=== PATIENT | female | born 1985 | race Caucasian/White ===

== ENCOUNTER → 2019-01-04 08:46 | Outpatient (CLI) | payer BC, MEDICAID, SELFPAY ==
[2018-12-29 14:33] VITALS: BMI 45.7
[2019-01-04 09:50] LABS: AST(SGOT) 35 U/L (15-37); Alanine Aminotransfer ALT/SGPT 48 U/L (13-56); Albumin, Serum 3.5 g/dL (3.2-5.0); Alkaline Phosphatase 74 U/L (45-117); Bilirubin, Direct 0.14 mg/dL (0.00-0.30); Cholesterol 148 mg/dL (200); Globulin 4.6 g/dL (2.2-4.2); High Density Lipoprotein 39 mg/dL; Protein, Total 8.1 g/dL (6.4-8.2); Triglycerides 107 mg/dL; Very Low Density Lipoprotein 21 mg/dL (5-40)
== END ==
PROVIDERS: Family Provider Internal Medicine; PCP Internal Medicine; Referring Provider Internal Medicine Cardiovascular Disease; Visit Provider Internal Medicine Cardiovascular Disease
DX: Z13.220 Encounter for screening for lipoid disorders (principal)
CPT/HCPCS: 36415; 80061; 80076

== ENCOUNTER → 2019-01-17 14:50 | Outpatient (CLI) | payer BC, MEDICAID, SELFPAY ==
[2018-12-29 14:33] VITALS: BMI 45.7
--- NOTE | 2019-01-17 14:53 | ECHOCS_ITS ---
Reason For Study: PHTN Procedure This was a 2D Doppler, Color Flow transthoracic echocardiogram. Contrast injection was performed. Exam performed in department. Left Ventricle Normal size and thickness. The estimated ejection fraction is 65 %. Normal diastology for age. No regional wall motion abnormalities noted. Right Ventricle Normal size and thickness. Normal systolic function. Atria Normal left atrium. Normal right atrium. Normal atrial septum. Bubble contrast study negative for right to left interatrial shunt. Mitral Valve The mitral valve is structurally normal. No prolapse or stenosis seen. Trivial mitral valve insufficiency. Tricuspid Valve Normal tricuspid valve. Trivial tricuspid valve insufficiency. Right ventricular systolic pressure estimated to be 26 mmHg. Aortic Valve Normal aortic valve. Trisinus/trileaflet aortic valve. Pulmonic Valve Normal pulmonic valve. Great Vessels Normal aortic root. Normal arch. Normal inferior vena cava. Inferior vena cava collapse with sniff. Pericardium/Pleural No pericardial effusion. Medication Diluted definity 4ml given slow IV push to enhance endocardial definition. Performed a rapid injection of agitated mix of 9 cc saline and 1cc air to assess for atrial septal defect. MMode/2D Measurements & Calculations LVIDd: 4.4 cm IVSd: 1.1 cm Ao root diam: 2.8 cm LVIDs: 3.1 cm LVPWd: 1.0 cm RVDd: 3.3 cm FS: 29.6 % LAV(MOD-bp): 39.3 ml LVAd ap4: 30.2 cm2 SV(MOD-sp4): 62.3 ml LAV(MOD-bp) Indexed: 18.7 ml/m2 EDV(MOD-sp4): 94.6 ml LAV(MOD-sp2): 43.8 ml EDV(sp4-el): 100.9 ml LAV(MOD-sp4): 34.8 ml LVAs ap4: 16.1 cm2 ESV(MOD-sp4): 32.3 ml ESV(sp4-el): 33.2 ml EF(MOD-sp4): 65.9 % EF(sp4-el): 67.1 % SV(sp4-el): 67.7 ml LA A4 area: 15.2 cm2 LA dimension(2D): 3.9 cm RA A4 area: 11.3 cm2 Doppler Measurements & Calculations MV E max enrike: 71.7 cm/sec Lat Peak E' Enrike: 15.9 cm/sec Med Peak E' Enrike: 9.9 cm/sec MV A max enrike: 52.8 cm/sec E/E' lat: 4.5 E/E' med: 7.2 MV E/A: 1.4 Ao V2 max: 145.6 cm/sec LV V1 max: 95.5 cm/sec PA V2 max: 73.3 cm/sec Ao max P.5 mmHg LV V1 max P.6 mmHg Ao V2 mean: 99.2 cm/sec Ao mean P.3 mmHg Ao V2 VTI: 28.2 cm TR max enrike: 229.4 cm/sec TR max P.0 mmHg Interpretation Summary The estimated ejection fraction is 65 %. Normal diastology for age. Bubble contrast study negative for right to left interatrial shunt. Trivial mitral valve insufficiency. Trivial tricuspid valve insufficiency. Right ventricular systolic pressure estimated to be 26 mmHg. Compared to echo report dated 04/22/2017, no appreciable changes noted. The study was technically difficult. Contrast injection was performed. Ordering Physician: Linus Stark Referring Physician: Maribel Kwan Performed By: Prudence Gee, FIDEL, RVT
== END ==
PROVIDERS: Family Provider Internal Medicine; PCP Internal Medicine; Referring Provider Internal Medicine Cardiovascular Disease; Visit Provider Internal Medicine Cardiovascular Disease
DX: R00.2 Palpitations (principal); I47.1 Supraventricular tachycardia; E66.9 Obesity, unspecified
CPT/HCPCS: 93306; Q9957; A4216; C8929

== ENCOUNTER → 2019-01-29 10:30 | Outpatient (CLI) | payer BC, MEDICAID, SELFPAY ==
[2018-12-29 14:33] VITALS: BMI 45.7
--- NOTE | 2019-01-29 10:31 | STEWCON_ITS ---
Reason For Study: Chest Pain Stress Results Protocol: Melvin Protocol Maximum Predicted HR: 189 bpm Target HR: 161 bpm % Maximum Predicted HR: 97 % DurationHeart Rate Stage (mm:ss) (bpm) BP Comment Baseline 100 134/70No Chest Pain; 4 ML Diluted Definity Given Melvin Protocol Stage I 3:00 123 142/72No Chest Pain Melvin Protocol Stage II 3:00 142 156/76No Chest Pain Melvin Protocol Stage III 3:00 184 164/66No Chest Pain; Mild Dyspnea Recovery 101 130/72No Chest Pain Stress Duration: 9:00 mm:ss Maximum Stress HR: 184 bpm METS: 10 Baseline Echocardiogram Findings The estimated ejection fraction is 65 %. Stress Echo Wall motion Data Resting WM Intermediate WM Stress WM Resting Wall Motion Wall Motion Stress No regional wall motion No regional wall motion abnormalities noted. abnormalities noted. EKG Data The baseline ECG displays normal sinus rhythm. The patient exercised according to the regular Melvin protocol for a total duration of 9:00. The maximum heart rate attained was 187 beats per minute. This was 98% of maximum predicted heart rate. The patient exercised into stage 4 of the Melvin protocol. During stress, there were no ST or T wave changes noted to suggest ischemia. No clinical angina was noted. No arrhythmias noted. Interpretation Summary The estimated ejection fraction is 65 %. Normal, adequate, treadmill echocardiogram. Negative for ischemia by EKG and echocardiographic criteria. No anginal symptoms noted. No arrhythmias noted. Appropriate blood pressure response to exercise. Below average exercise capacity for age. Final LVEF is 75%. Test terminated due to the attainment of target heart rate and mild dyspnea. Decreased sensitivity due to poor echo windows requiring Definity agent. No complications. The study was technically difficult. Contrast injection was performed. Ordering Physician: Linus Stark Referring Physician: Maribel Kwan Performed By: Elton Irene RCS
== END ==
PROVIDERS: Family Provider Internal Medicine; PCP Internal Medicine; Referring Provider Internal Medicine Cardiovascular Disease; Visit Provider Internal Medicine Cardiovascular Disease
DX: I47.1 Supraventricular tachycardia (principal); E66.9 Obesity, unspecified; R07.89 Other chest pain
CPT/HCPCS: 93017; 93350; Q9957; A4216; C8928

== ENCOUNTER 2019-02-01 18:07 | Emergency (ER) | payer BC, MEDICAID, SELFPAY ==
[2018-12-29 14:33] VITALS: BMI 45.7
[2019-02-01 18:08] VITALS: BP 167/101; PULSE 84; RESP 22; TEMP 36.7; O2SAT 98; BMI 45.7
--- NOTE | 2019-02-01 18:22 | EKG12_ITS ---
Test Reason : CP Blood Pressure : / mmHG Vent. Rate : 085 BPM Atrial Rate : 085 BPM P-R Int : 152 ms QRS Dur : 090 ms QT Int : 376 ms P-R-T Axes : 055 055 035 degrees QTc Int : 447 ms Normal sinus rhythm Normal ECG Confirmed by BELÉN STARK ([id number]), editor map FRANCES ROGERS ([id number]) on 02/05/2019 12:23:49 PM Referred By: Belén Stark Confirmed By:BELÉN STARK
[2019-02-01 18:38] VITALS: O2SAT 98
[2019-02-01 18:48] LABS: Absolute Lymphocyte Count 2.38 X10^3/uL (0.83-4.51); Absolute Neutrophil Count 4.3 X10^3/uL (2.0-7.7); Basophil# 0.02 X10^3/uL; Basophil% 0.3 % (0-1); Eosinophil# 0.08 X10^3/uL; Eosinophils% 1.1 % (0-5); Hematocrit 44.7 % (37-47); Hemoglobin 14.1 g/dL (12.0-15.0); Lymphocyte # 2.38 X10^3/ul (4.0); Lymphocyte % 32.2 % (19-41); Mean Corp Hgb Conc 31.5 g/dL (32-36); Mean Corpuscular Hgb 29.2 pg (27.0-32.0); Mean Corpuscular Volume 92.5 fL (81-99); Monocyte# 0.63 X10^3/uL; Monocyte% 8.5 % (0-10); NRBC Flagged by Analyzer 0 % (0-5); Neutrophil # 4.27 X10^3/uL (2.7-7.7); Neutrophil % 57.6 % (47-70); Platelet Count 239 K/mm3 (150-450); RBC Distribution Width CV 12.6 % (11.6-14.6); RBC Distribution Width SD 43.4 fl (35.1-43.9); Red Blood Count 4.83 M/mm3 (4.2-5.4); White Blood Count 7.4 K/mm3 (4.4-11.0)
--- NOTE | 2019-02-01 19:00 | RAD_ITS ---
STUDY: X-RAY CHEST REASON FOR EXAM: Female, 33 years old. Chest pain. TECHNIQUE: PA and lateral views of the chest. COMPARISON: None. FINDINGS: The lungs are clear and expanded. There is no demonstrated pleural abnormality. Normal size heart. Normal mediastinum and fern. Normal visualized pulmonary arteries. Normal visualized aortic arch and descending thoracic aorta. There is scoliosis of the thoracic spine with mild degenerative change. Normal visualized ribs, clavicles, and shoulders. There is no demonstrated abnormality of the visualized soft tissue structures of the upper abdomen. RAD/Chest PA and Lateral IMPRESSION: No acute cardiopulmonary disease. Electronically Signed: Nishant Justice DO at 19:18 EDT Tel [phone], Service support ,
[2019-02-01] MEDS: Aspirin 81 MG TAB.CHEW 324 MG PO (19:10)
[2019-02-01 19:11] LABS: Anion Gap 4 (5-15); BUN 12 mg/dL (7-18); BUN/Creat Ratio 16.2 RATIO (10-20); Calcium,Total 8.5 mg/dL (8.5-10.1); Chloride 106 mmol/L (98-107); Creatinine, Serum 0.74 mg/dL (0.55-1.02); EST Glomerular Filtration Rate 97 mL/min (>60); Est Glom Filt Rate - Afr Amer 117 mL/min (>60); Estimated Creatinine Clearance 87.12 ml/min; Glucose 103 mg/dL (74-106); Potassium 3.6 mmol/L (3.5-5.1); Sodium Level 139 mmol/L (136-145)
--- NOTE | 2019-02-01 19:41 | ED.VIS.GEN ---
History of Present Illness Chief Complaint: Chest Pain Narrative: Patient presenting for evaluation secondary to chest pain. Patient reports that she at about 1230 started having bouts of chest pain. She states that it is a sharp type pain located in her left chest that will come and go and last about 5 minutes of time. No real exacerbating or relieving factors with this. It does make her feel somewhat short of breath when it comes on. She is never really had any prior similar episodes in the past. Patient has a history of having paroxysmal SVT, and recently had a negative stress echo. She denies any history of diabetes hypertension hyperlipidemia smoking or premature family history of heart disease. She denies any DVT or PE risk factors. Review of systems otherwise negative. Past Medical History - Allergies and Home Meds Allergies/Adverse Reactions: Allergies No Known Allergies Allergy (Verified 12/29/18 14:42) Primary Care Physician: Maribel Kwan [Primary Care Provider] - Past Medical History: - - SVT Smoking Status: Never smoker Review of Systems All systems negative except as indicated Cardiovascular: Reports: Chest pain Physical Exam Vital Signs/Narrative: Vital Signs Temp Pulse Resp BP Pulse Ox 02/01/19 18:38 98 02/01/19 18:08 98.1 F 84 22 H 167/101 H 98 Inital Vital Signs reviewed: Yes General: Well nourished, Well developed, No Acute Distress Head: Normocephalic, Atraumatic Eyes: Perrl, EOMI ENT: Moist mucous membranes, No rhinorrhea Neck: Supple, Nontender Cardiovascular: Regular rate, Regular rhythm, No murmurs Respiratory: No distress, CTA bilaterally, Chest nontender Abdomen: Soft, Nondistended, Normal bowel sounds, Tender - Minimal epigastric which the patient attributes to her recent stress echo Back: Nontender, Normal Inspection Extremities: Nontender, No edema Skin: Normal color, No rash Neurological: Alert, Oriented x3, Cranial nerves II-XII grossly intact, Normal Strength, Normal Sensation Psychological: Normal affect, Normal Mood Diagnostic/Tx/Re-eval Chest X-Ray - ED: 2 View, Read by ED Physician, Read by Radiologist, Normal - EKG Follow-up EKG Interpretation: - - Normal sinus rhythm with a rate of [address] segments normal T waves normal IL and QTc intervals no evidence of WPW or Brugada morphology. - Medical Decision Making Patient presented secondary to chest pain. Work-up including CBC chemistry troponin chest x-ray and EKG was found to be unremarkable. Patient's heart score is 1. She is PERC negative, I do not believe that there is any indication for work-up of PE. Patient's pain is sharp and very atypical, and potentially is associated with referred to GI type pain. She was given reassurance, and was discharged in stable condition. ED Disposition - Plan for ED Patient: Disposition: Home or Assisted Living Diagnosis: Chest pain Instructions: CHEST PAIN, Uncertain Cause Referrals: Maribel Kwan [Primary Care Provider] - 1 Week
[2019-02-01 20:01] VITALS: BP 109/57; PULSE 78; RESP 14; O2SAT 98
== END 2019-02-01 20:03 | disposition home or self-care (01) ==
PROVIDERS: Emergency Provider Emergency Medicine; Family Provider Internal Medicine; PCP Internal Medicine
DX: R07.89 Other chest pain (principal); R06.00 Dyspnea, unspecified; I47.1 Supraventricular tachycardia; Z79.899 Other long term (current) drug therapy
CPT/HCPCS: 71046; 80048; 84484; 85025; 93005; 99284; A4216

== ENCOUNTER → 2019-02-08 20:00 | Outpatient (CLI) | payer BC, MEDICAID, SELFPAY ==
[2018-12-29 14:33] VITALS: BMI 45.7
== END ==
PROVIDERS: Family Provider Internal Medicine; PCP Internal Medicine; Referring Provider Internal Medicine Cardiovascular Disease; Visit Provider Internal Medicine Cardiovascular Disease
DX: G47.10 Hypersomnia, unspecified (principal)
CPT/HCPCS: 95810

== ENCOUNTER → 2019-03-19 13:44 | Outpatient (CLI) | payer BC, MEDICAID, SELFPAY ==
[2019-02-26 08:34] VITALS: BMI 44.8
== END ==
PROVIDERS: Family Provider Internal Medicine; PCP Internal Medicine; Visit Provider Nurse Practitioner Acute Care
DX: G47.33 Obstructive sleep apnea (adult) (pediatric) (principal)

== ENCOUNTER → 2020-01-15 14:00 | Outpatient (CLI) | payer BC, MEDICAID, SELFPAY ==
[2020-01-15 13:27] VITALS: BMI 52.4
[2020-01-15 14:52] LABS: Thyroid Stim Hormone (TSH) 1.43 uIU/mL (0.358-3.74)
== END ==
PROVIDERS: PCP Internal Medicine; Referring Provider Specialist; Visit Provider Specialist
DX: G47.33 Obstructive sleep apnea (adult) (pediatric) (principal); R00.2 Palpitations
CPT/HCPCS: 36415; 84443

== ENCOUNTER → 2020-01-16 08:34 | Outpatient (CLI) | payer BC, MEDICAID, SELFPAY ==
[2020-01-15 13:27] VITALS: BMI 52.4
[2020-01-16 10:07] LABS: AST(SGOT) 24 U/L (15-37); Alanine Aminotransfer ALT/SGPT 42 U/L (13-56); Albumin, Serum 3.2 g/dL (3.2-5.0); Alkaline Phosphatase 59 U/L (45-117); Cholesterol 155 mg/dL (200); Globulin 4.4 g/dL (2.2-4.2); High Density Lipoprotein 37 mg/dL; Protein, Total 7.6 g/dL (6.4-8.2); Triglycerides 158 mg/dL; Very Low Density Lipoprotein 32 mg/dL (5-40)
== END ==
PROVIDERS: Internal Medicine Cardiovascular Disease; PCP Internal Medicine; Referring Provider Specialist; Visit Provider Specialist
DX: O16.3 Unspecified maternal hypertension, third trimester (principal); O99.283 Endocrine, nutritional and metabolic diseases complicating pregnancy, third trimester; E78.00 Pure hypercholesterolemia, unspecified; O99.89 Other specified diseases and conditions complicating pregnancy, childbirth and the puerperium; R00.2 Palpitations; Z3A.00 Weeks of gestation of pregnancy not specified
CPT/HCPCS: 36415; 80061; 80076

== ENCOUNTER 2024-02-03 09:23 | Day surgery (SDC) | payer OTHER, MEDICAID, SELFPAY ==
[2024-01-25 16:48] LABS: Hematocrit 37.1 % (37-47); Hemoglobin 11.2 g/dL (12.0-15.0); Mean Corp Hgb Conc 30.2 g/dL (32-36); Mean Corpuscular Hgb 25.3 pg (27.0-32.0); Mean Corpuscular Volume 83.7 fL (81-99); Platelet Count 276 K/mm3 (150-450); RBC Distribution Width SD 42.8 fl (35.1-43.9); Red Blood Count 4.43 M/mm3 (4.2-5.4); White Blood Count 6.3 K/mm3 (4.4-11.0)
[2024-01-25 17:23] LABS: Anion Gap 3 (5-15); BUN 12 mg/dL (7-18); BUN/Creat Ratio 17.8 RATIO (10-20); Calcium,Total 8.9 mg/dL (8.5-10.1); Chloride 107 mmol/L (98-107); Creatinine, Serum 0.67 mg/dL (0.55-1.02); EST Glomerular Filtration Rate 105 mL/min (>60); Est Glom Filt Rate - Afr Amer 127 mL/min (>60); Glucose 89 mg/dL (74-106); Potassium 3.9 mmol/L (3.5-5.1); Sodium Level 138 mmol/L (136-145)
--- NOTE | 2024-01-31 07:13 | EKG12_ITS ---
Test Reason : PREOP Blood Pressure : / mmHG Vent. Rate : 080 BPM Atrial Rate : 080 BPM P-R Int : 168 ms QRS Dur : 080 ms QT Int : 392 ms P-R-T Axes : 055 040 023 degrees QTc Int : 452 ms Normal sinus rhythm with sinus arrhythmia Normal ECG Confirmed by MAXWELL FRANCO, HUE ([id number]), editor managing newspaper TRICIA TRAN ([id number]) on 02/01/2024 10:59:30 AM Referred By: Meri Liz Confirmed By:HUE ARREOLA MD
--- NOTE | 2024-02-02 13:09 | PCM.HP.BLA ---
History and Physical Date of Admission: 02/03/24 Pre-Op History and Physical HPI: The patient is a 38 year old female presenting for discussion regarding AUB and endometrial polylp. She is scheduled for Hysteroscopy D&C , polypectomy and insertion of Liletta IUD, for AUB, endometrial polyp on 02/03/24. Procedure discussed along with risks, benefits and complications. Other alternatives discussed for management. Consent form signed? Yes. PAST MEDICAL HISTORY PAST MEDICAL HISTORY Diagnosis Date ? anxiety ? Ectopic 2014 ? Sleep apnea ? SVT (supraventricular tachycardia) (HCC) PAST SURGICAL HISTORY PAST SURGICAL HISTORY Procedure Laterality Date ? TONSILLECTOMY HX 1993 CURRENT MEDICATIONS Current Outpatient Medications Medication Sig Dispense Refill ? buPROPion XL (WELLBUTRIN XL) 150 mg 24 hr tablet Take 1 tablet (150 mg) by mouth once daily in the morning. Do not crush, chew, or split. ? drospirenone, contraceptive, (SLYND) 4 mg (28) tabet Take 1 tablet by mouth once daily. 84 tablet 4 ? VENTOLIN HFA 90 mcg/actuation inhaler ? atenolol (TENORMIN) 25 mg tablet ? escitalopram oxalate (LEXAPRO) 10 mg tablet 20 mg. ? omeprazole (PRILOSEC) 40 mg capsule ? busPIRone (BUSPAR) 5 mg tablet Take 7.5 mg by mouth three times a day. (Patient not taking: Reported on 12/26/2023) ? fluticasone (FLONASE) 50 mcg/actuation nasal spray Use in the nose q 24 HR. No current facility-administered medications for this visit. ALLERGIES: Patient has no known allergies. PERSONAL HISTORY: SOCIAL HISTORY Social History Tobacco Use ? Smoking status: Never ? Smokeless tobacco: Never Vaping Use ? Vaping status: Never Used Substance Use Topics ? Alcohol use: Yes Comment: socially, but not while ? Drug use: No FAMILY HISTORY: FAMILY HISTORY FAMILY HISTORY Problem Relation Age of Onset ? Diabetes Mother ? Hypertension Mother ? Diabetes Maternal Grandmother ? Heart Maternal Grandfather ? Stroke Maternal Grandfather ? No Ocular Disease Other REVIEW OF SYMPTOMS: negative except as noted above PHYSICAL EXAMINATION: VITALS: Blood pressure 128/84, pulse 92, height 160 cm (5' 3), weight 133.8 kg (295 lb), last menstrual period 12/05/2023, SpO2 97%. GENERAL: The patient is well nourished, well hydrated in no acute distress. , The patient is oriented to time, place, and person. NECK: full range of motion LUNGS: Clear to auscultation bilaterally. no wheezes, rhonchi or rales HEART: Regular rate and rhythm, Normal heart sounds IMPRESSION: 38yo with AUB, endometrial polyp PLAN: hysteroscopy, D&C, polypectomy with symphion, and insertion of liletta iud Pt has been counseled on risks/benefits and alternatives of surgery including but not limited to anesthesia, bleeding, infection, uterine perforation with subsequent injury to pelvic structures including bowel, bladder, ureters and vessels. Pt wishes to proceed with surgery at this time. Pre and post op instructions reviewed I have reviewed and updated past medical and surgical history, medications and allergies Meri Mcguire MD
[2024-02-03] VITALS (12 sets, daily range): BP systolic 85–142; BP diastolic 43–89; PULSE 81–104; RESP 16–18; TEMP 36.4–36.8; O2SAT 92–100; BMI 53.2
[2024-02-03 09:50] LABS: Pregnancy, Urine Negative Negative
--- NOTE | 2024-02-03 10:23 | PCM.PRE.AN2 ---
ASA Classification* ASA Classification ASA Classification: 3 Assessment & Plan Anesthesia* Anesthesia Assessment Anesthesia Assessment: Discussed sedation and/or anesthesia options, risks, benefits, and alternatives with patient/parents/legal guardian/POA. Questions invited. The patient/parents/legal guardian/POA seems to understand and agrees to proceed with anesthesia plan. Reviewed the physical assessment, medical history, allergy history and patient home medications list prior to surgery/procedure/anesthetic and documented any changes. Performed airway and anesthesia risk assessments. Anesthesia Type Anesthesia Type: MAC History Source History Obtained from:: Patient and Chart Anesthesia Focused Assessment* Temperature: 98.1 F Pulse Rate: 85 Blood Pressure: 142/89 Respiratory Rate: 18 Pulse Ox: 98 Oxygen Delivery Method: Room Air Airway Assessment Mouth opens: >3 cm Mallampati Score: I Teeth Condition: Intact Neck Range of motion (ROM): Limited ROM (Slight decrease in extension) Focused Labs Anesthesia Preop lab: CBC WBC 6.3 K/mm3 (4.4-11.0) 01/25/24 16:33 RBC 4.43 M/mm3 (4.2-5.4) 01/25/24 16:33 Hgb 11.2 g/dL (12.0-15.0) L 01/25/24 16:33 Hct 37.1 % (37-47) 01/25/24 16:33 Plt Count 276 K/mm3 (150-450) 01/25/24 16:33 CHEMISTRY Potassium 3.9 mmol/L (3.5-5.1) 01/25/24 16:33 Sodium 138 mmol/L (136-145) 01/25/24 16:33 BUN 12 mg/dL (7-18) 01/25/24 16:33 Creatinine 0.67 mg/dL (0.55-1.02) 01/25/24 16:33 Glucose 89 mg/dL (74-106) 01/25/24 16:33 TSH 1.43 uIU/mL (0.358-3.74) 01/15/20 14:08 COAG PT 13.4 SECONDS (11.7-14.9) 03/25/17 19:30 Urine Test Negative Negative 02/03/24 09:40 Pre-Assessment Diagnosis/Proposed Procedure Planned Operative Procedure(s): Hysteroscopy,D&C, polypectomy, Symphion, iud insertion Anesthesia History Anesthesia History - advertising sales consultant: Anesthesia History - advertising sales consultant Hx Hospitalization No 01/25/24 15:24 Any Problems With Anesthesia No 01/25/24 15:24 Cholinesterase deficiency No 01/25/24 15:24 You/Your Family Experience No 01/25/24 15:24 fever (hyperthermia) with Relationship Recent Exposure to Contagious No 02/03/24 10:03 Disease Does patient have nerve No 01/25/24 15:24 stimulator Patient instructed to have device shut off --Does patient have Pacemaker No 02/03/24 10:03 or ICD? When Was Last Pacemaker Check QUESTION #4 FULL TEXT: You/Your Family Experience fever (hyperthermia) with Anesthesia Last Oral Intake Last Oral intake: Last Oral Intake NPO since 00:00 02/03/24 10:03 Meds taken in AM with sips of Yes 02/03/24 10:03 water? Meds patient instructed to omeprazole, wellbutrin, 02/03/24 10:03 take am of surgery lexapro PONV PONV - advertising sales consultant: PONV - advertising sales consultant Female Yes 01/25/24 15:24 HX of Motion Sickness Yes 01/25/24 15:24 HX of N/V After Surgery No 01/25/24 15:24 Non-Smoker Yes 01/25/24 15:24 Duration of Surgery greater No 01/25/24 15:24 than 60 minutes Number of Risk Factors 3 01/25/24 15:24 PONV Score Moderate Risk 01/25/24 15:24 Height & Weight Height & Weight: Anesthesia: Height & Weight Height 5 ft 2 in 02/03/24 10:03 Weight: 132 kg 02/03/24 10:03 Body Mass Index (BMI) 53.2 02/03/24 10:03 Respiratory Assessment Respiratory Assessment - advertising sales consultant: Respiratory Tract Infection Hx - advertising sales consultant Hx Respiratory Tract Infection No 01/25/24 15:24 STOP Sleep Apnea STOP Sleep Apnea - advertising sales consultant: STOP Sleep Apnea - advertising sales consultant Hx Hypertension Yes: occ high svt medication 01/25/24 15:24 (atenolol) takes care of it Hx Sleep Apnea Yes 01/25/24 15:24 CPAP Yes 01/25/24 15:24 BIPAP No 01/25/24 15:24 Do you snore loudly (louder than talking or can be heard Do you often feel tired/ fatigued/ sleepy during daytime? Has anyone observed you stop breathing during sleep? STOP Results Positive 01/25/24 15:24 QUESTION #5 FULL TEXT : Do you snore loudly (louder than talking or can be heard through closed doors)? Tobacco Use History Tobacco Use History - advertising sales consultant: Tobacco Use History - advertising sales consultant Tobacco Use Smoking Status Never smoker 01/25/24 15:24 Hx Tobacco Use No 01/25/24 15:24 Years Smoking Packs Smoked per Day Smoking Cessation Date was within the last 15 years Hx Smoking Cessation Date Hx Smoking Cessation Counseling Hematologic Medial History Hematologic Hx - advertising sales consultant: Hematologic Medical Hx - certified medical technician Hx of Blood Transfusion No 01/25/24 15:24 Hx of Transfusion in last 3 No 01/25/24 15:24 Months Date of Last Transfusion (if within last 3 months) Ever experience any problems No 01/25/24 15:24 with transfusion(s)? Specify any problems Hx of Preganancy in last 3 N/A 01/25/24 15:24 Months Nurse Filling Out Transfusion NBUCHER 01/25/24 15:24 & Questions: Date: 01/25/24 01/25/24 15:24 Time: 15:27 01/25/24 15:24 Patient unable to answer at this time (ie. confused, unrespo /Reproduction History /Reproductive History - advertising sales consultant: /Reproductive Hx- advertising sales consultant Hx Now No 01/25/24 15:24 Gestational Age (in weeks): EDC: Hx Hx Para Hx Section SAB No 01/25/24 15:24 PFSH Medical History Wears glasses Wears contact lenses Depression Anxiety Alcohol use Restless legs Heartburn History of edema CPAP (continuous positive airway pressure) dependence Sleep apnea Non-smoker Cardiology follow-up encounter History of stress test History of echocardiogram Hypertension affecting in third trimester Palpitations state, incidental Supraventricular tachycardia History of anxiety H/O supraventricular tachycardia Obesity (BMI 30-39.9) Mild pre-eclampsia Home Medications ?Medication ?Instructions ?Recorded ?Last Taken ?Type fluticasone propionate 50 2 spray intranasal DAILY 01/15/20 02/02/24 History mcg/actuation nasal spray,suspension atenolol 25 mg tablet 25 mg PO QDAY #30 tabs 01/30/21 02/02/24 Rx BP monitor #1 ea 10/27/21 Unknown Rx bupropion HCl 150 mg 24 hr tablet, 150 mg PO DAILY 01/25/24 02/03/24 History extended release escitalopram oxalate 20 mg tablet 20 mg PO DAILY 01/25/24 02/03/24 History omeprazole 40 mg capsule,delayed 40 mg PO DAILY 01/25/24 02/03/24 History release Allergy/AdvReac Type Severity Reaction Status Date / Time No Known Allergies Allergy Verified 02/03/24 10:02 Family History Mother Hypertension Diabetes Aunt Breast cancer Surgical History Hx of tonsillectomy Social History Smoking Status: Never smoker alcohol intake: never substance use type: does not use Review of Systems (Anesthesia) ROS Narrative System reviewed and no additional complaints, except as documented.
--- NOTE | 2024-02-03 10:52 | DCINST_ITS ---
Discharge Instructions Diet Discharge Diet: No restrictions Activity May resume sexual activity in: 1 week Dressing / Incision Call your doctor if you observe: Fever of 101 or Higher, Inability to urinate, Using more than 1 pad per hour and Uncontrolled pain Follow Up Care Please Follow Up With: Meri Liz MD When: 4-6 weeks IUD check Test Results: Test results from this visit will be discussed in further detail at your follow- up appointment, if applicable. Discharge Plan Admission Attending Provider: Meir Liz Primary Care Provider: Maribel Kwan Instructions Print Language: [place] Discharge Orders/Prescriptions Prescriptions: No Action fluticasone propionate 50 mcg/actuation spray,suspension 2 spray INTRANASAL DAILY Patient Comments: USE 2 SPRAY(S) IN EACH NOSTRIL ONCE DAILY bupropion HCl 150 mg tablet extended release 24 hr 150 mg PO DAILY escitalopram oxalate 20 mg tablet 20 mg PO DAILY omeprazole 40 mg capsule,delayed release(DR/EC) 40 mg PO DAILY atenolol 25 mg tablet 25 mg PO QDAY Qty: 30 11RF (DME) BP monitor See Rx Instructions .ROUTE .MEDSUPPLY Qty: 1 0RF Rx Instructions: As directed Referrals / Follow Up: Maribel Kwan MD [Primary Care Provider] - Disposition Disposition (needs filled in before D/C Order can be placed): Home, Self Care
--- NOTE | 2024-02-03 11:00 | EMB_PTH ---
PATIENT: GOVIND HASKINS [place]: [facility] [place] U#:[id number] AGE/SX: 38/F ROOM: RE02/03/[address]: Dr. Meri Liz, MDDOB: 1985 BED: DIS: 02/03/2024 SPEC #: [id number] RECD: 02/03/24 16:48 STATUS: JESSICA CURRY #: [id number] JAYLON: 02/03/24 11:[address]: Meri Liz DEPT: SURGICAL PATHOLOGY RECD BY: Morena Gutierrez ENTERED: 02/06/24 07:47 SP TYPE: ENDOM BX/C MARY DR: Dr. Maribel Kwan MD Tissues: Endometrium, NOS Procedures: Surgery Specimen Level IV HEADER OPERATION: Hysteroscopy, D&C PRE-OP DIAGNOSIS: Endometrial polyp TISSUE SUBMITTED: Endometrial polyp, endometrial curettings MICROSCOPIC DIAGNOSIS Endometrial polyps and endometrial curettings: Weakly proliferative endometrium. Fragments of myometrium with focal changes suggestive of superficial adenomyosis. Fragments of benign endocervical mucosa with acute and chronic inflammation, blood and mucous. See comment. 02/07/2024 COMMENT Clinical correlation and appropriate follow up are necessary. MICROSCOPIC DESCRIPTION Slides are reviewed. GROSS DESCRIPTION Received in fixative is one container labeled with the patient's name and designated Endometrial polyp, endometrial curettings. The specimen consists of multiple irregular fragments of light delgado soft tissue that in aggregate measure 5.0 x 3.0 x 0.2 cm. The specimen is totally submitted in two cassettes. 02/06/2024 TC:5 CPT:61535
[2024-02-03 11:44] LABS: Internal QC Validated? YES +Cl - CLEAR BKGD
[2024-02-03] MEDS: Levonorgestrel IUD (Liletta) 1 EACH INTRA-UTER (13:20)
--- NOTE | 2024-02-03 13:23 | PCM.POST.ANE ---
Anesthesia: Postop Eval I Current Vital Signs Temperature: 97.6 F Pulse Rate: 104 Blood Pressure: 133/83 Respiratory Rate: 18 Pulse Ox: 100 Oxygen Delivery Method: Room Air Assessment Airway patent: Yes Spontaneous unlabored respirations: Yes Mental status: Awake and Calm nausea: No Vomiting: No Anesthesia Complication: No Fluid Hydration Crystalloid volume administer (ml): 5 Total IV fluid infused: 5 Progress Note Anesthesia document: Postop Eval 1 completed: Yes
--- NOTE | 2024-02-03 13:25 | OP.PCM_ITS ---
Report of Operation Date of Procedure: 02/03/24 Pre-Operative Diagnosis: AUB, Endometrial polyp Post-Operative Diagnosis: same Surgery/Procedure Performed:: Hysteroscopy, D&C, polypectomy with symphion, Insertion of Liletta IUD Description of Surgical Findings:: endometrial polyp on anterior aspect of uterus. Both tubal ostia viusalized. Surgeon: Meri Liz newspaper stuffer: None Type of Anesthesia: MAC Special Medications: none Specimen's removed: endometrial curettings, endometrial polyp Estimated Blood Loss (mL): <5cc Fluids Replaced: none- fluid restriction due to national shortage Description of Procedure: Informed consent was obtained the patient was taken the operating room she was placed in supine position. She was given anesthesia. She was then placed in the [facility] where she was prepped and draped in the normal sterile fashion. At this time the weighted speculum was placed in the posterior fornix of vagina. Single-tooth tenaculum was used to gently grasp the anterior lip the cervix. At this time the uterine cavity was sounded to approximately 8 cm. Gentle dilatation was performed once adequate dilatation of the cervix was achieved the hysteroscope using normal saline as a distention medium was placed. Tubal ostia visualized. small polyp noted on anterior aspect of uterus. Symphion resting device used to obtain endometrial curettings and to perform polypectomy. Tissue will be sent to pathology for evaluation. Liletta IUD placed at uterine fundus without difficulty and strings cut at 2.5 from cervix. Tenaculum removed. Good hemostasis. Instrument, lap count correct x 2. Vaginal Sweep was negative. fluid deficit 350cc Grafts/Implants Used: Liletta IUD Procedure Start Time: 13:16 Procedure Stop Time: 13:24 Complications none Admit VTE Documentation VTE Present on Admission: Yes VTE Mechan Device Prophylaxis: SCD's VTE Pharm Prophylaxis ordered?: No Reason prophylaxis not ordered:: Procedure Not Indicated
--- NOTE | 2024-02-03 14:13 | POSTOPAN2_ITS ---
Anesthesia Postop Eval I Sum Postop Eval Completion status Anesthesia document: Postop Eval 1 completed: Yes Anesthesia Postop Eval I Summary Anesthesia Postop Eval I Summary: Anesthesia Postop Eval I: Assessment Summary Airway patent Yes 02/03/24 13:36 [email or web address] Spontaneous unlabored Yes 02/03/24 13:36 ENGINEERING [email or web address] respirations Mental status Awake,Calm 02/03/24 13:36 [email or web address] nausea No 02/03/24 13:36 ENGINEERING INTERN.[email or web address] Vomiting No 02/03/24 13:36 [email or web address] [email or web address] Anesthesia Postop Eval I: Fluid Summary Crystalloid volume administer 5 02/03/24 13:36 [email or web address] (ml) Colloids volume administered ( ml) Blood Product volume administered (ml) Total IV fluid infused 5 02/03/24 13:36 [email or web address] [email or web address] Anesthesia Postop Eval I: Summary Notes Anesthesia Complication No 02/03/24 13:36 [email or web address] [email or web address] Anesthesia Complication Comment: Post-operative progress note Anesthesia: Postop Eval II Evaluation Mental status: Awake Pain Level: 0 nausea: No Vomiting: No
--- NOTE | 2024-02-03 14:13 | PCM.POSTANE2 ---
Anesthesia Postop Eval I Sum Postop Eval Completion status Anesthesia document: Postop Eval 1 completed: Yes Anesthesia Postop Eval I Summary Anesthesia Postop Eval I Summary: Anesthesia Postop Eval I: Assessment Summary Airway patent Yes 02/03/24 13:36 [email or web address] Spontaneous unlabored Yes 02/03/24 13:36 CHEMICAL [email or web address] respirations Mental status Awake,Calm 02/03/24 13:36 [email or web address] nausea No 02/03/24 13:36 CHEMICAL [email or web address].[email or web address] Vomiting No 02/03/24 13:36 CHEMICAL [email or web address] Anesthesia Postop Eval I: Fluid Summary Crystalloid volume administer 5 02/03/24 13:36 [email or web address] (ml) Colloids volume administered ( ml) Blood Product volume administered (ml) Total IV fluid infused 5 02/03/24 13:36 CHEMICAL [email or web address] Anesthesia Postop Eval I: Summary Notes Anesthesia Complication No 02/03/24 13:36 [email or web address] Anesthesia Complication Comment: Post-operative progress note Anesthesia: Postop Eval II Evaluation Mental status: Awake Pain Level: 0 nausea: No Vomiting: No
== END 2024-02-03 15:24 | disposition home or self-care (01) ==
LOC: SDC 09:31 → AC 09:32
PROVIDERS: PCP Internal Medicine; Referring Provider Obstetrics & Gynecology; Visit Provider Obstetrics & Gynecology
PROC: 0UB98ZZ Excision of Uterus, Via Natural or Artificial Opening Endoscopic (ICD-10-PCS; CPT 58558; principal; 2024-02-03 10:45)
DX: N93.9 Abnormal uterine and vaginal bleeding, unspecified (principal); N84.0 Polyp of corpus uteri; F41.9 Anxiety disorder, unspecified; F32.A Depression, unspecified; G47.33 Obstructive sleep apnea (adult) (pediatric); Z99.89 Dependence on other enabling machines and devices; I47.10 Supraventricular tachycardia, unspecified
CPT/HCPCS: 58558; 58300; 36415; 80048; 81025; 85027; 88305; 93005; A4216; J2405

== ENCOUNTER 2024-11-20 12:04 | Emergency (ER) | payer OTHER, MEDICAID, SELFPAY ==
[2024-11-20 12:05] VITALS: BP 171/92; PULSE 81; RESP 18; TEMP 35.8; O2SAT 100; BMI 52.7
--- NOTE | 2024-11-20 12:45 | RAD_ITS ---
PROCEDURE: FOREARM 2 VIEWS 11/20/2024 REASON FOR EXAM: INJURY TECHNIQUE: FOREARM 2 VIEWS COMPARISON: None FINDINGS: The scapholunate articulation is widened to 0.43 cm. There is a minimally displaced fracture of the radial head which extends the articular surface. There is a visible joint effusion at the elbow. The ulna appears intact. The visualized portion of the distal humerus appears intact. There is no focal soft tissue swelling or radiopaque foreign body. RAD/Forearm 2 Views IMPRESSION: The scapholunate articulation is widened to 0.43 cm. There is a minimally displaced fracture of the radial head which extends the ar ticular surface. There is a visible joint effusion at the elbow. Critical results were discussed with Dr. López by Dr. Aburto at the time of di ctation. Reading Location: [facility]
--- NOTE | 2024-11-20 12:46 | EX.ED.UPPERE ---
HPI History of Present Illness Chief Complaint: Upper Extremity Injury Informant: patient Narrative Narrative: [id number] female presents mechanical fall right forearm injury yesterday. Slipped in the garage right onto the garage floor. No head injuries. No other injuries. Denies hip pain. Took ibuprofen yesterday. No history of fractures. Prior similar symptoms: No PFSH PFSH Medical History Wears glasses Wears contact lenses Depression Anxiety Alcohol use Restless legs Heartburn History of edema CPAP (continuous positive airway pressure) dependence Sleep apnea Non-smoker Cardiology follow-up encounter History of stress test History of echocardiogram Hypertension affecting in third trimester Palpitations state, incidental Supraventricular tachycardia History of anxiety H/O supraventricular tachycardia Obesity (BMI 30-39.9) Mild pre-eclampsia Home Medications ?Medication ?Instructions ?Recorded ?Last Taken ?Type fluticasone propionate 50 2 spray intranasal DAILY 01/15/20 02/02/24 History mcg/actuation nasal spray,suspension atenolol 25 mg tablet 25 mg PO QDAY #30 tabs 01/30/21 02/02/24 Rx BP monitor #1 ea 10/27/21 Unknown Rx bupropion HCl 150 mg 24 hr tablet, 150 mg PO DAILY 01/25/24 02/03/24 History extended release escitalopram oxalate 20 mg tablet 20 mg PO DAILY 01/25/24 02/03/24 History omeprazole 40 mg capsule,delayed 40 mg PO DAILY 01/25/24 02/03/24 History release Allergy/AdvReac Type Severity Reaction Status Date / Time No Known Allergies Allergy Verified 11/20/24 12:06 Family History Mother Hypertension Diabetes Aunt Breast cancer Surgical History Hx of tonsillectomy Social History Smoking Status: Never smoker alcohol intake: never substance use type: does not use ROS ROS ED Constitutional Constitutional ED: Denies fever(s) Cardiovascular Cardiovascular: Denies chest pain Respiratory/Chest Respiratory/Chest: Denies cough Gastrointestinal Gastrointestinal: Denies diarrhea or vomiting Musculoskeletal Musculoskeletal: Reports other Details: Right forearm pain. Integumentary Denies rash or wounds Neurologic Neurologic: Denies weakness EXAM Physical Exam Const Vital Signs: 11/20/24 12:05 Temperature 96.5 F L Temperature Source Oral Pulse Rate 81 Respiratory Rate 18 Blood Pressure 171/92 H Blood Pressure Mean 118 Pulse Ox 100 Oxygen Delivery Method Room Air Positive well nourished and well developed Constitutional Narrative: GCS 15. General Appearance ED: well developed HEENT normocephalic and atraumatic Eyes General Eye ED: Yes normal appearance of both eyes Neck full ROM Resp normal respiratory effort and normal air movement Cardio regular rate and regular rhythm GI soft to palpation Extremity Extremity Narrative: Right upper extremity: No shoulder or elbow tenderness. Mild tenderness mid forearm ulnar aspect no deformities. No snuffbox tenderness. No hand tenderness. Negative axial load to the wrists. Neuro oriented x3 Skin no rashes or lesions noted and no wounds MDM MDM MDM Narrative Medical decision making narrative: Interventions / MDM: Differential diagnosis: Elbow fracture Diagnosis considered but do not suspect: No clinical wrist pain for concerns for scapholunate separation. My EKG interpretation: N/A Imaging independently reviewed and interpreted by myself: 2 views right forearm: Minimal displaced radial head fracture. Widening of the scapholunate per radiologist. External documents reviewed: N/A Test considered but not ordered:N/A ED course: Patient declined any medications. No other injuries. 2 view forearm ordered for further evaluation. X-ray right hand fracture no ulnar fracture widening of the scapholunate however clinically no pain in this area. Discussed with patient significant pain keep immobilized with posterior splint she is right-hand dominant. She elects to stay with a sling at this time. She is given follow-up orthopedics. Should continue Motrin at home. Work note provided. All questions were answered. Re-evaluation: stable Disposition discussed with patient/family/significant other: Patient Case discussed with consulting clinician: N/A This note was generated with [employer] dictation software. It may contain incorrect words, spelling, and punctuation that were not noted in checking the note before signing. Discharge Plan Triage Chief Complaint: Upper Extremity Injury ED Provider: Edmar López Dx/Rx/DC Orders Clinical Impression: Closed fracture of head of right radius, Fall Instructions: ED Radial Head Fracture Prescriptions: No Action fluticasone propionate 50 mcg/actuation spray,suspension 2 spray INTRANASAL DAILY Patient Comments: USE 2 SPRAY(S) IN EACH NOSTRIL ONCE DAILY bupropion HCl 150 mg tablet extended release 24 hr 150 mg PO DAILY escitalopram oxalate 20 mg tablet 20 mg PO DAILY omeprazole 40 mg capsule,delayed release(DR/EC) 40 mg PO DAILY atenolol 25 mg tablet 25 mg PO QDAY Qty: 30 11RF (DME) BP monitor See Rx Instructions .ROUTE .MEDSUPPLY Qty: 1 0RF Rx Instructions: As directed Stand Alone Forms: ED Work / School Excuse Primary Care Provider: Maribel Kwan Referrals: Maribel Kwan MD [Primary Care Provider] - Shahab Rocha MD [Med Staff - Active Staff] - 1-2 Weeks Activity Restrictions/Additional Instructions: Closed fracture of the radial head your right elbow. Maintain your sling. Reported patient by radiology the scapholunate widening however you are nontender in this area. Continue ibuprofen 600 mg every 6 hours as needed for pain. Follow-up with orthopedics. Print Language: Citizen Of [place] Disposition Disposition: Home, Self Care Discharge Date/Time: 11/20/24 14:17
[2024-11-20 14:10] VITALS: BP 128/76; PULSE 78; RESP 14; TEMP 37.1; O2SAT 99
== END 2024-11-20 14:17 | disposition home or self-care (01) ==
PROVIDERS: Emergency Provider Emergency Medicine; PCP Internal Medicine; Visit Provider Emergency Medicine
DX: S52.123A Displaced fracture of head of unspecified radius, initial encounter for closed fracture (principal); W01.198A Fall on same level from slipping, tripping and stumbling with subsequent striking against other object, initial encounter; Y92.59 Other trade areas as the place of occurrence of the external cause; G47.30 Sleep apnea, unspecified; Z99.89 Dependence on other enabling machines and devices; F41.9 Anxiety disorder, unspecified; F32.A Depression, unspecified; Z79.899 Other long term (current) drug therapy
CPT/HCPCS: 73090; 99282

== ENCOUNTER → 2024-12-10 | Outpatient (CLI) | payer OTHER, MEDICAID, SELFPAY ==
--- NOTE | 2024-12-10 16:15 | RAD_ITS ---
PROCEDURE: ELBOW MIN 3 VIEWS 12/10/2024 REASON FOR EXAM: FU TECHNIQUE: ELBOW MIN 3 VIEWS COMPARISON: 11/23/2024. FINDINGS: Stable appearance of a radial head nondisplaced fracture with a similar associated elbow joint effusion. RAD/Elbow min 3 Views IMPRESSION: Unchanged fracture. Reading Location: [id number]
--- NOTE | 2024-12-10 16:15 | RAD_ITS ---
PROCEDURE: ELBOW MIN 3 VIEWS 12/10/2024 REASON FOR EXAM: FU TECHNIQUE: ELBOW MIN 3 VIEWS COMPARISON: 11/23/2024. FINDINGS: Stable appearance of a radial head nondisplaced fracture with a similar associated elbow joint effusion. RAD/Elbow min 3 Views IMPRESSION: Unchanged fracture. Reading Location: [id number]
--- OUTSIDE RECORDS SUMMARY | 2024-12-10 21:27 | XMS RPT_ITS | CCD ---
Author Organization [facility] Providers Care Bottom Turning Lathe Turner Name Role Phone Madhav Cesar Unavailable Unavailable [place], Maribel S Unavailable Unavailable [place], Maribel Unavailable Unavailable [place], Maribel S Unavailable Unavailable [place], Maribel S Unavailable Unavailable Unavailable [place], Maribel Unavailable Eliza Arevalo Unavailable Unavailable ROYAL, DO MARIBEL S Referring Unavailable ROYAL, DO MARIBEL S Primary Care Unavailable ROYAL, DO MARIBEL S Attending Unavailable ROYAL, DO MARIBEL S Primary Care Unavailable ROYAL, DO MARIBEL S Attending Unavailable ROYAL, DO MARIBEL S Attending Unavailable ROYAL, DO MARIBEL S Referring Unavailable ROYAL, DO MARIBEL S Primary Care Unavailable ROYAL, DO MARIBEL S Referring Unavailable ROYAL, DO MARIBEL S Primary Care Unavailable ROYAL, DO MARIBEL S Attending Unavailable [place] DO, Maribel S Primary Care Provider [place] DO, Maribel S Unavailable [phone] [place] DO, Maribel S Primary Care Provider [phone] ROYAL, MARIBEL S Referring Unavailable ROYAL, MARIBEL S Primary Care Unavailable ROYAL, MARIBEL S Primary Care Unavailable [place] DO, Maribel S Primary Care Provider [phone] [place] DO, Maribel S Primary Care Provider MERI ENGLAND Attending Unavail able ROYAL, MARIBEL S Primary Care Unavailable PLOTTS, VENUS Referring Unavailable ROYAL, MARIBEL S Primary Care Unavailable PLOTTS, VENUS Attending Unavailable ROYAL, MARIBEL S Primary Care Unavailable PLOTTS, VENUS Referring Unavailable ROYAL, MARIBEL S Primary Care Unavailable PLOTTS, VENUS Attending Unavailable ROYAL, MARIBEL S Primary Care Unavailable ROYAL, MARIBEL S Primary Care Unavailable PLOTTS, VENUS Attending Unavailable СЕРГЕЙ DE LEON Attending Unavailable ROYAL, MARIBEL S Primary Care Unavailable [place] DO, Maribel S Primary Care Provider ROYAL, MARIBEL S Attending Unavailable ROYAL, MARIBEL S Primary Care Unavailable ROYAL, MARIBEL S Attending Unavailable ROYAL, MARIBEL S Primary Care Unavailable ROYAL, MARIBEL S Referring Unavailable ROYAL, MARIBEL S Attending Unavailable ROYAL, MARIBEL S Referring Unavailable ROYAL, MARIBEL S Primary Care Unavailable ROYAL, MARIBEL S Attending Unavailable ROYAL, MARIBEL S Primary Care Unavailable Royal FRANCO, Dr. López Primary Care Provider Dr. Edmar López DO Emergency Provider [phone] Maribel Kwan MD Referring Provider Helio Charles MD Attending Provider Dr. Ronak Paz MD Attending Provider Ronak Paz Attending Unavailable Neyhart-Renner, Meri Referring Unavail able [place], Maribel Primary Care Unavailable [place], Maribel Primary Care Unavailable Neyhart-Renner, Meri Attending Unavail able Neyhart-Renner, Meri Referring Unavail able Edmar López Attending Unavailable [place], Maribel Primary Care Unavailable Ronak Paz Attending Unavailable [place], Maribel Primary Care Unavailable [place], Maribel Referring Unavailable Helio Charles Attending Unavailable [place], Maribel Primary Care Unavailable Dr. Edmar López DO Attending Provider Helio Charles MD Referring Provider [phone] Medications Current Medications Medication Drug Class(es) Dates Sig (Normalized) Sig (Original) [id number] 200 actuat albuterol 0.09 mg/actuat metered dose inhaler (20 sources) beta2-Adrenergic Agonist Start: 08-09-2022 End: 09-08-2022 take 2 puff(s) by inhalation every four hours for wheezing albuterol (Ventolin HFA) 90 mcg/actuation inhaler Indications: Bronchitis Inhale 2 puffs every 4 hours if needed for wheezing or shortness of breath. 8 g 1 08/09/2022 Active Start: 08-09-2022 VENTOLIN HFA 9 0 mcg/actuation inhaler 08/09/2022 Active amoxicillin 875 mg oral tablet (1 source) Penicillin-class Antibacterial Start: 07-15-2021 End: 07-24-2021 take 1 tablet by mouth twice daily amoxicillin 875 mg oral tablet ; 1 tab(s) orally 2 times a day x 10 days Quantity: 20 Refills: 0 Ordered: 15-Jul-2021 Eliza Arevalo Start: 15-Jul-2021 End: 24-Jul-2021 Generic Substitution Allowed Comments: Finish all this medication unless otherwise directed by prescriber. Comment on above: Finish all this medi cation unless otherwise directed by prescriber. atenolol 25 mg oral tablet (20 sources) beta-Adrenergic Cristina Start: 03-06-2024 End: 09-04-2024 take 1 tablet by mouth once daily atenolol (Tenormin) 25 mg tablet Indications: Paroxysmal SVT (supraventricular tachycardia) (CMS-HCC) Take 1 tablet (25 mg) by mouth once daily. 30 tablet 5 09/04/2024 Active Start: 11-02-2023 take 1 tablet by bravo th once daily atenolol (Tenormin) 25 mg tablet Indications: Paroxysmal SVT (supraventricular tachycardia) (CMS-HCC) Take 1 tablet (25 mg) by mouth once daily. 30 tablet 5 11/02/2023 Active Start: 10-27-2017 End: 03-06-2024 take 1 tablet by mouth once daily Atenolol 25 mg tablet Discontinued 25 mg PO daily 30 January 15, 2020 2:04pm January 30, 2021 3:56pm atenolol Quantit y: 0 Refills: 0 Ordered: 15-Jul-2021 Lance Phelan Generic Substitution Allowed benzonatate 200 mg oral capsule (4 sources) Non-narcotic Antitussive Start: 04-19-2023 End: 05-19-2023 take 1 capsule by mouth three times daily as needed for cough benzonatate (Tessalon) 200 mg capsule Indications: Upper respiratory tract infection, unspecified type Take 1 capsule (200 mg) by mouth 3 times a day as needed for cough. Do not crush or chew. 42 capsule 0 04/19/2023 05/19/2023 Active Start: 08-09-2022 End: 09-08-2022 take 1 capsule by mouth three times daily as needed for cough benzonatate (Tessalon) 100 mg capsule Indications: Bronchitis Take 1 capsule (100 mg) by mouth 3 times a day as needed for cough. Do not crush or chew. 42 capsule 1 08/09/2022 09/08/2022 Active Start: 07-15-2021 End: 07-24-2021 take 2 capsules by mouth every eight hours as needed benzonatate 100 mg oral capsule ; 1-2 cap(s) orally every 8 hours, As Needed for cough Quantity: 60 Refills: 0 Ordered: 15-Jul-2021 Eliza Arevalo Start: 15-Jul-2021 End: 24-Jul-2021 Generic Substitution Allowed Comments: May cause drowsiness. Alcohol may intensify this effect. Use care when operating dangerous machinery.Swallow whole. Do not crush. Comment on above: May cause drowsiness . Alcohol may intensify this effect. Use care when operating dangerous machinery.Swallow whole. Do not crush. BP monitor (4 sources) Start: 10-27-2021 BP monitor Active 0 .Route .MEDSUPPLY 1 0 October 27, 2021 12:00am Hypertension affecting in third trimester Unspecified maternal hypertension, third trimester Pt qualifies: RX called to [facility] As directed Start: 10-27-2021 BP monitor Act dotty 0 .ROUTE .MEDSUPPLY 1 0 October 27, 2021 12:00am Hypertension affecting in third trimester Unspecified maternal hypertension, third trimester Pt qualifies: RX called to [facility] As directed 24 hr buPROPion hydrochloride 150 mg extended release oral tablet (19 sources) Aminoketone Start: 11-02-2023 End: 11-03-2024 take 1 tablet by mouth once daily Bupropion Hcl 150 mg tablet extended release 24 hr Active 150 mg PO DAILY January 25, 2024 12:00am busPIRone hydrochloride 7.5 mg oral tablet (17 sources) Start: 11-08-2022 End: 11-08-2023 take 1 tablet by mouth three times daily busPIRone (Buspar) 7.5 mg tablet Indications: Anxiety Take 1 tablet (7.5 mg) by mouth 3 times a day. 90 tablet 5 11/08/2022 11/02/2023 Discontinued (Med List Cleanup) Start: 10-21-2022 End: 10-21-2023 take 1 tablet by mouth three times daily busPIRone (Buspar) 5 mg tablet Indications: Anxiety Take 1 tablet (5 mg) by mouth 3 times a day. 90 tablet 5 10/21/2022 10/21/2023 Active End: 03-15-2024 take 7.5 mg by mouth three times daily busPIRone (BUSPAR) 5 mg tablet Take 7.5 mg by mouth three times a day. 03/15/2024 Discontinued doxycycline hyclate 100 mg oral tablet (3 sources) Tetracycline-class Drug Start: 04-15-2023 End: 11-02-2023 take 1 tablet by mouth twice daily doxycycline (Vibra-Tabs) 100 mg tablet Take 1 tablet (100 mg) by mouth 2 times a day. 04/15/2023 11/02/2023 Discontinued (Med List Cleanup) drospirenone, contraceptive, (SLYND) 4 mg (28) tabet (13 sources) Start: 06-01-2023 take 1 tablet by mouth once daily drospirenone, contraceptive, (SLYND) 4 mg (28) tabet Take 1 tablet by mouth once daily. 84 tablet 4 06/01/2023 Active Start: 09-01-2022 End: 11-12-2022 take 1 tablet by mouth once daily drospirenone, contraceptive, (SLYND) 4 mg (28) tabet Take 1 tablet by mouth once daily. 28 tablet 3 09/01/2022 11/12/2022 Discontinued Start: 09-01-2022 take 1 tablet by bravo th once daily drospirenone, contraceptive, (SLYND) 4 mg (28) tabet Take 1 tablet by mouth once daily. 28 tablet 3 09/01/2022 Active Comment on above: Take 1 tablet by bravo th once daily. escitalopram 20 mg oral tablet (20 sources) Serotonin Reuptake Inhibitor Start: End: take 1 tablet by mouth once daily Escitalopram Oxalate 20 mg tablet Active 20 mg PO DAILY January 25, 2024 12:00am Start: 11-02-2023 take 1 tablet by bravo th once daily escitalopram (Lexapro) 20 mg tablet Indications: Anxiety Take 1 tablet (20 mg) by mouth once daily. 30 tablet 5 11/02/2023 Active Start: 07-04-2023 End: 11-02-2023 take 1 tablet by mouth once daily escitalopram (Lexapro) 20 mg tablet Indications: Anxiety TAKE 1 TABLET (20 MG) BY MOUTH ONCE DAILY. 30 tablet 5 07/04/2023 11/02/2023 Discontinued (Reorder) Start: 01-04-2023 take 1 tablet by bravo th once daily escitalopram (Lexapro) 20 mg tablet Indications: Anxiety Take 1 tablet (20 mg) by mouth once daily. 30 tablet 5 01/04/2023 Active Start: 07-08-2020 End: 07-29-2022 take 1 tablet by mouth once daily escitalopram (Lexapro) 20 mg tablet Indications: Anxiety Take 1 tablet (20 mg) by mouth once daily. 30 tablet 5 07/29/2022 Active Start: 05-26-2020 escitalopram o xalate (LEXAPRO) 10 mg tablet 20 mg. 05/26/2020 Active Start: 02-13-2019 End: 01-25-2024 take 1 tablet by mouth once daily Escitalopram Oxalate (Lexapro) 10 mg tablet Discontinued 10 mg PO DAILY February 26, 2019 12:00am January 25, 2024 3:24pm Lexapro Quantity : 0 Refills: 0 Ordered: 15-Jul-2021 Lance Phelan Status: Other Generic Substitution Allowed loratadine 10 mg oral tablet (1 source) Start: 10-12-2023 take 1 tablet by mouth once daily loratadine (Claritin) 10 mg tablet Take 1 tablet (10 mg) by mouth once daily. 10/12/2023 Active LORazepam (1 source) Benzodiazepine Lorazepam Intens ol Quantity: 0 Refills: 0 Ordered: 15-Jul-2021 Lance Phelan Generic Substitution Allowed methylPREDNISolone (1 source) Corticosteroid Start: 04-19-2023 End: 04-26-2023 methylPREDNISolone (Medrol Dospak) 4 mg tablets Indications: Upper respiratory tract infection, unspecified type Take as directed on package. 21 tablet 0 04/19/2023 04/26/2023 Active omeprazole 40 mg delayed release oral capsule (20 sources) Proton Pump Inhibitor Start: 03-03-2020 End: 09-04-2024 take 1 capsule by mouth once daily Omeprazole 40 mg capsule,delayed release(DR/EC) Active 40 mg PO DAILY January 25, 2024 12:00am predniSONE 10 mg oral tablet (2 sources) Start: 08-09-2022 End: 08-14-2022 predniSONE (Deltasone) 10 mg tablet Indications: Bronchitis Take 1 tablet (10 mg) by mouth in the morning and 1 tablet (10 mg) at noon and 1 tablet (10 mg) in the evening and 1 tablet (10 mg) before bedtime. Do all this for 5 days. 20 tablet 0 08/09/2022 08/14/2022 Active Start: 03-16-2022 predniSONE 10 MG Oral Tablet TAKE 4 TABLETS DAILY FOR 3 DAYS,3 TABLETS DAILY FOR 3 DAYS, 2 TABLETS DAILY FOR 3 DAYS AND 1 TABLET DAILY FOR 3 DAYS, THEN STOP. Quantity: 30 Refills: 0 Ordered: 16-Mar-2022 Maribel Kwan DO Start : 16-Mar-2022 Active SLYND 4 mg (28) tabet (1 source) Start: 11-12-2022 take 1 tablet by mouth once daily SLYND 4 mg (28) tabet TAKE 1 TABLET BY MOUTH ONCE DAILY. 28 tablet 3 11/12/2022 Active Comment on above: TAKE 1 TABLET BY BRAVO ONCE DAILY. topiramate 25 mg oral tablet (9 sources) Start: 12-28-2021 End: 10-21-2022 take 1 tablet by mouth in the morning, then take 1 tablet by mouth twice daily at bedtime topiramate (Topamax) 25 mg tablet Indications: Chronic primary headache Take 1 tablet (25 mg) by mouth in the morning and 1 tablet (25 mg) before bedtime. 2 times daily. 60 tablet 5 07/29/2022 Active Comment on above: Take 25 mg by mouth. Completed/Discontinued Medications Medication Drug Class(es) Dates Sig (Normalized) Sig (Original) aspirin 81 mg delayed release oral tablet (4 sources) Platelet Aggregation Inhibitor, Nonsteroidal Anti-inflammatory Drug Start: 03-11-2017 End: 10-27-2017 take 1 tablet by mouth once daily Aspirin 81 MG tablet Discontinued 81 mg PO DAILY@0800 March 11, 2017 1:00am October 27, 2017 2:38pm Calcium Carbonate (2 sources) CALCIUM CARBONAT E (TUMS ORAL) Take by mouth as needed. 0 Active Comment on above: Take by mouth as nee ded. erythromycin 0.005 mg/mg ophthalmic ointment (2 sources) Macrolide, Macrolide Antimicrobial Start: 05-22-2021 erythromycin (ROMYCIN) 5 mg/gram (0.5 %) ophthalmic ointment Use 1 application in the right eye daily at bedtime. Rub onto eyelids / eyelashes 3.5 g 0 05/22/2021 Active Comment on above: Use 1 application in the right eye daily at bedtime. Rub onto eyelids / eyelashes etonogestrel 68 mg drug implant (1 source) Progestin Start: 05-25-2017 End: 09-01-2022 etonogestrel (NEXPLANON) subdermal implant 68 mg Indications: Nexplanon insertion 1 Each by SUBDERMAL route one time only for 1 dose. 1 Each 0 05/25/2017 09/01/2022 Discontinued (Course of therapy completed) Comment on above: 1 Each by SUBDERMAL route one time only for 1 dose. fluticasone furoate 0.0275 mg/actuat metered dose nasal spray (20 sources) Corticosteroid Start: 05-04-2023 End: 09-04-2025 take 2 spray(s) nasal route once daily fluticasone (Flonase Sensimist) 27.5 mcg/actuation nasal spray Indications: PND (post-nasal drip) Administer 2 sprays into each nostril once daily. 10 g 5 03/06/2024 09/04/2024 Discontinued (Reorder) Start: 12-17-2019 Fluticasone Pr opionate 50 mcg/actuation spray,suspension Active 2 NMA INTRANASAL DAILY January 15, 2020 12:00am Start: 12-17-2019 fluticasone (F LONASE) 50 mcg/actuation nasal spray Use in the nose q 24 HR. 12/17/2019 Active Start: 12-17-2019 End: 11-02-2023 take 2 spray(s) nasal route once daily fluticasone (Flonase) 50 mcg/actuation nasal spray Administer 2 sprays into each nostril once daily. 12/17/2019 11/02/2023 Discontinued (Med List Cleanup) Comment on above: Use in the nose q 24 HR. labetalol hydrochloride 100 mg oral tablet (14 sources) beta-Adrenergic Cristina Start: 03-11-20 End: 10-28-19 take 1 tablet by mouth twice daily Labetalol 100 MG tablet Discontinued 100 mg PO TWICE A DAY 180 3 April 11, 2017 5:23pm October 27, 2017 2:52pm htn Comment on above: Take 100 mg by mouth twice daily. levonorgestrel 0.268766 mg/hr intrauterine system (11 sources) Progestin, Progestin-containing Intrauterine Device Start: 07-09-19 End: 10-22-19 levonorgestrel (Mirena) 20 mcg/24 hours (8 yrs) 52 mg IUD Mirena (52 MG) 20 MCG/24HR IUD Refills: 0 Maribel Kwan DO Start : 08-Jul-2020 Active 0 07/08/2020 10/21/2022 Discontinued (Therapy completed) Start: 07-08-2020 Mirena (52 MG) 20 MCG/24HR IUD Quantity: 0 Refills: 0 Ordered: 08-Jul-2020 Maribel Kwan DO Start : 08-Jul-2020 Active Start: 06-23-2020 End: 09-01-2022 levonorgestrel (MIRENA) 20 m cg/24 hours (6 yrs) 52 mg IUD 1 Each by INTRAUTERINE route as directed. 1 Each 0 06/23/2020 09/01/2022 Discontinued (Course of therapy completed) Comment on above: 1 Each by INTRAUTERI NE route as directed. norethindrone acetate 5 mg oral tablet (9 sources) Start: 12-26-19 End: 01-25-20 norethindrone (AYGESTIN) 5 mg tablet 1 tab 3x/day until bleeding stops. 1 tab 2x/day x 2 days. 1 tab daily x 2 days 35 tablet 01/05/2024 01/25/2024 Discontinued Lgiffwqb-Df-Xym-Fe-FA ( VITAMIN) tab (2 sources) take 20-30 tablets by mouth once Janyrrhd-Ak-Zfz-Fe-FA ( VITAMIN) tab Take 1 tablet by mouth. 20-30 fast track 0 Active Comment on above: Take 1 tablet by bravo th. - fast track Vit No.[id number] 1 EACH tablet (4 sources) Start: 03-11-20 17 End: 10-28-19 18 take 1 tablet by mouth once daily Vit No.[id number] 1 EACH tablet Discontinued 1 NMA PO DAILY March 11, 2017 1:00am October 27, 2017 2:38pm raNITIdine 75 mg oral tablet (2 sources) Histamine-2 Receptor Antagonist take 1 tablet by mouth twice daily as needed raNITIdine (ZANTAC) 75 mg tablet Take 75 mg by mouth twice daily. As needed 0 Active Comment on above: Take 75 mg by mouth twice daily. As needed Slynd 4 mg (28) tablet (7 sources) Start: 09-02-19 End: 03-06-20 24 take 1 tablet by mouth once daily Slynd 4 mg (28) tablet Take 1 tablet by mouth once daily. 09/01/2022 03/06/2024 Discontinued (Med List Cleanup) Start: 09-01-2022 take 1 tablet by bravo th once daily Slynd 4 mg (28) tablet Take 1 tablet by mouth once daily. 09/01/2022 Active Start: 09-01-2022 take 1 tablet by bravo th once daily Slynd 4 mg (28) tablet Take 1 tablet by mouth once daily. 0 09/01/2022 Active Start: 09-01-2022 take 1 tablet by bravo th once daily Slynd 4 mg (28) tablet Take 4 mg by mouth once daily. 0 09/01/2022 Active Problems Active Problems Problem Classification Problem Date Documented Date Episodic/Chronic Allergic reactions (1 source) Allergic contact dermatitis; Translations: [Contact dermatitis and other eczema, unspecified cause] Episodic Anxiety disorders (20 sources) Anxiety; Translations: [Anxiety state, unspecified] Onset: 06-05-2022 06-05-2022 Chronic Cardiac dysrhythmias (20 sources) Paroxysmal supraventricular tachycardia; Translations: [Paroxysmal supraventricular tachycardia] Onset: 03-22-2017 06-05-2022 Chronic Cardiac dysrhythmias (4 sources) Palpitations; Translations: [Palpitations] 12-27-2018 Episodic Contraceptive and procreative management (1 source) Intrauterine contraceptive device in situ; Translations: [Encounter for routine checking of intrauterine contraceptive device] 03-15-2024 Episodic E Codes: Fall (8 sources) Fall; Translations: [Unspecified fall, initial encounter] Onset: 11-23-2024 11-20-2024 Episodic Esophageal disorders (20 sources) Gastroesophageal reflux disease; Translations: [Esophageal reflux] Onset: 06-05-2022 06-05-2022 Chronic Essential hypertension (1 source) Hypertensive disorder; Translations: [Essential (primary) hypertension] Chronic Fracture of upper limb (10 sources) Closed fracture of head of radius; Translations: [Displaced fracture of head of right radius, initial encounter for closed fracture] Onset: 11-23-2024 11-20-2024 Episodic Hypertension complicating ; childbirth and the puerperium (11 sources) Hypertension complicating ; Translations: [Unspecified hypertension complicating , childbirth, or the puerperium, unspecified as to episode of care or not applicable] 12-27-2018 Chronic Hypertension complicating ; childbirth and the puerperium (8 sources) Mild pre-eclampsia; Translations: [Mild to moderate pre-eclampsia, unspecified trimester] Onset: 05-04-2023 Resolved: 05-04-2023 05-04-2023 Episodic Immunizations and screening for infectious disease (20 sources) Patient encounter status; Translations: [Other specified vaccination] Episodic Menstrual disorders (8 sources) Menometrorrhagia; Translations: [Excessive and frequent menstruation with irregular cycle] Onset: 01-03-2024 12-26-2023 Chronic Nonspecific chest pain (4 sources) Chest pain; Translations: [Chest pain, unspecified] 02-02-2019 Episodic Other acquired deformities (18 sources) Scoliosis deformity of spine; Translations: [Scoliosis [and kyphoscoliosis], idiopathic] Onset: 06-05-2022 06-05-2022 Chronic Other ear and sense organ disorders (1 source) Otalgia; Translations: [Right ear pain] Episodic Other female genital disorders (9 sources) Abnormal uterine bleeding due to endometrial polyp; Translations: [Abnormal uterine and vaginal bleeding, unspecified] Onset: 01-05-2024 01-05-2024 Chronic Other female genital disorders (1 source) Abnormal uterine bleeding; Translations: [Abnormal uterine and vaginal bleeding, unspecified] 01-25-2024 Chronic Other female genital disorders (1 source) Abnormal uterine and vaginal bleeding, unspecified; Translations: [Abnormal uterine and vaginal bleeding, unspecified] Onset: 03-22-2024 Chronic Other female genital disorders (1 source) Polyp of corpus uteri; Translations: [Polyp of corpus uteri] 01-25-2024 Episodic Other lower respiratory disease (1 source) Persistent cough; Translations: [Cough, persistent] Episodic Other nutritional; endocrine; and metabolic disorders (1 source) Obesity; Translations: [Obesity] Chronic Other nutritional; endocrine; and metabolic disorders (20 sources) Body mass index 40+ - severely obese; Translations: [Body Mass Index 50.0-59.9, adult] Onset: 06-05-2022 06-05-2022 Chronic Other nutritional; endocrine; and metabolic disorders (6 sources) Morbid obesity; Translations: [Morbid (severe) obesity due to excess calories] Onset: 06-05-2022 06-05-2022 Chronic Other nutritional; endocrine; and metabolic disorders (4 sources) Body mass index 30+ - obesity; Translations: [Obesity, unspecified] 02-26-2019 Chronic Other upper respiratory disease (2 sources) Nasal congestion; Translations: [Other disease of nasal cavity and sinuses] 07-15-2021 Episodic Ovarian cyst (9 sources) Cyst of bilateral ovaries; Translations: [Unspecified ovarian cyst, right side] Onset: 01-05-2024 01-05-2024 Episodic Residual codes; unclassified (20 sources) Obstructive sleep apnea syndrome; Translations: [Obstructive sleep apnea (adult)(pediatric)] Onset: 06-05-2022 06-05-2022 Chronic Residual codes; unclassified (2 sources) Obstructive sleep apnea (adult) (pediatric); Translations: [Obstructive sleep apnea (adult) (pediatric)] Onset: 06-05-2022 Chronic Residual codes; unclassified (7 sources) Medication regimen behavior finding; Translations: [Other unknown and unspecified cause of morbidity and mortality] Episodic Residual codes; unclassified (12 sources) Taking medication for chronic disease; Translations: [Illness, unspecified] Onset: 06-05-2022 06-05-2022 Episodic Residual codes; unclassified (2 sources) Illness, unspecified; Translations: [Illness, unspecified] Onset: 06-05-2022 Episodic Screening and history of mental health and substance abuse codes (17 sources) H/O: anxiety state; Translations: [Personal history of other mental and behavioral disorders] Onset: 08-26-2016 08-26-2016 Episodic Unclassified (2 sources) COUGH SORE THROAT SINUS FATIGUE 07-15-2021 Comment on above: COUGH SORE THROAT SI NUS FATIGUE Unclassified (1 source) Subacute cough; Translations: [Subacute cough] Onset: 05-04-2023 Unclassified (1 source) Supraventricular tachycardia, unspecified; Translations: [Supraventricular tachycardia, unspecified] Onset: 06-05-2022 Unclassified (1 source) Supraventricular tachycardia, unspecified (CMS-HCC); Translations: [Supraventricular tachycardia, unspecified (CMS-HCC)] Onset: 06-05-2022 Unclassified (1 source) Closed fracture of head of right radius Unclassified (1 source) S52.121A - Displaced fracture of head of right radius, initial encounter for closed fracture Past or Other Problems Problem Classification Problem Date Documented Date Episodic/Chronic Chronic obstructive pulmonary disease and bronchiectasis (10 sources) Bronchitis; Translations: [Bronchitis, not specified as acute or chronic] Onset: 08-09-2022 Resolved: 11-08-2022 08-09-2022 Episodic Diabetes or abnormal glucose tolerance complicating ; childbirth; or the puerperium (11 sources) Abnormal glucose level; Translations: [Abnormal glucose complicating ] Onset: 01-25-2017 Resolved: 05-11-2017 05-11-2017 Episodic Headache; including migraine (1 source) Chronic primary headache; Translations: [Chronic primary headache] 07-29-2022 Episodic Hypertension complicating ; childbirth and the puerperium (1 source) Hypertension complicating ; Translations: [History of Hypertension complicating ] Malaise and fatigue (17 sources) Fatigue; Translations: [Other malaise and fatigue] Onset: 10-21-2022 Resolved: 03-06-2024 07-15-2021 Episodic Other and unspecified benign neoplasm (13 sources) Nevus of choroid of right eye; 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] Onset: 12-31-2020 12-31-2020 Episodic Other circulatory disease (13 sources) H/O: hypertension; Translations: [Personal history of other diseases of the circulatory system] Onset: 09-01-2016 05-11-2017 Episodic Other complications of (11 sources) H/O: ectopic ; Translations: [Supervision of with history of ectopic , unspecified trimester] Onset: 08-26-2016 Resolved: 10-29-2016 10-29-2016 Episodic Other complications of (11 sources) Urinary tract infection in ; Translations: [Unspecified infection of urinary tract in , first trimester] Onset: 09-17-2016 Resolved: 05-11-2017 05-11-2017 Episodic Other connective tissue disease (5 sources) Plantar fasciitis; Translations: [Plantar fascial fibromatosis] Onset: 05-04-2023 Resolved: 05-04-2023 05-04-2023 Episodic Other eye disorders (13 sources) Meibomian gland dysfunction of bilateral eyes; Translations: [Meibomian gland dysfunction of right eye, unspecified eyelid] Onset: 12-31-2020 12-31-2020 Episodic Other eye disorders (13 sources) Chalazion of right upper eyelid; Translations: [Chalazion right upper eyelid] Onset: 12-31-2020 04-03-2021 Episodic Other eye disorders (13 sources) Chalazion of lower eyelid of right eye; Translations: [Chalazion right lower eyelid] Onset: 04-03-2021 04-03-2021 Episodic Other lower respiratory disease (7 sources) History of clinical finding in subject; Translations: [Personal history of other diseases of respiratory system] Resolved: 03-17-2020 Episodic Other lower respiratory disease (4 sources) Cough; Translations: [Subacute cough] Onset: 05-04-2023 Resolved: 11-02-2023 05-04-2023 Episodic Other lower respiratory disease (1 source) Cough; Translations: [Subacute cough] Onset: 05-04-2023 Resolved: 11-02-2023 11-02-2023 Episodic Other and delivery including normal (11 sources) Unplanned ; Translations: [Encounter for supervision of normal , unspecified, unspecified trimester] Onset: 08-26-2016 Resolved: 05-11-2017 05-11-2017 Episodic Other upper respiratory infections (20 sources) Posterior rhinorrhea; Translations: [Postnasal drip] Onset: 06-05-2022 Resolved: 05-04-2023 07-15-2021 Episodic Otitis media and related conditions (6 sources) Dysfunction of right eustachian tube; Translations: [Unspecified Eustachian tube disorder, right ear] Onset: 11-02-2023 Resolved: 09-04-2024 11-02-2023 Episodic Unclassified (1 source) Patient encounter status; Translations: [Screening for heart disease] Unclassified (1 source) Subacute cough; Translations: [Subacute cough] Onset: 05-04-2023 Unclassified (3 sources) Onset: 03-06-2024 Resolved: 09-04-2024 03-06-2024 Unclassified (1 source) Supraventricular tachycardia, unspecified; Translations: [Supraventricular tachycardia, unspecified] Onset: 09-04-2024 Unclassified (1 source) Supraventricular tachycardia, unspecified (CMS-HCC); Translations: [Supraventricular tachycardia, unspecified (CMS-HCC)] Onset: 11-02-2023 NEGATED: Highlighted row has not occurred!Residual codes; unclassified (6 sources) Disease Episodic Results Test Name Value Interpretation Reference Range Facility Elbow min 3 Viewson 11-24-19 Elbow min 3 Views [facility] Imaging Services [address] [place] [address] Elbow min 3 Views MR#: [id number] Acct: [id number] Name: GOVIND HASKINS Rep #: [id number] : 1985 F 39 From: Naldo Owen MD PCP: Dr. Maribel Kwan MD Status: DEP AMB Study: Elbow min 3 Views Date of Exam: 11/23/24 Exam# [id number] Ordering Dr: Helio Charles MD PROCEDURE: ELBOW MIN 3 VIEWS 11/23/2024 REASON FOR EXAM: EVAL RADIAL HEAD FRACTURE TECHNIQUE: ELBOW MIN 3 VIEWS COMPARISON: 11/20/2024 FINDINGS: Elbow joint effusion. Nondisplaced intra-articular radial head fracture no additional fracture or dislocation. RAD/Elbow min 3 Views IMPRESSION: Stable appearance to a radial head fracture. Reading Location: [place] [address] CC: Dr. Maribel Kwan MD; Dr. Helio Charles MD Credit And Collections Analyst: Signed Normal [facility] Orthopedic Visit Reporton Orthopedic Visit Report [facility] [address] [place] [address] OFFICE VISIT Date of Service: 11/23/24 MR#: [id number] Acct: [id number] Name: GOVIND HASKINS Rep #: [id number] : 1985 Provider: Dr. Helio tong MD Age/Sex: 39/F Location: [facility] Status: Signed Intake Vital Signs 11/20/24 12:05 11/23/24 13:36 Height 5 ft 2 in 5 ft 2 in Weight: 287 lb BMI 52.4 Intake Visit Reasons: RIGHT ELBOW Chief Complaint: right elbow Accompanied by: Self Is patient in pain?: Yes (right elbow) Pain scale (1-10): 3 Allergies No Known Allergies Allergy (Verified 11/23/24 13:37) Medications ???Medication ???Instructions ???Recorded ???Confirmed ???Type fluticasone propionate 50 2 spray intranasal DAILY 01/15/20 11/23/24 History mcg/actuation nasal spray,suspension atenolol 25 mg tablet 25 mg PO QDAY #30 tabs 01/30/21 Rx BP monitor #1 ea 10/27/21 Rx bupropion HCl 150 mg 24 hr tablet, 150 mg PO DAILY 01/25/24 5 History extended release escitalopram oxalate 20 mg tablet 20 mg PO DAILY 01/25/24 11/23/24 History omeprazole 40 mg capsule,delayed 40 mg PO DAILY 01/25/24 11/23/24 H istory release PFSH Medical History Wears glasses Wears contact lenses Depression Anxiety Alcohol use Restless legs Heartburn History of edema CPAP (continuous positive airway pressure) dependence Sleep apnea Non-smoker Cardiology follow-up encounter History of stress test History of echocardiogram Hypertension affecting in third trimester Palpitations state, incidental Supraventricular tachycardia History of anxiety H/O supraventricular tachycardia Obesity (BMI 30-39.9) Mild pre-eclampsia Surgical History Hx of tonsillectomy Family History Mother Hypertension Diabetes Aunt Breast cancer Social History Smoking Status: Never smoker alcohol intake: never substance use type: does not use HPI RIGHT ELBOW Details: This documentation accurately reflects the service provided and the decisions made by me, Dr. Helio Charles MD 11/23/24 [id number]. Part of today???s visit was documented by [ ], acting as scribe. GOVIND HASKINS is a 39 year old F here today for R radial head fracture. 4 days ago. patient nontender at SL interval despite the xray report stating widened interval. SEND FOR XR patient had a fall that 4 days ago directly onto the right upper extremity including the elbow and wrist. Tlqlp-iqmr-sudfhult. 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 refer notes Hxdxy-jpbo-zdxxkqyo female presents mechanical fall right forearm injury yesterday. Slipped in the garage right onto the garage floor. No head injuries. No other injuries. Denies hip pain. Took ibuprofen yesterday. No history of fractures. Prior similar symptoms: No Supplemental Info [facility] Imaging Services [address] [place] [address] Forearm 2 Views MR#: [id number] Acct: [id number] Name: GOVIND HASKINS Rep #: [id number] : 1985 F 39 From: Ivan Aburto MD PCP: Dr. Maribel Kwan MD Status: REG ER Study: Forearm 2 Views Date of Exam: 11/20/24 Exam# [id number] Ordering Dr: Edmar López DO PROCEDURE: FOREARM 2 VIEWS 11/20/2024 REASON FOR EXAM: INJURY TECHNIQUE: FOREARM 2 VIEWS COMPARISON: None FINDINGS: The scapholunate articulation is widened to 0.43 cm. There is a minimally displaced fracture of the radial head which extends the articular surface. There is a visible joint effusion at the elbow. The ulna appears intact. The visualized portion of the distal humerus appears intact. There is no focal soft tissue swelling or radiopaque foreign body. RAD/Forearm 2 Views IMPRESSION: The scapholunate articulation is widened to 0.43 cm. There is a minimally displaced fracture of the radial head which extends the articular surface. There is a visible joint effusion at the elbow. Critical results were discussed with Dr. López by Dr. Aburto at the time of dictation. Reading [facility] I did review radiographs 3 views of both wrists. This confirms a widened scapholunate interval on both sides that is symmetric. I took repeat radiographs of the elbow on the right side there is a nondisplaced intra-articular fracture of the radial he (more content not included)... Normal [facility] Wrist min 3 Viewson 11-24-19 Wrist min 3 Views [facility] Imaging Services [address] [place], [place] [id number] Wrist min 3 Views MR#: [id number] Acct: [id number] Name: GOVIND HASKINS Rep #: [id number] : 1985 F 39 From: Naldo Owen MD PCP: Dr. Maribel Kwan MD Status: DEP AMB Study: Wrist min 3 Views Date of Exam: 11/23/24 Exam# [id number] Ordering Dr: Helio Charles MD PROCEDURE: WRIST MIN 3 VIEWS 11/23/2024 REASON FOR EXAM: EVAL SL INTERVAL, COMPARISON VIEWS BOTH SIDES TECHNIQUE: WRIST MIN 3 VIEWS COMPARISON: Left forearm series 11/23/2024 FINDINGS: The right scapholunate interval is 3.2 mm, and was 2.5 mm on the left. Although mildly prominent, this is probably a normal variant. There is no history of right wrist injury. No acute bone or soft tissue pathology. RAD/Wrist min 3 Views IMPRESSION: No acute right wrist findings. Reading Location: [place] [address] CC: Dr. Maribel Kwan MD; Dr. Helio Charles MD Credit And Collections Analyst: Signed Normal [facility] Wrist min 3 Views [facility] Imaging Services [address] [place], [place] [id number] Wrist min 3 Views MR#: [id number] Acct: [id number] Name: GOVIND HASKINS Rep #: [id number] : 1985 F 39 From: Naldo Owen MD PCP: Dr. Maribel Kwan MD Status: DEP AMB Study: Wrist min 3 Views Date of Exam: 11/23/24 Exam# [id number] Ordering Dr: Helio Charles MD PROCEDURE: WRIST MIN 3 VIEWS 11/23/2024 REASON FOR EXAM: EVAL SL INTERVAL, COMPARISON VIEWS BOTH SIDES TECHNIQUE: WRIST MIN 3 VIEWS COMPARISON: Forearm radiograph 11/20/2024, right wrist exam 11/23/2024 FINDINGS: Scapholunate interval of 2.1 mm, within normal limits. No acute bone or soft tissue pathology. RAD/Wrist min 3 Views IMPRESSION: No acute findings Reading Location: [place] [address] CC: Dr. Maribel Kwan MD; Dr. Helio Charles MD Credit And Collections Analyst: Signed Normal [facility] Emergency Department Summary on 11-20-2024 Emergency Department Summary [facility] Medical Records Department [address] [place] [address] Emergency Department Summary 11/20/24 MR#: [id number] Acct: [id number] Name: GOVIND HASKINS Rep #: [id number] : 1985 39 From: Edmar Cantu PCP: Dr. Maribel Kwan MD Status:DEP ER Location: ED HPI History of Present Illness Chief Complaint: Upper Extremity Injury Informant: patient Narrative Narrative: Xrgsk-fyta-dephljye female presents mechanical fall right forearm injury yesterday. Slipped in the garage right onto the garage floor. No head injuries. No other injuries. Denies hip pain. Took ibuprofen yesterday. No history of fractures. Prior similar symptoms: No PFSH PFSH Medical History Wears glasses Wears contact lenses Depression Anxiety Alcohol use Restless legs Heartburn History of edema CPAP (continuous positive airway pressure) dependence Sleep apnea Non-smoker Cardiology follow-up encounter History of stress test History of echocardiogram Hypertension affecting in third trimester Palpitations state, incidental Supraventricular tachycardia History of anxiety H/O supraventricular tachycardia Obesity (BMI 30-39.9) Mild pre-eclampsia Home Medications ???Medication ???Instructions ???Recorded ???Last Taken ???Type fluticasone propionate 50 2 spray intranasal DAILY 01/15/20 02/02/24 History mcg/actuation nasal spray,suspension atenolol 25 mg tablet 25 mg PO QDAY #30 tabs 01/30/21 Rx BP monitor #1 ea 10/27/21 Unknown Rx bupropion HCl 150 mg 24 hr tablet, 150 mg PO DAILY 01/25/24 4 History extended release escitalopram oxalate 20 mg tablet 20 mg PO DAILY 01/25/24 02/03/24 History omeprazole 40 mg capsule,delayed 40 mg PO DAILY 01/25/24 02/03/24 H istory release Allergy/AdvReac Type Severity Reaction Status Date / Time No Known Allergies Allergy Verified 11/20/24 12:06 Family History Mother Hypertension Diabetes Aunt Breast cancer Surgical History Hx of tonsillectomy Social History Smoking Status: Never smoker alcohol intake: never substance use type: does not use ROS ROS ED Constitutional Constitutional ED: Denies fever(s) Cardiovascular Cardiovascular: Denies chest pain Respiratory/Chest Respiratory/Chest: Denies cough Gastrointestinal Gastrointestinal: Denies diarrhea or vomiting Musculoskeletal Musculoskeletal: Reports other Details: Right forearm pain. Integumentary Denies rash or wounds Neurologic Neurologic: Denies weakness EXAM Physical Exam Const Vital Signs: 11/20/24 12:05 Temperature 96.5 F L Temperature Source Oral Pulse Rate 81 Respiratory Rate 18 Blood Pressure 171/92 H Blood Pressure Mean 118 Pulse Ox 100 Oxygen Delivery Method Room Air Positive well nourished and well developed Constitutional Narrative: GCS 15. General Appearance ED: well developed HEENT normocephalic and atraumatic Eyes General Eye ED: Yes normal appearance of both eyes Neck full ROM Resp normal respiratory effort and normal air movement Cardio regular rate and regular rhythm GI soft to palpation Extremity Extremity Narrative: Right upper extremity: No shoulder or elbow tenderness. Mild tenderness mid forearm ulnar aspect no deformities. No snuffbox tenderness. No hand tenderness. Negative axial load to the wrists. Neuro oriented x3 Skin no rashes or lesions noted and no wounds MDM MDM MDM Narrative Medical decision making narrative: Interventions / MDM: Differential diagnosis: Elbow fracture Diagnosis considered but do not suspect: No clinical wrist pain for concerns for scapholunate separation. My EKG interpretation: N/A Imaging independently reviewed and interpreted by myself: 2 views right forearm: Minimal displaced radial head fracture. Widening of the scapholunate per radiologist. External documents reviewed: N/A Test considered but not ordered:N/A ED course: Patient declined any medications. No other injuries. 2 view forearm ordered for further evaluation. X-ray right hand fracture no ulnar fracture widening of the scapholunate however clinically no pain in this area. Discussed with patient significant pain keep immobilized with posterior splint she is right-hand dominant. She elects to stay with a sling at this time. She is given follow-up orthopedics. Should continue Motrin at home. Work note provided. All questions were answered. Re-evaluation: stable Disposition discussed with patient/family/significant other: Patient Case discussed with consulting c (more content not included)... Normal [facility] Forearm 2 Viewson 11-20-2024 Forearm 2 Views [facility] Imaging Services [address] [place], [place] [address] Forearm 2 Views MR#: [id number] Acct: [id number] Name: GOVIND HASKINS Rep #: [id number] : 1985 F 39 From: Ivan Aburto MD PCP: Dr. Maribel Kwan MD Status: REG ER Study: Forearm 2 Views Date of Exam: 11/20/24 Exam# [id number] Ordering Dr: Edmar López DO PROCEDURE: FOREARM 2 VIEWS 11/20/2024 REASON FOR EXAM: INJURY TECHNIQUE: FOREARM 2 VIEWS COMPARISON: None FINDINGS: The scapholunate articulation is widened to 0.43 cm. There is a minimally displaced fracture of the radial head which extends the articular surface. There is a visible joint effusion at the elbow. The ulna appears intact. The visualized portion of the distal humerus appears intact. There is no focal soft tissue swelling or radiopaque foreign body. RAD/Forearm 2 Views IMPRESSION: The scapholunate articulation is widened to 0.43 cm. There is a minimally displaced fracture of the radial head which extends the articular surface. There is a visible joint effusion at the elbow. Critical results were discussed with Dr. López by Dr. Aburto at the time of dictation. Reading Location: [place] CC: Dr. Maribel Kwan MD; Dr. 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 Govind Haskins presents today for IUD check. She had a Liletta placed on 02/03/2024 with hysteroscopy D+C, polypectomy. She has had some spotting since placement. Pathology benign per Dr. Renner 02/15/24. REVIEW OF SYSTEMS: OUTSOLE BEVELER: Negative for abnormal vaginal bleeding, abnormal vaginal discharge + spotting SENSITIVE EXAM: The sensitive examination was discussed with the Patient or Patient's Authorized [place] Lab Technician. As applicable, any other physician, advance practice provider, medical student, or other health professional student that will be observing or involved in the sensitive examination for educational or training purposes was discussed with the Patient or Authorized Nitriles Lab Technician. The Patient or Authorized Nitriles Lab Technician has agreed to proceed with the sensitive examination. (Sensitive examination includes inspection and/or palpation of the breasts, pelvis, prostate and anorectal regions). PHYSICAL EXAMINATION: BP 122/80 Wt 293 lb 6.4 oz (133.1kg) ABDOMEN:soft, non-tender, no masses, no hepatosplenomegaly, and no lymphadenopathy EXTERNAL GENITALIA: Normal genitalia and Bartholins, Urethra, Sken'e normal CERVIX: smooth, no lesions and IUD strings visualized. IUD strings visible. UTERUS: normal size, regular, and non-tender ADNEXA: negative for tenderness or masses IMPRESSION/PLAN: IUD correctly positioned. Follow up for annual exam or sooner if needed. Сергей De Leon APRN.CNP Medical Decision Making: Problems: Minimal: Self-limited or minor problem Data: Unique test result(s) reviewed: 1 Risk: Moderate: Drug management Medical Decision Making Level: 2 - Straightforward Allergies As of Date: 03/15/2024 (No Known Allergies) Date Reviewed: 03/15/2024 Reviewed by: Сергей De Leon APRN.CNP - Fully Assessed Reason for Visit: IUD Follow UP [Other] Primary Visit Diagnosis:Surveillance of previously prescribed intrauterine contraceptive device [Z30.431] Prescriptions as of 03/15/2024 - buPROPion XL (WELLBUTRIN XL) 150 mg 24 hr tablet Take 1 tablet (150 mg) by mouth once daily in the morning. Do not crush, chew, or split. - drospirenone, contraceptive, (SLYND) 4 mg (28) tabet Take 1 tablet by mouth once daily. - VENTOLIN HFA 90 mcg/actuation inhaler - fluticasone (FLONASE) 50 mcg/actuation nasal spray Use in the nose q 24 HR. - atenolol (TENORMIN) 25 mg tablet - escitalopram oxalate (LEXAPRO) 10 mg tablet 20 mg. 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 Follow-up and Disposition History for Encounter Date Provider Department Center 03/15/2024 [id number] DE LEON Encounter Status:Closed by СЕРГЕЙ DE LEON on 03/15/24 [facility] Discharge Instructionon Discharge Instruction [facility] Medical Records Department [address] [place] [address] Instructions for Home/Discharge Instructions 02/03/24 1052 MR#: [id number] Acct: [id number] Name: GOVIND HASKINS Rep #: [id number] : 1985 38 From: Meri Liz MD PCP: Dr. Maribel Kwan MD Status:REG [facility] Discharge Instructions Diet Discharge Diet: No restrictions Activity May resume sexual activity in: 1 week Dressing / Incision Call your doctor if you observe: Fever of 101 or Higher, Inability to urinate, Using more than 1 pad per hour and Uncontrolled pain Follow Up Care Please Follow Up With: Meri Liz MD When: 4-6 weeks IUD check Test Results: Test results from this visit will be discussed in further detail at your follow-up appointment, if applicable. Discharge Plan Admission Attending Provider: Meri Liz Primary Care Provider: Maribel Kwan Instructions Print Language: Armenian Discharge Orders/Prescriptions Prescriptions: No Action fluticasone propionate 50 mcg/actuation spray,suspension 2 spray INTRANASAL DAILY Patient Comments: USE 2 SPRAY(S) IN EACH NOSTRIL ONCE DAILY bupropion HCl 150 mg tablet extended release 24 hr 150 mg PO DAILY escitalopram oxalate 20 mg tablet 20 mg PO DAILY omeprazole 40 mg capsule,delayed release(DR/EC) 40 mg PO DAILY atenolol 25 mg tablet 25 mg PO QDAY Qty: 30 11RF (DME) BP monitor See Rx Instructions .ROUTE .MEDSUPPLY Qty: 1 0RF Rx Instructions: As directed Referrals / Follow Up: Maribel Kwan MD [Primary Care Provider] - Disposition Disposition (needs filled in before D/C Order can be placed): Home, Self Care 02/03/24 1052 Meri Liz MD CC: Dr. Maribel Kwan MD Signed [facility] MR/POSTOP.[facility] 02-03-2024 MR/POSTOP.[facility] Medical Records Department [address] [place] [address] Anesthesia Postop Eval I 02/03/24 1323 MR#: [id number] Acct: [id number] Name: GOVIND HASKINS Rep #: [id number] : 1985 38 From: Lana Sargent CRNA PCP: Dr. Maribel Kwan MD Status:REG SD Y Race: C Location: [place] [address] Anesthesia: Postop Eval I Current Vital Signs Temperature: 97.6 F Pulse Rate: 104 Blood Pressure: 133/83 Respiratory Rate: 18 Pulse Ox: 100 Oxygen Delivery Method: Room Air Assessment Airway patent: Yes Spontaneous unlabored respirations: Yes Mental status: Awake and Calm nausea: No Vomiting: No Anesthesia Complication: No Fluid Hydration Crystalloid volume administer (ml): 5 Total IV fluid infused: 5 Progress Note Anesthesia document: Postop Eval 1 completed: Yes 02/03/24 1336 Date Lana Sargent CRNA Cosigner Signature: Date CC: Signed Normal [facility] [id number] 02-03-2024 MR/POSTOPAN2 [facility] Medical Records Department [address] [place] [address] Anesthesia Postop Eval II 02/03/24 1413 MR#: [id number] Acct: [id number] Name: GOVIND HASKINS Rep #: [id number] : 1985 38 From: Dillon Moran MD PCP: Dr. Maribel Kwan MD Status:REG SDC Y Race: C Location: [place] [address] Anesthesia Postop Eval I Sum Postop Eval Completion status Anesthesia document: Postop Eval 1 completed: Yes Anesthesia Postop Eval I Summary Anesthesia Postop Eval I Summary: Anesthesia Postop Eval I: Assessment Summary Airway patent Yes 02/03/24 13:36 [employer].SCHR Spontaneous unlabored Yes 02/03/24 13:36 [employer] SERVICES MA[employer]GER.SCHR respirations Mental status Awake,Calm 02/03/24 13:36 EN[employer] SERVICES MANAGER.SCHR nausea No 02/03/24 13:36 EN[employer] SERVICES MANAGER.SCHR Vomiting No 02/03/24 13:36 [employer] SERVICES MANAGER.SCHR Anesthesia Postop Eval I: Fluid Summary Crystalloid volume administer 5 02/03/24 13:36 ENTERPRISE SERVICES MANAGER.SCHR (ml) Colloids volume administered ( ml) Blood Product volume administered (ml) Total IV fluid infused 5 02/03/24 13:36 EN[employer]PRISE SERVICES MANAGER.SCHR Anesthesia Postop Eval I: Summary Notes Anesthesia Complication No 02/03/24 13:36 EN[employer]ISE SERVICES MANAGER.SCHR Anesthesia Complication Comment: Post-operative progress note Anesthesia: Postop Eval II Evaluation Mental status: Awake Pain Level: 0 nausea: No Vomiting: No 02/03/24 141 Date Dillon Moran MD Cosigner Signature: Date CC: Signed Normal [facility] Operative Reporton 4 Operative Report [facility] Medical Records Department [address] [place] [address] Operative Report 02/03/24 1325 MR#: [id number] Acct: [id number] Name: GOVIND HASKINS Rep #: [id number] : 1985 38 From: Meri Liz MD PCP: Dr. Maribel Kwan MD Status:[facility] Location: [place] [address] Report of Operation Date of Procedure: 02/03/24 Pre-Operative Diagnosis: AUB, Endometrial polyp Post-Operative Diagnosis: same Surgery/Procedure Performed:: Hysteroscopy, D C, polypectomy with symphion, Insertion of Liletta IUD Description of Surgical Findings:: endometrial polyp on anterior aspect of uterus. Both tubal ostia viusalized. Surgeon: Meri Liz travel agency manager: None Type of Anesthesia: MAC Special Medications: none Specimen's removed: endometrial curettings, endometrial polyp Estimated Blood Loss (mL): <5cc Fluids Replaced: none- fluid restriction due to national shortage Description of Procedure: Informed consent was obtained the patient was taken the operating room she was placed in supine position. She was given anesthesia. She was then placed in the [facility] where she was pr epped and draped in the normal sterile fashion. At this time the weighted speculum was placed in the posterior fornix of vagina. Single-tooth tenaculum was used to gently grasp the anterior lip the cervix. At this time the uterine cavity was sounded to approximately 8 cm. Gentle dilatation was performed once adequate dilatation of the cervix was achieved the hysteroscope using normal saline as a distention medium was placed. Tubal ostia visualized. small polyp noted on anterior aspect of uterus. Symphion resting device used to obtain endometrial curettings and to perform polypectomy. Tissue will be sent to pathology for evaluation. Liletta IUD placed at uterine fundus without difficulty and strings cut at 2.5 from cervix. Tenaculum removed. Good hemostasis. Instrument, lap count correct x 2. Vaginal Sweep was negative. fluid deficit 350cc Grafts/Implants Used: Liletta IUD Procedure Start Time: 13:16 Procedure Stop Time: 13:24 Complications none Admit VTE Documentation VTE Present on Admission: Yes VTE Mechan Device Prophylaxis: SCD's VTE Pharm Prophylaxis ordered?: No Reason prophylaxis not ordered:: Procedure Not Indicated 02/03/24 1328 Cosigner Signature (if applicable): CC: Dr Meri Liz MD; Dr. Maribel Kwan MD Signed Normal [facility] ,Urineon 02-03-2024 Beta HCG ( test) Ql (U) Negative Normal [facility] Comment on above: Result Comment: Very dilute urine specimens, as indicated by a low specific gravity, may not contain outbound sales representative levels of hCG. If is still suspected, a first morning urine specimen should be collected 48 hours later and tested. Performed By: #### L 400.7600 #### [facility] [address] [place], [address] Surgery Specimen Level Damian 02-03-2024 Surgery Specimen Level IV Patient Age/Sex Location Account Attending Physician GOVIND HASKINS 38/F [facility] [id number] Dr Meri Liz, Specimen: [id number] Received: 02/03/24 Status: JESSICA Vick Num: [id number] Spec Type: ENDOM BX/C Subm Dr: Dr Meri Joshi-MD Shayla HEADER OPERATION: Hysteroscopy, D C PRE-OP DIAGNOSIS: Endometrial polyp TISSUE SUBMITTED: Endometrial polyp, endometrial curettings MICROSCOPIC DIAGNOSIS Endometrial polyps and endometrial curettings: Weakly proliferative endometrium. Fragments of myometrium with focal changes suggestive of superficial adenomyosis. Fragments of benign endocervical mucosa with acute and chronic inflammation, blood and mucous. See comment. 02/07/2024 COMMENT Clinical correlation and appropriate follow up are necessary. MICROSCOPIC DESCRIPTION Slides are reviewed. GROSS DESCRIPTION Received in fixative is one container labeled with the patient's name and designated Endometrial polyp, endometrial curettings. The specimen consists of multiple irregular fragments of light delgado soft tissue that in aggregate measure 5.0 x 3.0 x 0.2 cm. The specimen is totally submitted in two cassettes. 02/06/2024 TC:5 CPT:35205 Patient Age/Sex Location Account Attending Physician GOVIND HASKINS 38/F [facility] [id number] Dr Meri Liz, Signed (signature on file) Dr. Len Castellanos MD 02/07/24 1148 [facility] Comment on above: Performed By: #### P SUIV #### [facility] [address] [place], [address] H AND P Exam - OB/GYNon 10-0 H&P Exam - RANGELAND MANAGEMENT SPECIALIST [facility] Records Department [address] [place] [address] H P Exam - RANGELAND MANAGEMENT SPECIALIST 02/02/24 1309 MR#: [id number] Acct: [id number] Name: GOVIND HASKINS Rep #: [id number] : 1985 38 From: Meri Liz MD PCP: Dr. Maribel Kwan MD Status:REG [facility] Location: [address] History and Physical Date of Admission: 02/03/24 Pre-Op History and Physical HPI: The patient is a 38 year old female presenting for discussion regarding AUB and endometrial polylp. She is scheduled for Hysteroscopy D C , polypectomy and insertion of Liletta IUD, for AUB, endometrial polyp on 02/03/24. Procedure discussed along with risks, benefits and complications. Other alternatives discussed for management. Consent form signed? Yes. PAST MEDICAL HISTORY PAST MEDICAL HISTORY Diagnosis Date ??? anxiety ??? Ectopic 2014 ??? Sleep apnea ??? SVT (supraventricular tachycardia) (HCC) PAST SURGICAL HISTORY PAST SURGICAL HISTORY Procedure Laterality Date ??? TONSILLECTOMY HX 1993 CURRENT MEDICATIONS Current Outpatient Medications Medication Sig Dispense Refill ??? buPROPion XL (WELLBUTRIN XL) 150 mg 24 hr tablet Take 1 tablet (150 mg) by mouth once daily in the morning. Do not crush, chew, or split. ??? drospirenone, contraceptive, (SLYND) 4 mg (28) tabet Take 1 tablet by mouth once daily. 84 tablet 4 ??? VENTOLIN HFA 90 mcg/actuation inhaler ??? atenolol (TENORMIN) 25 mg tablet ??? escitalopram oxalate (LEXAPRO) 10 mg tablet 20 mg. ??? omeprazole (PRILOSEC) 40 mg capsule ??? busPIRone (BUSPAR) 5 mg tablet Take 7.5 mg by mouth three times a day. (Patient not taking: Reported on 12/26/2023) ??? fluticasone (FLONASE) 50 mcg/actuation nasal spray Use in the nose q 24 HR. No current facility-administered medications for this visit. ALLERGIES: Patient has no known allergies. PERSONAL HISTORY: SOCIAL HISTORY Social History Tobacco Use ??? Smoking status: Never ??? Smokeless tobacco: Never Vaping Use ??? Vaping status: Never Used Substance Use Topics ??? Alcohol use: Yes Comment: socially, but not while ??? Drug use: No FAMILY HISTORY: FAMILY HISTORY FAMILY HISTORY Problem Relation Age of Onset ??? Diabetes Mother ??? Hypertension Mother ??? Diabetes Maternal Grandmother ??? Heart Maternal Grandfather ??? Stroke Maternal Grandfather ??? No Ocular Disease Other REVIEW OF SYMPTOMS: negative except as noted above PHYSICAL EXAMINATION: VITALS: Blood pressure 128/84, pulse 92, height 160 cm (5' 3), weight 133.8 kg (295 lb), last menstrual period 12/05/2023, SpO2 97%. GENERAL: The patient is well nourished, well hydrated in no acute distress. , The patient is oriented to time, place, and person. NECK: full range of motion LUNGS: Clear to auscultation bilaterally. no wheezes, rhonchi or rales HEART: Regular rate and rhythm, Normal heart sounds IMPRESSION: 38yo with AUB, endometrial polyp PLAN: hysteroscopy, D C, polypectomy with symphion, and insertion of liletta iud Pt has been counseled on risks/benefits and alternatives of surgery including but not limited to anesthesia, bleeding, infection, uterine perforation with subsequent injury to pelvic structures including bowel, bladder, ureters and vessels. Pt wishes to proceed with surgery at this time. Pre and post op instructions reviewed I have reviewed and updated past medical and surgical history, medications and allergies Meri Renner MD 02/02/24 1309 Cosigner Signature (if applicable): CC: Dr Meri Liz MD; Dr. Maribel Kwan MD Signed ADDENDUM by Dr Meri Liz MD on 02/03/24 at 1052 Addendum I have examined the patient and the H P has been reviewed. There are no clinical changes since date of exam. 02/03/24 1052 Cosigner Signature (if applicable): cc: Dr Meri Liz MD; Dr. Maribel Kwan MD * Signed Normal [facility] 12 Lead EKGon 01-31-2024 12 Lead EKG [facility] Cardiovascular Services [address] [place] [address] 12 Lead EKG 01/31/24 0716 MR#: [id number] Acct: [id number] Name: GOVIND HASKINS Rep #: [id number] : 1985 38 From: Ronak Paz MD Attending Dr: Dr Meri Liz MD Sta tus: PRE [facility] Ordering Dr: Meri Liz MD Date: 05/25 Location: [facility] Sex: F C Admitted: Test Reason : PREOP Blood Pressure : / mmHG Vent. Rate : 080 BPM Atrial Rate : 080 BPM P-R Int : 168 ms QRS Dur : 080 ms QT Int : 392 ms P-R-T Axes : 055 040 023 degrees QTc Int : 452 ms Normal sinus rhythm with sinus arrhythmia Normal ECG Confirmed by MAXWELL FRANCO, RONAK ([id number]), assignment editor TRICIA TRAN ([id number]) on 02/01/2024 10:59:30 AM Referred By: Meri Liz Confirmed By:RONAK PAZ MD 02/01/24 1059 Date Ronak Paz MD CC: Dr Meri Liz MD; Dr. Maribel Kwan MD Signed Normal [facility] Basic Metabolic Profile (BMP )on 01-25-2024 BUN/CRE 17.8 RATIO Normal 10-20 [facility] Comment on above: Performed By: #### L 100.0500, L500.2500 #### [facility] [address] [place], [place], [id number] CA,Total 8.9 mg/dL Normal 8.5-10.1 [facility] Comment on above: Performed By: #### L 100.0500, L500.2500 #### [facility] [address] [place], [address] Chloride [Moles/Vol] 107 mmol/L Normal 98-107 [facility] Comment on above: Performed By: #### L 100.0500, L500.2500 #### [facility] [address] [place], [address] CO2 [Moles/Vol] 28.0 mmol/L Normal 21.0-32.0 [facility] Comment on above: Performed By: #### L 100.0500, L500.2500 #### [facility] [address] [place], [address] Creatinine [Mass/Vol] 0.67 mg/dL Normal 0.55-1.02 [facility] Comment on above: Result Comment: The validity of the calculated GFR GFRAA in patients over 70 years has not been determined. Clinical correlation is essential. Performed By: #### L 100.0500, L500.2500 #### [facility] [address] [place], [address] EST GFR - AA 127 mL/min Normal >60 [facility] Comment on above: Result Comment: Afri can [place] GFR Calc Performed By: #### L 100.0500, L500.2500 #### [facility] [address] [place], [address] GAP 3 Low 5-15 [facility] Comment on above: Performed By: #### L 100.0500, L500.2500 #### [facility] [address] [place], [address] GFR/1.73 sq M.predicted among non-blacks MDRD (S/P/Bld) [Vol rate/Area] 105 mL/min/{1.73_m2} Normal >60 [facility] Comment on above: Result Comment: Non- GFR Calc Performed By: #### L 100.0500, L500.2500 #### [facility] [address] [place], [address] Glucose [Mass/Vol] 89 mg/dL Normal 74-106 [facility] Comment on above: Performed By: #### L 100.0500, L500.2500 #### [facility] [address] [place], [address] Potassium [Moles/Vol] 3.9 mmol/L Normal 3.5-5.1 [facility] Comment on above: Performed By: #### L 100.0500, L500.2500 #### [facility] [address] [place], [address] Sodium [Moles/Vol] 138 mmol/L Normal 136-145 [facility] Comment on above: Performed By: #### L 100.0500, L500.2500 #### [facility] [address] [place], [address] Urea nitrogen [Mass/Vol] 12 mg/dL Normal 7-18 [facility] Comment on above: Performed By: #### L 100.0500, L500.2500 #### [facility] [address] [place], [address] CBC[facility] Erythrocyte distribution width (RBC) [Ratio] 14.0 % Normal 11.6-14.6 [facility] Comment on above: Performed By: #### L 100.0500, L500.2500 #### [facility] [address] [place], [address] Hematocrit (Bld) [Volume fraction] 37.1 % Normal 37-47 [facility] Comment on above: Performed By: #### L 100.0500, L500.2500 #### [facility] [address] [place], [address] Hemoglobin (Bld) [Mass/Vol] 11.2 g/dL Low 12.0-15.0 [facility] Comment on above: Performed By: #### L 100.0500, L500.2500 #### [facility] [address] [place], [address] MCH (RBC) [Entitic mass] 25.3 pg Low 27.0-32.0 [facility] Comment on above: Performed By: #### L 100.0500, L500.2500 #### [facility] [address] [place], [address] MCHC (RBC) [Mass/Vol] 30.2 g/dL Low 32-36 [facility] Comment on above: Performed By: #### L 100.0500, L500.2500 #### [facility] [address] [place], [address] MCV (RBC) [Entitic vol] 83.7 fL Normal 81-99 [facility] Comment on above: Performed By: #### L 100.0500, L500.2500 #### [facility] [address] [place], [address] Platelet mean volume (Bld) [Entitic vol] 10.0 fL Normal 6.2-12.0 [facility] Comment on above: Performed By: #### L 100.0500, L500.2500 #### [facility] [address] [place], [address] Platelets (Bld) [#/Vol] 276 10*3/uL Normal 150-450 [facility] Comment on above: Performed By: #### L 100.0500, L500.2500 #### [facility] [address] [place], [address] RBC (Bld) [#/Vol] 4.43 10*6/uL Normal 4.2-5.4 [facility] Comment on above: Performed By: #### L 100.0500, L500.2500 #### [facility] [address] [place], [address] RDW SD 42.8 fl Normal 35.1-43.9 [facility] Comment on above: Performed By: #### L 100.0500, L500.2500 #### [facility] [address] [place], [place], [address] WBC (Bld) [#/Vol] 6.3 10*3/uL Normal 4.4-11.0 [facility] Comment on above: Performed By: #### L 100.0500, L500.2500 #### [facility] [address] [place], [address] CNOVon 01-25-2024 CNOV Office Visit (OBGYWM ) -- GOVIND HASKINS ([id number]) 1985 F Date Time Provider Department 01/25/24 2:30 PM MERI ENGLAND OBGYWM During your visit today, we recorded the following information about you: Pulse Blood pressure Weight Height 92/minute 128/84 133.8 kg 1.6 m Meri England MD 01/25/2024 3:49 PM Signed Pre-Op History and Physical HPI: The patient is a 38 year old female presenting for discussion regarding AUB and endometrial polylp. She is scheduled for Hysteroscopy DANDC , polypectomy and insertion of Liletta IUD, for AUB, endometrial polyp on 02/03/24. Procedure discussed along with risks, benefits and complications. Other alternatives discussed for management. Consent form signed? Yes. PAST MEDICAL HISTORY Diagnosis Date anxiety Ectopic 2014 Sleep apnea SVT (supraventricular tachycardia) (HCC) PAST SURGICAL HISTORY Procedure Laterality Date TONSILLECTOMY HX 1993 Current Outpatient Medications Medication Sig Dispense Refill buPROPion XL (WELLBUTRIN XL) 150 mg 24 hr tablet Take 1 tablet (150 mg) by mouth once daily in the morning. Do not crush, chew, or split. drospirenone, contraceptive, (SLYND) 4 mg (28) tabet Take 1 tablet by mouth once daily. 84 tablet 4 VENTOLIN HFA 90 mcg/actuation inhaler atenolol (TENORMIN) 25 mg tablet escitalopram oxalate (LEXAPRO) 10 mg tablet 20 mg. omeprazole (PRILOSEC) 40 mg capsule busPIRone (BUSPAR) 5 mg tablet Take 7.5 mg by mouth three times a day. (Patient not taking: Reported on 12/26/2023) fluticasone (FLONASE) 50 mcg/actuation nasal spray Use in the nose q 24 HR. No current facility-administered medications for this visit. ALLERGIES: Patient has no known allergies. PERSONAL HISTORY: Social History Tobacco Use Smoking status: Never Smokeless tobacco: Never Vaping Use Vaping status: Never Used Substance Use Topics Alcohol use: Yes Comment: socially, but not while Drug use: No FAMILY HISTORY: FAMILY HISTORY Problem Relation Age of Onset Diabetes Mother Hypertension Mother Diabetes Maternal Grandmother Heart Maternal Grandfather Stroke Maternal Grandfather No Ocular Disease Other REVIEW OF SYMPTOMS: negative except as noted above PHYSICAL EXAMINATION: VITALS: Blood pressure 128/84, pulse 92, height 160 cm (5' 3), weight 133.8 kg (295 lb), last menstrual period 12/05/2023, SpO2 97%. GENERAL: The patient is well nourished, well hydrated in no acute distress. , The patient is oriented to time, place, and person. NECK: full range of motion LUNGS: Clear to auscultation bilaterally. no wheezes, rhonchi or rales HEART: Regular rate and rhythm, Normal heart sounds IMPRESSION: 38yo with AUB, endometrial polyp PLAN: hysteroscopy, DANDC, polypectomy with symphion, and insertion of liletta iud Pt has been counseled on risks/benefits and alternatives of surgery including but not limited to anesthesia, bleeding, infection, uterine perforation with subsequent injury to pelvic structures including bowel, bladder, ureters and vessels. Pt wishes to proceed with surgery at this time. Pre and post op instructions reviewed I have reviewed and updated past medical and surgical history, medications and allergies Meri Renner MD Allergies As of Date: 01/25/2024 (No Known Allergies) Date Reviewed: 01/25/2024 Reviewed by: Evie Diallo MA - Fully Assessed Reason for Visit: Pre-Op Visit [1235] Primary Visit Diagnosis:Abnormal uterine bleeding (AUB) [N93.9] Other Visit Diagnoses:Endometrial polyp [N84.0] Pre-op exam [Z01.818] Prescriptions as of 01/25/2024 - buPROPion XL (WELLBUTRIN XL) 150 mg 24 hr tablet Take 1 tablet (150 mg) by mouth once daily in the morning. Do not crush, chew, or split. - busPIRone (BUSPAR) 5 mg tablet Take 7.5 mg by mouth three times a day. - drospirenone, contraceptive, (SLYND) 4 mg (28) tabet Take 1 tablet by mouth once daily. - VENTOLIN HFA 90 mcg/actuation inhaler - fluticasone (FLONASE) 50 mcg/actuation nasal spray Use in the nose q 24 HR. - atenolol (TENORMIN) 25 mg tablet - escitalopram oxalate (LEXAPRO) 10 mg tablet 20 mg. 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 Normal [facility] HISTORY PHYSICALon HISTORY PHYSICAL HNO ID: [id number] Author: MERI ENGLAND MD Service: ? Author Type: Physician Type: H&P Filed: 01/25/2024 15:49 Note Text: Pre-Op History and Physical HPI: The patient is a 38 year old female presenting for discussion regarding AUB and endometrial polylp. She is scheduled for Hysteroscopy DANDC , polypectomy and insertion of Liletta IUD, for AUB, endometrial polyp on 02/03/24. Procedure discussed along with risks, benefits and complications. Other alternatives discussed for management. Consent form signed? Yes. PAST MEDICAL HISTORY Diagnosis Date anxiety Ectopic 2014 Sleep apnea SVT (supraventricular tachycardia) (HCC) PAST SURGICAL HISTORY Procedure Laterality Date TONSILLECTOMY HX 1993 Current Outpatient Medications Medication Sig Dispense Refill buPROPion XL (WELLBUTRIN XL) 150 mg 24 hr tablet Take 1 tablet (150 mg) by mouth once daily in the morning. Do not crush, chew, or split. drospirenone, contraceptive, (SLYND) 4 mg (28) tabet Take 1 tablet by mouth once daily. 84 tablet 4 VENTOLIN HFA 90 mcg/actuation inhaler atenolol (TENORMIN) 25 mg tablet escitalopram oxalate (LEXAPRO) 10 mg tablet 20 mg. omeprazole (PRILOSEC) 40 mg capsule busPIRone (BUSPAR) 5 mg tablet Take 7.5 mg by mouth three times a day. (Patient not taking: Reported on 12/26/2023) fluticasone (FLONASE) 50 mcg/actuation nasal spray Use in the nose q 24 HR. No current facility-administered medications for this visit. ALLERGIES: Patient has no known allergies. PERSONAL HISTORY: Social History Tobacco Use Smoking status: Never Smokeless tobacco: Never Vaping Use Vaping status: Never Used Substance Use Topics Alcohol use: Yes Comment: socially, but not while Drug use: No FAMILY HISTORY: FAMILY HISTORY Problem Relation Age of Onset Diabetes Mother Hypertension Mother Diabetes Maternal Grandmother Heart Maternal Grandfather Stroke Maternal Grandfather No Ocular Disease Other REVIEW OF SYMPTOMS: negative except as noted above PHYSICAL EXAMINATION: VITALS: Blood pressure 128/84, pulse 92, height 160 cm (5' 3), weight 133.8 kg (295 lb), last menstrual period 12/05/2023, SpO2 97%. GENERAL: The patient is well nourished, well hydrated in no acute distress. , The patient is oriented to time, place, and person. NECK: full range of motion LUNGS: Clear to auscultation bilaterally. no wheezes, rhonchi or rales HEART: Regular rate and rhythm, Normal heart sounds IMPRESSION: 38yo with AUB, endometrial polyp PLAN: hysteroscopy, DANDC, polypectomy with symphion, and insertion of liletta iud Pt has been counseled on risks/benefits and alternatives of surgery including but not limited to anesthesia, bleeding, infection, uterine perforation with subsequent injury to pelvic structures including bowel, bladder, ureters and vessels. Pt wishes to proceed with surgery at this time. Pre and post op instructions reviewed I have reviewed and updated past medical and surgical history, medications and allergies Meri Renner MD [facility] 01-09-2024 CNPN Telephone (OBGYWM) -- GOVIND HASKINS ([id number]) 1985 F Date Time Provider Department 01/09/24 VENUS VYAS OBROXANNEWM During your visit today, we recorded the following information about you: Venus Vyas APRN.CNM 01/09/2024 4:05 PM Addendum Just verifying that patient is being scheduled for hysteroscopy polypectomy AND DANDC. Thank you. KHLOE Ash Courtney, APRN.CNM 01/12/2024 12:37 PM Signed Has this been completed? KHLOE Ash Trisha, RN 01/12/2024 12:50 PM Signed Per Candie surgery scheduled 02/02. Pre op is on 01/24 with DM. Heather Marti RN Allergies As of Date: 01/09/2024 (No Known Allergies) Date Reviewed: 01/05/2024 Reviewed by: Venus Vyas APRN.CNM - Fully Assessed Reason for Visit: Appointment [186] Prescriptions as of 01/12/2024 - norethindrone (AYGESTIN) 5 mg tablet 1 tab 3x/day until bleeding stops. 1 tab 2x/day x 2 days. 1 tab daily x 2 days - buPROPion XL (WELLBUTRIN XL) 150 mg 24 hr tablet Take 1 tablet (150 mg) by mouth once daily in the morning. Do not crush, chew, or split. - busPIRone (BUSPAR) 5 mg tablet Take 7.5 mg by mouth three times a day. - drospirenone, contraceptive, (SLYND) 4 mg (28) tabet Take 1 tablet by mouth once daily. - VENTOLIN HFA 90 mcg/actuation inhaler - fluticasone (FLONASE) 50 mcg/actuation nasal spray Use in the nose q 24 HR. - atenolol (TENORMIN) 25 mg tablet - escitalopram oxalate (LEXAPRO) 10 mg tablet 20 mg. 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 CBC panel Auto (Bld)on 01-04 Erythrocyte distribution width (RBC) [Ratio] 14.6 % 11.5 - 15.0 % [facility] Hematocrit (Bld) [Volume fraction] 37.7 % 36.0 - 46.0 % [facility] Hemoglobin (Bld) [Mass/Vol] 11.5 g/dL 11.5 - 15.5 g/dL [facility] Interpretation and review of laboratory results Abnormal [facility] MCH (RBC) [Entitic mass] 25.6 pg Low 26.0 - 34.0 pg [facility] MCHC (RBC) [Mass/Vol] 30.5 g/dL 30.5 - 36.0 g/dL [facility] MCV (RBC) [Entitic vol] 84.0 fL 80.0 - 100.0 fL [facility] Nucleated RBC (Bld) [#/Vol] NINF [facility] Platelet mean volume (Bld) [Entitic vol] 9.9 fL 9.0 - 12.7 fL [facility] Platelets (Bld) [#/Vol] 324 10*3/uL [facility] RBC (Bld) [#/Vol] 4.49 10*6/uL 3.90 - 5.2 0 m/uL [facility] WBC (Bld) [#/Vol] 6.33 10*3/uL [facility] Erythrocyte distribution width (RBC) [Ratio] 14.6 % Normal 11.5-15.[address] [facility] Comment on above: Order Comment: Speci men Type: BLOOD SPECIMENOrdering Facility: [facility] Address: [address] [place] [address] Performed By: #### 5 8410-2 ####[facility] [id number] [address] STATES OF [facility] Hematocrit (Bld) [Volume fraction] 37.7 % Normal 36.0-46.[address] [facility] Comment on above: Order Comment: Speci men Type: BLOOD SPECIMENOrdering Facility: [facility] Address: [address] [place] [address] Performed By: #### 5 8410-2 ####[facility] [id number] [place] [address] [place] Hemoglobin (Bld) [Mass/Vol] 11.5 g/dL Normal 11.5-15.[address] [facility] Comment on above: Order Comment: Speci men Type: BLOOD SPECIMENOrdering Facility: [facility] Address: [address] [place] [address] Performed By: #### 5 8410-2 ####[facility] [id number] [place] [address] [place] MCH (RBC) [Entitic mass] 25.6 pg Low 26.0-34.[address] [facility] Comment on above: Order Comment: Speci men Type: BLOOD SPECIMENOrdering Facility: [facility] Address: [address] [place] [address] Performed By: #### 5 8410-2 ####[facility] [id number] [place] [address] [place] MCHC (RBC) [Mass/Vol] 30.5 g/dL Normal 30.5-36.[address] [facility] Comment on above: Order Comment: Speci men Type: BLOOD SPECIMENOrdering Facility: [facility] Address: [address] [place] [address] Performed By: #### 5 8410-2 ####[facility] [id number] [place] [address] [place] MCV (RBC) [Entitic vol] 84.0 fL Normal 80.0-100.[address] [facility] Comment on above: Order Comment: Speci men Type: BLOOD SPECIMENOrdering Facility: [facility] Address: [address] [place] [address] Performed By: #### 5 8410-2 ####[facility] [id number] [place] [address] [place] Nucleated RBC (Bld) [#/Vol] 10*3/uL Normal <0.[address] [facility] Comment on above: Order Comment: Speci men Type: BLOOD SPECIMENOrdering Facility: [facility] Address: [address] [place] [address] Performed By: #### 5 8410-2 ####[facility] IVETTE [id number] [place] [address] [place] Platelet mean volume (Bld) [Entitic vol] 9.9 fL Normal 9.0-12.[address] [facility] Comment on above: Order Comment: Speci men Type: BLOOD SPECIMENOrdering Facility: [facility] Address: [address] [place] [address] Performed By: #### 5 8410-2 ####[facility] ANAHIBRILLIONESTER [id number] [place] [address] [place] Platelets (Bld) [#/Vol] 324 10*3/uL Normal 150-[address] [facility] Comment on above: Order Comment: Speci men Type: BLOOD SPECIMENOrdering Facility: [facility] Address: [address] [place] [address] Performed By: #### 5 8410-2 ####[facility] ANAHIBRILLIONNCWANDERA [id number] [place] [address] [place] RBC (Bld) [#/Vol] 4.49 10*6/uL Normal 3.90-5.20 [facility] Comment on above: Order Comment: Speci men Type: BLOOD SPECIMENOrdering Facility: [facility] Address: [address] [place] [address] Performed By: #### 5 8410-2 ####[facility] [id number] [place] [address] [place] WBC (Bld) [#/Vol] 6.33 10*3/uL Normal 3.70-11.00 [facility] Comment on above: Order Comment: Speci men Type: BLOOD SPECIMENOrdering Facility: [facility] Address: [address] [place], [place] [address], [place] [address] Performed By: #### 5 8410-2 ####[facility] GIA CHRISTIANBRILLIONESTER [id number] [place] [address] [place] OF [facility] CNOVon 01-05-2024 CNOV Office Visit (OBGYWM ) -- GOVIND HASKINS ([id number]) 1985 F Date Time Provider Department 01/05/24 8:15 AM VENUS VYAS OBGYWM During your visit today, we recorded the following information about you: Blood pressure Weight 127/77 133.6 kg Venus Vyas APRN.CNM 01/05/2024 12:19 PM Signed Govind Haskins is a 38 year old female who presents for follow up visit after pelvic ultrasound. Patient seen in office on 12/26/23 for prolonged and heavy bleeding with period. She had bleeding for 3-4 weeks. Started on Aygestin taper and pelvic ultrasound ordered. Pelvic US results report endometrial polyp in the lower endometrial cavity. There is a focal 12 x8 x 4 mm hyperechoic with shadowing. Bilateral ovarian dermoid cysts seen as well. Recommendation for hysteroscopic evaluation. Patient presents to day with continued bleeding despite taking oral Aygestin. She reports that bleeding has definitely decreased and is no longer heavy. Reports feeling bloated, gassy, and tired. REVIEW OF SYSTEMS Abdomen: No abdominal pain, nausea, vomiting, diarrhea, or constipation. POSITIVE FOR BLOATING Bladder: No dysuria, gross hematuria, urinary frequency, urinary urgency, or incontinence. Breast: No breast lumps, nipple d/c, overlying skin changes, redness or skin retraction. Expanded ROS: N/A Allergies and current medication updated:Yes EXAM: BP 127/77 Wt 294 lb 9.6 oz (133.6kg) LMP 12/05/2023 GENERAL: pleasant, female in no apparent distress HEENT: Normocephalic and atraumatic NECK: Supple and full range of motion DERMATOLOGY: Normal BREAST: deferred CHEST: Normal inspiratory effort ABDOMEN: Deferred PELVIC: deferred BIMANUAL: deferred NEURO: alert and oriented x3,exam grossly non-focal EXTREMITIES: normal ASSESSMENT/PLAN: 1. Irregular bleeding - ICD9: 626.4, ICD10: N92.6 (primary diagnosis) 2. Menorrhagia with irregular cycle - ICD9: 626.2, ICD10: N92.1 3. Abnormal uterine bleeding due to endometrial polyp - ICD9: 626.6, 621.0, ICD10: N93.9, N84.0 4. Cysts of both ovaries - ICD9: 620.2, ICD10: N83.201, N83.202 - Reviewed pelvic US report with patient and questions answered - Patient desires to move forward with hysteroscopy / polypectomy / DANDC - CBC -today - Continue Aygestin taper - Reviewed bleeding precautions - Recommendation of follow up pelvic US in 12 months- order placed - Will follow up with patient after results returned Venus Vyas APRN.CNM Allergies As of Date: 01/05/2024 (No Known Allergies) Date Reviewed: 01/05/2024 Reviewed by: Venus Vyas APRN.CNM - Fully Assessed Primary Visit Diagnosis:Irregular bleeding [N92.6] Other Visit Diagnoses:Menorrhagia with irregular cycle [N92.1] Abnormal uterine bleeding due to endometrial polyp [N93.9, N84.0] Cysts of both ovaries [N83.201, N83.202] Order(s):COMPLETE BLOOD COUNT [SQCBC] Order #: [id number] FUTURE norethindrone (AYGESTIN) 5 mg tablet1 tab 3x/day until bleeding stops. 1 tab 2x/day x 2 days. 1 tab daily x 2 daysDisp: 35 tabletRfl: 0 Prescriptions as of 01/05/2024 - norethindrone (AYGESTIN) 5 mg tablet 1 tab 3x/day until bleeding stops. 1 tab 2x/day x 2 days. 1 tab daily x 2 days - buPROPion XL (WELLBUTRIN XL) 150 mg 24 hr tablet Take 1 tablet (150 mg) by mouth once daily in the morning. Do not crush, chew, or split. - busPIRone (BUSPAR) 5 mg tablet Take 7.5 mg by mouth three times a day. - drospirenone, contraceptive, (SLYND) 4 mg (28) tabet Take 1 tablet by mouth once daily. - VENTOLIN HFA 90 mcg/actuation inhaler - fluticasone (FLONASE) 50 mcg/actuation nasal spray Use in the nose q 24 HR. - atenolol (TENORMIN) 25 mg tablet - escitalopram oxalate (LEXAPRO) 10 mg tablet 20 mg. 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 1 tab 2x/day x 2 days. 1 tab daily x 2 days Medications Discontin (more content not included)... Normal [facility] Jesús 01-03-2024 SOHAMN Telephone (OBGYWM) -- JOZEFGOVIND ([id number]) 1985 F Date Time Provider Department 01/03/24 CANDE BOWERS During your visit today, we recorded the following information about you: Dary Zuñiga MA 01/03/2024 8:49 AM Signed Order pended for ultrasound appointment for today. Please review and sign. Dary Zuñiga MA Allergies As of Date: 01/03/2024 (No Known Allergies) Date Reviewed: 12/26/2023 Reviewed by: June Yang LPN - Fully Assessed Reason for Visit: Orders [681] Primary Visit Diagnosis:Menorrhagia with irregular cycle [N92.1] Order(s):PELVIC US [facility] [[id number]] Order #: [id number]: 1 FUTURE Prescriptions as of 01/04/2024 - buPROPion XL (WELLBUTRIN XL) 150 mg 24 hr tablet Take 1 tablet (150 mg) by mouth once daily in the morning. Do not crush, chew, or split. - norethindrone (AYGESTIN) 5 mg tablet 1 tab 3x/day until bleeding stops. 1 tab 2x/day x 2 days. 1 tab daily x 2 days - busPIRone (BUSPAR) 5 mg tablet Take 7.5 mg by mouth three times a day. - drospirenone, contraceptive, (SLYND) 4 mg (28) tabet Take 1 tablet by mouth once daily. - VENTOLIN HFA 90 mcg/actuation inhaler - fluticasone (FLONASE) 50 mcg/actuation nasal spray Use in the nose q 24 HR. - atenolol (TENORMIN) 25 mg tablet - escitalopram oxalate (LEXAPRO) 10 mg tablet 20 mg. 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 US Pelvison 01-03-2024 [facility] Radiology Study observation (narrative) [facility] CNOVon 12-26-2023 CNOV Office Visit (OBGYWM ) -- GOVIND AHSKINS ([id number]) 1985 F Date Time Provider Department 12/26/23 1:45 PM VENUS VYAS OBGYWM During your visit today, we recorded the following information about you: Blood pressure Weight Last Period 128/64 135.4 kg 12/05/23 Venus Vyas APRN.CNM 12/26/2023 2:17 PM Signed Machine Stuffer offered: Patient declines. Govind Haskins is a 38 year old female who presents for problem visit of a period that has lasted almost a month. LMP started on 12/08/23 and was just spotting. She stopped taking SLYND to allow herself to have a period and has continued to have heavy bleeding with clots for the past 3 weeks. She restarted SLYND over a week ago. Reports bleeding as heavy and is bleeding through tampons, pads and clothes sometimes. Denies any pain at this time but stated noticed a lot of right sided lower pelvic pain when cycle started. OB History T2 L2 SAB0 IAB0 Ectopic0 Multiple0 Live Births2 Corn Shucker History LMP: 12/05/2023, Drug Induced Amenorrhea Age at Menarche: Age at First : Age at Menopause: Corn Shucker History Comments: Sexual Activity: Yes; Male Contraception: I.U.D. PAST MEDICAL HISTORY No date: anxiety 2015: Ectopic No date: Sleep apnea No date: SVT (supraventricular tachycardia) ([facility]) PAST SURGICAL HISTORY 1993: TONSILLECTOMY HX FAMILY HISTORY Problem Relation Age of Onset Diabetes Mother Hypertension Mother Diabetes Maternal Grandmother Heart Maternal Grandfather Stroke Maternal Grandfather No Ocular Disease Other Social History Tobacco Use Smoking status: Never Smokeless tobacco: Never Vaping Use Vaping status: Never Used Substance Use Topics Alcohol use: Yes Comment: socially, but not while Drug use: No Current Outpatient Medications Medication Sig buPROPion XL (WELLBUTRIN XL) 150 mg 24 hr tablet Take 1 tablet (150 mg) by mouth once daily in the morning. Do not crush, chew, or split. drospirenone, contraceptive, (SLYND) 4 mg (28) tabet Take 1 tablet by mouth once daily. VENTOLIN HFA 90 mcg/actuation inhaler fluticasone (FLONASE) 50 mcg/actuation nasal spray Use in the nose q 24 HR. atenolol (TENORMIN) 25 mg tablet escitalopram oxalate (LEXAPRO) 10 mg tablet 20 mg. omeprazole (PRILOSEC) 40 mg capsule busPIRone (BUSPAR) 5 mg tablet Take 7.5 mg by mouth three times a day. (Patient not taking: Reported on 12/26/2023) No current facility-administered medications for this visit. Allergies As of Date: 12/26/2023 (No Known Allergies) Fully Assessed 12/26/2023 REVIEW OF SYSTEMS Abdomen: No bloating, early satiety, indigestion, or increased flatulence. No abdominal pain, nausea, vomiting, diarrhea, or constipation. Bladder: No dysuria, gross hematuria, urinary frequency, urinary urgency, or incontinence. Breast: No breast lumps, nipple d/c, overlying skin changes, redness or skin retraction. Expanded ROS: N/A Allergies and current medication updated:Yes EXAM: BP 128/64 Wt 298 lb 6.4 oz (135.4kg) LMP 12/05/2023 GENERAL: pleasant, female in no apparent distress HEENT: Normocephalic and atraumatic NECK: Supple and full range of motion DERMATOLOGY: Normal and without lesions BREAST: deferred CHEST: Normal inspiratory effort ABDOMEN: Deferred PELVIC: external genitalia normal, normal Bartholin's glands, urethra, Oxford's glands, no vulvar lesions, no cervical lesions, physiologic discharge present, moderate amount of bleeding BIMANUAL: uterus normal size, shape and consistency, no adnexal masses, non-tender, and no cervical motion tenderness NEURO: alert and oriented x3,exam grossly non-focal EXTREMITIES: normal ASSESSMENT/PLAN: 1. Menorrhagia with irregular cycle - ICD9: 626.2, ICD10: N92.1 (primary diagnosis) 2. Irregular intermenstrual bleeding - ICD9: 626.6, ICD10: N92.1 3. Morbid obesity (HCC) - ICD9: 278.01, ICD10: E66.01 - US FEMALE PELVIS TRANSVAG - Aygestin 5 mg PO daily - taper until bleeding stops - Offered to try NuvaRing continuously but patient declines- wants to stay on pills to help regulate cycles - Hx of taking Topamax for weight loss but no longer taking - BP controlled at 128/64 - May need to switch to OCP - Will follow up after pelvic US results return Venus Vyas APRN.CNM Allergies As of Date: 12/26/2023 (No Known Allergies) Date Reviewed: 12/26/2023 Reviewed by: June Yang LPN - Fully Assessed Reason for Visit: Contraception [26] Cmt: Spotting with current b/c. Primary Visit Diagnosis:Menorrhagia with irregular cycle [N92.1] Other Visit Diagnoses:Irregular intermenstrual bleeding [N92.1] Morbid obesity (HCC) [E66.01] Order(s):US FEMALE PELVIS TRANSVAG [[id number]] Order #: [id number] FUTURE norethindrone (AYGESTIN) 5 mg tablet1 tab 3x/day until bleeding stops. 1 tab 2x/day x 2 days. 1 tab daily x 2 daysD (more content not included)... [facility] (OBGYWM) -- JOZEFGOVIND ([id number]) 1985 F Date Time Provider Department 12/22/23 VENUS VYAS OBNEEL During your visit today, we recorded the following information about you: Heather Marti RN 12/22/2023 12:15 PM Signed Patient calling c/o heavy bleeding. Takes Slynd continuously and typically stops to have menses around every 3 months. She started spotting around 12/07/23. She stopped Slynd then around 12/09 to have a menses since spotting continued then restarted it on 12/16. After stopping Slynd bleeding was heavier initially, then it slowed to a medical detailist flow the last couple days until today. Today it is even heavier then it was before. Changing pad about every 2 hours right now. Denies chest pain, shortness of breath or dizziness. Does feel more weak/tired today though. No cramping, just overall feels bloated and uncomfortable. Please advise. SAM Mcclure Courtney, APRN.CNM 12/22/2023 1:00 PM Signed I would recommend that patient NOT stop taking the progesterone only pills even when starting a period. Please give bleeding precautions and have patient start taking Ibuprofen 800 mg PO as needed for pain. KHLOE Ash Jennifer, RN 12/22/2023 1:05 PM Signed Patient notified. Reviewed bleeding precautions. Voiced understanding of instructions. Millie Ashby RN Allergies As of Date: 12/22/2023 (No Known Allergies) Date Reviewed: 06/01/2023 Reviewed by: Dary Zuñiga MA - Fully Assessed Reason for Visit: Heavy Bleeding [Other] Prescriptions as of 12/22/2023 - busPIRone (BUSPAR) 5 mg tablet Take 7.5 mg by mouth three times a day. - drospirenone, contraceptive, (SLYND) 4 mg (28) tabet Take 1 tablet by mouth once daily. - VENTOLIN HFA 90 mcg/actuation inhaler - fluticasone (FLONASE) 50 mcg/actuation nasal spray Use in the nose q 24 HR. - atenolol (TENORMIN) 25 mg tablet - escitalopram oxalate (LEXAPRO) 10 mg tablet - omeprazole (PRILOSEC) 40 mg capsule Problem List As Of Date 12/22/2023 Noted Resolved Unplanned [Z34.90] 08/26/2016 05/11/2017 with history of ectopic [O0*08/26/2016 10/29/2016 History of anxiety [Z86.59] 08/26/2016 Patient requested diagnostic testing [Z01.89] 08/26/2016 10/29/2016 History of chronic hypertension [Z86.79] 09/01/2016 Group B Streptococcus urinary tract infection a*09/17/2016 05/11/2017 Abnormal glucose complicating [O99.81*01/25/2017 05/11/2017 SVT (supraventricular tachycardia) (HCC) [I47.1*03/22/2017 Meibomian gland dysfunction (MGD) of both eyes *12/31/2020 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 CBC W Auto Differential pane l (Bld)on 11-26-2023 Basophils (Bld) [#/Vol] 0.03 x10*3/uL Normal 0.00-0.10 [facility] Comment on above: Performed By: #### 5 7021-8 #### DUENAS LESVIA ([id number]) [facility] ([facility]) [address] [place] [address] 50850 Basophils/100 WBC (Bld) 0.5 % Normal 0.0-2.0 [facility] Comment on above: Performed By: #### 5 7021-8 #### YULISSA LAKHANI ([id number]) [facility] ([facility]) [address] [place] [address] 75240 Eosinophils (Bld) [#/Vol] 0.13 x10*3/uL Normal 0.00-0.70 [facility] Comment on above: Performed By: #### 5 7021-8 #### YULISSA LAKHANI ([id number]) [facility] ([facility]) [address] [place] [address] 83979 Eosinophils/100 WBC (Bld) 2.1 % Normal 0.0-6.0 [facility] Comment on above: Performed By: #### 5 7021-8 #### YULISSA LAKHANI ([id number]) [facility] ([facility]) [address] [place] [address] 89329 Erythrocyte distribution width (RBC) [Ratio] 14.3 % Normal 11.5-14.5 [facility] Comment on above: Performed By: #### 5 7021-8 #### YULISSA LAKHANI ([id number]) [facility] ([facility]) [address] [place] [address] 68822 Hematocrit (Bld) [Volume fraction] 41.9 % Normal 36.0-46.0 [facility] Comment on above: Performed By: #### 5 7021-8 #### YULISSA LAKHANI ([id number]) [facility] ([facility]) [address] [place] [address] 43186 Hemoglobin (Bld) [Mass/Vol] 12.8 g/dL Normal 12.0-16.0 [facility] Comment on above: Performed By: #### 5 7021-8 #### YULISSA LAKHANI ([id number]) [facility] ([facility]) [address] [place] [address] 09682 Immature granulocytes (Bld) [#/Vol] 0.02 x10*3/uL Normal 0.00-0.70 [facility] Comment on above: Performed By: #### 5 7021-8 #### YULISSA LAKHANI ([id number]) [facility] ([facility]) [address] [place] [address] 02118 Immature granulocytes/100 WBC (Bld) 0.3 % Normal 0.0-0.9 [facility] Comment on above: Result Comment: Zelda ture Granulocyte Count (IG) includes promyelocytes, myelocytes and metamyelocytes but does not include bands. Percent differential counts (%) should be interpreted in the context of the absolute cell counts (cells/UL). Performed By: #### 5 7021-8 #### YULISSA LAKHANI ([id number]) [facility] ([facility]) [address] [place] [address] Lymphocytes (Bld) [#/Vol] 2.45 x10*3/uL Normal 1.20-4.80 [facility] Comment on above: Performed By: #### 5 7021-8 #### YULISSA LAKHANI ([id number]) [facility] ([facility]) [address] [place] [address] 05154 Lymphocytes/100 WBC (Bld) 39.9 % Normal 13.0-44.0 [facility] Comment on above: Performed By: #### 5 7021-8 #### YULISSA LAKHANI ([id number]) [facility] ([facility]) [address] [place] [address] 54067 MCH (RBC) [Entitic mass] 26.7 pg Normal 26.0-34.0 [facility] Comment on above: Performed By: #### 5 7021-8 #### YULISSA LAKHANI ([id number]) [facility] ([facility]) [address] [place] [address] 13308 MCHC (RBC) [Mass/Vol] 30.5 g/dL Low 32.0-36.0 [facility] Comment on above: Performed By: #### 5 7021-8 #### YULISSA LAKHANI ([id number]) [facility] ([facility]) [address] [place] [address] 30900 MCV (RBC) [Entitic vol] 88 fL Normal 80-100 [facility] Comment on above: Performed By: #### 5 7021-8 #### YULISSA LAKHANI ([id number]) [facility] ([facility]) [address] [place] [address] 56995 Monocytes (Bld) [#/Vol] 0.34 x10*3/uL Normal 0.10-1.00 [facility] Comment on above: Performed By: #### 5 7021-8 #### YULISSA LAKHANI ([id number]) [facility] ([facility]) [address] [place] [address] 54070 Monocytes/100 WBC (Bld) 5.5 % Normal 2.0-10.0 [facility] Comment on above: Performed By: #### 5 7021-8 #### YULISSA LAKHANI ([id number]) [facility] ([facility]) [address] [place] [address] 87769 Neutrophils (Bld) [#/Vol] 3.17 x10*3/uL Normal 1.20-7.70 [facility] Comment on above: Result Comment: Perc ent differential counts (%) should be interpreted in the context of the absolute cell counts (cells/uL). Performed By: #### 5 7021-8 #### YULISSA LAKHANI ([id number]) [facility] ([facility]) [address] [place] [address] 50486 Neutrophils/100 WBC (Bld) 51.7 % Normal 40.0-80.0 [facility] Comment on above: Performed By: #### 5 7021-8 #### YULISSA LAKHANI ([id number]) [facility] ([facility]) [address] [place] [address] 35482 Nucleated RBC/100 WBC (Bld) [Ratio] 0.0 /100 WBCs Normal 0.0-0.0 [facility] Comment on above: Performed By: #### 5 7021-8 #### YULISSA LAKHANI ([id number]) [facility] ([facility]) [address] [place] [address] 31806 Platelets (Bld) [#/Vol] 286 x10*3/uL Normal 150-450 [facility] Comment on above: Performed By: #### 5 7021-8 #### YULISSA LAKHANI ([id number]) [facility] ([facility]) [address] [place] [address] RBC (Bld) [#/Vol] 4.79 x10*6/uL Normal 4.00-5.20 [facility] Comment on above: Performed By: #### 5 7021-8 #### YULISSA LAKHANI ([id number]) [facility] ([facility]) [address] [place] [address] 11952 WBC (Bld) [#/Vol] 6.1 x10*3/uL Normal 4.4-11.3 [facility] Comment on above: Performed By: #### 5 7021-8 #### YULISSA LAKHANI ([id number]) [facility] ([facility]) [address] [place] [address] Comprehensive metabolic 2000 panelon 11-26-2023 Albumin BCP dye [Mass/Vol] 3.7 g/dL Normal 3.4-5.0 [facility] Comment on above: Performed By: #### 2 4323-8 #### YULISSA LAKHANI ([id number]) [facility] ([facility]) [address] [place] [address] ALP [Catalytic activity/Vol] 62 U/L Normal 33-110 [facility] Comment on above: Performed By: #### 2 4323-8 #### YULISSA LAKHANI ([id number]) [facility] ([facility]) [address] [place] [address] 75113 ALT With P-5'-P [Catalytic activity/Vol] 37 U/L Normal 7-45 [facility] Comment on above: Result Comment: Brittney ents treated with Sulfasalazine may generate falsely decreased results for ALT. Performed By: #### 2 4323-8 #### YULISSA LAKHANI ([id number]) [facility] ([facility]) [address] [place] [address] 17076 Anion gap [Moles/Vol] 10 mmol/L Normal 10-20 [facility] Comment on above: Performed By: #### 2 4322-8 #### YULISSA LAKHANI ([id number]) [facility] ([facility]) [address] [place] [address] AST With P-5'-P [Catalytic activity/Vol] 38 U/L Normal 9-39 [facility] Comment on above: Performed By: #### 2 4322-8 #### YULISSA LAKHANI ([id number]) [facility] ([facility]) [address] [place] [address] 02888 Bilirubin [Mass/Vol] 0.4 mg/dL Normal 0.0-1.2 [facility] Comment on above: Performed By: #### 2 4322-8 #### YULISSA LAKHANI ([id number]) [facility] ([facility]) [address] [place] [address] 85785 Calcium [Mass/Vol] 8.4 mg/dL Low 8.6-10.3 [facility] Comment on above: Performed By: #### 2 4322-8 #### YULISSA LAKHANI ([id number]) [facility] ([facility]) [address] [place] [address] 65068 Chloride [Moles/Vol] 105 mmol/L Normal 98-107 [facility] Comment on above: Performed By: #### 2 4322-8 #### YULISSA LAKHANI ([id number]) [facility] ([facility]) [facility] [place] [address] CO2 [Moles/Vol] 29 mmol/L Normal 21-32 [facility] Comment on above: Performed By: #### 2 4322-8 #### YULISSA LAKHANI ([id number]) [facility] ([facility]) [address] [place] [address] 13991 Creatinine [Mass/Vol] 0.60 mg/dL Normal 0.50-1.05 [facility] Comment on above: Performed By: #### 2 432-8 #### YULISSA LAKHANI ([id number]) [facility] ([facility]) [address] [place] [address] 86547 GFR/1.73 sq M.predicted MDRD (S/P/Bld) [Vol rate/Area] mL/min/{1.73_m2} Normal >60 [facility] Comment on above: Result Comment: Calc ulations of estimated GFR are performed using the 2020 CKD-EPI Study Refit equation without the race variable for the IDMS-Traceable creatinine methods. https://jasn.asnjournals.org/content//ASN.2700579186 Performed By: #### 2 4323-8 #### YULISSA LAKHANI ([id number]) [facility] ([facility]) [address] [place] [address] 14317 Glucose [Mass/Vol] 87 mg/dL Normal 74-99 [facility] Comment on above: Performed By: #### 2 4323-8 #### YULISSA LAKHANI ([id number]) [facility] ([facility]) [address] [place] [address] 56277 Potassium [Moles/Vol] 4.2 mmol/L Normal 3.5-5.3 [facility] Comment on above: Performed By: #### 2 4323-8 #### YULISSA LAKHANI ([id number]) [facility]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 No illicit drug use Occasional alcohol use Allergies No Known Drug Allergies Recorded By: Luzma Kelly; 02/09/2019 12:02:40 PM Current Meds Medication NameInstruction Atenolol 25 MG Oral TabletTake 1 tablet daily Escitalopram Oxalate 20 MG Oral TabletTake 1 tablet daily Fluticasone Propionate 50 MCG/ACT Nasal SuspensionUSE 2 SPRAYS IN EACH NOSTRIL ONCE DAILY Mirena (52 MG) 20 MCG/24HR IUD Omeprazole 40 MG Oral Capsule Delayed ReleaseTAKE 1 CAPSULE Daily Vitals Vital Signs Recorded: 28Dec2021 04:05PM Heart Rate82 Umqokejc977 Fjgzunfqd75 Height5 ft 2 in Diyigs057 lb BMI Gpqdgdoduj54.03 kg/m2 BSA Calculated2.2 Tobacco Useb) No O2 Stkakmkcak67 Physical Exam Patient is alert and oriented 4. In no acute distress Respirations are easy and regular. CTA Heart tones are regular rate and rhythm. Abdomen is soft Extremities reveal no edema Neurologically grossly intact Results/Data Basic Metabolic [id number] 07:30AMMaribel Kwan Test NameResultFlagReference Glucose, Serum85 mg/dL74 - 99 Sodium, Seozi309 mmol/L136 - 145 POTASSIUM4.1 mmol/L3.5 - 5.3 Chloride, Rwxhq535 mmol/L98 - 107 Bicarbonate, Serum28 mmol/L21 - 32 Anion Gap, Serum10 mmol/L10 - 20 Blood Urea Nitrogen, Serum9 mg/dL6 - 23 CREATININE0.59 mg/dLSee Below (more content not included)... Normal Toxic Attire Tobacco Screening.on 022 Tobacco use status CPHS b) No -[facility] and Work Phone: BASIC METABOLIC PANELon 11-30 Anion gap [Moles/Vol] 10 mmol/L Normal 10 - 20 [facility] Comment on above: Performed By: #### B MP #### [address] [address] Calcium [Mass/Vol] 8.6 mg/dL Normal 8.6 - 10.3 [facility] Comment on above: Performed By: #### B MP #### [address] [address] Chloride [Moles/Vol] 103 mmol/L Normal 98 - 107 [facility] Comment on above: Performed By: #### B MP #### [address] [address] Creatinine [Mass/Vol] 0.59 mg/dL Normal 0.50 - 1.05 [facility] Comment on above: Performed By: #### B MP #### [address] [address] eGFR FEMALE >90 Normal >90 [facility] Comment on above: Result Comment: CALC ULATIONS OF ESTIMATED GFR ARE PERFORMED USING THE 2020 CKD-EPI STUDY REFIT EQUATION WITHOUT THE RACE VARIABLE FOR THE IDMS-TRACEABLE CREATININE METHODS. https://jasn.asnjournals.org/content//ASN.9983763388 Performed By: #### B MP #### [address] [address] Glucose [Mass/Vol] 85 mg/dL Normal 74 - 99 [facility] Comment on above: Performed By: #### B MP #### [address] [address] HCO3 (Bld) [Moles/Vol] 28 mmol/L Normal 21 - 32 [facility] Comment on above: Performed By: #### B MP #### [address] [address] Potassium [Moles/Vol] 4.1 mmol/L Normal 3.5 - 5.3 [facility] Comment on above: Performed By: #### B MP #### [address] [address] Sodium [Moles/Vol] 137 mmol/L Normal 136 - 145 [facility] Comment on above: Performed By: #### B MP #### [address] [address] Urea nitrogen [Mass/Vol] 9 mg/dL Normal 6 - 23 [facility] Comment on above: Performed By: #### B MP #### [address] [address] Laboratory - Chemistry and C hemistry - challengeon 12-15-2021 Anion gap [Moles/Vol] 10 mmol/L 10 - 20 [facility] and Work Phone: Calcium [Mass/Vol] 8.6 mg/dL 8.6 - 10.3 [facility] and Work Phone: Chloride [Moles/Vol] 103 mmol/L 98 - 107 [facility] Work Phone: CO2 [Moles/Vol] 28 mmol/L 21 - 32 [facility] and Work Phone: Creatinine [Mass/Vol] 0.59 mg/dL See Below [facility] Work Phone: Comment on above: Reference Range: 0.5 0 - 1.05 Glucose [Mass/Vol] 85 mg/dL 74 - 99 [facility] and Work Phone: Potassium [Moles/Vol] 4.1 mmol/L 3.5 - 5.3 [facility] and Work Phone: Sodium [Moles/Vol] 137 mmol/L 136 - 145 [facility] Work Phone: Urea nitrogen [Mass/Vol] 9 mg/dL 6 - 23 [facility] and Work Phone: No Panel Informationon 12-15 >90 >90 [facility] [employer] [facility] and Work Phone: Comment on above: CALCULATIONS OF RUBEN MATED GFR ARE PERFORMED USING THE 2020 CKD-EPI STUDY REFIT EQUATION WITHOUT THE RACE VARIABLE FOR THE IDMS-TRACEABLE CREATININE METHODS.https://jasn.asnjournals.org/content//ASN.20 41007353 Glucose, Serumon 01-19-2021 Glucose [Mass/Vol] 93 mg/dL 74 - 99 [facility] and Work Phone: Hemoglobin A1Con 01-19-2021 Glucose [Mass/Vol] 111 mg/dL [facility] and Work Phone: HbA1c (Bld) [Mass fraction] 5.5 % [facility] and Work Phone: Comment on above: Diagnosis of Diabete s-Adults Non-Diabetic: < or = 5.6% Increased risk for developing diabetes: 5.7-6.4% Diagnostic of diabetes: > or = 6.5%. Monitoring of Diabetes Age (y) Therapeutic Goal (%) Adults: >18 <7.0 Pediatrics: 13-18 <7.5 7-12 <8.0 0- 6 7.5-8.5 [place] [employer]. Diabetes Care 33(S1), May 2009. Hemoglobin A1Con 12-24-2019 HbA1c (Bld) [Mass fraction] 108 {MG/DL} [facility] Work Phone: HbA1c (Bld) [Mass fraction] 5.4 % [facility] Work Phone: Comment on above: Diagnosis of Diabete s-Adults Non-Diabetic: < or = 5.6% Increased risk for developing diabetes: 5.7-6.4% Diagnostic of diabetes: > or = 6.5%. Monitoring of Diabetes Age (y) Therapeutic Goal (%) Adults: >18 <7.0 Pediatrics: 13-18 <7.5 7-12 <8.0 0- 6 7.5-8.5 [place] [employer]. Diabetes Care 33(S1), May 2009. Metabolic Panelon 12-24-2019 Anion gap [Moles/Vol] 10 mmol/L 10 - 20 [facility] Work Phone: Calcium [Mass/Vol] 8.4 mg/dL below low threshold 8.6 - 10.3 [facility] Work Phone: Chloride [Moles/Vol] 106 mmol/L 98 - 107 [facility] Work Phone: CO2 [Moles/Vol] 28 mmol/L 21 - 32 [facility] Work Phone: Creatinine [Mass/Vol] 0.66 mg/dL See Below [facility] Work Phone: Comment on above: Reference Range: 0.5 0 - 1.05 Glucose [Mass/Vol] 81 mg/dL 74 - 99 [facility] Work Phone: Potassium [Moles/Vol] 3.9 mmol/L 3.5 - 5.3 [facility] Work Phone: Sodium [Moles/Vol] 140 mmol/L 136 - 145 [facility] Work Phone: Urea nitrogen [Mass/Vol] 10 mg/dL 6 - 23 [facility] Work Phone: Otheron 12-24-2019 >60 >60 [facility] Work Phone: Comment on above: CALCULATIONS OF RUBEN MATED GFR ARE PERFORMED USING THE MDRD STUDY EQUATION FOR THE IDMS-TRACEABLE CREATININE METHODS. CLIN CHEM 2007;53:766-72 Vital Signs Date Time Vital Sign Value Performing Clinician Facility 11-23-2024 13:36-0400 Body height 157.[address] Maribel Kwan MD Work Phone: [facility] 11-23-2024 13:36-0400 Body mass index (BMI) [Ratio] 52.4 kg/m2 Dr. Maribel Kwan MD Work Phone: 2(474)[phone] [place] [address] 11-23-2024 13:36-0400 Body weight 130.[address] Maribel Kwan MD Work Phone: 6(502)893-988900 [place] [address] 11-20-2024 14:10-0400 Body temperature 98.7 [degF] Dr. Maribel Kwan MD Work Phone: 3(782)384-401200 [place] [address] 11-20-2024 14:10-0400 Diastolic blood pressure 76 mm[Hg] Dr. Maribel Kwan MD Work Phone: 9(267)707-649716 [place] [address] 11-20-2024 14:10-0400 Heart rate 78 /min Dr. Maribel Kwan MD Work Phone: 0(655)735-854700 [place] [address] 11-20-2024 14:10-0400 Respiratory rate 14 /min Dr. Maribel Kwan MD Work Phone: 2([phone])834-827300 [place] [address] 11-20-2024 14:10-0400 SaO2% (BldA) [Mass fraction] 99 % Dr. Maribel Kwan MD Work Phone: 7(522)972-846816 [place] [address] 11-20-2024 14:10-0400 Systolic blood pressure 128 mm[Hg] Dr. Maribel Kwan MD Work Phone: 0(237)[phone] [place] [address] 11-20-2024 12:05-0400 Body height 157.[address] Maribel Kwan MD Work Phone: 9(229)081-595916 [place] [address] 11-20-2024 12:05-0400 Body mass index (BMI) [Ratio] 52.7 kg/m2 Dr. Maribel Kwan MD Work Phone: 0(580)291-508916 [place] [address] 11-20-2024 12:05-0400 Body weight 130.[address] Marible Kwan MD Work Phone: 5(801)227-419416 [place] [address] 09-04-2024 16:04-0400 Body height 157.5 cm Maribel Kwan DO Work Phone: [facility] 09-04-2024 16:04-0400 Body mass index (BMI) [Ratio] 53.45 kg/m2 Maribel [place] DO Work Phone: [facility] 09-04-2024 16:04-0400 Body weight 132.59 kg Maribel [place] DO Work Phone: [facility] 09-04-2024 16:04-0400 Diastolic blood pressure 78 mm[Hg] Maribel [place] DO Work Phone: [facility] 09-04-2024 16:04-0400 Heart rate 68 /min Maribel [place] DO Work Phone: [facility] 09-04-2024 16:04-0400 SaO2% (BldA) [Mass fraction] 96 % Maribel [place] DO Work Phone: [facility] 09-04-2024 16:04-0400 Systolic blood pressure 128 mm[Hg] Maribel [place] DO Work Phone: [facility] 03-15-2024 07:16-0500 Body mass index (BMI) [Ratio] 51.97 kg/m2 [facility] REPRESENTATIVE.GRADUATE ASSISTANT Work Phone: [facility] 03-15-2024 07:16-0500 Body weight 133.09 kg С[facility]ей [facility] REPRESENTATIVE.GRADUATE ASSISTANT Work Phone: [facility] 03-15-2024 07:16-0500 Diastolic blood pressure 80 mm[Hg] Сергей [facility] REPRESENTATIVE.GRADUATE ASSISTANT Work Phone: [facility] 03-15-2024 07:16-0500 Systolic blood pressure 122 mm[Hg] Сергей [facility] REPRESENTATIVE.GRADUATE ASSISTANT Work Phone: [facility] 03-06-2024 15:50-0500 Body height 157.5 cm Maribel [place] DO Work Phone: [facility] 03-06-2024 15:50-0500 Body mass index (BMI) [Ratio] 54.5 kg/m2 Maribel [place] DO Work Phone: [facility] 03-06-2024 15:50-0500 Body weight 135.17 kg Maribel [place] DO Work Phone: [facility] 03-06-2024 15:50-0500 Diastolic blood pressure 88 mm[Hg] Maribel [place] DO Work Phone: [facility] 03-06-2024 15:50-0500 Heart rate 77 /min Maribel [place] DO Work Phone: [facility] 03-06-2024 15:50-0500 SaO2% (BldA) [Mass fraction] 98 % Maribel [place] DO Work Phone: [facility] 03-06-2024 15:50-0500 Systolic blood pressure 126 mm[Hg] Maribel [place] DO Work Phone: [facility] 01-25-2024 14:44-0400 Body height 160 cm Meri Renner MD Work Phone: [facility] 01-25-2024 14:44-0400 Body mass index (BMI) [Ratio] 52.26 kg/m2 Meri Renner MD Work Phone: [facility] 01-25-2024 14:44-0400 Body weight 133.81 kg Meri Renner MD Work Phone: [facility] 01-25-2024 14:44-0400 Diastolic blood pressure 84 mm[Hg] Meri Renner MD Work Phone: [facility] 01-25-2024 14:44-0400 Heart rate 92 /min Meri Renner MD Work Phone: [facility] 01-25-2024 14:44-0400 SaO2% (BldA) [Mass fraction] 97 % Meri Renner MD Work Phone: [facility] 01-25-2024 14:44-0400 Systolic blood pressure 128 mm[Hg] Meri Renner MD Work Phone: [facility] 01-05-2024 08:15-0400 Body mass index (BMI) [Ratio] 53.02 kg/m2 [facility] REPRESENTATIVE.CNM Work Phone: [facility] 01-05-2024 08:15-0400 Body weight 133.63 kg Venus [facility] REPRESENTATIVE.CNM Work Phone: [facility] 01-05-2024 08:15-0400 Diastolic blood pressure 77 mm[Hg] Venus [facility] REPRESENTATIVE.CNM Work Phone: [facility] 01-05-2024 08:15-0400 Systolic blood pressure 127 mm[Hg] Venus [facility] REPRESENTATIVE.CNM Work Phone: [facility] 12-26-2023 13:47-0400 Body mass index (BMI) [Ratio] 53.71 kg/m2 Venus [facility] REPRESENTATIVE.CNM Work Phone: [facility] 12-26-2023 13:47-0400 Body weight 135.35 kg Venus [facility] REPRESENTATIVE.CNM Work Phone: [facility] 12-26-2023 13:47-0400 Diastolic blood pressure 64 mm[Hg] Venus [facility] REPRESENTATIVE.CNM Work Phone: [facility] 12-26-2023 13:47-0400 Systolic blood pressure 128 mm[Hg] Venus [facility] REPRESENTATIVE.CNM Work Phone: [facility] 11-02-2023 10:44-0400 Body height 157.5 cm Maribel [place] DO Work Phone: [facility] 11-02-2023 10:44-0400 Body mass index (BMI) [Ratio] 53.41 kg/m2 Maribel [place] DO Work Phone: [facility] 11-02-2023 10:44-0400 Body weight 132.45 kg Maribel [place] DO Work Phone: [facility] 11-02-2023 10:44-0400 Diastolic blood pressure 86 mm[Hg] Maribel [place] DO Work Phone: [facility] 11-02-2023 10:44-0400 Heart rate 95 /min Maribel [place] DO Work Phone: [facility] 11-02-2023 10:44-0400 SaO2% (BldA) [Mass fraction] 98 % Maribel [place] DO Work Phone: [facility] 11-02-2023 10:44-0400 Systolic blood pressure 136 mm[Hg] Maribel [place] DO Work Phone: [facility] 05-04-2023 07:38-0500 Diastolic blood pressure 78 mm[Hg] Maribel [place] DO Work Phone: [facility] 05-04-2023 07:38-0500 Heart rate 84 /min Maribel [place] DO Work Phone: [facility] 05-04-2023 07:38-0500 SaO2% (BldA) [Mass fraction] 96 % Maribel [place] DO Work Phone: [facility] 05-04-2023 07:38-0500 Systolic blood pressure 120 mm[Hg] Maribel [place] DO Work Phone: [facility] 04-19-2023 15:29-0500 Body mass index (BMI) [Ratio] 52.86 kg/m2 Maribel [place] DO Work Phone: [facility] 04-19-2023 15:29-0500 Body weight 131.09 kg Maribel [place] DO Work Phone: [facility] 04-19-2023 15:29-0500 Diastolic blood pressure 82 mm[Hg] Maribel [place] DO Work Phone: [facility] 04-19-2023 15:29-0500 Heart rate 86 /min Maribel [place] DO Work Phone: [facility] 04-19-2023 15:29-0500 SaO2% (BldA) [Mass fraction] 98 % Maribel [place] DO Work Phone: [facility] 04-19-2023 15:29-0500 Systolic blood pressure 130 mm[Hg] Maribel [place] DO Work Phone: [facility] 02-01-2023 09:05-0400 Body height 157.5 cm Maribel [place] DO Work Phone: [facility] 02-01-2023 09:05-0400 Body mass index (BMI) [Ratio] 53.04 kg/m2 Maribel [place] DO Work Phone: [facility] 02-01-2023 09:05-0400 Body weight 131.54 kg Maribel [place] DO Work Phone: [facility] 02-01-2023 09:05-0400 Diastolic blood pressure 82 mm[Hg] Maribel [place] DO Work Phone: [facility] 02-01-2023 09:05-0400 Heart rate 63 /min Maribel [place] DO Work Phone: [facility] 02-01-2023 09:05-0400 SaO2% (BldA) [Mass fraction] 95 % Maribel [place] DO Work Phone: [facility] 02-01-2023 09:05-0400 Systolic blood pressure 134 mm[Hg] Maribel [place] DO Work Phone: [facility] 10-21-2022 16:05-0400 Body height 157.5 cm Maribel [place] DO Work Phone: [facility] 10-21-2022 16:05-0400 Body mass index (BMI) [Ratio] 51.94 kg/m2 Maribel [place] DO Work Phone: [facility] 10-21-2022 16:05-0400 Body weight 128.82 kg Maribel [place] DO Work Phone: [facility] 10-21-2022 16:05-0400 Diastolic blood pressure 74 mm[Hg] Maribel [place] DO Work Phone: [facility] 10-21-2022 16:05-0400 Heart rate 71 /min Maribel [place] DO Work Phone: [facility] 10-21-2022 16:05-0400 SaO2% (BldA) [Mass fraction] 98 % Maribel [place] DO Work Phone: [facility] 10-21-2022 16:05-0400 Systolic blood pressure 124 mm[Hg] Maribel [place] DO Work Phone: [facility] 09-01-2022 16:12-0400 Body weight 131.54 kg [facility].CNM Work Phone: [facility] 09-01-2022 16:12-0400 Diastolic blood pressure 94 mm[Hg] [facility] REPRESENTATIVE.CNM Work Phone: [facility] 09-01-2022 16:12-0400 Systolic blood pressure 142 mm[Hg] [facility] REPRESENTATIVE.CNM Work Phone: [facility] 08-09-2022 14:07-0400 Body height 157.5 cm Maribel [place] DO Work Phone: [facility] 08-09-2022 14:07-0400 Body mass index (BMI) [Ratio] 52.29 kg/m2 Maribel [place] DO Work Phone: [facility] 08-09-2022 14:07-0400 Body weight 129.68 kg Maribel [place] DO Work Phone: [facility] 08-09-2022 14:07-0400 Diastolic blood pressure 78 mm[Hg] Maribel [place] DO Work Phone: [facility] 08-09-2022 14:07-0400 Heart rate 72 /min Maribel [place] DO Work Phone: [facility] 08-09-2022 14:07-0400 Systolic blood pressure 134 mm[Hg] Maribel [place] DO Work Phone: [facility] 07-29-2022 16:07-0400 Body height 157.5 cm Amribel [place] DO Work Phone: [facility] 07-29-2022 16:07-0400 Body mass index (BMI) [Ratio] 52.68 kg/m2 Maribel [place] DO Work Phone: [facility] 07-29-2022 16:07-0400 Body weight 130.64 kg Maribel [place] DO Work Phone: [facility] 07-29-2022 16:07-0400 Diastolic blood pressure 76 mm[Hg] Maribel [place] DO Work Phone: [facility] 07-29-2022 16:07-0400 Heart rate 61 /min Maribel [place] DO Work Phone: [facility] 07-29-2022 16:07-0400 SaO2% (BldA) [Mass fraction] 98 % Maribel [place] DO Work Phone: [facility] 07-29-2022 16:07-0400 Systolic blood pressure 132 mm[Hg] Maribel [place] DO Work Phone: [facility] 04-13-2022 16:05-0500 Body height 157.48 cm Maribel S [place] Work Phone: [facility] [employer] [facility] Work Phone: 04-13-2022 16:05-0500 Body mass index (BMI) [Ratio] 52.69 kg/m2 Maribel S [place] Work Phone: [facility] [employer] Work Phone: 04-13-2022 16:05-0500 Body surface area Derived from formula 2.23 m2 Maribel S [place] Work Phone: [facility] [employer] [facility] Work Phone: 04-13-2022 16:05-0500 Body weight 130.66 kg Maribel Kwan Work Phone: [facility] Work Phone: 04-13-2022 16:05-0500 Diastolic blood pressure 66 mm[Hg] Maribel Kwan Work Phone: [facility] Work Phone: 04-13-2022 16:05-0500 Heart rate 81 /min Maribel Kwan [employer] Phone: [facility] Work Phone: 04-13-2022 16:05-0500 SaO2% (BldA) [Mass fraction] 97 % Maribel Kwan Work Phone: [facility] Work Phone: 04-13-2022 16:05-0500 Systolic blood pressure 130 mm[Hg] Maribel Kwan [employer] Phone: [facility] Work Phone: 03-16-2022 13:06-0500 Body height 157.48 cm Maribel Kwan [employer] Phone: [facility] Work Phone: 03-16-2022 13:06-0500 Body mass index (BMI) [Ratio] 51.21 kg/m2 Maribel Kwan [employer] Phone: [facility] Work Phone: 03-16-2022 13:06-0500 Body surface area Derived from formula 2.21 m2 Maribel Kwan [employer] Phone: [facility] [employer] [facility] Work Phone: 03-16-2022 13:06-0500 Body weight 127.01 kg Maribel Kwan Work Phone: [facility] [employer] [facility] Work Phone: 03-16-2022 13:06-0500 Diastolic blood pressure 78 mm[Hg] Maribel Kwan Work Phone: [facility] Work Phone: 03-16-2022 13:06-0500 Heart rate 80 /min Maribel Ding [place] Work Phone: [facility] Work Phone: 03-16-2022 13:06-0500 SaO2% (BldA) [Mass fraction] 98 % Maribel Kwan Work Phone: [facility] Work Phone: 03-16-2022 13:06-0500 Systolic blood pressure 124 mm[Hg] Maribel Ding [place] Work Phone: [facility] [employer] [facility] Work Phone: 12-28-2021 16:05-0400 Body height 157.48 cm Maribel Kwan Work Phone: [facility] [employer] [facility] Work Phone: 12-28-2021 16:05-0400 Body mass index (BMI) [Ratio] 51.03 kg/m2 Maribel Kwan Work Phone: [facility] Work Phone: 12-28-2021 16:05-0400 Body surface area Derived from formula 2.2 m2 Maribel Ding [place] Work Phone: [facility] [employer] [facility] Work Phone: 12-28-2021 16:05-0400 Body weight 126.55 kg Maribel Ding [place] Work Phone: [facility] Work Phone: 12-28-2021 16:05-0400 Diastolic blood pressure 82 mm[Hg] Maribel Kwan Work Phone: [facility] [employer] [facility] Work Phone: 12-28-2021 16:05-0400 Heart rate 82 /min Maribel Kwan Work Phone: [facility] [employer] [facility] Work Phone: 12-28-2021 16:05-0400 SaO2% (BldA) [Mass fraction] 97 % Maribel Kwan Work Phone: [facility] [employer] [facility] Work Phone: 12-28-2021 16:05-0400 Systolic blood pressure 128 mm[Hg] Maribel Kwan Work Phone: [facility] [employer] [facility] Work Phone: 07-15-2021 18:05-0400 Body height 157.4 cm Maribel [place] Other Phone: [facility] 07-15-2021 18:05-0400 Body temperature 97.7 [degF] Maribel [place] Other Phone: [facility] 07-15-2021 18:05-0400 Diastolic blood pressure 103 mm[Hg] Maribel [place] Other Phone: [facility] 07-15-2021 18:05-0400 Heart rate 90 /min Maribel [place] Other Phone: [facility] 07-15-2021 18:05-0400 Respiratory rate 16 /min Maribel [place] Other Phone: [facility] 07-15-2021 18:05-0400 SaO2% (BldA) [Mass fraction] 100 % Maribel [place] Other Phone: [facility] 07-15-2021 18:05-0400 Systolic blood pressure 143 mm[Hg] Maribel [place] Other Phone: [facility] 01-19-2021 16:13-0400 Body height 157.48 cm Maribel Kwan Work Phone: [employer] Work Phone: 01-19-2021 16:13-0400 Body mass index (BMI) [Ratio] 50.49 kg/m2 Maribel Ding [place] Work Phone: [facility] Work Phone: 01-19-2021 16:13-0400 Body surface area Derived from formula 2.19 m2 Maribel Ding [place] Work Phone: [facility] Work Phone: 01-19-2021 16:13-0400 Body temperature 207.14 [degF] Maribel Kwan Work Phone: [facility] Work Phone: 01-19-2021 16:13-0400 Body weight 125.22 kg Maribel Kwan [employer] Phone: [facility] Work Phone: 01-19-2021 16:13-0400 Diastolic blood pressure 88 mm[Hg] Maribel Kwan [employer] Phone: [facility] Work Phone: 01-19-2021 16:13-0400 Heart rate 83 /min Maribel Kwan [employer] Phone: [employer] [facility] Work Phone: 01-19-2021 16:13-0400 SaO2% (BldA) [Mass fraction] 99 % Maribel Kwan Work Phone: [facility] Work Phone: 01-19-2021 16:13-0400 Systolic blood pressure 130 mm[Hg] Maribel Kwan Work Phone: [facility] Work Phone: 01-03-2020 16:37-0400 BMI (Body Mass Index) 49.76 kg/m2 Maribel [facility] Work Phone: 01-03-2020 16:37-0400 Body Temperature 206.24 [degF] Maribel [facility] Work Phone: Comment on above: Method: Temporal 01-03-2020 16:37-0400 Body weight 123.41 kg Maribel Kwan [facility] Work Phone: 01-03-2020 16:37-0400 BP Diastolic 80 mm[Hg] Maribel [facility] Work Phone: 01-03-2020 16:37-0400 BP Systolic 124 mm[Hg] Maribel [facility] Work Phone: 01-03-2020 16:37-0400 BSA (Body Surface Area) 2.18 m2 Maribel Kwan [facility] Work Phone: 01-03-2020 16:37-0400 Height 157.48 cm Maribel [facility] Work Phone: 01-03-2020 16:37-0400 Pulse (Heart Rate) 97 /min Maribel [facility] Work Phone: 01-03-2020 16:37-0400 Pulse Oximetry 97 % [facility] Work Phone: Comment on above: Source: 12-17-2019 16:00-0400 BMI (Body Mass Index) 49.28 kg/m2 Maribel [facility] Work Phone: 12-17-2019 16:00-0400 Body Temperature 206.24 [degF] Maribel [facility] Work Phone: Comment on above: Method: Temporal 12-17-2019 16:00-0400 Body weight 122.22 kg Maribel Kwan [facility] Work Phone: 12-17-2019 16:00-0400 BP Di[facility] 80 mm[facility]Hg[facility] 12-17-2019 16:00-0400 BP Systolic 126 mm[Hg] Maribel Kwan [facility] Work Phone: 12-17-2019 16:00-0400 BSA (Body Surface Area) 2.17 m2 Maribel [facility] Work Phone: 12-17-2019 16:00-0400 Height 157.48 cm Maribel [facility] Work Phone: 12-17-2019 16:00-0400 Pulse (Heart Rate) 97 /min Maribel [facility] Work Phone: 12-17-2019 16:00-0400 Pulse Oximetry 98 % [facility] Work Phone: Comment on above: Source: RA Encounters Encounter Date Encounter Type Care Provider Facility Start: 12-10-2024 End: 12-10-[address] Maribel Kwan MD Work Phone: -[facility] Start: 12-10-2024 End: 12-10-[address] Helio Charles MD -[facility] Work Phone: Start: 11-23-2024 End: 11-23-[address] Ronak Paz MD -[facility] Start: 11-23-2024 End: 11-23-[address] Maribel Kwan MD Work Phone: -[facility] Start: 11-20-2024 End: 11-20-2024 Emergency department patient visit Dr. Maribel Kwan MD Work Phone: -Emergency Department Work Phone: Start: 09-04-2024 End: 09-04-2024 Office outpatient visit 25 minutes [facility] [employer] Work Phone: [facility] Comment on above: Taking medication fo r chronic disease (Primary Dx); Paroxysmal SVT (supraventricular tachycardia) (CMS-HCC); Anxiety; Gastroesophageal reflux disease without esophagitis; PND (post-nasal drip); Obstructive sleep apnea on CPAP Start: 09-04-2024 End: 09-04-[address] [facility] Start: 03-15-2024 End: 03-15-2024 ambulatory СЕРГЕЙ DE LEON Facility:[facility] Start: 03-15-2024 End: 03-15-2024 Patient encounter procedure Сергей De Leon APRN.GRADUATE ASSISTANT Work Phone: OB/Gynecology Comment on above: Surveillance of prev iously prescribed intrauterine contraceptive device (Primary Dx) Start: 03-06-2024 End: 03-06-2024 Office outpatient visit 15 minutes [facility] Work Phone: [facility] Comment on above: Paroxysmal SVT (supr aventricular tachycardia) ([facility]-HCC); Anxiety; Gastroesophageal reflux disease without esophagitis; PND (post-nasal drip) Start: 03-06-2024 End: 03-06-[address] [facility] Start: 02-14-2024 End: 02-15-2024 ambulatory Meri Renner MD Work Phone: OB/Gynecology Comment on above: Pathology Start: 02-03-2024 End: 02-03-2024 ambulatory [facility] Facility:[facility] Start: 01-31-2024 End: 01-31-2024 ambulatory Ronak Paz Facility:[facility] Start: 01-25-2024 End: 01-25-2024 ambulatory MERI RENNER Facility:[facility] Start: 01-25-2024 End: 01-25-2024 Patient encounter procedure Meri Renner MD Work Phone: OB/Gynecology Comment on above: Abnormal uterine ble eding (AUB) (Primary Dx); Endometrial polyp; Pre-op exam Start: 01-25-2024 End: 01-25-2024 Preprocedural examination done Meri Renner MD Work Phone: [facility] Start: 01-09-2024 End: 01-12-2024 Telephone encounter Venus Vyas APRN.CNM Work Phone: OB/Gynecology Comment on above: Appointment Start: 01-06-2024 End: 01-10-2024 Refill Venus Vyas APRN.CNM Work Phone: OB/Gynecology Comment on above: Refill Request Norethindrone Start: 01-05-2024 End: 01-05-2024 ambulatory VENUSVIANCA VYAS Facility:[facility] Start: 01-05-2024 End: 01-05-2024 Patient encounter procedure Venus Vyas APRN.CNM Work Phone: OB/Gynecology Comment on above: Irregular bleeding ( Primary Dx); Menorrhagia with irregular cycle; Abnormal uterine bleeding due to endometrial polyp; Cysts of both ovaries Start: 01-03-2024 End: 01-04-2024 Telephone encounter Cande Bowers APRN.CNP Work Phone: OB/Gynecology Comment on above: Orders Start: 01-03-2024 End: 01-03-2024 ambulatory VENUS VYAS Facility:[facility] Start: 01-03-2024 End: 01-03-2024 Patient encounter procedure [employer] OB/Gynecology Comment on above: Menorrhagia with irr egular cycle (Primary Dx) Start: 12-26-2023 End: 12-26-2023 ambulatory VENUS VYAS Facility:[facility] Start: 12-26-2023 End: 12-26-2023 Patient encounter procedure Venus Vyas APRN.CNM Work Phone: OB/Gynecology Comment on above: Menorrhagia with irr egular cycle (Primary Dx); Irregular intermenstrual bleeding; Morbid obesity (HCC) Start: 12-22-2023 End: 12-22-2023 Telephone encounter Venus Plotts [facility] C[facility] REPRESENTATIVE.CNM Work Phone: OB/Gynecology Comment on above: Heavy Bleeding Start: 11-28-2023 End: 11-28-[address] [facility] Start: 11-26-2023 End: 11-26-2023 ambulatory [facility] Start: 11-02-2023 End: 11-02-2023 Office outpatient visit 25 minutes Maribel S [place] DO Work Phone: [facility] Comment on above: Dysfunction of right eustachian tube (Primary Dx); PND (post-nasal drip); Anxiety; Paroxysmal SVT (supraventricular tachycardia) ([facility]-H[facility]); Fatigue, unspecified type Start: 11-02-2023 End: 11-02-2023 [facility] Ambulatory Start: 06-01-2023 End: 06-01-2023 [facility] Start: 05-04-2023 End: 05-05-2023 ambulatory [facility] Start: 05-04-2023 End: 05-04-2023 Office outpatient visit 15 minutes Maribel S [place] DO Work Phone: [facility] Comment on above: Subacute cough (Prim pamella Dx); PND (post-nasal drip) Start: 04-19-2023 End: 04-19-2023 Office outpatient visit 15 minutes Maribel S [place] DO Work Phone: [facility] Comment on above: Upper respiratory tr act infection, unspecified type (Primary Dx); Gastroesophageal reflux disease without esophagitis Start: 02-01-2023 End: 02-01-2023 Office outpatient visit 15 minutes Maribel S [place] DO Work Phone: [facility] Comment on above: Obstructive sleep ap calos on CPAP; Paroxysmal SVT (supraventricular tachycardia); Gastroesophageal reflux disease without esophagitis; Anxiety; Paroxysmal SVT (supraventricular tachycardia); Supraventricular tachycardia, paroxysmal; Immunization due Start: 11-11-2022 Refill Venus Reggie s MEDICAL CENTER REPRESENTATIVE.CNM Work Phone: OB/Gynecology Comment on above: Refill Request Start: 10-21-2022 End: 10-21-2022 Office outpatient visit 25 minutes [employer] Work Phone: [facility] [employer] [facility] Comment on above: Anxiety (Primary Dx) ; Fatigue, unspecified type; Obstructive sleep apnea on CPAP Start: 09-01-2022 End: 09-01-2022 Patient encounter procedure Venus Vyas MEDICAL CENTER REPRESENTATIVE.CNM Work Phone: OB/Gynecology Comment on above: Encounter for initia l prescription of contraceptive pills (Primary Dx); Morbid obesity (HCC); Hypertension, unspecified type Start: 08-09-2022 End: 08-09-2022 Office outpatient visit 15 minutes [employer] Work Phone: [facility] [employer] [facility] Comment on above: Bronchitis (Primary Dx) Start: 07-29-2022 End: 07-29-2022 Office outpatient visit 25 minutes [employer] Work Phone: [facility] Comment on above: Obstructive sleep ap calos on CPAP (Primary Dx); Paroxysmal SVT (supraventricular tachycardia) ([facility]); Gastroesophageal reflux disease without esophagitis; Anxiety; Morbid obesity with body mass index (BMI) of 40.0 or higher ([facility]); Taking medication for chronic disease; Chronic primary headache Start: 04-13-2022 Office outpatient vi sit 15 minutes Maribel S [employer] Work Phone: [facility] Work Phone: Start: 04-13-2022 ambulatory DO MARIBEL S ROYAL Fac ility:[id number] Start: 03-16-2022 ambulatory DO MARIBEL S ROYAL Fac ility:[id number] Start: 03-16-2022 Office outpatient vi sit 15 minutes Maribel S [place] Work Phone: [facility] [employer] [facility] [employer] Phone: Start: 01-25-2022 ambulatory DO MARIBEL S ROYAL Fac ility:[id number] Start: 12-28-2021 ambulatory DO MARIBEL S ROYAL Fac ility:[id number] Start: 12-28-2021 Office outpatient vi sit 25 minutes Maribel S [place] Work Phone: -[facility] Work Phone: Start: 12-22-2021 AUDIT Maribel Maza al Work Phone: -[facility] Work Phone: Start: 07-15-2021 End: 07-15-2021 Emergency department patient visit Eliza Arevalo [facility] Start: 06-08-2021 Rx Renewal Maribel Ding [employer] Work Phone: -[facility] Work Phone: Start: 03-11-2021 AUDIT Maribel Maza al Work Phone: -[facility] Work Phone: Start: 01-19-2021 Office outpatient vi sit 25 minutes Maribel Toña [place] Work Phone: -[facility] Work Phone: Start: 01-03-2020 Patient encounter procedure Maribel [place] -[facility] Work Phone: Start: 12-17-2019 Patient encounter procedure Maribel [place] -[facility] Work Phone: Start: 06-11-2019 Patient encounter procedure Maribel [place] -[facility] Work Phone: Start: 04-10-2019 Patient encounter procedure Maribel [place] -[facility] Work Phone: Start: 03-12-2019 Patient encounter procedure Maribel [place] -[facility] Work Phone: Start: 02-13-2019 Patient encounter procedure Maribel [place] -[facility] Work Phone: Start: 03-01-2017 End: 03-01-2017 Ambulatory Madhav Cesar Facility:[facility] Start: 08-26-2016 End: 10-29-2016 Patient requested procedure Venus Vyas CNM Work Phone: [facility] Procedures Date Procedure Procedure Detail Performing Clinician Start: 11-23-2024 Plain x-ray of elbow Dr Jaymie Kwan MD Work Phone: Start: 11-23-2024 Plain x-ray of wrist Dr Jaymie Kwan MD Work Phone: Start: 11-20-2024 XR forearm, [address] Maribel Kwan MD Work Phone: Start: 01-03-2024 Us pelvic nonobstetr ic real-time image complete Cande Bowers APRN.GRADUATE ASSISTANT Work Phone: Start: 05-04-2023 XR CHEST 2 VIEWS SWATI KWAN Colonoscopy Maribel Kwan Tonsillectomy Maribel Kwan Plan of Treatment Date Care Activity Detail Author Start: 2037 Zoster Vaccines (1 of 2) Zoste r Vaccines (1 of 2) [facility] Start: 01-24-2027 DTaP/Tdap/Td Vaccine s (8 - Td or Tdap) DTaP/Tdap/Td Vaccines (8 - Td or Tdap) [facility] Start: 01-24-2027 Urine microalbumin profile [facility] Start: 06-02-2025 HPV TESTING HPV TESTING [facility] Start: 06-02-2025 PAP TESTING PAP TESTING [facility] Start: 06-02-2025 Screening for malign ant neoplasm of cervix Cervical Cancer Screening [facility] Start: 01-04-2025 BP Controlled (<130/80) BP Controlle d (<130/80) [facility] Start: 12-25-2024 BP Controlled (<130/80) BP Controlle d (<130/80) [facility] Start: 12-10-2024 Plain x-ray of elbow Elbow min 3 Vie [facility] Start: 12-10-2024 XR Elbow GE 3 Views [facility] Start: 11-23-2024 Plain x-ray of elbow Elbow min 3 Vie [facility] Start: 11-23-2024 Plain x-ray of wrist Wrist min 3 Vie ws [facility] Start: 11-23-2024 XR Elbow GE 3 Views [facility] Start: 11-23-2024 XR Wrist GE 3 Views [facility] Start: 11-20-2024 [facility] Start: 09-04-2024 End: 09-04-2024 Patient encounter procedure 09/04/2024 4:00 PM EDT Office Visit [place] [address] [phone] Maribel Kwan S, [address] [address] [facility] Start: 09-04-2024 End: 09-04-2025 Comprehensive metabolic 2000 panel - Serum or Plasma Comprehensive Metabolic Panel Lab Routine Taking medication for chronic disease Expected: 09/04/2024 (Approximate), Expires: 09/04/2025 [facility] Service Area Work Phone: Comment on above: Expected: 09/04/2024 (Approximate), Expires: 09/04/2025 Start: 03-15-2024 End: 03-15-2024 Patient encounter procedure 03/15/2024 7:15 AM EST Office Visit OB/Gynecology [address] [place] [address] Сергей De Leon APRN.GRADUATE ASSISTANT [address] [place] [address] IUD check OB/Gynecology Comment on above: IUD check Start: 01-25-2024 End: 01-25-2024 Patient encounter procedure 01/25/2024 2:30 PM EDT Office Visit OB/Gynecology [address] [place] [address] Meri England MD [address] [place] [address] surgery 02/02 OB/Gynecology Comment on above: surgery 02/02 Start: 01-05-2024 End: 01-05-2024 Patient encounter procedure 01/05/2024 8:15 AM EDT Office Visit OB/Gynecology [address] [place] [address] Venus Vyas APRN.CNM [address] [place] [address] US f/up OB/Gynecology Comment on above: US f/up Start: 01-03-2024 End: 01-03-2024 Patient encounter procedure 01/03/2024 9:30 AM EDT Routine Office Visit OB/Gynecology [address] [place] [address] Plevic OB/Gynecology Comment on above: [facility] Start: 01-01-2024 Covid-19 Vaccine ( season) Covid-19 Vaccine ( season) [facility] Start: 01-01-2024 Covid-19 Vaccine ( season) Covid-19 Vaccine ( season) [facility] Start: 01-01-2024 Influenza vaccination Influenza Vacc ine (#1) [facility] Start: 12-26-2023 End: 12-26-2023 Patient encounter procedure 12/26/2023 1:45 PM EDT Office Visit OB/Gynecology [address] [place] [address] Venus Vyas APRN.CN [address] [place] [address] spotting while on control OB/Gynecology Comment on above: spotting while on bi rth control Start: 11-02-2023 End: 11-01-2024 CBC W Auto Differential panel - Blood CBC and Auto Differential Lab Routine Fatigue, unspecified type Expected: 11/02/2023 (Approximate), Expires: 11/01/2024 [facility] Work Phone: Comment on above: Expected: 11/02/2023 (Approximate), Expires: 11/01/2024 Start: 11-02-2023 End: 11-01-2024 Comprehensive metabolic 2000 panel - Serum or Plasma Comprehensive Metabolic Panel Lab Routine Fatigue, unspecified type Expected: 11/02/2023 (Approximate), Expires: 11/01/2024 [facility] Work Phone: Comment on above: Expected: 11/02/2023 (Approximate), Expires: 11/01/2024 Start: 05-04-2023 End: 05-04-2024 XR Chest 2 Views XR chest 2 views Imaging Routine Subacute cough Expected: 05/04/2023 (Approximate), Expires: 05/04/2024 [facility] Work Phone: Comment on above: Expected: 05/04/2023 (Approximate), Expires: 05/04/2024 Start: 05-03-2023 End: 05-03-2023 Patient encounter procedure 05/03/2023 2:40 PM EST Office Visit [place] [id number] Maribel Kwan, DO [address] [place] [id number] [facility] Start: 01-29-2023 End: 07-30-2023 Basic metabolic 2000 panel - Serum or Plasma Basic Metabolic Panel Lab Routine Taking medication for chronic disease Expected: 01/29/2023 (Approximate), Expires: 07/30/2023 [facility] Work Phone: Comment on above: Expected: 01/29/2023 (Approximate), Expires: 07/30/2023 Start: 01-27-2023 End: 01-27-2023 Patient encounter procedure 01/27/2023 4:00 PM EDT Office Visit [address] [id number] Maribel Kwan, DO [address] [place], [place] [id number] [facility] Start: 12-31-2022 Covid-19 Vaccine ( season) Covid-19 Vaccine () [facility] Start: 12-31-2022 Influenza vaccination INFLUENZA (#1) [facility] Start: 10-21-2022 End: 10-22-2023 CBC W Auto Differential panel - Blood CBC and Auto Differential Lab Routine Fatigue, unspecified type Expected: 10/21/2022 (Approximate), Expires: 10/22/2023 [facility] Work Phone: Comment on above: Expected: 10/21/2022 (Approximate), Expires: 10/22/2023 Start: 10-21-2022 End: 10-22-2023 Comprehensive metabolic 2000 panel - Serum or Plasma Comprehensive Metabolic Panel Lab Routine Fatigue, unspecified type Expected: 10/21/2022 (Approximate), Expires: 10/22/2023 [facility] Service Area Work Phone: Comment on above: Expected: 10/21/2022 (Approximate), Expires: 10/22/2023 Start: 10-21-2022 End: 10-22-2023 Thyrotropin [Units/volume] in Serum or Plasma TSH Lab Routine Fatigue, unspecified type Expected: 10/21/2022 (Approximate), Expires: 10/22/2023 [facility] Work Phone: Comment on above: Expected: 10/21/2022 (Approximate), Expires: 10/22/2023 Start: 07-29-2022 EPV, Provider: Maribel Kwan, Status: Pen, Time: 4:00 PM EPV, Provider: Maribel Kwan, Status: Pen, Time: 4:00 PM [facility] Work Phone: Start: 05-02-2022 DEPRESSION ASSESSMENT DEPRESSION ASS ESSMENT [facility] Start: 04-13-2022 EPV, Provider: Maribel Kwan, Status: Pen, Time: 4:00 PM EPV, Provider: Maribel Kwan, Status: Pen, Time: 4:00 PM [facility] Work Phone: Start: 01-25-2022 EPV, Provider: Maribel Kwan, Status: Pen, Time: 4:00 PM EPV, Provider: Maribel Kwan, Status: Pen, Time: 4:00 PM [facility] Work Phone: Start: 01-19-2022 Diabetes mellitus screening Diabetes Screening [facility] Start: 12-28-2021 EPV, Provider: Maribel Kwan, Status: Pen, Time: 4:00 PM EPV, Provider: Maribel Kwan, Status: Pen, Time: 4:00 PM [facility] Work Phone: Start: 08-12-2021 COVID-19 Vaccine (4 - Booster for Moderna series) COVID-19 Vaccine (4 - Booster for Moderna series) [facility] Start: 08-12-2021 COVID-19 VACCINE (4 - Moderna series) COVID-19 VACCINE (4 - Moderna series) [facility] Start: 07-20-2021 EPV, Provider: Maribel Kwan, Status: Pen, Time: 4:00 PM EPV, Provider: Maribel Kwan, Status: Pen, Time: 4:00 PM [facility] Work Phone: Start: 03-23-2018 Varicella vaccination Varicell a Vaccines (2 of 2 - 13+ 2-dose series) [facility] Start: 2008 Screening for malign ant neoplasm of cervix [facility] Start: 2006 Hepatitis B Vaccine (1 of 3 - 19+ 3-dose series) Hepatitis B Vaccine (1 of 3 - 19+ 3-dose series) [facility] Start: 2006 Hepatitis B Vaccines (1 of 3 - 19+ 3-dose series) Hepatitis B Vaccines (1 of 3 - 19+ 3-dose series) [facility] Start: 2005 Annual PCP Team Manager Fitness rosa Disease Visit Annual PCP Team Chronic Disease Visit [facility] Start: 2005 Anxiety Screening Anxiety Screening [facility] Start: 2005 BP Controlled (<130/80) BP Controlle d (<130/80) [facility] Start: 2005 Depression Screening Depression Scre ening [facility] Start: 2005 Hepatitis C screening Hepatitis C [facility] Start: 2005 HEPATITIS C SCREENING HEPATITIS C [facility] Start: 1987 HEPATITIS B (1 of 3 - 3-dose series) HEPATITIS B (1 of 3 - 3-dose series) [facility] Start: 1987 Hepatitis B Vaccines (1 of 3 - 3-dose series) Hepatitis B Vaccines (1 of 3 - 3-dose series) [facility] Start: 1987 HIV screening HIV Screening [facility] Start: 1987 Lipid panel Lipid Panel [facility] Start: 1987 Yearly Adult Physical Yearly Adult P [facility] Patient Education ED Radial Head Fracture [facility] Work Phone: End: 01-25-2025 US Pelvis transvaginal US FEMALE PELVIS TRANSVAG Radiology Routine Menorrhagia with irregular cycle 1 Occurrences starting 12/26/2023 until 01/25/2025 [facility] Work Phone: Comment on above: 1 Occurrences starti ng 12/26/2023 until 01/25/2025 End: 01-29-2025 US Pelvis transvaginal US FEMALE PELVIS TRANSVAG Radiology Routine Menorrhagia with irregular cycle 1 Occurrences starting 12/30/2023 until 01/29/2025 [facility] Work Phone: Comment on above: 1 Occurrences starti ng 12/30/2023 until 01/29/2025 Immunizations Immunization Date Immunization Notes Care Provider Pancho elias 03-06-2024 Seasonal, trivalent, recombinant, injectable influenza vaccine, preservative free Maribel [place] DO Work Phone: [facility] 02-01-2023 influenza, injectabl e, quadrivalent, preservative free Maribel [place] DO Work Phone: [facility] Work Phone: 10-03-2023 influenza virus vaccine, unspecified formulation Maribel [place] DO Work Phone: [facility] Work Phone: 04-13-2022 influenza, injectabl e, quadrivalent, preservative free; Translations: [Flulaval Quadrivalent 0.5 ML Intramuscular Suspension Prefilled Syringe] Maribel S [place] Work Phone: [facility] Work Phone: Comment on above: Series: 06-17-2021 Moderna COVID-19 Vaccine 100 MCG/0.5ML Intramuscular Suspension Maribel S [place] Work Phone: [facility] Work Phone: 02-06-2021 influenza, injectabl e, quadrivalent, preservative free Maribel S [place] Work Phone: [facility] Work Phone: 09-19-2020 Moderna COVID-19 Vaccine 100 MCG/0.5ML Intramuscular Suspension Maribel S [employer] Work Phone: [facility] 08-20-2020 Moderna COVID-19 Vaccine 100 MCG/0.5ML Intramuscular Suspension Maribel S [employer] Work Phone: [facility] Work Phone: 05-22-2020 influenza, seasonal, injectable Maribel S [place] Work Phone: [facility] Work Phone: Comment on above: Series: 02-23-2018 zoster vaccine, live Maribel [place] [facility] Work Phone: Comment on above: Series: 02-22-2018 influenza virus vaccine, unspecified formulation Maribel S [place] Work Phone: [facility] Comment on above: Series: 02-22-2018 influenza, seasonal, injectable Maribel [place] [facility] Work Phone: 07-25-2017 zoster vaccine, live Maribel [place] [facility] Work Phone: Comment on above: Series: 01-24-2017 influenza, injectabl e, quadrivalent, contains preservative Maribel S [place] Work Phone: [facility] Work Phone: 01-24-2017 tetanus toxoid, redu rosa diphtheria toxoid, and acellular pertussis vaccine, adsorbed Maribel S [place] Work Phone: [facility] 10-05-2011 hepatitis B vaccine, pediatric or pediatric/adolescent dosage Maribel S [place] Work Phone: [facility] 10-05-2011 tetanus toxoid, redu rosa diphtheria toxoid, and acellular pertussis vaccine, adsorbed Maribel S [place] Work Phone: [facility] 10-05-2011 varicella virus vaccine Kimb erly S [place] Work Phone: [facility] 01-13-2000 measles, mumps and rubella virus vaccine Maribel [place] DO Work Phone: [facility] Work Phone: 12-13-1999 measles, mumps and rubella virus vaccine Maribel S [place] Work Phone: [facility] Work Phone: 08-16-1992 diphtheria, tetanus toxoids and acellular pertussis vaccine Maribel [place] DO Work Phone: [facility] Work Phone: 08-16-1992 diphtheria, tetanus toxoids and acellular pertussis vaccine, unspecified formulation Maribel [place] Work Phone: [facility] Work Phone: 08-16-1992 trivalent poliovirus vaccine, live, oral Maribel [place] Work Phone: [facility] Work Phone: 01-22-1989 diphtheria, tetanus toxoids and acellular pertussis vaccine, unspecified formulation Maribel S [place] Work Phone: [facility] 11-20-1988 haemophilus influenz ae type b vaccine, conjugate unspecified formulation Maribel S [place] Work Phone: [facility] 11-20-1988 trivalent poliovirus vaccine, live, oral Maribel S [place] Work Phone: [facility] Work Phone: 08-14-1988 measles, mumps and rubella virus vaccine Maribel S [place] Work Phone: [facility] 1987 diphtheria, tetanus toxoids and pertussis vaccine Mraibel S [place] Work Phone: [facility] Work Phone: 1987 diphtheria, tetanus toxoids and acellular pertussis vaccine Maribel [place] DO Work Phone: [facility] Work Phone: 1987 diphtheria, tetanus toxoids and pertussis vaccine Maribel [place] Work Phone: [facility] Work Phone: 1987 trivalent poliovirus vaccine, live, oral Maribel S [place] Work Phone: [facility] Work Phone: 1987 diphtheria, tetanus toxoids and pertussis vaccine Maribel [place] DO Work Phone: [facility] Work Phone: 1987 diphtheria, tetanus toxoids and pertussis vaccine Maribel S [place] Work Phone: [facility] Work Phone: 1987 trivalent poliovirus vaccine, live, oral Maribel S [place] Work Phone: [facility] Work Phone: Payers Date Payer Category Payer Self-pay 2023 Private Health Insurance ALEJANDRA OWEN POS [id number] 2023-Present [phone] [address] [place] [address] POS [id number] 2023 Private Health Insurance [id number] 2023 Unknown [id number] 2022 Medicaid [employer] [place] [id number] 2022-Present [phone] [address] [address] [place] [address] Medicaid [id number] 2021 Medicaid (Managed Care) 1.2. [id number] 2021 Unknown [id number] 2016 Unknown [id number] 2016 Unknown 1987 Unknown [id number] [id number]. 356 1987 Unknown [id number] [id number]. 356 1987 Unknown [id number] 2.16.840.1.491017.3.579.2. 356 1987 Unknown [id number] [id number]. 356 1987 Unknown [id number] [id number]. 1243 1987 Unknown [id number] [id number]. 1245 1987 Unknown [id number] [id number]. 1244 1987 Unknown [id number] 2.16.840.1.514586.3.579.2. 1244 1987 Unknown [id number] 2.16.840.1.228735.3.579.2. 1244 1987 Unknown [id number] 2.16.840.1.020346.3.579.2. 1244 Unknown [id number] Unknown [id number] 2.16.840.1.074942.3.579.2. 462 Unknown [id number] 2.16.840.1.052381.3.579.2. 462 Unknown [id number] 2.16.840.1.850477.3.579.2. 462 Unknown [id number] 2.16.840.1.674776.3.579.2. 462 Unknown [id number] [id number]. 462 Social History Date Type Detail Facility Start: 07-29-2022 End: 11-28-2023 Occasional alcohol use Occasional alcohol use [facility] Work Phone: Tobacco smoking consumption unknown [facility] Start: 07-29-2022 End: 11-20-2024 Tobacco smoking status NHIS Never smoked tobacco [facility] Work Phone: Start: 07-29-2022 End: 08-19-2022 Tobacco use and exposure Smokeless tobacco non-user [facility] Work Phone: Start: 07-29-2022 End: 09-04-2024 Alcohol intake Current drinker of alcohol (finding) [facility] Work Phone: Start: 07-29-2022 End: 11-28-2023 Tobacco use panel [facility] Work Phone: Start: 07-29-2022 Alcohol Comment socially [facility] Work Phone: Start: 1985 Sex Assigned At Not on file [facility] Work Phone: Start: 07-19-2022 End: 09-04-2024 Exposure to SARS-CoV-2 (event) Not sure [facility] Work Phone: Start: 08-26-2016 Alcohol Comment socially, but not while [facility] National Score (1-100), lower number is lower risk 89 [facility] Start: 03-25-2017 Alcohol Alcohol [facility] Start: 1985 Sex Assigned At Female W [facility] NEGATED: Highlighted row - - [facility] Work Phone: Functional Status Date Assessment Result Facility 09-04-2024 Patient Health Questionnaire 2 item (PHQ-2) [Reported] [facility] Work Phone: NEGATED: Highlighted row Functional performance Functional status health issues are not documented Disease [facility] Work Phone: Mental Status Date Assessment Result Facility NEGATED: Highlighted row Cognitive function [Interpretation] Cognitive status health issues are not documented Disease [facility] Work Phone: Clinical Notes 01-25-2017 to 11-23-2024 Note Date & Type Note Facility 11-23-2024 Evaluation note Diagnosis Onset Date Resolution Closed fracture of head of right radius inactive November 23, 2024 1:30pm Fall inactive November 23 1:30pm Closed fracture of head of right radius inactive November 4:03pm [facility] Work Phone: 1(890) 562-991007-22-2025 Radiology Diagnostic study note [facility] Imaging Services [address] [place], [place] [address] Forearm 2 Views MR#: [id number] Acct: [id number] Name: GOVIND HASKINS Rep #: [id number] : 1985 F 39 From: Cecilia Aburto MD PCP: Dr. Maribel Kwan MD Status: REG ER Study:Forearm 2 Views Date of Exam: 10/31 06/26 Exam# [id number] Ordering Dr: Edmar López DO PROCEDURE: FOREARM 2 VIEWS 11/20/2024 REASON FOR EXAM: INJURY TECHNIQUE: FOREARM 2 VIEWS COMPARISON: None FINDINGS: The scapholunate articulation is widened to 0.43 cm. There is a minimally displaced fracture of theradial head which extends the articular surface. There is a visible joint effusion at the elbow. The ulna appears intact. Thevisualized portion of the distal humerus appears intact. There is no focal soft tissue swelling or radiopaque foreign body. RAD/Forearm 2 Views IMPRESSION: The scapholunate articulation is widened to 0.43 cm. There is a minimally displaced fracture of the radial head which extends the articular surface. There is a visible joint effusion at the elbow. Critical results were discussed with Dr. López by Dr. Aburto at the time of dictation. Reading Location: [facility] CC: Dr. Maribel Kwan MD; Dr. Edmar López DO ~ Credit And Collections Analyst: Signed [facility]05-06-2025 Evaluation + Plan note* Assessment & Plan Note - Maribel Kwan DO - 09/04/2024 4:22 PM EDTAssociated Problem(s): Obstructive sleep apnea on CPAP - We discussed the importance of using her CPAP device regularly to help improve her overall healthand energy levels [facility] Work Phone: 1(767) 943-858205-06-2025 Evaluation + Plan note* Assessment & Plan Note - Maribel Kwan DO - 09/04/2024 4:22 PM EDTAssociated Problem(s): Anxiety - Getting along with her current medical regimen that we are providing a refill today. Will see otto in 6 months for reevaluation [facility] Work Phone: 1(263) 832-248605-06-2025 Evaluation + Plan note* Assessment & Plan Note - Maribel Kwan DO - 09/04/2024 4:22 PM EDTAssociated Problem(s): GERD (gastroesophageal reflux disease) - Is well-controlled on her acid reducing regimen and we will provide a refill today [facility] Work Phone: 1([phone]) 859-733405-06-2025 Evaluation + Plan note* Assessment & Plan Note - Maribel Kwan DO - 09/04/2024 4:22 PM EDTAssociated Problem(s): PND (post-nasal drip) - Doing well on the Flonase nasal spray and we are providing a refill today [facility] Work Phone: [phone]) 910-723305-06-2025 Miscellaneous Notes* Assessment & Plan Note - Maribel Kwan DO - 09/04/2024 4:22 PM EDTAssociated Problem(s): Obstructive sleep apnea on CPAP - We discussed the importance of using her CPAP device regularly to help improve her overall healthand energy levels * Assessment & Plan Note - Maribel Kwan DO - 09/04/2024 4:22 PM EDT Associated Problem(s): Anxiety - Getting along with her current medical regimen that we are providing a refill today. Will see otto in 6 months for reevaluation * Assessment & Plan Note - Maribel Kwan DO - 09/04/2024 4:22 PM EDT Associated Problem(s): GERD (gastroesophageal reflux disease) - Is well-controlled on her acid reducing regimen and we will provide a refill today * Assessment & Plan Note - Maribel Kwan DO - 09/04/2024 4:22 PM EDT Associated Problem(s): PND (post-nasal drip) - Doing well on the Flonase nasal spray and we are providing a refill today * Assessment & Plan Note - Maribel Kwan DO - 09/04/2024 4:21 PM EDT Associated Problem(s): Paroxysmal SVT (supraventricular tachycardia) ([facility]) - Well-controlled at this time and she will continue with her current medical regimen. We will continue to monitor [facility] [place] Work Phone: [phone]) 685-734605-06-2025 Evaluation + Plan note* Assessment & Plan Note - Maribel Kwan DO - 09/04/2024 4:21 PM EDTAssociated Problem(s): Paroxysmal SVT (supraventricular tachycardia) ([facility]) - Well-controlled at this time and she will continue with her current medical regimen. We will continue to monitor [facility] Work Phone: [phone]) 910-619405-06-2025 History of Present illness Narrative* Maribel Kwan DO - 09/04/2024 4:00 PM EDT Subjective Patient ID: Govind Haskins is a 39 y.o. female who presents for Follow-up (6 MO CK). HPI She is here today for her routine 6-month checkup. Her blood pressure is excellent today. We also conducted a review of systems. She does complain of an occasional cough but really had no other specific concerns today. We discussed sleep apnea and I did remind her to try to wear her CPAP device every night. She states she is doing well in the way of her anxiety and denies any symptoms of depression at this time. She is preparing to go on a cruise in the fall with her son and she is concerned about the possibility of motion sickness. We briefly discussed the scopolamine patch and I told her she could call to get a prescription before her trip. She suffers from paroxysmal SVT but seems to be c ontrolled at this time with her medication. We are providing refills on all medicines today and we will see her back in 6 months. We discussed getting lab work just prior to that visit Review of Systems Constitutional: Negative for fatigue. Respiratory: Negative for shortness of breath and wheezing. Occ cough Cardiovascular: Negative for chest pain, palpitations and leg swelling. Gastrointestinal: Negative for abdominal pain, blood in stool, diarrhea, nausea and vomiting. Musculoskeletal: Negative for arthralgias and back pain. Objective Physical Exam Vitals and nursing note reviewed. Constitutional: General: She is not in acute distress. Appearance: Normal appearance. HENT: Head: Normocephalic and atraumatic. Eyes: Conjunctiva/sclera: Conjunctivae normal. Cardiovascular: Rate and Rhythm: Normal rate and regular rhythm. Heart sounds: Normal heart sounds. Pulmonary: Effort: No respiratory distress. Breath sounds: No wheezing. Abdominal: Palpations: Abdomen is soft. Tenderness: There is no abdominal tenderness. There is no guarding. Musculoskeletal: General: No swelling. Normal range of motion. Skin: General: Skin is warm and dry. Neurological: General: No focal deficit present. Mental Status: She is alert and oriented to person, place, and time. Psychiatric: Behavior: Behavior normal. Assessment/Plan Problem List Items Addressed This Visit ICD-10-CM Anxiety F41.9 - Getting along with her current medical regimen that we are providing a refill today. Will see otto in 6 months for reevaluation Relevant Medications buPROPion XL (Wellbutrin XL) 150 mg 24 hr tablet escitalopram (Lexapro) 20 mg tablet GERD (gastroesophageal reflux disease) K21.9 - Is well-controlled on her acid reducing regimen and we will provide a refill today Relevant Medications omeprazole (PriLOSEC) [address] capsule Obstructive sleep apnea on CPAP G47.33 - We discussed the importance of using her CPAP device regularly to help improve her overall healthand energy levels Paroxysmal SVT (supraventricular tachycardia) ([facility]) I47.10 - Well-controlled at this time and she will continue with her current medical regimen. We will continue to monitor Relevant Medications atenolol (Tenormin) 25 mg tablet PND (post-nasal drip) R09.82 - Doing well on the Flonase nasal spray and we are providing a refill today Relevant Medications fluticasone (Flonase Sensimist) 27.5 mcg/actuation nasal spray Taking medication for chronic disease - Primary R69 Relevant Orders Comprehensive Metabolic Panel Patient instructions As we discussed I have sent refills for your medications and please let us know if there are any issues at the pharmacy Please also know that you would be welcome to call back here in the fall to get a prescription for the scopolamine patch for your cruise Please remember to use your CPAP device every night while you sleep as this will help improve your energy levels and also improve your overall health We invite you to return in 6 months and please remember to go for fasting lab work just prior to your follow-up visit with me Maribel Kwan DO [facility] [place] Work Phone: [phone] 141-151705-06-2025 Instructions* Patient Instructions* Maribel Kwan DO - 09/04/2024 4:00 PM EDT Patient instructions As we discussed I have sent refills for your medications and please let us know if there are any issues at the pharmacy Please also know that you would be welcome to call back here in the fall to get a prescription for the scopolamine patch for your cruise Please remember to use your CPAP device every night while you sleep as this will help improve your energy levels and also improve your overall health We invite you to return in 6 months and please remember to go for fasting lab work just prior to your follow-up visit with me documented [facility] [place] Work Phone: [phone]) 321-211211-14-2024 NoteHNO ID: [id number] Author: СЕРГЕЙ DE LEON APRN.SOHAM Service: ? Author Type: Nurse Practitioner Type: Progress Notes Filed: 03/15/2024 07:36 Note Text: Patient declined coremaker helper. Govind Haskins presents today for IUD check. She had a Liletta placed on 02/03/2024 with hysteroscopy D+C, polypectomy. She has had some spotting since placement. Pathology benign per Dr. Renner 02/15/24. REVIEW OF SYSTEMS: OUTSOLE BEVELER: Negative for abnormal vaginal bleeding, abnormal vaginal discharge + spotting SENSITIVE EXAM: The sensitive examination was discussed with the Patient or Patient's Authorized [employer] Lab Technician. As applicable, any other physician, advance practice provider, medical student, or other health professional student that will be observing or involved in the sensitive examination for educational or training purposes was discussed with the Patient or Authorized [employer] Lab Technician. The Patient or Authorized [employer] Lab Technician has agreed to proceed with the sensitive examination. (Sensitive examination includes inspection and/or palpation of the breasts, pelvis, prostate and anorectal regions). PHYSICAL EXAMINATION: BP 122/80 Wt 293 lb 6.4 oz (133.1kg) ABDOMEN:soft, non-tender, no masses, no hepatosplenomegaly, and no lymphadenopathy EXTERNAL GENITALIA: Normal genitalia and Bartholins, Urethra, Sken'e normal CERVIX: smooth, no lesions and IUD strings visualized. IUD strings visible. UTERUS: normal size, regular, and non-tender ADNEXA: negative for tenderness or masses IMPRESSION/PLAN: IUD correctly positioned. Follow up for annual exam or sooner if needed. Сергей De Leon APRN.CNP Medical Decision Making: Problems: Minimal: Self-limited or minor problem Data: Unique test result(s) reviewed: 1 Risk: Moderate: Drug management Medical Decision Making Level: 2 - [facility] History of Present illness Narrative* Сергей De Leon APRN.SOHAM - 03/15/2024 7:12 AM EST Patient declined coremaker helper. Govind Haskins presents today for IUD check. She had a Liletta placed on 02/03/2024 with hysteroscopy D+C, polypectomy. She has had some spotting since placement. Pathology benign per Dr. Renner 02/15/24. REVIEW OF SYSTEMS: OUTSOLE BEVELER: Negative for abnormal vaginal bleeding, abnormal vaginal discharge + spotting SENSITIVE EXAM: The sensitive examination was discussed with the Patient or Patient's Authorized [employer] Lab Technician. As applicable, any other physician, advance practice provider, medical student, or other health professional student that will be observing or involved in the sensitive examination for educational or training purposes was discussed with the Patient or Authorized [employer] Lab Technician. The Patient or Authorized [employer] Lab Technician has agreed to proceed with the sensitive examination. (Sensitive examination includes inspection and/or palpation of the breasts, pelvis, prostate and anorectal regions). PHYSICAL EXAMINATION: BP 122/80 Wt 293 lb 6.4 oz (133.1kg) ABDOMEN:soft, non-tender, no masses, no hepatosplenomegaly, and no lymphadenopathy EXTERNAL GENITALIA: Normal genitalia and Bartholins, Urethra, Sken'e normal CERVIX: smooth, no lesions and IUD strings visualized. IUD strings visible. UTERUS: normal size, regular, and non-tender ADNEXA: negative for tenderness or masses IMPRESSION/PLAN: IUD correctly positioned. Follow up for annual exam or sooner if needed. Сергей De Leon APRN.CNP Medical Decision Making: Problems: Minimal: Self-limited or minor problem Data: Unique test result(s) reviewed: 1 Risk: Moderate: Drug management Medical Decision Making Level: 2 - Straightforward [facility] Evaluation + Plan note* Assessment & Plan Note - Maribel Kwan DO - 03/06/2024 4:10 PM EST Associated Problem(s): Anxiety -Doing well on her current medical regimen so we are providing refills today we will talked about weaning when she comes back in the spring [facility] Work Phone: [phone] 567-557711-05-2024 Evaluation + Plan note* Assessment & Plan Note - Maribel Kwan DO - 03/06/2024 4:10 PM ESTAssociated Problem(s): GERD (gastroesophageal reflux disease) -Her acid reflux appears to be under adequate control with omeprazole and we are providing a refilltoday [facility] Work Phone: [phone]) 688-300911-05-2024 Evaluation + Plan note* Assessment & Plan Note - Maribel Kwan DO - 03/06/2024 4:10 PM ESTAssociated Problem(s): Paroxysmal SVT (supraventricular tachycardia) ([facility]) -Her condition appears to be relatively well-controlled well on Tenormin and we are providing a refill today -We will continue to monitor [facility] Work Phone: [phone]) 108-544411-05-2024 Miscellaneous Notes* Assessment & Plan Note - Maribel Kwan DO - 03/06/2024 4:10 PM ESTAssociated Problem(s): Anxiety -Doing well on her current medical regimen so we are providing refills today we will talked about weaning when she comes back in the spring * Assessment & Plan Note - Maribel Kwan DO - 03/06/2024 4:10 PM EST Associated Problem(s): GERD (gastroesophageal reflux disease) -Her acid reflux appears to be under adequate control with omeprazole and we are providing a refilltoday * Assessment & Plan Note - Maribel Kwan DO - 03/06/2024 4:10 PM EST Associated Problem(s): Paroxysmal SVT (supraventricular tachycardia) ([facility]) -Her condition appears to be relatively well-controlled well on Tenormin and we are providing a refill today -We will continue to monitor documented in this [facility] Work Phone: [phone]) 851-457611-05-2024 History of Present illness Narrative* Maribel Kwan, DO - 03/06/2024 3:40 PM EST Subjective Patient ID: Govind Haskins is a 38 y.o. female who presents for Follow-up. HPI She is here today for a 3-month follow-up visit. She states that in early January she had to have surgery because of a uterine polyp and abnormal bleeding. She had an IUD placed and was taken off of her Slynd. She states that after stopping the Slynd her sense of wellbeing improved dramatically andshe quickly realized that she was having a side effect of depression from this medicine. She is still taking the Lexapro and Wellbutrin and reports now that she is feeling well. We discussed continuing her current medical regimen through the winter months and when she comes back in the spring we can talk about possibly weaning some of the medicine. She states she does have a tendency to develop seasonal depression with the winter months so I think it is a good plan. She also continues to take her omeprazole and reports that her stomach acid condition is under good control. We are giving her arefill on her Tenormin because of her SVT and overall it appears to be well-controlled. We decided that we can safely see her back in 6 months for another checkup and sooner if any problems. Review of Systems Constitutional: Negative for fatigue. Respiratory: Negative for shortness of breath and wheezing. Occ coughing Cardiovascular: Negative for chest pain, palpitations and leg swelling. Gastrointestinal: Negative for abdominal pain, blood in stool, diarrhea, nausea and vomiting. Musculoskeletal: Negative for arthralgias and back pain. Objective Physical Exam Vitals and nursing note reviewed. Constitutional: General: She is not in acute distress. Appearance: Normal appearance. HENT: Head: Normocephalic and atraumatic. Eyes: Conjunctiva/sclera: Conjunctivae normal. Cardiovascular: Rate and Rhythm: Normal rate and regular rhythm. Heart sounds: Normal heart sounds. Pulmonary: Effort: No respiratory distress. Breath sounds: No wheezing. Abdominal: Palpations: Abdomen is soft. Tenderness: There is no abdominal tenderness. There is no guarding. Musculoskeletal: General: No swelling. Normal range of motion. Skin: General: Skin is warm and dry. Neurological: General: No focal deficit present. Mental Status: She is alert and oriented to person, place, and time. Psychiatric: Behavior: Behavior normal. Assessment/Plan Problem List Items Addressed This Visit ICD-10-CM Anxiety F41.9 -Doing well on her current medical regimen so we are providing refills today we will talked about weaning when she comes back in the spring Relevant Medications buPROPion XL (Wellbutrin XL) 150 mg 24 hr tablet escitalopram (Lexapro) 20 mg tablet GERD (gastroesophageal reflux disease) K21.9 -Her acid reflux appears to be under adequate control with omeprazole and we are providing a refilltoday Relevant Medications omeprazole (PriLOSEC) [address] capsule Paroxysmal SVT (supraventricular tachycardia) ([facility]) I47.10 -Her condition appears to be relatively well-controlled well on Tenormin and we are providing a refill today -We will continue to monitor Relevant Medications atenolol (Tenormin) 25 mg tablet PND (post-nasal drip) R09.82 Relevant Medications fluticasone (Flonase Sensimist) 27.5 mcg/actuation nasal spray Patient instructions As we discussed I am pleased with your checkup today and I sent refills on several of your medications. Please let us know if there are any issues with the pharmacy and please also let us know if youare having any problems before your next follow up visit in 6 months. Maribel Kwan DO documented [facility] this [facility] [place] [facility]: [phone] Instructions* Patient Instructions* Maribel Kwan DO - 03/06/2024 3:40 PM EST As we discussed I am pleased with your checkup today and I sent refills on several of your medications. Please let us know if there are any issues with the pharmacy and please also let us know if youare having any problems before your next follow up visit in 6 months. documented [facility] this [facility] [place] [facility]: [phone] 350-327210-16-2024 Telephone encounter Note* Telephone Encounter - Millie Ashby RN - 02/15/2024 3:40 PM EDT Patient notified. IUD check scheduled with . Patient needed before 8 AM or 4 PM or later. Millie Ashby RN [facility] Miscellaneous Notes* Telephone Encounter - Millie Ashby RN - 02/15/2024 3:40 PM EDT Patient notified. IUD check scheduled with . Patient needed before 8 AM or 4 PM or later. Millie Ashby RN * Telephone Encounter - Neisha Fischer RN - 02/15/2024 2:35 PM EDT Left message for patient to return phone call regarding results and appointment * Telephone Encounter - Meri England MD - 02/15/2024 9:41 AM EDT I just printed it today- Please notify patient that pathology is benign - does show possible superficial adenomyosis which can be source of AUB. Liletta IUD should help with this. Please see that sheis scheduled with for IUD check up. * Telephone Encounter - Ann Banda RN - 02/14/2024 3:35 PM EDT Patient had surgery on 02/02. Do you have the pathology report? Ann Banda RN documented in [facility]The [facility]10-[facility] Telephone encounter Note * Telephone Encounter - Neisha Fischer RN - 02/15/2024 2:35 PM EDT Left message for patient to return phone call regarding results and appointment [facility] Telephone encounter Note* Telephone Encounter - Meri England MD - 02/15/2024 9:41 AM EDT I just printed it today- Please notify patient that pathology is benign - does show possible superficial adenomyosis which can be source of AUB. Liletta IUD should help with this. Please see that sheis scheduled with CP for IUD check up. [facility] Work Phone: [phone] Telephone encounter Note* Telephone Encounter - Ann Banda RN - 02/14/2024 3:35 PM EDT Patient had surgery on 02/02. Do you have the pathology report? Ann Banda RN [facility]09-25-2024 History and physical note* Meri England MD - 01/25/2024 3:42 PM EDT Pre-Op History and Physical HPI: The patient is a 38 year old female presenting for discussion regarding AUB and endometrial polylp. She is scheduled for Hysteroscopy D&C , polypectomy and insertion of Liletta IUD, for AUB, endometrial polyp on 02/03/24. Procedure discussed along with risks, benefits and complications. Other alternatives discussed for management. Consent form signed? Yes. PAST MEDICAL HISTORY Diagnosis Date anxiety Ectopic 2014 Sleep apnea SVT (supraventricular tachycardia) (HCC) PAST SURGICAL HISTORY Procedure Laterality Date TONSILLECTOMY HX 1993 Current Outpatient Medications Medication Sig Dispense Refill buPROPion XL (WELLBUTRIN XL) 150 mg 24 hr tablet Take 1 tablet (150 mg) by mouth once daily in the morning. Do not crush, chew, or split. drospirenone, contraceptive, (SLYND) 4 mg (28) tabet Take 1 tablet by mouth once daily. 84 tablet 4 VENTOLIN HFA 90 mcg/actuation inhaler atenolol (TENORMIN) 25 mg tablet escitalopram oxalate (LEXAPRO) 10 mg tablet 20 mg. omeprazole (PRILOSEC) 40 mg capsule busPIRone (BUSPAR) 5 mg tablet Take 7.5 mg by mouth three times a day. (Patient not taking: Reported on 12/26/2023) fluticasone (FLONASE) 50 mcg/actuation nasal spray Use in the nose q 24 HR. No current facility-administered medications for this visit. ALLERGIES: Patient has no known allergies. PERSONAL HISTORY: Social History Tobacco Use Smoking status: Never Smokeless tobacco: Never Vaping Use Vaping status: Never Used Substance Use Topics Alcohol use: Yes Comment: socially, but not while Drug use: No FAMILY HISTORY: FAMILY HISTORY Problem Relation Age of Onset Diabetes Mother Hypertension Mother Diabetes Maternal Grandmother Heart Maternal Grandfather Stroke Maternal Grandfather No Ocular Disease Other REVIEW OF SYMPTOMS: negative except as noted above PHYSICAL EXAMINATION: VITALS: Blood pressure 128/84, pulse 92, height 160 cm (5' 3), weight 133.8 kg (295 lb), last menstrual period 12/05/2023, SpO2 97%. GENERAL: The patient is well nourished, well hydrated in no acute distress. , The patient is oriented to time, place, and person. NECK: full range of motion LUNGS: Clear to auscultation bilaterally. no wheezes, rhonchi or rales HEART: Regular rate and rhythm, Normal heart sounds IMPRESSION: 38yo with AUB, endometrial polyp PLAN: hysteroscopy, D&C, polypectomy with symphion, and insertion of liletta iud Pt has been counseled on risks/benefits and alternatives of surgery including but not limited to anesthesia, bleeding, infection, uterine perforation with subsequent injury to pelvic structures including bowel, bladder, ureters and vessels. Pt wishes to proceed with surgery at this time. Pre and post op instructions reviewed I have reviewed and updated past medical and surgical history, medications and allergies Meri Renner MD [facility]09-25-[facility] History and physical note* Meri England MD - 01/25/2024 3:42 PM EDT Pre-Op History and Physical HPI: The patient is a 38 year old female presenting for discussion regarding AUB and endometrial polylp. She is scheduled for Hysteroscopy D&C , polypectomy and insertion of Liletta IUD, for AUB, endometrial polyp on 02/03/24. Procedure discussed along with risks, benefits and complications. Other alternatives discussed for management. Consent form signed? Yes. PAST MEDICAL HISTORY Diagnosis Date anxiety Ectopic 2014 Sleep apnea SVT (supraventricular tachycardia) (HCC) PAST SURGICAL HISTORY Procedure Laterality Date TONSILLECTOMY HX 1993 Current Outpatient Medications Medication Sig Dispense Refill buPROPion XL (WELLBUTRIN XL) 150 mg 24 hr tablet Take 1 tablet (150 mg) by mouth once daily in the morning. Do not crush, chew, or split. drospirenone, contraceptive, (SLYND) 4 mg (28) tabet Take 1 tablet by mouth once daily. 84 tablet 4 VENTOLIN HFA 90 mcg/actuation inhaler atenolol (TENORMIN) 25 mg tablet escitalopram oxalate (LEXAPRO) 10 mg tablet 20 mg. omeprazole (PRILOSEC) 40 mg capsule busPIRone (BUSPAR) 5 mg tablet Take 7.5 mg by mouth three times a day. (Patient not taking: Reported on 12/26/2023) fluticasone (FLONASE) 50 mcg/actuation nasal spray Use in the nose q 24 HR. No current facility-administered medications for this visit. ALLERGIES: Patient has no known allergies. PERSONAL HISTORY: Social History Tobacco Use Smoking status: Never Smokeless tobacco: Never Vaping Use Vaping status: Never Used Substance Use Topics Alcohol use: Yes Comment: socially, but not while Drug use: No FAMILY HISTORY: FAMILY HISTORY Problem Relation Age of Onset Diabetes Mother Hypertension Mother Diabetes Maternal Grandmother Heart Maternal Grandfather Stroke Maternal Grandfather No Ocular Disease Other REVIEW OF SYMPTOMS: negative except as noted above PHYSICAL EXAMINATION: VITALS: Blood pressure 128/84, pulse 92, height 160 cm (5' 3), weight 133.8 kg (295 lb), last menstrual period 12/05/2023, SpO2 97%. GENERAL: The patient is well nourished, well hydrated in no acute distress. , The patient is oriented to time, place, and person. NECK: full range of motion LUNGS: Clear to auscultation bilaterally. no wheezes, rhonchi or rales HEART: Regular rate and rhythm, Normal heart sounds IMPRESSION: 38yo with AUB, endometrial polyp PLAN: hysteroscopy, D&C, polypectomy with symphion, and insertion of liletta iud Pt has been counseled on risks/benefits and alternatives of surgery including but not limited to anesthesia, bleeding, infection, uterine perforation with subsequent injury to pelvic structures including bowel, bladder, ureters and vessels. Pt wishes to proceed with surgery at this time. Pre and post op instructions reviewed I have reviewed and updated past medical and surgical history, medications and allergies Meri Renner MD [facility] Telephone encounter Note * Telephone Encounter - Heather Marti RN - 01/12/2024 12:50 PM EDT Per Candie surgery scheduled 02/02. Pre op is on 01/24 with DM. Heather Marti RN [facility]09-12-2024 Miscellaneous Notes* Telephone Encounter - Heather Marti RN - 01/12/2024 12:50 PM EDT Per Candie surgery scheduled 02/02. Pre op is on 01/24 with MALENA. Heather Marti RN * Telephone Encounter - Venus Vyas APRN.CNM - 01/12/2024 12:36 PM EDT Has this been completed? Venus Vyas APRN.CNM * Telephone Encounter - Venus Vyas APRN.CNM - 01/09/2024 4:04 PM EDT Just verifying that patient is being scheduled for hysteroscopy polypectomy & D&C. Thank you. Venus Vyas APRN.CNM documented in [facility] encounterThe [facility]09-[facility] Telephone encounter Note * Telephone Encounter - Venus Vyas APRN.CNM - 01/12/2024 12:36 PM EDT Has this been completed? Venus Vyas APRN.CNM [facility]-10-[facility] Telephone encounter Note* Telephone Encounter - Melany Saldana LPN - 01/10/2024 4:07 PM EDT Surgery scheduled on 02/03/2024 [facility] Miscellaneous Notes* Telephone Encounter - Melany Saldana LPN - 01/10/2024 4:07 PM EDT Surgery scheduled on 02/03/2024 * Telephone Encounter - Venus Vyas APRN.CNM - 01/06/2024 11:39 AM EDT I sent the Aygestin yesterday to pharmacy! I think Marcia is working on getting patient scheduled for polypectomy. Venus Vyas APRN.CNM documented in [facility]The [facility] Telephone encounter Note * Telephone Encounter - Venus Vyas APRN.CNM - 01/09/2024 4:04 PM EDT Just verifying that patient is being scheduled for hysteroscopy polypectomy & D&C. Thank you. Venus Vyas APRN.CNM [facility]-06-20[facility] Telephone encounter Note* Telephone Encounter - Venus Vyas APRN.CNM - 01/06/2024 11:39 AM EDT I sent the Aygestin yesterday to pharmacy! I think Marcia is working on getting patient scheduled for polypectomy. Venus Vyas APRN.CNM [facility] Telephone encounter Note* Telephone Encounter - Heather Marti RN - 01/06/2024 10:52 AM EDT Saw CP [facility]-06-20[facility] Miscellaneous Notes* Telephone Encounter - Heather Marti RN - 01/06/2024 10:52 AM EDT Saw CP documented in this encounterThe [facility]09-[facility]-2024 History of Present illness Narrative* Venus Vyas APRN.CNM - 01/05/2024 8:13 AM EDT Govind Haskins is a 38 year old female who presents for follow up visit after pelvic ultrasound. Patient seen in office on 12/26/23 for prolonged and heavy bleeding with period. She had bleeding for 3-4 weeks. Started on Aygestin taper and pelvic ultrasound ordered. Pelvic US results report endometrial polyp in the lower endometrial cavity. There is a focal 12 x8 x 4 mm hyperechoic with shadowing. Bilateral ovarian dermoid cysts seen as well. Recommendation for hysteroscopic evaluation. Patient presents to day with continued bleeding despite taking oral Aygestin. She reports that bleeding has definitely decreased and is no longer heavy. Reports feeling bloated, gassy, and tired. REVIEW OF SYSTEMS Abdomen: No abdominal pain, nausea, vomiting, diarrhea, or constipation. POSITIVE FOR BLOATING Bladder: No dysuria, gross hematuria, urinary frequency, urinary urgency, or incontinence. Breast: No breast lumps, nipple d/c, overlying skin changes, redness or skin retraction. Expanded ROS: N/A Allergies and current medication updated:Yes EXAM: BP 127/77 Wt 294 lb 9.6 oz (133.6kg) LMP 12/05/2023 GENERAL: pleasant, female in no apparent distress HEENT: Normocephalic and atraumatic NECK: Supple and full range of motion DERMATOLOGY: Normal BREAST: deferred CHEST: Normal inspiratory effort ABDOMEN: Deferred PELVIC: deferred BIMANUAL: deferred NEURO: alert and oriented x3,exam grossly non-focal EXTREMITIES: normal ASSESSMENT/PLAN: 1. Irregular bleeding - ICD9: 626.4, ICD10: N92.6 (primary diagnosis) 2. Menorrhagia with irregular cycle - ICD9: 626.2, ICD10: N92.1 3. Abnormal uterine bleeding due to endometrial polyp - ICD9: 626.6, 621.0, ICD10: N93.9, N84.0 4. Cysts of both ovaries - ICD9: 620.2, ICD10: N83.201, N83.202 - Reviewed pelvic US report with patient and questions answered - Patient desires to move forward with hysteroscopy / polypectomy / D&C - CBC -today - Continue Aygestin taper - Reviewed bleeding precautions - Recommendation of follow up pelvic US in 12 months- order placed - Will follow up with patient after results returned Venus Vyas APRN.CNM documented in this encounterThe [facility]09-[facility]-2024 NoteHNO ID: [id number] Author: VENUS VYAS APRN.CNM Service: ? Author Type: Inside Wirer Type: Progress Notes Filed: 01/05/2024 12:19 Note Text: Govind Haskins is a 38 year old female who presents for follow up visit after pelvic ultrasound. Patient seen in office on 12/26/23 for prolonged and heavy bleeding with period. She had bleeding for 3-4 weeks. Started on Aygestin taper and pelvic ultrasound ordered. Pelvic US results report endometrial polyp in the lower endometrial cavity. There is a focal 12 x8 x 4 mm hyperechoic with shadowing. Bilateral ovarian dermoid cysts seen as well. Recommendation for hysteroscopic evaluation. Patient presents to day with continued bleeding despite taking oral Aygestin. She reports that bleeding has definitely decreased and is no longer heavy. Reports feeling bloated, gassy, and tired. REVIEW OF SYSTEMS Abdomen: No abdominal pain, nausea, vomiting, diarrhea, or constipation. POSITIVE FOR BLOATING Bladder: No dysuria, gross hematuria, urinary frequency, urinary urgency, or incontinence. Breast: No breast lumps, nipple d/c, overlying skin changes, redness or skin retraction. Expanded ROS: N/A Allergies and current medication updated:Yes EXAM: BP 127/77 Wt 294 lb 9.6 oz (133.6kg) LMP 12/05/2023 GENERAL: pleasant, female in no apparent distress HEENT: Normocephalic and atraumatic NECK: Supple and full range of motion DERMATOLOGY: Normal BREAST: deferred CHEST: Normal inspiratory effort ABDOMEN: Deferred PELVIC: deferred BIMANUAL: deferred NEURO: alert and oriented x3,exam grossly non-focal EXTREMITIES: normal ASSESSMENT/PLAN: 1. Irregular bleeding - ICD9: 626.4, ICD10: N92.6 (primary diagnosis) 2. Menorrhagia with irregular cycle - ICD9: 626.2, ICD10: N92.1 3. Abnormal uterine bleeding due to endometrial polyp - ICD9: 626.6, 621.0, ICD10: N93.9, N84.0 4. Cysts of both ovaries - ICD9: 620.2, ICD10: N83.201, N83.202 - Reviewed pelvic US report with patient and questions answered - Patient desires to move forward with hysteroscopy / polypectomy / DANDC - CBC -today - Continue Aygestin taper - Reviewed bleeding precautions - Recommendation of follow up pelvic US in 12 months- order placed - Will follow up with patient after results returned Venus LATA Vyas.[facility]09-03-2024 Note Indication Evaluation of abnormal uterine bleeding: menorrhagia Impression Normal appearing anteverted uterus that measures 92 mm x 47 mm x 47 mm. Endometrium contains a small fluid collection and measures 4.8 mm. in the lower endometrial cavity, there is a focal 12 x 8 x 4 mm hyperechoic area which is suggestive of an endometrial polyp. Right ovary contains a 15 x 12 x 15 mm dermoid cyst with hyperechoic component with shadowing/lines and dots. Left ovary contains a 6 x 5 x 3 mm hyperechoic area which is suggestive of calcification or dermoid cyst. No adnexal masses were observed. There is no free fluid visualized in the peritoneal cavity. Comparison to ultrasound on 08/23/2022: Right ovary: Not visualized. Left ovary contained a 25 x 22 x 27 mm thick walled cyst with peripheral flow. Recommendations Consider hysteroscopic evaluation as clinically indicated. Ovarian dermoid cyst, follow up ultrasound is recommended in 12 months. History Previous Outcomes Children born living ?37w 1 Ectopic 1 Other: Intrauterine deaths < 14W: 1. Mode of last delivery: Vaginal Delivery Menstrual History LMP on 12/05/2023. Cycle: irregular cycle. Contraception: progesterone only pill Method Transabdominal, transvaginal, 3D ultrasound examination, Color Doppler examination. View: Adequate visualization Uterus Uterus: Visualized Uterus position: anteverted Description of uterine malformations: none Myometrium: heterogeneous Endometrium: intracavitary fluid: 'mixed' echogenicity, possible polyp noted Cervix details: normal Uterus length 92 mm Uterus width 47 mm Uterus height 47 mm Uterus Vol 107.9 cm Endometrial thickness single layer 1.9 mm Endom. th. single layer 2.9 mm Side: anterior Side: posterior Endometrial thickness, total 4.8 mm Fibroids: No fibroids identified Polyps: Polyps identified Uterine polyp D1 12 mm Uterine polyp D2 8 mm Uterine polyp D3 4 mm Uterine polyp mean 8.0 mm Uterine polyp findings: Right lateral posterior wall Right Ovary Rt ovary: Visualized Rt ovary D1 28 mm Rt ovary D2 21 mm Rt ovary D3 20 mm Rt ovary Vol 6.0 cm Rt ovarian cyst D1 15 mm Rt ovarian cyst D2 12 mm Rt ovarian cyst D3 15 mm Rt ovarian cyst mean 14.0 mm Rt ovarian cyst vol 1.414 cm Rt ovarian cyst findings: Dermoid cyst with hyperechoic component with shadowing/lines and dots Left Ovary Lt ovary: Visualized Lt ovary D1 32 mm Lt ovary D2 23 mm Lt ovary D3 19 mm Lt ovary Vol 7.1 cm Lt ovarian cyst D1 6 mm Lt ovarian cyst D2 5 mm Lt ovarian cyst D3 3 mm Lt ovarian cyst mean 4.7 mm Lt ovarian cyst vol 0.047 cm Lt ovarian cyst findings: Dermoid cyst with hyperechoic component with shadowing/ lines and dots vs small calcification Cul de Sac Visualized. no free fluid visualized Performed By: Veronika Sloan RDMS Read By: Lorena Junior M.D.[id number] NoteHNO ID: [id number] Author: LORENA JUNIOR MD Service: ? Author Type: Physician Type: Progress Notes Filed: 01/05/2024 07:51 Note Text: Govind Haskins is a 38 year old female who presented for sap portal developer ultrasound today. Encounter Diagnosis ICD-10-CM 1. Menorrhagia with irregular cycle N92.1 US FEMALE PELVIS TRANSVAG Please see report under imaging tab. Lorena Junior MD January 03, 2024 9:40 [facility] History of Present illness Narrative * Lorena Junior MD - 01/03/2024 9:40 PM EDT Govind Haskins is a 38 year old female who presented for sap portal developer ultrasound today. Encounter Diagnosis ICD-10-CM 1. Menorrhagia with irregular cycle N92.1 US FEMALE PELVIS TRANSVAG Please see report under imaging tab. Lorena Junior MD January 03, 2024 9:40 PM [facility] Telephone encounter Note * Telephone Encounter - Dary Zuñiga MA - 01/03/2024 8:47 AM EDT Order pended for ultrasound appointment for today. Please review and sign. Dary Zuñiga MA [facility]-03-[facility]24 Miscellaneous Notes* Telephone Encounter - Dary Zuñiga MA - 01/03/2024 8:47 AM EDT Order pended for ultrasound appointment for today. Please review and sign. Dary Zuñiga MA documented in this encounterThe [facility]08-26-2024 NoteHNO ID: [id number] Author: VENUS VYAS APRN.CNM Service: ? Author Type: Inside Wirer Type: Progress Notes Filed: 12/26/2023 14:17 Note Text: Machine Stuffer offered: Patient declines. Govind Haskins is a 38 year old female who presents for problem visit of a period that has lasted almost a month. LMP started on 12/08/23 and was just spotting. She stopped taking SLYND to allow herself to have a period and has continued to have heavy bleeding with clots for the past 3 weeks. She restarted SLYND over a week ago. Reports bleeding as heavy and is bleeding through tampons, pads and clothes sometimes. Denies any pain at this time but stated noticed a lot of right sided lower pelvic pain when cycle started. OB History T2 L2 SAB0 IAB0 Ectopic0 Multiple0 Live Births2 Corn Shucker History LMP: 12/05/2023, Drug Induced Amenorrhea Age at Menarche: Age at First : Age at Menopause: Corn Shucker History Comments: Sexual Activity: Yes; Male Contraception: I.U.D. PAST MEDICAL HISTORY No date: anxiety 2015: Ectopic No date: Sleep apnea No date: SVT (supraventricular tachycardia) (HCC) PAST SURGICAL HISTORY 1993: TONSILLECTOMY HX FAMILY HISTORY Problem Relation Age of Onset Diabetes Mother Hypertension Mother Diabetes Maternal Grandmother Heart Maternal Grandfather Stroke Maternal Grandfather No Ocular Disease Other Social History Tobacco Use Smoking status: Never Smokeless tobacco: Never Vaping Use Vaping status: Never Used Substance Use Topics Alcohol use: Yes Comment: socially, but not while Drug use: No Current Outpatient Medications Medication Sig buPROPion XL (WELLBUTRIN XL) 150 mg 24 hr tablet Take 1 tablet (150 mg) by mouth once daily in the morning. Do not crush, chew, or split. drospirenone, contraceptive, (SLYND) 4 mg (28) tabet Take 1 tablet by mouth once daily. VENTOLIN HFA 90 mcg/actuation inhaler fluticasone (FLONASE) 50 mcg/actuation nasal spray Use in the nose q 24 HR. atenolol (TENORMIN) 25 mg tablet escitalopram oxalate (LEXAPRO) 10 mg tablet 20 mg. omeprazole (PRILOSEC) 40 mg capsule busPIRone (BUSPAR) 5 mg tablet Take 7.5 mg by mouth three times a day. (Patient not taking: Reported on 12/26/2023) No current facility-administered medications for this visit. Allergies As of Date: 12/26/2023 (No Known Allergies) Fully Assessed 12/26/2023 REVIEW OF SYSTEMS Abdomen: No bloating, early satiety, indigestion, or increased flatulence. No abdominal pain, nausea, vomiting, diarrhea, or constipation. Bladder: No dysuria, gross hematuria, urinary frequency, urinary urgency, or incontinence. Breast: No breast lumps, nipple d/c, overlying skin changes, redness or skin retraction. Expanded ROS: N/A Allergies and current medication updated:Yes EXAM: BP 128/64 Wt 298 lb 6.4 oz (135.4kg) LMP 12/05/2023 GENERAL: pleasant, female in no apparent distress HEENT: Normocephalic and atraumatic NECK: Supple and full range of motion DERMATOLOGY: Normal and without lesions BREAST: deferred CHEST: Normal inspiratory effort ABDOMEN: Deferred PELVIC: external genitalia normal, normal Bartholin's glands, urethra, Oxford's glands, no vulvar lesions, no cervical lesions, physiologic discharge present, moderate amount of bleeding BIMANUAL: uterus normal size, shape and consistency, no adnexal masses, non-tender, and no cervical motion tenderness NEURO: alert and oriented x3,exam grossly non-focal EXTREMITIES: normal ASSESSMENT/PLAN: 1. Menorrhagia with irregular cycle - ICD9: 626.2, ICD10: N92.1 (primary diagnosis) 2. Irregular intermenstrual bleeding - ICD9: 626.6, ICD10: N92.1 3. Morbid obesity (HCC) - ICD9: 278.01, ICD10: E66.01 - US FEMALE PELVIS TRANSVAG - Aygestin 5 mg PO daily - taper until bleeding stops - Offered to try NuvaRing continuously but patient declines- wants to stay on pills to help regulate cycles - Hx of taking Topamax for weight loss but no longer taking - BP controlled at 128/64 - May need to switch to OCP - Will follow up after pelvic US results return Venus Vyas APRN.[facility]08-26-2024 History of Present illness Narrative* Venus Vyas APRN.[facility] - 12/26/2023 1:40 PM EDT Machine Stuffer offered: Patient declines. Govind Haskins is a 38 year old female who presents for problem visit of a period that has lasted almost a month. LMP started on 12/08/23 and was just spotting. She stopped taking SLYND to allow herself to have a period and has continued to have heavy bleeding with clots for the past 3 weeks. She restarted SLYND over a week ago. Reports bleeding as heavy and is bleeding through tampons, pads and clothes sometimes. Denies any pain at this time but stated noticed a lot of right sided lower pelvic painwhen cycle started. OB History T2 L2 SAB0 IAB0 Ectopic0 Multiple0 Live Births2 Corn Shucker History LMP: 12/05/2023, Drug Induced Amenorrhea Age at Menarche: Age at First : Age at Menopause: Corn Shucker History Comments: Sexual Activity: Yes; Male Contraception: I.U.D. PAST MEDICAL HISTORY No date: anxiety 2015: Ectopic No date: Sleep apnea No date: SVT (supraventricular tachycardia) ([facility]) PAST SURGICAL HISTORY 1993: TONSILLECTOMY HX FAMILY HISTORY Problem Relation Age of Onset Diabetes Mother Hypertension Mother Diabetes Maternal Grandmother Heart Maternal Grandfather Stroke Maternal Grandfather No Ocular Disease Other Social History Tobacco Use Smoking status: Never Smokeless tobacco: Never Vaping Use Vaping status: Never Used Substance Use Topics Alcohol use: Yes Comment: socially, but not while Drug use: No Current Outpatient Medications Medication Sig buPROPion XL (WELLBUTRIN XL) 150 mg 24 hr tablet Take 1 tablet (150 mg) by mouth once daily in the morning. Do not crush, chew, or split. drospirenone, contraceptive, (SLYND) 4 mg (28) tabet Take 1 tablet by mouth once daily. VENTOLIN HFA 90 mcg/actuation inhaler fluticasone (FLONASE) 50 mcg/actuation nasal spray Use in the nose q 24 HR. atenolol (TENORMIN) 25 mg tablet escitalopram oxalate (LEXAPRO) 10 mg tablet 20 mg. omeprazole (PRILOSEC) 40 mg capsule busPIRone (BUSPAR) 5 mg tablet Take 7.5 mg by mouth three times a day. (Patient not taking: Reported on 12/26/2023) No current facility-administered medications for this visit. Allergies As of Date: 12/26/2023 (No Known Allergies) Fully Assessed 12/26/2023 REVIEW OF SYSTEMS Abdomen: No bloating, early satiety, indigestion, or increased flatulence. No abdominal pain, nausea, vomiting, diarrhea, or constipation. Bladder: No dysuria, gross hematuria, urinary frequency, urinary urgency, or incontinence. Breast: No breast lumps, nipple d/c, overlying skin changes, redness or skin retraction. Expanded ROS: N/A Allergies and current medication updated:Yes EXAM: BP 128/64 Wt 298 lb 6.4 oz (135.4kg) LMP 12/05/2023 GENERAL: pleasant, female in no apparent distress HEENT: Normocephalic and atraumatic NECK: Supple and full range of motion DERMATOLOGY: Normal and without lesions BREAST: deferred CHEST: Normal inspiratory effort ABDOMEN: Deferred PELVIC: external genitalia normal, normal Bartholin's glands, urethra, Oxford's glands, no vulvar lesions, no cervical lesions, physiologic discharge present, moderate amount of bleeding BIMANUAL: uterus normal size, shape and consistency, no adnexal masses, non- tender, and no cervicalmotion tenderness NEURO: alert and oriented x3,exam grossly non-focal EXTREMITIES: normal ASSESSMENT/PLAN: 1. Menorrhagia with irregular cycle - ICD9: 626.2, ICD10: N92.1 (primary diagnosis) 2. Irregular intermenstrual bleeding - ICD9: 626.6, ICD10: N92.1 3. Morbid obesity (HCC) - ICD9: 278.01, ICD10: E66.01 - US FEMALE PELVIS TRANSVAG - Aygestin 5 mg PO daily - taper until bleeding stops - Offered to try NuvaRing continuously but patient declines- wants to stay on pills to help regulate cycles - Hx of taking Topamax for weight loss but no longer taking - BP controlled at 128/64 - May need to switch to OCP - Will follow up after pelvic US results return Venus Vyas APRN.CNM [facility] Telephone encounter Note * Telephone Encounter - Millie Ashby RN - 12/22/2023 1:05 PM EDT Patient notified. Reviewed bleeding precautions. Voiced understanding of instructions. Millie Ashby RN [facility]08-22-2024 Miscellaneous Notes* Telephone Encounter - Millie Ashby RN - 12/22/2023 1:05 PM EDT Patient notified. Reviewed bleeding precautions. Voiced understanding of instructions. Millie Ashby RN * Telephone Encounter - Venus Vyas APRN.CNM - 12/22/2023 12:57 PM EDT I would recommend that patient NOT stop taking the progesterone only pills even when starting a period. Please give bleeding precautions and have patient start taking Ibuprofen 800 mg PO as needed for pain. Venus Vyas APRN.CNM * Telephone Encounter - Heather Marti RN - 12/22/2023 12:10 PM EDT Patient calling c/o heavy bleeding. Takes Slynd continuously and typically stops to have menses around every 3 months. She started spotting around 12/07/23. She stopped Slynd then around 12/09 to have amenses since spotting continued then restarted it on 12/16. After stopping Slynd bleeding was heavier initially, then it slowed to a medical detailist flow the last couple days until today. Today it is even heavier then it was before. Changing pad about every 2 hours right now. Denies chest pain, shortness ofbreath or dizziness. Does feel more weak/tired today though. No cramping, just overall feels bloated and uncomfortable. Please advise. Heather Marti RN documented in this encounterThe [facility]08-[facility]-2024 Telephone encounter Note * Telephone Encounter - Venus Vyas APRN.CNM - 12/22/2023 12:57 PM EDT I would recommend that patient NOT stop taking the progesterone only pills even when starting a period. Please give bleeding precautions and have patient start taking Ibuprofen 800 mg PO as needed for pain. Venus Vyas APRN.CNM [facility]08-22-2024 Telephone encounter Note* Telephone Encounter - Heather Marti RN - 12/22/2023 12:10 PM EDT Patient calling c/o heavy bleeding. Takes Slynd continuously and typically stops to have menses around every 3 months. She started spotting around 12/07/23. She stopped Slynd then around 12/09 to have amenses since spotting continued then restarted it on 12/16. After stopping Slynd bleeding was heavier initially, then it slowed to a medical detailist flow the last couple days until today. Today it is even heavier then it was before. Changing pad about every 2 hours right now. Denies chest pain, shortness ofbreath or dizziness. Does feel more weak/tired today though. No cramping, just overall feels bloated and uncomfortable. Please advise. Heather Marti RN [facility]07-03-2024 Evaluation + Plan note* Assessment & Plan Note - Maribel Kwan DO - 11/02/2023 11:04 AM EDTAssociated Problem(s): Anxiety -She will continue with Lexapro -She stopped the buspirone a month ago -We are adding Wellbutrin 150 mg and I will see her back in 3 weeks to see how she is doing with the combination medicine [facility] Work Phone: [phone]) 165-353907-03-2024 Evaluation + Plan note* Assessment & Plan Note - Maribel Kwan DO - 11/02/2023 11:04 AM EDTAssociated Problem(s): Dysfunction of right eustachian tube -She was treated approximately 1 month ago for eustachian tube dysfunction and despite treatment she still has issues with her right ear so I am referring her to ENT for further evaluation and treatment-she will continue using the Flonase nasal spray [facility] Work Phone: [phone]) 161-177507-03-2024 Miscellaneous Notes* Assessment & Plan Note - Maribel Kwan DO - 11/02/2023 11:04 AM EDTAssociated Problem(s): Anxiety -She will continue with Lexapro -She stopped the buspirone a month ago -We are adding Wellbutrin 150 mg and I will see her back in 3 weeks to see how she is doing with the combination medicine * Assessment & Plan Note - Maribel Kwan DO - 11/02/2023 11:04 AM EDT Associated Problem(s): Dysfunction of right eustachian tube -She was treated approximately 1 month ago for eustachian tube dysfunction and despite treatment she still has issues with her right ear so I am referring her to ENT for further evaluation and treatment-she will continue using the Flonase nasal spray * Assessment & Plan Note - Maribel Kwan DO - 11/02/2023 11:03 AM EDT Associated Problem(s): Paroxysmal SVT (supraventricular tachycardia) ([facility]) -Stable at this time and she will continue taking atenolol documented [facility] [place] [facility]: 1(361) 784-569307-03-2024 Evaluation + Plan note* Assessment & Plan Note - Maribel Kwan DO - 11/02/2023 11:03 AM EDTAssociated Problem(s): Paroxysmal SVT (supraventricular tachycardia) ([facility]) -Stable at this time and she will continue taking atenolol [facility] Work Phone: [phone] 109-512907-03-2024 History of Present illness Narrative* Maribel Kwan DO - 11/02/2023 10:40 AM EDT Subjective Patient ID: Govind Haskins is a 38 y.o. female who presents for Ear Fullness. She is here today for evaluation of some fullness involving her right ear. She explains that she went to urgent care approximately 1 month ago and they recommended Claritin along with ibuprofen. She states she does not have significant pain or hearing loss but she describes as feeling underwater . She states she has been using her Flonase pretty consistently. When I look in her ear I see a normal cone of light reflex. Because of her symptoms I decided to have her see ENT just to make sure were not missing anything. She will continue with the Flonase and I am giving her a refill today. She also is in need of refills of all of her medications and we did review her problems today. She statesshe has not been taking the buspirone for about a month because she did not feel it was effective. She wants to try Wellbutrin combined with Lexapro and I told her we could give it a try. I would then see her back in approximately 3 weeks. Also because of her fatigue we agreed that it would be reasonable to check some lab work again since it has been an entire year. Review of Systems Constitutional: Positive for fatigue. HENT: Negative for hearing loss. Respiratory: Negative for cough, shortness of breath and wheezing. Cardiovascular: Negative for chest pain, palpitations and leg swelling. Gastrointestinal: Negative for abdominal pain, blood in stool, diarrhea, nausea and vomiting. Objective Physical Exam Vitals and nursing note reviewed. Constitutional: General: She is not in acute distress. Appearance: Normal appearance. HENT: Head: Normocephalic and atraumatic. Eyes: Conjunctiva/sclera: Conjunctivae normal. Cardiovascular: Rate and Rhythm: Normal rate and regular rhythm. Heart sounds: Normal heart sounds. Pulmonary: Effort: No respiratory distress. Breath sounds: No wheezing. Abdominal: Palpations: Abdomen is soft. Tenderness: There is no abdominal tenderness. There is no guarding. Musculoskeletal: General: No swelling. Normal range of motion. Skin: General: Skin is warm and dry. Neurological: General: No focal deficit present. Mental Status: She is alert and oriented to person, place, and time. Psychiatric: Behavior: Behavior normal. Assessment/Plan Problem List Items Addressed This Visit ICD-10-CM Anxiety F41.9 -She will continue with Lexapro -She stopped the buspirone a month ago -We are adding Wellbutrin 150 mg and I will see her back in 3 weeks to see how she is doing with the combination medicine Relevant Medications buPROPion XL (Wellbutrin XL) 150 mg 24 hr tablet escitalopram (Lexapro) 20 mg tablet Paroxysmal SVT (supraventricular tachycardia) (CMS-HCC) I47.10 -Stable at this time and she will continue taking atenolol Relevant Medications atenolol (Tenormin) 25 mg tablet PND (post-nasal drip) R09.82 Relevant Medications fluticasone (Flonase Sensimist) 27.5 mcg/actuation nasal spray Fatigue R53.83 Relevant Orders Comprehensive Metabolic Panel CBC and Auto Differential Dysfunction of right eustachian tube - Primary H69.91 -She was treated approximately 1 month ago for eustachian tube dysfunction and despite treatment she still has issues with her right ear so I am referring her to ENT for further evaluation and treatment-she will continue using the Flonase nasal spray Relevant Orders Referral to ENT Maribel Kwan DO documented [facility] [place] Work [facility]: [phone]) 532-908607-03-2024 Instructions* Patient Instructions* Maribel Kwan DO - 11/02/2023 10:40 AM EDT As we discussed I am putting a referral into ENT to evaluate your ear I also sent a prescription to your pharmacy for Wellbutrin 150 mg to be taken once daily in combination with your Lexapro. I would like to see you back in 3 weeks for checkup and sooner if you are not doing well Please also remember that I would like for you to get fasting lab work done prior to your follow-upvisit We sent refills for all of your other medications documented in [facility] [place] Work Phone: [phone]) 289-942201-31-2024 NoteHNO ID: [id number] Author: VENUS VYAS APRN.SAVANNAH Service: ? Author Type: Inside Wirer Type: Progress Notes Filed: 06/01/2023 11:54 Note Text: Govind Haskins is a 38 year old female who presents for follow up visit problem visit of occasional break through bleeding. Taking Slynd continuously for amenorrhea. Stopping every couple of months in order to have a period but stated usually doesn't have on. Reports occasionally forgetting to take pill and then has a period. Originally started on progesterone only pill due to taking Topamax, high blood pressures and SVT's. Stopped taking Topamax. Would like to remain on current pill. No other concerns at this time. Corn Shucker History LMP: 08/28/2022, Drug Induced Amenorrhea Age at Menarche: Age at First : Age at Menopause: Corn Shucker History Comments: Sexual Activity: Yes; Male Contraception: I.U.D. REVIEW OF SYSTEMS Abdomen: No bloating, early satiety, indigestion, or increased flatulence. No abdominal pain, nausea, vomiting, diarrhea, or constipation. Bladder: No dysuria, gross hematuria, urinary frequency, urinary urgency, or incontinence. Breast: No breast lumps, nipple d/c, overlying skin changes, redness or skin retraction. Expanded ROS: N/A Allergies and current medication updated:Yes EXAM: BP 128/82 Wt 289 lb 6.4 oz (131.3kg) LMP 08/28/2022 GENERAL: pleasant, female in no apparent distress HEENT: Normocephalic NECK: Supple and full range of motion DERMATOLOGY: Normal BREAST: deferred CHEST: Normal inspiratory effort ABDOMEN: Deferred PELVIC: deferred BIMANUAL: deferred NEURO: alert and oriented x3,exam grossly non-focal EXTREMITIES: normal ASSESSMENT/PLAN: 1. Irregular intermenstrual bleeding - ICD9: 626.6, ICD10: N92.1 (primary diagnosis) 2. Morbid obesity (HCC) - ICD9: 278.01, ICD10: E66.01 3. Hypertension, unspecified type - ICD9: 401.9, ICD10: I10 - Reviewed contraception medications and how to take. - Desires continuous to skip periods - R/B/A to control pills discussed - patient taking progesterone only pills - RX SLYND sent to pharmacy - RTO as needed or for yearly exam Venus Vyas APRN.[facility]01-03-2024 Evaluation + Plan note* Assessment & Plan Note - Maribel Kwan DO - 05/04/2023 7:41 AM EST Associated Problem(s): Subacute cough -I am sending her for chest x-ray due to persistent cough and have agreed to contact her with results -We will continue to work aggressively on treating her current symptom complex -She will start using Flonase nasal spray for postnasal drip -She will continue using the omeprazole for her acid reflux symptoms and she understands that it can take several weeks for the cough to resolve from acid reflux -She can use her cough and cold medicines for symptoms -We will stay in touch [facility] Work Phone: [phone]) [phone] Miscellaneous Notes* Assessment & Plan Note - Maribel Kwan DO - 05/04/2023 7:41 AM ESTAssociated Problem(s): Subacute cough -I am sending her for chest x-ray due to persistent cough and have agreed to contact her with results -We will continue to work aggressively on treating her current symptom complex -She will start using Flonase nasal spray for postnasal drip -She will continue using the omeprazole for her acid reflux symptoms and she understands that it can take several weeks for the cough to resolve from acid reflux -She can use her cough and cold medicines for symptoms -We will stay in touch [facility] [place] Work Phone: [phone] 338-535801-03-2024 History of Present illness Narrative* Maribel Kwan DO - 05/04/2023 7:20 AM EST Subjective Patient ID: Govind Haskins is a 38 y.o. female who presents for No chief complaint on file.. HPI She is here today for a 2-week follow-up visit. We are reminded that she developed a respiratory infection at the beginning of April doxycycline along with prednisone tapering regimen. We last sawher symptoms were not significantly improved and we targeted acid reflux as well. She states she is still coughing although she does feel slightly improved. She also has features of postnasal drip wedecided to get her back on the Flonase nasal spray. We decided to also do a chest x-ray since her symptoms have persisted for about a month. Be calling her with results. We discussed giving it more time with the therapy at hand. We did conduct a review of systems. She had developed a vaginal yeast infection which she states has ultimately cleared the Diflucan and cfla-[id number]-rhuodcp medication. Review of Systems Constitutional: Negative for fever. Respiratory: Positive for cough and wheezing. Negative for shortness of breath. Cardiovascular: Negative for chest pain, palpitations and leg swelling. Gastrointestinal: Negative for diarrhea, nausea and vomiting. Objective Physical Exam Vitals and nursing note reviewed. Constitutional: General: She is not in acute distress. Appearance: Normal appearance. HENT: Head: Normocephalic and atraumatic. Eyes: Conjunctiva/sclera: Conjunctivae normal. Cardiovascular: Rate and Rhythm: Normal rate and regular rhythm. Heart sounds: Normal heart sounds. Pulmonary: Effort: No respiratory distress. Breath sounds: No wheezing. Abdominal: Palpations: Abdomen is soft. Tenderness: There is no abdominal tenderness. There is no guarding. Musculoskeletal: General: No swelling. Normal range of motion. Skin: General: Skin is warm and dry. Neurological: General: No focal deficit present. Mental Status: She is alert and oriented to person, place, and time. Psychiatric: Behavior: Behavior normal. Assessment/Plan Problem List Items Addressed This Visit ICD-10-CM PND (post-nasal drip) R09.82 Relevant Medications fluticasone (Flonase Sensimist) 27.5 mcg/actuation nasal spray Subacute cough - Primary R05.2 -I am sending her for chest x-ray due to persistent cough and have agreed to contact her with results -We will continue to work aggressively on treating her current symptom complex -She will start using Flonase nasal spray for postnasal drip -She will continue using the omeprazole for her acid reflux symptoms and she understands that it can take several weeks for the cough to resolve from acid reflux -She can use her cough and cold medicines for symptoms -We will stay in touch Relevant Orders XR chest 2 views Maribel Kwan DO documented in this [facility] Work Phone: [phone]) [phone] Instructions* Patient Instructions* Maribel Kwan DO - 05/04/2023 7:20 AM EST As we discussed I have ordered a chest x-ray to evaluate your cough and please go at your earliest convenience to radiology to get your chest x-ray. Once the results are known I will contact you We also sent in a prescription for your Flonase nasal spray and start using that regularly along with your antireflux measures. Please let me know how you are doing in the next couple of weeks documented in this [facility] [place] Work Phone: [phone]) 181-439112-19-2023 Evaluation + Plan note* Assessment & Plan Note - Maribel Kwan DO - 04/19/2023 3:49 PM ESTAssociated Problem(s): Upper respiratory tract infection -Symptoms began 2 weeks ago -She indicates she did test for COVID which came back negative -She went to urgent care on the and was prescribed doxycycline. She is also been using an albuterol inhaler that had previously prescribed -I am giving her a Medrol Dosepak today and also Tessalon for cough and she will let us know how she is doing in the next week or so [facility] [place] Work Phone: [phone] 166-227812-19-2023 Miscellaneous Notes* Assessment & Plan Note - Maribel Kwan DO - 04/19/2023 3:49 PM ESTAssociated Problem(s): Upper respiratory tract infection -Symptoms began 2 weeks ago -She indicates she did test for COVID which came back negative -She went to urgent care on the and was prescribed doxycycline. She is also been using an albuterol inhaler that had previously prescribed -I am giving her a Medrol Dosepak today and also Tessalon for cough and she will let us know how she is doing in the next week or so documented in this [facility] [place] Work Phone: [phone] History of Present illness Narrative* Maribel Kwan DO - 04/19/2023 3:40 PM EST Subjective Patient ID: Govind Haskins is a 37 y.o. female who presents for Cough (X 2 weeks. Non productive. Heaviness in her chest, wheezing. ). She is here today with a 2-week history of upper respiratory symptoms. She states that early on shedid do a COVID test which came back negative. She states she also has been to urgent care on the of this month and was given a prescription for doxycycline as well as an inhaler. She indicated that she is used to the antibiotic working quicker and her symptoms seem to linger. She then went on to comment that she thought that perhaps her infection was viral anyway. Talked a little about the difference between viral and bacterial infections but I did tell her to finish the doxycycline since she has already started taking it. We talked about other medications to help with symptoms and will be giving her a Medrol Dosepak and also Tessalon for cough. We asked that she give us a call if her condition is not continuing to improve and I told her that I am seeing a lot of respiratory infections that seem to linger for a little while. She had stopped taking her omeprazole and I have recommended she get back on that medication because of the possibility of acid reflux driving her current symptom complex. Cough Associated symptoms include postnasal drip, a sore throat and wheezing. Pertinent negatives includeno fever, rhinorrhea or shortness of breath. Review of Systems Constitutional: Positive for fatigue. Negative for fever. HENT: Positive for congestion, postnasal drip, sinus pressure and sore throat. Negative for rhinorrhea. Respiratory: Positive for cough, chest tightness and wheezing. Negative for shortness of breath. Cardiovascular: Negative for palpitations and leg swelling. Gastrointestinal: Negative for diarrhea, nausea and vomiting. Complains of abdominal pain from all the coughing Musculoskeletal: Negative for back pain. Objective Physical Exam Vitals and nursing note reviewed. Constitutional: General: She is not in acute distress. Appearance: Normal appearance. HENT: Head: Normocephalic and atraumatic. Eyes: Conjunctiva/sclera: Conjunctivae normal. Cardiovascular: Rate and Rhythm: Normal rate and regular rhythm. Heart sounds: Normal heart sounds. Pulmonary: Effort: No respiratory distress. Breath sounds: No wheezing. Abdominal: Palpations: Abdomen is soft. Tenderness: There is no abdominal tenderness. There is no guarding. Musculoskeletal: General: No swelling. Normal range of motion. Skin: General: Skin is warm and dry. Neurological: General: No focal deficit present. Mental Status: She is alert and oriented to person, place, and time. Psychiatric: Behavior: Behavior normal. Assessment/Plan Problem List Items Addressed This Visit ICD-10-CM Upper respiratory tract infection - Primary J06.9 -Symptoms began 2 weeks ago -She indicates she did test for COVID which came back negative -She went to urgent care on the and was prescribed doxycycline. She is also been using an albuterol inhaler that had previously prescribed -I am giving her a Medrol Dosepak today and also Tessalon for cough and she will let us know how she is doing in the next week or so Relevant Medications methylPREDNISolone (Medrol Dospak) 4 mg tablets benzonatate (Tessalon) 200 mg capsule Maribel Kwan DO documented in this [facility] [place] Work Phone: [phone] Instructions* Patient Instructions* Maribel Kwan DO - 04/19/2023 3:40 PM EST As we discussed I sent 2 prescriptions to your pharmacy to help address your symptoms today. 1 is the Medrol Dosepak which is a steroid tapering medication. Please be sure to take this with food. Theother is Tessalon for cough. I noticed also that you stop taking your acid control medicine and please keep in mind that acid reflux can perpetuate cough and inflammation in the lung so if you are not getting better soon and will want to get back on the acid it systems engineer documented in this encounterSelect [facility] [place] Work Phone: [phone] Evaluation + Plan note* Assessment & Plan Note - Maribel Kwan DO - 02/01/2023 9:19 AM EDTAssociated Problem(s): Anxiety -She reports feeling improvement after starting the buspirone 7.5 mg 3 times a day [facility] [place] Work Phone: [phone] Miscellaneous Notes* Assessment & Plan Note - Maribel Kwan DO - 02/01/2023 9:19 AM EDTAssociated Problem(s): Anxiety -She reports feeling improvement after starting the buspirone 7.5 mg 3 times a day * Assessment & Plan Note - Maribel Kwan DO - 02/01/2023 9:18 AM EDT Associated Problem(s): Paroxysmal SVT (supraventricular tachycardia) -She still gets some occasional proximal systems of tachycardia -She continues to take Tenormin 25 mg daily -I have recommended she get into see her s3b multi sensor operator for checkup and she states she will call to make the appointment. She states has been a while since she was seen and I told her if necessary we could issue a referral. * Assessment & Plan Note - Maribel Kwan DO - 02/01/2023 9:18 AM EDT Associated Problem(s): Obstructive sleep apnea on CPAP -She has had her CPAP device for approximately 2 to 3 weeks and has been using it consistently. Sheis trying to get usage throughout the entire night but averages anywhere from 4 hours on up to 8 hours per night. -She states she has definitely derived benefit from its use * Addendum Note - Daniella Monson MA - 02/01/2023 9:00 AM EDTAddended by: DANIELLA MONSON on: 02/01/2023 09:29 AM Modules accepted: Orders documented in this [facility] Work Phone: [phone] 750-566110-03-2023 Evaluation + Plan note* Assessment & Plan Note - Maribel Kwna DO - 02/01/2023 9:18 AM EDTAssociated Problem(s): Paroxysmal SVT (supraventricular tachycardia) -She still gets some occasional proximal systems of tachycardia -She continues to take Tenormin 25 mg daily -I have recommended she get into see her s3b multi sensor operator for checkup and she states she will call to make the appointment. She states has been a while since she was seen and I told her if necessary we could issue a referral. [facility] [place] Work Phone: [phone] Evaluation + Plan note* Assessment & Plan Note - Maribel Kwan DO - 02/01/2023 9:18 AM EDTAssociated Problem(s): Obstructive sleep apnea on CPAP -She has had her CPAP device for approximately 2 to 3 weeks and has been using it consistently. Sheis trying to get usage throughout the entire night but averages anywhere from 4 hours on up to 8 hours per night. -She states she has definitely derived benefit from its use [facility] [place] Work Phone: [phone] History of Present illness Narrative* Howard Love MA - 02/01/2023 9:00 AM EDT Pt is here today for a 6 month check up, follow up on CPAP * Maribel Kwan DO - 02/01/2023 9:00 AM EDT Subjective Patient ID: Govind Haskins is a 37 y.o. female who presents for No chief complaint on file.. HPI She is here today for follow-up. We saw her a couple of months ago and had prescribed buspirone foranxiety. She states that has been working well. She also was able to get on her CPAP device a few weeks ago and she has been wearing it every night. She states she has been averaging anywhere from 4 hours on up to 8 hours and she agrees that she has derived benefit from its use. She states she still trying to get used to it. We briefly discussed her history of paroxysmal SVT and she does occasionally have episodes of racing heart. She states she will call her s3b multi sensor operator to get in for checkup and if everything goes according to plan we will see her back in a few months for reevaluation of her sleep apnea Review of Systems Constitutional: Positive for fatigue. Respiratory: Negative for cough, chest tightness, shortness of breath and wheezing. Cardiovascular: Positive for palpitations. Negative for chest pain and leg swelling. Gastrointestinal: Negative for abdominal pain, blood in stool, diarrhea, nausea and vomiting. Occ heartburn Objective Physical Exam Vitals and nursing note reviewed. Constitutional: General: She is not in acute distress. Appearance: Normal appearance. HENT: Head: Normocephalic and atraumatic. Eyes: Conjunctiva/sclera: Conjunctivae normal. Cardiovascular: Rate and Rhythm: Normal rate and regular rhythm. Heart sounds: Normal heart sounds. Pulmonary: Effort: No respiratory distress. Breath sounds: No wheezing. Abdominal: Palpations: Abdomen is soft. Tenderness: There is no abdominal tenderness. There is no guarding. Musculoskeletal: General: No swelling. Normal range of motion. Skin: General: Skin is warm and dry. Neurological: General: No focal deficit present. Mental Status: She is alert and oriented to person, place, and time. Psychiatric: Behavior: Behavior normal. Assessment/Plan Problem List Items Addressed This Visit ICD-10-CM Anxiety F41.9 -She reports feeling improvement after starting the buspirone 7.5 mg 3 times a day GERD (gastroesophageal reflux disease) K21.9 Obstructive sleep apnea on CPAP G47.33 -She has had her CPAP device for approximately 2 to 3 weeks and has been using it consistently. Sheis trying to get usage throughout the entire night but averages anywhere from 4 hours on up to 8 hours per night. -She states she has definitely derived benefit from its use Paroxysmal SVT (supraventricular tachycardia) I47.10 -She still gets some occasional proximal systems of tachycardia -She continues to take Tenormin 25 mg daily -I have recommended she get into see her s3b multi sensor operator for checkup and she states she will call to make the appointment. She states has been a while since she was seen and I told her if necessary we could issue a referral. Other Visit Diagnoses Codes Supraventricular tachycardia, paroxysmal I47.10 Maribel Kwan DO documented in this [facility]Un[facility] Work Phone: [phone] Instructions* Patient Instructions* Maribel Kwan DO - 02/01/2023 9:00 AM EDT As we discussed I am very pleased that you are wearing your CPAP therapy now and if you have any problems with the equipment please contact your supplier as they are well versed on troubleshooting. I am glad that you are doing well on the buspirone and please call if that changes Please contact your s3b multi sensor operator because I think we need to check up for your SVT We are giving you the season's flu vaccine today and if everything goes according to plan I would like to see you back in approximately 3 months for follow-up on your CPAP therapy documented in this encounterUnOhio[facility] Work Phone: [phone] Note* Addendum Note - Daniella Monson MA - 02/01/2023 9:00 AM EDTAddended by: DANIELLA MONSON on: 02/01/2023 09:29 AM Modules accepted: Orders [facility] Work Phone: [phone] Note* Addendum Note - Daniella Monson MA - 02/01/2023 9:00 AM EDTAddended by: DANIELLA MONSON on: 02/01/2023 09:29 AM Modules accepted: Orders [facility] Work Phone: [phone]) 913-438907-13-2023 Miscellaneous Notes* Telephone Encounter - Maribel Mora LPN - 11/11/2022 4:58 PM EDT See pharmacy generated refill request and advise. Maribel Mora LPN' [facility] Evaluation + Plan note* Assessment & Plan Note - Maribel Kwan DO - 10/21/2022 4:23 PM EDT Associated Problem(s): Fatigue -We will be sending her for fasting lab work to check sugar, kidney, liver, blood count, and thyroid. -She will get back on her CPAP [facility] [place] Work Phone: [phone] 568-979906-22-2023 Miscellaneous Notes* Assessment & Plan Note - Maribel Kwan DO - 10/21/2022 4:23 PM EDTAssociated Problem(s): Fatigue -We will be sending her for fasting lab work to check sugar, kidney, liver, blood count, and thyroid. -She will get back on her CPAP * Assessment & Plan Note - Maribel Kwan DO - 10/21/2022 4:22 PM EDT Associated Problem(s): Obstructive sleep apnea on CPAP -She is strongly encouraged to get back on CPAP therapy and she understands that by not treating sleep apnea her symptoms of fatigue, brain fog, and even depression can be caused by untreated sleep apnea. * Assessment & Plan Note - Maribel Kwan DO - 10/21/2022 4:22 PM EDT Associated Problem(s): Anxiety -She will continue with Lexapro 20 mg daily -I am adding BuSpar 5 mg 3 times a day -She will continue with counseling -We will see her back in approximately 3 weeks for follow-up documented in this [facility] [place] Work Phone: [phone]) 750-114406-22-2023 Evaluation + Plan note* Assessment & Plan Note - Maribel Kwan DO - 10/21/2022 4:22 PM EDTAssociated Problem(s): Obstructive sleep apnea on CPAP -She is strongly encouraged to get back on CPAP therapy and she understands that by not treating sleep apnea her symptoms of fatigue, brain fog, and even depression can be caused by untreated sleep apnea. [facility] [place] Work Phone: [phone] Evaluation + Plan note* Assessment & Plan Note - Maribel Kwan DO - 10/21/2022 4:22 PM EDTAssociated Problem(s): Anxiety -She will continue with Lexapro 20 mg daily -I am adding BuSpar 5 mg 3 times a day -She will continue with counseling -We will see her back in approximately 3 weeks for follow-up [facility] Work Phone: [phone] 446-913706-22-2023 History of Present illness Narrative* Howard Love MA - 10/21/2022 4:00 PM EDT Pt is here today for discuss her anxiety and depression medications. * Maribel Kwan DO - 10/21/2022 4:00 PM EDT Subjective Patient ID: Govind Haskins is a 37 y.o. female who presents for No chief complaint on file.. HPI She is here today for evaluation and explains that over the past month or so she has been experiencing high levels of stress and she is feeling more anxious or even possibly depressed. She states shehas been very tired and she feels like she is shutting down. She has been following with her counselor and she was strongly encouraged to come in for checkup. She still takes her escitalopram which she has been on for a long time. We discussed anxiety and depression and we discussed adding medication. I told her was very glad that she was going to counseling and I think she should continue. We discovered that she has not been wearing her CPAP device and we discussed how this could make her feelvery bad with fatigue and even adding to depression. She states she will try to get back on her device and use it more regularly. We also discussed doing some laboratory testing. We also discussed selection of medication and I have decided to add BuSpar at this time. I will give her specific instructions on how to use it and we will see her back in just a few weeks. Review of Systems Constitutional: Positive for fatigue. Respiratory: Negative for cough, chest tightness, shortness of breath and wheezing. Cardiovascular: Negative for chest pain, palpitations and leg swelling. Gastrointestinal: Negative for abdominal pain, blood in stool, diarrhea, nausea and vomiting. Objective Physical Exam Vitals and nursing note reviewed. Constitutional: General: She is not in acute distress. Appearance: Normal appearance. HENT: Head: Normocephalic and atraumatic. Eyes: Conjunctiva/sclera: Conjunctivae normal. Cardiovascular: Rate and Rhythm: Normal rate and regular rhythm. Heart sounds: Normal heart sounds. Pulmonary: Effort: No respiratory distress. Breath sounds: No wheezing. Abdominal: Palpations: Abdomen is soft. Tenderness: There is no abdominal tenderness. There is no guarding. Musculoskeletal: General: No swelling. Normal range of motion. Skin: General: Skin is warm and dry. Neurological: General: No focal deficit present. Mental Status: She is alert and oriented to person, place, and time. Psychiatric: Behavior: Behavior normal. Assessment/Plan Problem List Items Addressed This Visit Anxiety - Primary -She will continue with Lexapro 20 mg daily -I am adding BuSpar 5 mg 3 times a day -She will continue with counseling -We will see her back in approximately 3 weeks for follow-up Relevant Medications busPIRone (Buspar) 5 mg tablet Obstructive sleep apnea on CPAP -She is strongly encouraged to get back on CPAP therapy and she understands that by not treating sleep apnea her symptoms of fatigue, brain fog, and even depression can be caused by untreated sleep apnea. Fatigue -We will be sending her for fasting lab work to check sugar, kidney, liver, blood count, and thyroid. -She will get back on her CPAP Relevant Orders Comprehensive Metabolic Panel CBC and Auto Differential TSH Maribel Kwan DO documented in this [facility] [place] Work Phone: [phone]) 667-319806-22-2023 Instructions* Patient Instructions* Maribel Kwan DO - 10/21/2022 4:00 PM EDT As we discussed I have sent a prescription to your pharmacy for a medication called BuSpar or buspirone. This medication is very effective in treating anxiety and can be taken in addition to your Lexapro. I would start up by taking this medication twice a day or every 12 hours and if necessary you could take it 3 times a day. We also gave you the lowest dose and if its not fully effective we could increase the dose of this medication. Please call if you feel like your condition is worsening as opposed to getting better and I will see you back in 3 weeks for follow-up Please remember that it is imperative to get back on your CPAP and if you need something from me toget that accomplished please let us know. I would contact [employer] right away Please remember to get fasting lab work at your earliest convenience and when you come back we willgo over the results documented in this encounterSelect [facility] [place] Work Phone: [phone] History of Present illness Narrative* Venus Vyas APRN.SAVANNAH - 09/01/2022 4:09 PM EDT Machine Stuffer offered: Patient declines. CONTRACEPTION Govind Haskins is a 37 year old who presents today for contraception. Mirena IUD placed on 06/23/20. Strings not visualized on 08/19/22 during exam and US ordered. No IUD visualized via ultrasoundon 08/23/22. She stated has no idea when it came out. IUD did not change, regulate or decrease amount of bleeding. Patient's last menstrual period was 07/27/2022.. HPI: Dysmenorrhea Yes Heavy menses Yes Irregular menses Yes SUBJECTIVE Sexually active: Yes Smoking No Last PAP 06/11/2020 Method of control: none Methods tried previously: IUD unsatisfactory and Nexplanon Patient currently interested in: oral contraceptives Interested in in the next 3 years? No Date of last test: Not applicable Relevant Past Medical History: History of hypertension and SVT - currently on medications OB History T2 L2 SAB0 IAB0 Ectopic0 Multiple0 Live Births[employer] PAST MEDICAL HISTORY Diagnosis Date anxiety Ectopic 2014 Sleep apnea SVT (supraventricular tachycardia) ([facility]) PAST SURGICAL HISTORY Procedure Laterality Date TONSILLECTOMY HX 1993 FAMILY HISTORY Problem Relation Age of Onset Diabetes Mother Hypertension Mother Diabetes Maternal Grandmother Heart Maternal Grandfather Stroke Maternal Grandfather No Ocular Disease Other SOCIAL HISTORY Social History Tobacco Use Smoking status: Never Smokeless tobacco: Never Vaping Use Vaping Use: Never used Substance Use Topics Alcohol use: Yes Comment: socially, but not while Drug use: No PAST SURGICAL HISTORY Procedure Laterality Date TONSILLECTOMY HX 1993 OBJECTIVE: General Appearance: Well appearing, alert, in no acute distress, well-hydrated, well nourished. andMorbidly obese Skin: Color normal, Vascularity normal, No evidence of bleeding or bruising, No lesions noted, No edema, Temperature normal, Texture normal, Mobility and turgor normal, Nails normal without clubbing ASSESSMENT/PLAN: 1. Encounter for initial prescription of contraceptive pills - ICD9: V25.01, ICD10: Z30.011 (primary diagnosis) - discussed with patient on how to take OCP's. - counseled on benefits, risks and possible severe side effects of OCP's. - discussed need to use Condoms to help to prevent STD's including HIV etc. -- Non estrogen based control options reviewed and patient desires pill - RX for SLYND sent - Patient desires to take pill continuously for amenorrhea - Patient may want Nexplanon replaced- will notify office for appointment 2. Morbid obesity (HCC) - ICD9: 278.01, ICD10: E66.01 3. Hypertension, unspecified type - ICD9: 401.9, ICD10: I10 RTO- 3 months for follow up Venus Vyas APRN.CNM [facility] + Plan note* Assessment & Plan Note - Maribel Kwan DO - 08/09/2022 2:19 PM EDT Associated Problem(s): Bronchitis -She received a Z-Jorden from urgent care a couple of weeks ago -I am sending in a prednisone tapering regimen -I am sending in Tessalon for cough and we discussed using [id number]-[id number] cough syrup as well or cough drops -I am sending in a prescription for albuterol to treat bronchospasm. She will call if her conditionis not improving or does not resolve in the next 10 to 14 days [facility] Work Phone: [phone]) [phone] Miscellaneous Notes* Assessment & Plan Note - Maribel Kwna DO - 08/09/2022 2:19 PM EDTAssociated Problem(s): Bronchitis -She received a Z-Jorden from urgent care a couple of weeks ago -I am sending in a prednisone tapering regimen -I am sending in Tessalon for cough and we discussed using hxui-gmh-lucatso cough syrup as well or cough drops -I am sending in a prescription for albuterol to treat bronchospasm. She will call if her conditionis not improving or does not resolve in the next 10 to 14 days [facility] [place] [facility] Phone: [phone] 267-445004-10-2023 History of Present illness Narrative* Maribel Uribe LPN - 08/09/2022 2:00 PM EDT C/O cough x 2wks; [facility] 1.5wks ago and given ATB; helped some; never resolved * Maribel Kwan DO - 08/09/2022 2:00 PM EDT Subjective Patient ID: Govind Haskins is a 37 y.o. female who presents for Cough and Shortness of Breath. She is here today with a 2-week history of cough with some mild shortness of breath. She states hersymptoms began a couple of weeks ago and she did ended up going to urgent care on a Tuesday for evaluation. They prescribed a Z-Jorden and also some cough medicine which she states was on backorder. She did take the Z- Jorden and in some ways her symptoms did improve but now she is having a persistent cough with classic features of postnasal drip. She has been using her Flonase nasal spray. She does appear to have some bronchitis and I explained that I did not feel she needed an antibiotic but ratherto treat her with symptomatic medications including a prednisone tapering regimen along with cough medicine and an albuterol inhaler. She will let me know if her condition is not improving or does not clear up in the next 10 to 14 days. Cough Associated symptoms include a fever, postnasal drip and shortness of breath. Pertinent negatives include no chest pain, rhinorrhea or wheezing. Shortness of Breath Associated symptoms include a fever. Pertinent negatives include no abdominal pain, chest pain, legswelling, rhinorrhea, vomiting or wheezing. Review of Systems Constitutional: Positive for fever. Negative for fatigue and unexpected weight change. HENT: Positive for congestion and postnasal drip. Negative for rhinorrhea. Respiratory: Positive for cough and shortness of breath. Negative for chest tightness and wheezing. Cardiovascular: Negative for chest pain, palpitations and leg swelling. Gastrointestinal: Negative for abdominal pain, blood in stool, diarrhea, nausea and vomiting. Musculoskeletal: Negative for arthralgias and back pain. Objective Physical Exam Vitals and nursing note reviewed. Constitutional: General: She is not in acute distress. Appearance: Normal appearance. HENT: Head: Normocephalic and atraumatic. Eyes: Conjunctiva/sclera: Conjunctivae normal. Cardiovascular: Rate and Rhythm: Normal rate and regular rhythm. Heart sounds: Normal heart sounds. Pulmonary: Effort: No respiratory distress. Breath sounds: No wheezing. Abdominal: Palpations: Abdomen is soft. Tenderness: There is no abdominal tenderness. There is no guarding. Musculoskeletal: General: No swelling. Normal range of motion. Skin: General: Skin is warm and dry. Neurological: General: No focal deficit present. Mental Status: She is alert and oriented to person, place, and time. Psychiatric: Behavior: Behavior normal. Assessment/Plan Problem List Items Addressed This Visit Respiratory Bronchitis - Primary -She received a Z-Jorden from urgent care a couple of weeks ago -I am sending in a prednisone tapering regimen -I am sending in Tessalon for cough and we discussed using rxdr-eel-pcljtzc cough syrup as well or cough drops -I am sending in a prescription for albuterol to treat bronchospasm. She will call if her conditionis not improving or does not resolve in the next 10 to 14 days Relevant Medications predniSONE (Deltasone) 10 mg tablet benzonatate (Tessalon) 100 mg capsule albuterol (Ventolin HFA) 90 mcg/actuation inhaler Maribel Kwan DO documented in this [facility] Work Phone: [phone] Instructions* Patient Instructions* Maribel Kwan DO - 08/09/2022 2:00 PM EDT -As we discussed I sent 3 prescriptions to your pharmacy at [facility]. 1 is for a prednisone tapering regimen that will help with bronchospasm and inflammation of the lung. Please be sure to take this medication with food. -I also sent a prescription for an albuterol inhaler and Tessalon for cough. You can also safely take iqnv-exy-pwxxhpa Robitussin or Gates's cough drops to help with your cough and please let me know if you are not getting better or if your symptoms do not resolve in 10 to 14 days [facility] [place] [facility]: [phone]) 321-219903-30-2023 Evaluation + Plan note* Assessment & Plan Note - Maribel Kwan DO - 07/29/2022 4:31 PM EDTAssociated Problem(s): Morbid obesity with body mass index (BMI) of 40.0 or higher (CMS/HCC) -She will get lab work just prior to her next follow-up visit in 6 months [facility] Work Phone: [phone]) 233-544703-30-2023 Evaluation + Plan note* Assessment & Plan Note - Maribel Kwan DO - 07/29/2022 4:31 PM EDTAssociated Problem(s): Anxiety -She will continue with escitalopram 20 mg daily and she will also continue to see her counselor regularly. She is encouraged to call if things or not going well [facility] Work Phone: [phone] Evaluation + Plan note* Assessment & Plan Note - Maribel Kwan DO - 07/29/2022 4:31 PM EDTAssociated Problem(s): GERD (gastroesophageal reflux disease) -Her acid reflux has been stable -She will continue with omeprazole 40 mg daily [facility] Work Phone: [phone] Evaluation + Plan note* Assessment & Plan Note - Maribel Kwan DO - 07/29/2022 4:31 PM EDTAssociated Problem(s): Paroxysmal SVT (supraventricular tachycardia) ([facility]/HCC) -Her condition has been stable -She will continue with atenolol 25 mg once daily [facility] Work Phone: [phone] Miscellaneous Notes* Assessment & Plan Note - Maribel Kwan DO - 07/29/2022 4:31 PM EDTAssociated Problem(s): Morbid obesity with body mass index (BMI) of 40.0 or higher (CMS/[facility]) -She will get lab work just prior to her next follow-up visit in 6 months * Assessment & Plan Note - Maribel Kwan DO - 07/29/2022 4:31 PM EDT Associated Problem(s): Anxiety -She will continue with escitalopram 20 mg daily and she will also continue to see her counselor regularly. She is encouraged to call if things or not going well * Assessment & Plan Note - Maribel Kwan DO - 07/29/2022 4:31 PM EDT Associated Problem(s): GERD (gastroesophageal reflux disease) -Her acid reflux has been stable -She will continue with omeprazole 40 mg daily * Assessment & Plan Note - Maribel Kwan DO - 07/29/2022 4:31 PM EDT Associated Problem(s): Paroxysmal SVT (supraventricular tachycardia) ([facility]) -Her condition has been stable -She will continue with atenolol 25 mg once daily * Assessment & Plan Note - Maribel Kwan DO - 07/29/2022 4:30 PM EDT Associated Problem(s): Obstructive sleep apnea on CPAP -She will work on getting back on her CPAP therapy consistently and is encouraged to call if thingsor not going according to plan [facility] [place] [facility]: [phone] Evaluation + Plan note* Assessment & Plan Note - Maribel Kwan DO - 07/29/2022 4:30 PM EDTAssociated Problem(s): Obstructive sleep apnea on CPAP -She will work on getting back on her CPAP therapy consistently and is encouraged to call if thingsor not going according to plan [facility] Work Phone: [phone] History of Present illness Narrative* Howard Love MA - 07/29/2022 4:00 PM EDT Pt is here today for a check up, C/O cough * Maribel Kwan DO - 07/29/2022 4:00 PM EDT Subjective Patient ID: Govind Haskins is a 37 y.o. female who presents for No chief complaint on file.. HPI She is here today for a general checkup. She states that over the past couple of days she has had amild cough she is not sure if it is allergy or possibly the beginning of a cold. Based on today's exam we have decided to monitor and if she develops significant symptoms she will get back with us. We also reviewed her problem list and discussed her sleep apnea. She states she has had some glitches with her machine and I have recommended that she get a hold of the supplier so that she can get back on the CPAP therapy consistently. We talked about all the benefits of the treatment. She had a history of paroxysmal supraventricular tachycardia which has not been relatively stable in recent times. She also states that she had a really bad month in June as her roommate moved out and she states there was a lot of hard feelings and a lot of turmoil. She states she is feeling better now and we discussed medication but decided to keep the dosage the same. She also is seeing a counselor every other week. Review of Systems Constitutional: Positive for fatigue. Negative for fever. HENT: Negative for congestion and rhinorrhea. Respiratory: Positive for cough. Negative for chest tightness, shortness of breath and wheezing. Cardiovascular: Negative for chest pain, palpitations and leg swelling. Gastrointestinal: Negative for abdominal pain, blood in stool, diarrhea, nausea and vomiting. Musculoskeletal: Negative for arthralgias and back pain. Objective Physical Exam Vitals and nursing note reviewed. Constitutional: General: She is not in acute distress. Appearance: Normal appearance. HENT: Head: Normocephalic and atraumatic. Eyes: Conjunctiva/sclera: Conjunctivae normal. Cardiovascular: Rate and Rhythm: Normal rate and regular rhythm. Heart sounds: Normal heart sounds. Pulmonary: Effort: No respiratory distress. Breath sounds: No wheezing. Abdominal: Palpations: Abdomen is soft. Tenderness: There is no abdominal tenderness. There is no guarding. Musculoskeletal: General: No swelling. Normal range of motion. Skin: General: Skin is warm and dry. Neurological: General: No focal deficit present. Mental Status: She is alert and oriented to person, place, and time. Psychiatric: Behavior: Behavior normal. Assessment/Plan Problem List Items Addressed This Visit Nervous Obstructive sleep apnea on CPAP - Primary -She will work on getting back on her CPAP therapy consistently and is encouraged to call if thingsor not going according to plan Relevant Orders Follow Up In Primary Care Circulatory Paroxysmal SVT (supraventricular tachycardia) ([facility]) -Her condition has been stable -She will continue with atenolol 25 mg once daily Relevant Medications atenolol (Tenormin) 25 mg tablet Other Relevant Orders Follow Up In Primary Care Digestive GERD (gastroesophageal reflux disease) -Her acid reflux has been stable -She will continue with omeprazole 40 mg daily Relevant Medications omeprazole (PriLOSEC) [address] capsule Other Relevant Orders Follow Up In Primary Care Endocrine/Metabolic Morbid obesity with body mass index (BMI) of 40.0 or higher ([facility]) -She will get lab work just prior to her next follow-up visit in 6 months Other Anxiety -She will continue with escitalopram 20 mg daily and she will also continue to see her counselor regularly. She is encouraged to call if things or not going well Relevant Medications escitalopram (Lexapro) 20 mg tablet Other Relevant Orders Follow Up In Primary Care Taking medication for chronic disease Relevant Orders Basic Metabolic Panel Other Visit Diagnoses Chronic primary headache Relevant Medications topiramate (Topamax) 25 mg tablet Maribel Kwan DO [facility] [place] [facility]: [phone] Instructions* Patient Instructions* Maribel Kwan DO - 07/29/2022 4:00 PM EDT -We have provided refills on all of your medications today -Please call if things or not going well and otherwise I would like to see you back in 6 months. -Please get fasting lab work prior to that visit [facility] [place] [facility]: [phone] History of Past illness Narrative* Problem Noted Date Resolved Date Abnormal glucose complicating 01/26/20 17 05/11/2017 Overview: 02/02/17: normal 3hr GTT 01/25/17: GCT 145, 3hr GTT ordered. Meri Liz MD Group B Streptococcus urinar y tract infection affecting in first trimester, antepartum 09/17/2016 05/11/2017 Overview: abx ordered 09/16/16- JV Unplanned 08/26/2016 05/11/2017 Overview: 08/26/2016This is an unplanned . Patient conceived on control pills.TKRN with history of ectopic 08/0110/29/2016 Overview: 08/26/2016 Patient has a history of an ectopic . She has noted some red spotting 2 weeks ago and on 08/24. She denies any pain. Unsure of date of LMP but feels confident that she conceived 07/20/2016. Discussed with Dr Renner. Quantitative HCG today. Ultrasound ordered for tomorrow. Patient aware she is to call/come in if bleeding reoccurs, the development of pain or PRN problems. The FOB is not aware she is .She states she doesn't want to tell him until viability has been established.Received medical records from Dr Cesar's office regarding previous ectopic . Records in [address] for upcoming appointment. TKRN Patient requested diagnostic testing 08/26/2016 10/29/2016 Overview: 08/26/2016Patient desires nuchal ultrasound. She declines CF Carrier screening testing. TKRN documented as of this encounter (statuses as of 09/02/2022) [facility] History of Past illness Narrative* Problem Noted Date Diagnosed Date Resolved Date Abnormal glucose complicating 01/25/2017 05/11/2017 Overview: 02/02/17: normal 3hr GTT 01/25/17: GCT 145, 3hr GTT ordered. Meri Liz MD Group B Streptococcus urinar y tract infection affecting in first trimester, antepartum 09/17/2016 05/11/2017 Overview: abx ordered 09/16/16- JV Unplanned 08/26/2016 05/11/19 18 Overview: 08/26/2016This is an unplanned . Patient conceived on control pills.TKRN with history of ectopic 08/26/2016 10/29/2016 Overview: 08/26/2016 Patient has a history of an ectopic . She has noted some red spotting 2 weeks ago and on 08/24. She denies any pain. Unsure of date of LMP but feels confident that she conceived 07/20/2016. Discussed with Dr Renner. Quantitative HCG today. Ultrasound ordered for tomorrow. Patient aware she is to call/come in if bleeding reoccurs, the development of pain or PRN problems. The FOB is not aware she is .She states she doesn't want to tell him until viability has been established.Received medical records from Dr Cesar's office regarding previous ectopic . Records in [address] for upcoming appointment. TKRN Patient requested diagnostic testing 08/26/2016 10/29/2016 Overview: 08/26/2016Patient desires nuchal ultrasound. She declines CF Carrier screening testing. TKRN documented as of this encounter (statuses as of 11/12/2022) [facility] Bronchitis- Primary Bronchitis, not specified as acute or chronic documented in this encounter [facility] Work Phone: Evaluation note* Diagnosis Encounter for initial prescription of contraceptive pills- Primary General counseling for prescription of oral contraceptives Morbid obesity (HCC) Morbid obesity Hypertension, unspecified type [facility] Diagnosis Anxiety- Primary Anxiety state, unspecified Fatigue, unspecified type Obstructive sleep apnea on CPAP documented in this encounter [facility] Work Phone: Evaluation note* Diagnosis Obstructive sleep apnea on CPAP Paroxysmal SVT (supraventricular tachycardia) Gastroesophageal reflux disease without esophagitis Esophageal reflux Anxiety Anxiety state, unspecified Supraventricular tachycardia, paroxysmal Immunization due documented in this encounter [facility] Work Phone: Evaluation note* Diagnosis Upper respiratory tract infection, unspecified type- Primary Gastroesophageal reflux disease without esophagitis Esophageal reflux documented in this encounter [facility] Work Phone: Evaluation note* Diagnosis Subacute cough- Primary PND (post-nasal drip) Postnasal drip documented in this encounter [facility] Work Phone: Evaluation note* Diagnosis care and examination- Primary Routine follow-up History of chronic hypertension SVT (supraventricular tachycardia) (HCC) Other specified cardiac dysrhythmias Menorrhagia with irregular cycle- Primary Excessive or frequent menstruation Irregular intermenstrual bleeding Metrorrhagia Morbid obesity (HCC) Morbid obesity [facility] Diagnosis care and examination- Primary Routine follow-up History of chronic hypertension SVT (supraventricular tachycardia) (HCC) Other specified cardiac dysrhythmias Menorrhagia with irregular cycle- Primary Excessive or frequent menstruation Menorrhagia with irregular cycle- Primary Excessive or frequent menstruation documented in this encounter [facility] note* Diagnosis care and examination- Primary Routine follow-up History of chronic hypertension SVT (supraventricular tachycardia) (HCC) Other specified cardiac dysrhythmias Menorrhagia with irregular cycle- Primary Excessive or frequent menstruation documented in this encounter [facility] note* Diagnosis care and examination- Primary Routine follow-up History of chronic hypertension SVT (supraventricular tachycardia) (HCC) Other specified cardiac dysrhythmias Irregular bleeding- Primary Irregular menstrual cycle Menorrhagia with irregular cycle Excessive or frequent menstruation Abnormal uterine bleeding due to endometrial polyp Cysts of both ovaries Other and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 [place], [place] [id number] PCP - MMO ACO PCP 01/30/22 Bottom Turning Lathe Turner Relationship Specialty Start Date End Date Maribel KwanDO [address] [place], [place] [id number] PCP - General Internal Medicine 12/24/20 [employer] Lathe Turner Relationship Specialty Start Date End Date Maribel KwanDO [address] [facility] [place] [id number] PCP - General 08/30/16 [place] [address] [place] [id number] PCP - MMO ACO PCP 01/30/22 Bottom Turning Lathe Turner Relationship Specialty Start Date End Date Maribel KwanDO [address] [place] [id number] PCP - General Internal Medicine 12/24/20 Bottom Turning Lathe Turner Relationship Specialty Start Date End Date Maribel KwanDO [address] [facility] [place], [place] [id number] PCP - General 08/30/16 Maribel DO [address] [facility] [place], [place] [id number] PCP - MMO ACO PCP 01/30/22 Bottom Turning Lathe Turner Relationship Specialty Start Date End Date Swati Kwanchris Ding DO [address] [facility] [place], [place] [id number] PCP - General 08/30/16 Bottom Turning Lathe Turner Relationship Specialty Start Date End Date Maribel KwanDO [address] [place] [address] Medical [place], [place] [id number] PCP - General 08/30/16 Bottom Turning Lathe Turner Relationship Specialty Start Date End Date Maribel Kwan [address] [place], [place] [id number] PCP - General Internal Medicine 12/24/20 Bottom Turning Lathe Turner Relationship Specialty Start Date End Date Maribel KwanDO [address] [place] [address] PCP - General Internal Medicine 12/24/20 Bottom Turning Lathe Turner Relationship Specialty Start Date End Date Maribel KwanDO [address] [place], [place] [id number] PCP - General Internal Medicine 12/24/20 Bottom Turning Lathe Turner Relationship Specialty Start Date End Date Maribel KwanDO [address] [place] [address] PCP - General Internal Medicine 12/24/20 [place] Turning Lathe Turner Relationship Specialty Start Date End Date Maribel KwanDO [address] [place], [place] [id number] PCP - General Internal Medicine 12/24/20 Bottom Turning Lathe Turner Relationship Specialty Start Date End Date Maribel KwanDO [address] [place], [place] [id number] PCP - General Internal Medicine 12/24/20 Bottom Turning Lathe Turner Relationship Specialty Start Date End Date Swati Kwanly Toña, DO [address] [place] [address] PCP - General Internal Medicine 12/24/20 Bottom Turning Lathe Turner Relationship Specialty Start Date End Date Maribel Kwan [address] [place] [id number] PCP - General Internal Medicine 12/24/20 Bottom Turning Lathe Turner Relationship Specialty Start Date End Date Maribel Kwan PCP - General 08/30/16 Bottom Turning Lathe Turner Relationship Specialty Start Date End Date Swati Kwanly ToñaDO [address] [place], [place] [id number] PCP - General Internal Medicine 12/24/20 Bottom Turning Lathe Turner Relationship Specialty Start Date End Date Delmy Kwanberchris DingDO [address] [facility] Office [place] [id number] PCP - General 08/30/16 Bottom Turning Lathe Turner Relationship Specialty Start Date End Date Maribel Kwan [address] [place] [address] [place] [address] PCP - General 08/30/16 Royal Maribel Ding DO [address] [place] [address] Office [place], [place] [id number] PCP - MMO ACO PCP 01/30/22 Bottom Turning Lathe Turner Relationship Specialty Start Date End Date Swati Kwanly ToñaDO [address] [id number] PCP - General 5/1/17 Team Status: Active Member Role/Relationship Status Dates Dr. Maribel Kwan MD Primary Care Provider Active Team Status: Inactive Member Role/Relationship Status Dates Dr. Maribel Kwan MD Primary Care Provider Active Start: November 20, 2024 End: November 20, 2024 Dr. Edmar López DO Emergency Provider Active Start : November 20, 2024 End: November 20, 2024 Team Status: Active Member Role/Relationship Status Dates Dr. Maribel Kwan MD Primary Care Provider Active Start: November 23, 2024 Dr. Maribel Kwan MD Referring Provider Active Start: November 23, 2024 Helio Charles MD Attending Provider Active St art: November 23, 2024 Team Status: Inactive Member Role/Relationship Status Dates Dr. Maribel Kwan MD Primary Care Provider Active Start: November 23, 2024 End: November 23, 2024 Dr. Ronak Paz MD Attending Provider Active S tart: November 23, 2024 End: November 23, 2024 Team Status: Inactive Member Role/Relationship Status Dates Dr. Maribel Kwan MD Primary Care Provider Active Start: November 23, 2024 End: November 23, 2024 Dr. Maribel Kwan MD Referring Provider Active Start: November 23, 2024 End: November 23, 2024 Helio Charles MD Attending Provider Active St art: November 23, 2024 End: November 23, 2024 Team Status: Inactive Member Role/Relationship Status Dates Dr. Maribel Kwan MD Primary Care Provider Active Start: November 20, 2024 End: November 20, 2024 Dr. Edmar López DO Attending Provider Active Start : November 20, 2024 End: November 20, 2024 Dr. Edmar López DO Emergency Provider Active Start : November 20, 2024 End: November 20, 2024 Team Status: Inactive Member Role/Relationship Status Dates Dr. Maribel Kwan MD Primary Care Provider Active Start: December 10, 2024 End: December 10, 2024 Dr. Maribel Kwan MD Referring Provider Active Start: December 10, 2024 End: December 10, 2024 Helio Charles MD Attending Provider Active St art: December 10, 2024 End: December 10, 2024 Team Status: Active Member Role/Relationship Status Dates Dr. Maribel Kwan MD Primary Care Provider Active Start: December 10, 2024 Helio Charles MD Attending Provider Active St art: December 10, 2024 Helio Charles MD Referring Provider Active St art: December 10, 2024 Source Comments (unrecognize d section and content) In the event this informatio n is protected by the Federal Confidentiality of Alcohol and Drug Abuse Patient Records regulations: The Federal rules restrict any use of the information to criminally investigate or prosecute any alcohol or drug abuse patient.[facility] the event this information is protected by the Federal Confidentiality of Alcohol and Drug Abuse Patient Records regulations: The Federal rules restrict any use of the information to criminally investigate or prosecute any alcohol or drug abuse patient.[facility] the event this information is protected by the Federal Confidentiality of Alcohol and Drug Abuse Patient Records regulations: The Federal rules restrict any use of the information to criminally investigate or prosecute any alcohol or drug abuse patient.[facility] the event this information is protected by the Federal Confidentiality of Alcohol and Drug Abuse Patient Records regulations: The Federal rules restrict any use of the information to criminally investigate or prosecute any alcohol or drug abuse patient.[facility] the event this information is protected by the Federal Confidentiality of Alcohol and Drug Abuse Patient Records regulations: The Federal rules restrict any use of the information to criminally investigate or prosecute any alcohol or drug abuse patient.[facility] the event this information is protected by the Federal Confidentiality of Alcohol and Drug Abuse Patient Records regulations: The Federal rules restrict any use of the information to criminally investigate or prosecute any alcohol or drug abuse patient.[facility] the event this information is protected by the Federal Confidentiality of Alcohol and Drug Abuse Patient Records regulations: The Federal rules restrict any use of the information to criminally investigate or prosecute any alcohol or drug abuse patient.[facility] the event this information is protected by the Federal Confidentiality of Alcohol and Drug Abuse Patient Records regulations: The Federal rules restrict any use of the information to criminally investigate or prosecute any alcohol or drug abuse patient.[facility] the event this information is protected by the Federal Confidentiality of Alcohol and Drug Abuse Patient Records regulations: The Federal rules restrict any use of the information to criminally investigate or prosecute any alcohol or drug abuse patient.[facility] the event this information is protected by the Federal Confidentiality of Alcohol and Drug Abuse Patient Records regulations: The Federal rules restrict any use of the information to criminally investigate or prosecute any alcohol or drug abuse patient.[facility] the event this information is protected by the Federal Confidentiality of Alcohol and Drug Abuse Patient Records regulations: The Federal rules restrict any use of the information to criminally investigate or prosecute any alcohol or drug abuse patient.[facility] the event this information is protected by the Federal Confidentiality of Alcohol and Drug Abuse Patient Records regulations: The Federal rules restrict any use of the information to criminally investigate or prosecute any alcohol or drug abuse patient.[facility] the event this information is protected by the Federal Confidentiality of Alcohol and Drug Abuse Patient Records regulations: The Federal rules restrict any use of the information to criminally investigate or prosecute any alcohol or drug abuse patient.[facility] Goals (unrecognized section and content) Goals may be documented in a n alternate sectionGoals may be documented in an alternate sectionGoals may be documented in an alternate sectionGoals may be documented in an alternate section FOR RECORDS PERTAINING TO PATIENTS WHO ARE OR HAVE BEEN ENROLLED IN A CHEMICAL DEPENDENCY/SUBSTANCEABUSE PROGRAM, SOME INFORMATION MAY BE OMITTED. This clinical summary was aggregated from multiple sources. Caution should be exercised in using it in the provision of clinical care. This summary normalizes information from multiple sources, and as a consequence, information in this document may materially change the coding, format and clinical context of patient data. In addition, data may be omitted in some cases. CLINICAL DECISIONS SHOULD BE BASED ON THE PRIMARY CLINICAL RECORDS. [employer] [facility] provides no warranty or guarantee of the accuracy or completeness of information in this document.
--- OUTSIDE RECORDS SUMMARY | 2024-12-10 21:27 | XMS RPT_ITS | CCD ---
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 Name Role Phone Madhav Cesar Unavailable Unavailable [place], Maribel S Unavailable Unavailable [place], Maribel Unavailable Unavailable [place], Maribel S Unavailable Unavailable [place], Maribel S Unavailable Unavailable Unavailable [place], Maribel Unavailable Eliza Arevalo Unavailable Unavailable ROYAL, [...] Unavailable ROYAL, DO MARIBEL S Attending Unavailable [place] DO, Maribel S Primary Care Provider [phone] [place] DO, Maribel S Unavailable [place] DO, Maribel S Primary Care Provider [phone] ROYAL, MARIBEL S Referring Unavailable ROYAL, MARIBEL S Primary Care Unavailable ROYAL, MARIBEL S Primary Care Unavailable [place] DO, Maribel S Primary Care Provider [place] DO, Mariebl S Primary Care Provider [phone] MERI ENGLAND Attending Unavail able ROYAL, MARIBEL [...] Unavailable ROYAL, MARIBEL S Primary Care Unavailable [place] DO, Maribel S Primary Care Provider ROYAL, [...] Provider Dr. Edmar López DO Emergency Provider [phone] Maribel Kwan MD Referring Provider Helio Charles MD Attending Provider [phone] Dr. Ronak Paz MD Attending Provider Ronak Paz Attending Unavailable Neyhart-Renner, Meri Referring Unavail able [place], Maribel Primary Care Unavailable [place], Maribel Primary Care Unavailable Neyhart-Renner, Meri Attending Unavail able Neyhart-Renner, Meri Referring Unavail able Edmar López Attending Unavailable [place], Maribel Primary Care Unavailable Ronak Paz Attending Unavailable [place], Maribel Primary Care Unavailable [place], Maribel Referring Unavailable Helio Charles Attending Unavailable [place], Maribel Primary Care Unavailable Dr. Edmar López DO Attending Provider [phone] Helio Charles MD Referring Provider Medications Current Medications Medication Drug Class(es) Dates Sig (Normalized) Sig (Original) [id number] 200 actuat albuterol 0.09 mg/actuat metered dose [...] 100 mg by mouth twice daily. levonorgestrel 0.375375 mg/hr intrauterine system (11 sources) Progestin, Progestin-containing [...] 2 days 35 tablet 01/05/2024 01/25/2024 Discontinued Dvtybroe-Oa-Kqs-Fe-FA ( VITAMIN) tab (2 sources) take 20-30 tablets by mouth once Zxqtshae-Hb-Uje-Fe-FA ( VITAMIN) tab Take 1 tablet by mouth. 20-30 fast track 0 Active Comment on above: Take 1 tablet by bravo th. - fast track Vit No.261-Gjdf-Gzmqc 1 EACH tablet (4 sources) Start: 03-11-20 17 End: 10-28-19 18 take 1 tablet by mouth once daily Vit No.670-Qvnv-Sccjw 1 EACH tablet Discontinued 1 NMA PO [...] 3 Viewson 11-24-19 Elbow min 3 Views [facility] [address] [place] [address] Elbow min 3 Views MR#: [id number] Acct: [id number] Name: GOVIND HASKINS Rep #: [id number] : 1985 F 39 From: Naldo Owen MD PCP: Dr. Maribel Kwan MD Status: DEP AMB Study: Elbow min 3 Views Date of Exam: 11/23/24 Exam# [id number] Ordering Dr: Helio Charles MD PROCEDURE: ELBOW MIN 3 VIEWS 11/23/2024 REASON FOR EXAM: EVAL RADIAL HEAD FRACTURE TECHNIQUE: ELBOW MIN 3 VIEWS COMPARISON: 11/20/2024 FINDINGS: Elbow joint effusion. Nondisplaced intra-articular radial head fracture no additional fracture or dislocation. RAD/Elbow min 3 Views IMPRESSION: Stable appearance to a radial head fracture. Reading Location: [place] [address] CC: Dr. Maribel Kwan MD; Dr. Helio hCarles MD Pig Furnace Operator: Signed Normal [facility] Orthopedic Visit Reporton Orthopedic Visit Report [facility] [address] [place] [address] OFFICE VISIT Date of Service: 11/23/24 MR#: [id number] Acct: [id number] Name: GOVIND HASKINS Rep #: [id number] : 1985 Provider: Dr. Helio tong MD Age/Sex: 39/F [place] [facility] [place] Status: Signed Intake Vital Signs 11/20/24 12:05 [...] by me, Dr. Helio Charles MD 11/23/24 9649. Part of today???s visit was documented by [...] upper extremity including the elbow and wrist. Gagcm-neur-csdryckf. 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 refer notes Xuxea-aytw-xhhgmrpq female presents mechanical fall right forearm injury yesterday. Slipped in the garage right onto the garage floor. No head injuries. No other injuries. Denies hip pain. Took ibuprofen yesterday. No history of fractures. Prior similar symptoms: No Supplemental Info [facility] Imaging Services [address] [place] [address] Forearm 2 Views MR#: [id number] Acct: [id number] Name: GOVIND HASKINS Rep #: [id number] : 1985 F 39 From: Ivan Aburto MD PCP: Dr. Maribel Kwan MD Status: REG ER Study: Forearm 2 Views Date of Exam: 11/20/24 Exam# [id number] Ordering Dr: Edmar López DO PROCEDURE: FOREARM [...] at the time of dictation. Reading [facility] I did review radiographs 3 views of both wrists. This confirms a widened scapholunate interval on both sides that is symmetric. I took repeat radiographs of the elbow on the right side there is a nondisplaced intra-articular fracture of the radial he (more content not included)... Normal [facility] Wrist min 3 Viewson 11-24-19 Wrist min 3 Views [facility] [address] [place], [place] [id number] Wrist min 3 Views MR#: [id number] Acct: [id number] Name: GOVIND HASKINS Rep #: [id number] : 1985 F 39 From: Naldo Owen MD PCP: Dr. Maribel Kwan MD Status: DEP AMB Study: Wrist min 3 Views Date of Exam: 11/23/24 Exam# [id number] Ordering Dr: Helio Chrales MD PROCEDURE: WRIST MIN 3 VIEWS 11/23/2024 [...] No acute right wrist findings. Reading Location: [place] [address] CC: Dr. Maribel Kwan MD; Dr. Helio Charles MD Pig Furnace Operator: Signed Normal [facility] Wrist min 3 Views [facility] Imaging Services [address] [place], [place] [address] Wrist min 3 Views MR#: [id number] Acct: [id number] Name: GOVIND HASKINS Rep #: [id number] : 1985 F 39 From: Naldo Owen MD PCP: Dr. Maribel Kwan MD Status: DEP AMB Study: Wrist min 3 Views Date of Exam: 11/23/24 Exam# [id number] Ordering Dr: Helio Charles MD PROCEDURE: WRIST MIN 3 VIEWS 11/23/2024 REASON FOR EXAM: EVAL SL INTERVAL, COMPARISON VIEWS BOTH SIDES TECHNIQUE: WRIST MIN 3 VIEWS COMPARISON: Forearm radiograph 11/20/2024, right wrist exam 11/23/2024 FINDINGS: Scapholunate interval of 2.1 mm, within normal limits. No acute bone or soft tissue pathology. RAD/Wrist min 3 Views IMPRESSION: No acute findings Reading Location: [place] [address] CC: Dr. Maribel Kwan MD; Dr. Helio Charles MD Pig Furnace Operator: Signed Normal [facility] Emergency Department Summary on 11-20-2024 Emergency Department Summary [facility] Medical Records Department [address] [place] [address] Emergency Department Summary 11/20/24 MR#: [id number] Acct: [id number] Name: GOVIND HASKINS Rep #: [id number] : 1985 39 From: Edmar Cantu PCP: Dr. Maribel Kwan MD Status:DEP ER Location: ED HPI History of Present Illness Chief Complaint: Upper Extremity Injury Informant: patient Narrative Narrative: Wpbak-icvy-dajeceqp female presents mechanical fall right forearm injury [...] consulting c (more content not included)... Normal [facility] Forearm 2 Viewson 11-20-2024 Forearm 2 Views [facility] Imaging Services [address] [place], [place] [address] Forearm 2 Views MR#: [id number] Acct: [id number] Name: GOVIND HASKINS Rep #: [id number] : 1985 F 39 From: Ivan Aburto MD PCP: Dr. Maribel Kwan MD Status: REG ER Study: Forearm 2 Views Date of Exam: 11/20/24 Exam# [id number] Ordering Dr: Edmar López DO PROCEDURE: FOREARM [...] Maribel Kwan MD; Dr. Edmar López DO Pig Furnace Operator: Signed [facility] CNOVon 03-15-2024 CNOV Office Visit (OBGYWM ) -- GOVIND HASKINS ([id number]) 1985 F Date Time Provider Department 03/15/24 7:15 AM СЕРГЕЙ DE LEON OBGYWM During your visit today, we recorded the following information about you: Blood pressure Weight 122/80 133.1 kg Сергей De Leon APRN.[facility] 03/15/2024 7:36 AM Signed Patient declined checkerer hand. Govind Haskins presents today for IUD check. She had a Liletta placed on 02/03/2024 with hysteroscopy D+C, polypectomy. She has had some spotting since placement. Pathology benign per Dr. Renner 02/15/24. REVIEW OF SYSTEMS: .NET PROGRAMMER: Negative for abnormal vaginal bleeding, abnormal vaginal discharge + spotting SENSITIVE EXAM: The sensitive examination was discussed with the Patient or Patient's Authorized Rug Cleaner. As applicable, any other physician, advance practice provider, medical student, or other health professional student that will be observing or involved in the sensitive examination for educational or training purposes was discussed with the Patient or Authorized Rug Cleaner. The Patient or Authorized Rug Cleaner has agreed to proceed with the sensitive [...] for Encounter Date Provider Department Center 03/15/2024 [id number] DE LEON Encounter Status:Closed by СЕРГЕЙ DE LEON on 03/15/24 [facility] Discharge Instructionon Discharge Instruction [facility] Medical Records Department [address] [place] [address] Instructions for Home/Discharge Instructions 02/03/24 1052 MR#: [id number] Acct: [id number] Name: GOVIND HASKINS Rep #: [id number] : 1985 38 From: Meri Liz MD PCP: Dr. Maribel Kwan MD Status:REG [facility] Discharge Instructions Diet Discharge Diet: No restrictions [...] Care Provider: Maribel Kwan Instructions Print Language: Sinhala Discharge Orders/Prescriptions Prescriptions: No Action fluticasone propionate [...] MD CC: Dr. Maribel Kwan MD Signed [facility] MR/POSTOP.[facility] 02-03-2024 MR/POSTOP.[facility] Medical Records Department [address] [place] [address] Anesthesia Postop Eval I 02/03/24 1323 MR#: [id number] Acct: [id number] Name: GOVIND HASKINS Rep #: [id number] : 1985 38 From: Lana Sargent CRNA PCP: Dr. Maribel Kwan MD Status:REG SD Y Race: C Location: [place] [address] Anesthesia: Postop Eval I Current Vital Signs [...] CRNA Cosigner Signature: Date CC: Signed Normal [facility] MR/[id number] 02-03-2024 MR/POSTOPAN2 [facility] Medical Records Department [address] [place] [address] Anesthesia Postop Eval II 02/03/24 1413 MR#: [id number] Acct: [id number] Name: GOVIND HASKINS Rep #: [id number] : 1985 38 From: Dillon Moran MD PCP: Dr. Maribel Kwan MD Status:REG SDC Y Race: C Location: [place] [address] Anesthesia Postop Eval I Sum Postop Eval Completion status Anesthesia document: Postop Eval 1 completed: Yes Anesthesia Postop Eval I Summary Anesthesia Postop Eval I Summary: Anesthesia Postop Eval I: Assessment Summary Airway patent Yes 02/03/24 13:36 COMMERCIAL SEWING INSTRUCTOR.SCHR Spontaneous unlabored Yes 02/03/24 13:36 COMMERCIAL SEWING INSTRUCTOR.SCHR respirations Mental status Awake,Calm 02/03/24 13:36 COMMERCIAL SEWING INSTRUCTOR.SCHR nausea No 02/03/24 13:36 COMMERCIAL SEWING INSTRUCTOR.SCHR Vomiting No 02/03/24 13:36 COMMERCIAL SEWING INSTRUCTOR.SCHR Anesthesia Postop Eval I: Fluid Summary Crystalloid volume administer 5 02/03/24 13:36 COMMERCIAL SEWING INSTRUCTOR.SCHR (ml) Colloids volume administered ( ml) Blood Product volume administered (ml) Total IV fluid infused 5 02/03/24 13:36 COMMERCIAL SEWING INSTRUCTOR.SCHR Anesthesia Postop Eval I: Summary Notes Anesthesia Complication No 02/03/24 13:36 COMMERCIAL SEWING INSTRUCTOR.SCHR Anesthesia Complication Comment: Post-operative progress note Anesthesia: Postop Eval II Evaluation Mental status: Awake Pain Level: 0 nausea: No Vomiting: No 02/03/24 141 Date Dillon Moran MD Cosigner Signature: Date CC: Signed Normal [facility] Operative Reporton 4 Operative Report [facility] Medical Records Department [address] [place] [address] Operative Report 02/03/24 1325 MR#: [id number] Acct: [id number] Name: GOVIND HASKINS Rep #: [id number] : 1985 38 From: Meri Liz MD PCP: Dr. Maribel Kwan MD Status:[facility] Location: [place] [address] Report of Operation Date of Procedure: 02/03/24 Pre-Operative Diagnosis: AUB, Endometrial polyp Post-Operative Diagnosis: same Surgery/Procedure Performed:: Hysteroscopy, D C, polypectomy with symphion, Insertion of Liletta IUD Description of Surgical Findings:: endometrial polyp on anterior aspect of uterus. Both tubal ostia viusalized. Surgeon: Meri Liz gun club manager: None Type of Anesthesia: MAC Special Medications: none Specimen's removed: endometrial curettings, endometrial polyp Estimated Blood Loss (mL): <5cc Fluids Replaced: none- fluid restriction due to national shortage Description of Procedure: Informed consent was obtained the patient was taken the operating room she was placed in supine position. She was given anesthesia. She was then placed [facility] where she was pr epped and draped [...] MD; Dr. Maribel Kwan MD Signed Normal [facility] ,Urineon 02-03-2024 Beta HCG ( test) Ql (U) Negative Normal [facility] Comment on above: Result Comment: Very dilute urine specimens, as indicated by a low specific gravity, may not contain procurement representative levels of hCG. If is still suspected, a first morning urine specimen should be collected 48 hours later and tested. Performed By: #### L 400.7600 #### [facility] [address] [place], [address] Surgery Specimen Level Damian 02-03-2024 Surgery Specimen Level IV Patient Age/Sex Location Account Attending Physician GOVIND HASKINS 38/F [facility] [id number] Dr Meri Liz, Specimen: [id number] Received: 02/03/24 Status: JESSICA Vick Num: [id number] Spec Type: ENDOM BX/C Subm Dr: Dr [...] totally submitted in two cassettes. 02/06/2024 TC:5 CPT:33249 Patient Age/Sex Location Account Attending Physician GOVIND HASKINS 38/F [facility] [id number] Dr Meri Liz, Signed (signature on file) Dr. Len Castellanos MD 02/07/24 1148 [facility] Comment on above: Performed By: #### P SUIV #### [facility] [address] [facility] [place], [address] H AND P Exam - OB/GYNon 10-0 H&P Exam - NEWSWRITER [facility] Medical Records Department [address] [place] [address] H P Exam - NEWSWRITER 02/02/24 1309 MR#: [id number] Acct: [id number] Name: GOVIND HASKINS Rep #: [id number] : 1985 38 From: Meri Liz MD PCP: Dr. Maribel Kwan MD Status:REG [facility] Location: [address] History and Physical Date of Admission: [...] Dr. Maribel Kwan MD * Signed Normal [facility] 12 Lead EKGon 01-31-2024 12 Lead EKG [facility] Cardiovascular Services [address] [place] [address] 12 Lead EKG 01/31/24 0716 MR#: [id number] Acct: [id number] Name: GOVIND HASKINS Rep #: [id number] : 1985 38 From: Ronak Paz MD Attending Dr: Dr Meri Liz MD Sta tus: PRE [facility] Ordering Dr: Meri Liz MD Date: 05/25 Location: [facility] Sex: F C Admitted: Test Reason : PREOP Blood Pressure : / mmHG Vent. Rate : 080 BPM Atrial Rate : 080 BPM P-R Int : 168 ms QRS Dur : 080 ms QT Int : 392 ms P-R-T Axes : 055 040 023 degrees QTc Int : 452 ms Normal sinus rhythm with sinus arrhythmia Normal ECG Confirmed by MAXWELL FRANCO, RONAK ([id number]), editorial specialist TRICIA TRAN ([id number]) on 02/01/2024 10:59:30 AM Referred By: Meri Liz Confirmed By:RONAK PAZ MD 02/01/24 1059 Date Ronak Paz MD CC: Dr Meri Liz MD; Dr. Maribel Kwan MD Signed Normal [facility] Basic Metabolic Profile (BMP )on 01-25-2024 BUN/CRE 17.8 RATIO Normal 10-20 [facility] Comment on above: Performed By: #### L 100.0500, L500.2500 #### [facility] [address] [place], [place], [id number] CA,Total 8.9 mg/dL Normal 8.5-10.1 [facility] Comment on above: Performed By: #### L 100.0500, L500.2500 #### [facility] [address] [place], [address] Chloride [Moles/Vol] 107 mmol/L Normal 98-107 [facility] Comment on above: Performed By: #### L 100.0500, L500.2500 #### [facility] [address] [place], [address] CO2 [Moles/Vol] 28.0 mmol/L Normal 21.0-32.0 [facility] Comment on above: Performed By: #### L 100.0500, L500.2500 #### [facility] [address] [place], [address] Creatinine [Mass/Vol] 0.67 mg/dL Normal 0.55-1.02 [facility] Comment on above: Result Comment: The validity of the calculated GFR GFRAA in patients over 70 years has not been determined. Clinical correlation is essential. Performed By: #### L 100.0500, L500.2500 #### [facility] [address] [place], [address] EST GFR - AA 127 mL/min Normal >60 [facility] Comment on above: Result Comment: Afri can Iranian GFR Calc Performed By: #### L 100.0500, L500.2500 #### [facility] [address] [place], [address] GAP 3 Low 5-15 [facility] Comment on above: Performed By: #### L 100.0500, L500.2500 #### [facility] [address] [place], [address] GFR/1.73 sq M.predicted among non-blacks MDRD (S/P/Bld) [Vol rate/Area] 105 mL/min/{1.73_m2} Normal >60 [facility] Comment on above: Result Comment: Non- GFR Calc Performed By: #### L 100.0500, L500.2500 #### [facility] [address] [place], [address] Glucose [Mass/Vol] 89 mg/dL Normal 74-106 [facility] Comment on above: Performed By: #### L 100.0500, L500.2500 #### [facility] [address] [place], [address] Potassium [Moles/Vol] 3.9 mmol/L Normal 3.5-5.1 [facility] Comment on above: Performed By: #### L 100.0500, L500.2500 #### [facility] [address] [place], [address] Sodium [Moles/Vol] 138 mmol/L Normal 136-145 [facility] Comment on above: Performed By: #### L 100.0500, L500.2500 #### [facility] [address] [place], [address] Urea nitrogen [Mass/Vol] 12 mg/dL Normal 7-18 [facility] Comment on above: Performed By: #### L 100.0500, L500.2500 #### [facility] [address] [place], [address] CBC-Complete Blood Cnt No [facility] Erythrocyte distribution width (RBC) [Ratio] 14.0 % Normal 11.6-14.6 [facility] Comment on above: Performed By: #### L 100.0500, L500.2500 #### [facility] [address] [place], [address] Hematocrit (Bld) [Volume fraction] 37.1 % Normal 37-47 [facility] Comment on above: Performed By: #### L 100.0500, L500.2500 #### [facility] [address] [place], [address] Hemoglobin (Bld) [Mass/Vol] 11.2 g/dL Low 12.0-15.0 [facility] Comment on above: Performed By: #### L 100.0500, L500.2500 #### [facility] [address] [place], [address] MCH (RBC) [Entitic mass] 25.3 pg Low 27.0-32.0 [facility] Comment on above: Performed By: #### L 100.0500, L500.2500 #### [facility] [address] [place], [address] MCHC (RBC) [Mass/Vol] 30.2 g/dL Low 32-36 [facility] Comment on above: Performed By: #### L 100.0500, L500.2500 #### [facility] [address] [place], [address] MCV (RBC) [Entitic vol] 83.7 fL Normal 81-99 [facility] Comment on above: Performed By: #### L 100.0500, L500.2500 #### [facility] [address] [place], [address] Platelet mean volume (Bld) [Entitic vol] 10.0 fL Normal 6.2-12.0 [facility] Comment on above: Performed By: #### L 100.0500, L500.2500 #### [facility] [address] [place], [address] Platelets (Bld) [#/Vol] 276 10*3/uL Normal 150-450 [facility] Comment on above: Performed By: #### L 100.0500, L500.2500 #### [facility] [address] [place], [address] RBC (Bld) [#/Vol] 4.43 10*6/uL Normal 4.2-5.[address] [facility] Comment on above: Performed By: #### L 100.0500, L500.2500 #### [facility] [address] [place], [address] RDW SD 42.8 fl Normal 35.1-43.9 [facility] Comment on above: Performed By: #### L 100.0500, L500.2500 #### [facility] [address] [place], [place], [address] WBC (Bld) [#/Vol] 6.3 10*3/uL Normal 4.4-11.0 [facility] Comment on above: Performed By: #### L 100.0500, L500.2500 #### [facility] [address] [place], [address] CNOVon 01-25-2024 CNOV Office Visit (OBGYWM ) -- GOVIND HASKINS ([id number]) 1985 F Date Time Provider Department 01/25/24 [...] of right (more content not included)... Normal [facility] HISTORY PHYSICALon HISTORY PHYSICAL HNO ID: [id number] Author: MERI ENGLAND MD Service: ? Author [...] history, medications and allergies Meri Renner MD [facility] 01-09-2024 CNPN Telephone (OBGYWM) -- GOVIND HASKINS ([id number]) 1985 F Date Time Provider Department 01/09/24 [...] Status:Closed by VENUS VYAS on 01/12/24 Normal [facility] CBC panel Auto (Bld)on 01-04 Erythrocyte distribution width (RBC) [Ratio] 14.6 % 11.5 - 15.0 % [facility] Hematocrit (Bld) [Volume fraction] 37.7 % 36.0 - 46.0 % [facility] Hemoglobin (Bld) [Mass/Vol] 11.5 g/dL 11.5 - 15.5 g/dL [facility] Interpretation and review of laboratory results Abnormal [facility] MCH (RBC) [Entitic mass] 25.6 pg Low 26.0 - 34.0 pg [facility] MCHC (RBC) [Mass/Vol] 30.5 g/dL 30.5 - 36.0 g/dL [facility] MCV (RBC) [Entitic vol] 84.0 fL 80.0 - 100.0 fL [facility] Nucleated RBC (Bld) [#/Vol] NINF [facility] Platelet mean volume (Bld) [Entitic vol] 9.9 fL 9.0 - 12.7 fL [facility] Platelets (Bld) [#/Vol] 324 10*3/uL [facility] RBC (Bld) [#/Vol] 4.49 10*6/uL 3.90 - 5.2 0 m/uL [facility] WBC (Bld) [#/Vol] 6.33 10*3/uL [facility] Erythrocyte distribution width (RBC) [Ratio] 14.6 % Normal 11.5-15.0 [facility] Comment on above: Order Comment: Speci men Type: BLOOD SPECIMENOrdering Facility: [facility] Address: [address] [place] [address] Performed By: #### 5 8410-2 ####[facility] [id number] [address] STATES OF [facility] Hematocrit (Bld) [Volume fraction] 37.7 % Normal 36.0-46.0 [facility] Comment on above: Order Comment: Speci men Type: BLOOD SPECIMENOrdering Facility: [facility] Address: [address] [place] [address] Performed By: #### 5 8410-2 ####[facility] [id number] [place] [address] [place] Hemoglobin (Bld) [Mass/Vol] 11.5 g/dL Normal 11.5-15.5 [facility] Comment on above: Order Comment: Speci men Type: BLOOD SPECIMENOrdering Facility: [facility] Address: [address] [place] [address] Performed By: #### 5 8410-2 ####[facility] [id number] [place] [address] [place] MCH (RBC) [Entitic mass] 25.6 pg Low 26.0-34.0 [facility] Comment on above: Order Comment: Speci men Type: BLOOD SPECIMENOrdering Facility: [facility] Address: [address] [place] [address] Performed By: #### 5 8410-2 ####[facility] [id number] [place] [address] [place] MCHC (RBC) [Mass/Vol] 30.5 g/dL Normal 30.5-36.0 [facility] Comment on above: Order Comment: Speci men Type: BLOOD SPECIMENOrdering Facility: [facility] Address: [address] [place] [address] Performed By: #### 5 8410-2 ####[facility] [id number] [place] [address] [place] MCV (RBC) [Entitic vol] 84.0 fL Normal 80.0-100.0 [facility] Comment on above: Order Comment: Speci men Type: BLOOD SPECIMENOrdering Facility: [facility] Address: [address] [place] [address] Performed By: #### 5 8410-2 ####[facility] [id number] [place] [address] [place] Nucleated RBC (Bld) [#/Vol] 10*3/uL Normal <0.01 [facility] Comment on above: Order Comment: Speci men Type: BLOOD SPECIMENOrdering Facility: [facility] Address: [address] [place] [address] Performed By: #### 5 8410-2 ####[facility] [id number] [place] [address] [place] Platelet mean volume (Bld) [Entitic vol] 9.9 fL Normal 9.0-12.7 [facility] Comment on above: Order Comment: Speci men Type: BLOOD SPECIMENOrdering Facility: [facility] Address: [address] [place] [address] Performed By: #### 5 8410-2 ####[facility] ANAHICHILHOWEEESTER [id number] [place] [address] [place] Platelets (Bld) [#/Vol] 324 10*3/uL Normal 150-400 [facility] Comment on above: Order Comment: Speci men Type: BLOOD SPECIMENOrdering Facility: [facility] Address: [address] [place] [address] Performed By: #### 5 8410-2 ####[facility] ANAHICHILHOWEENCWANDERA [id number] [place] [address] [place] RBC (Bld) [#/Vol] 4.49 10*6/uL Normal 3.90-5.20 [facility] Comment on above: Order Comment: Speci men Type: BLOOD SPECIMENOrdering Facility: [facility] Address: [address] [place] [address] Performed By: #### 5 8410-2 ####[facility]ITAL[facility]CL[facility] [id number] [place] [address] [place] WBC (Bld) [#/Vol] 6.33 10*3/uL Normal 3.70-11.00 [facility] Comment on above: Order Comment: Speci men Type: BLOOD SPECIMENOrdering Facility: [facility] Address: [address] [place], [place] [address], [place] [address] Performed By: #### 5 8410-2 ####[facility] GIA CHRISTIANCHILHOWEEESTER [id number] [place] [address] [place] [facility] CNOVon 01-05-2024 CNOV Office Visit (OBGYWM ) -- GOVIND HASKINS ([id number]) 1985 F Date Time Provider Department 01/05/24 [...] N83.202] Order(s):COMPLETE BLOOD COUNT [SQCBC] Order #: [id number] FUTURE norethindrone (AYGESTIN) 5 mg tablet1 tab [...] Medications Discontin (more content not included)... Normal [facility] Jesús 01-03-2024 SOHAMN Telephone (OBGYWM) -- JOZEFGOVIND ([id number]) 1985 F Date Time Provider Department 01/03/24 [...] Diagnosis:Menorrhagia with irregular cycle [N92.1] Order(s):PELVIC US [facility] [2948246] Order #: [id number]: 1 FUTURE Prescriptions as of 01/04/2024 - [...] Status:Closed by DARY ZUÑIGA on 01/04/24 Normal [facility] US Pelvison 01-03-2024 [facility] Radiology Study observation (narrative) [facility]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 above: Reference Range: 0.5 0 - 1.05 Glucose [Mass/Vol] 81 mg/dL 74 - 99 [facility] Work Phone: Potassium [Moles/Vol] 3.9 mmol/L 3.5 - 5.3 [facility] Work Phone: Sodium [Moles/Vol] 140 mmol/L 136 - 145 [facility] Work Phone: Urea nitrogen [Mass/Vol] 10 mg/dL 6 - 23 [facility] Work Phone: Otheron 12-24-2019 >60 >60 [facility] Work Phone: Comment on above: CALCULATIONS OF RUBEN MATED GFR ARE PERFORMED USING THE MDRD STUDY EQUATION FOR THE IDMS-TRACEABLE CREATININE METHODS. CLIN CHEM 2007;53:766-72 Vital Signs Date Time Vital Sign Value Performing Clinician Facility 11-23-2024 13:36-0400 Body height 157.[address] Maribel Kwan MD Work Phone: [facility] 11-23-2024 13:36-0400 Body mass index (BMI) [Ratio] 52.4 kg/m2 Dr. Maribel Kwan MD Work Phone: 0(542)769-805476 [place] [address] 11-23-2024 13:36-0400 Body weight 130.[address] Maribel Kwan MD Work Phone: 7(006)107-291922 [place] [address] 11-20-2024 14:10-0400 Body temperature 98.7 [degF] Dr. Maribel Kwan MD Work Phone: 9(642)025-488122 [place] [address] 11-20-2024 14:10-0400 Diastolic blood pressure 76 mm[Hg] Dr. Maribel Kwan MD Work Phone: 3(572)320-135876 [place] [address] 11-20-2024 14:10-0400 Heart rate 78 /min Dr. Maribel Kwan MD Work Phone: 6(764)111-506322 [place] [address] 11-20-2024 14:10-0400 Respiratory rate 14 /min Dr. Maribel Kwan MD Work Phone: 4(923)577-169822 [place] [address] 11-20-2024 14:10-0400 SaO2% (BldA) [Mass fraction] 99 % Dr. Maribel Kwan MD Work Phone: 6(611)120-837576 [place] [address] 11-20-2024 14:10-0400 Systolic blood pressure 128 mm[Hg] Dr. Maribel Kwan MD Work Phone: 5(203)019-234576 [place] [address] 11-20-2024 12:05-0400 Body height 157.[address] Maribel Kwan MD Work Phone: 7(106)878-410076 [place] [address] 11-20-2024 12:05-0400 Body mass index (BMI) [Ratio] 52.7 kg/m2 Dr. Maribel Kwan MD Work Phone: 2(974)595-170976 [place] [address] 11-20-2024 12:05-0400 Body weight 130.[address] Maribel Kwan MD Work Phone: 8(588)883-852876 [place] [address] 09-04-2024 16:04-0400 Body height 157.5 cm Maribel Kwan DO Work Phone: [facility] 09-04-2024 16:04-0400 Body mass index (BMI) [Ratio] 53.45 kg/m2 Maribel Winnetoon DO Work Phone: [facility] 09-04-2024 16:04-0400 Body weight 132.59 kg Maribel Winnetoon DO Work Phone: [facility] 09-04-2024 16:04-0400 Diastolic blood pressure 78 mm[Hg] Maribel Winnetoon DO Work Phone: [facility] 09-04-2024 16:04-0400 Heart rate 68 /min Maribel Winnetoon DO Work Phone: [facility] 09-04-2024 16:04-0400 SaO2% (BldA) [Mass fraction] 96 % Maribel Winnetoon DO Work Phone: [facility] 09-04-2024 16:04-0400 Systolic blood pressure 128 mm[Hg] Maribel Winnetoon DO Work Phone: [facility] 03-15-2024 07:16-0500 Body mass index (BMI) [Ratio] 51.97 kg/m2 Сергей De Leon HYDRAULIC CORRUGATING MACHINE OPERATOR.CREDIT OR LOANS OFFICER Work Phone: [facility] 03-15-2024 07:16-0500 Body weight 133.09 kg Сергей Hadeisy HYDRAULIC CORRUGATING MACHINE OPERATOR.CREDIT OR LOANS OFFICER Work Phone: [facility] 03-15-2024 07:16-0500 Diastolic blood pressure 80 mm[Hg] Сергей Haury HYDRAULIC CORRUGATING MACHINE OPERATOR.CREDIT OR LOANS OFFICER Work Phone: [facility] 03-15-2024 07:16-0500 Systolic blood pressure 122 mm[Hg] Сергей Haury HYDRAULIC CORRUGATING MACHINE OPERATOR.CREDIT OR LOANS OFFICER Work Phone: [facility] 03-06-2024 15:50-0500 Body height 157.5 cm Maribel Winnetoon DO Work Phone: [facility] 03-06-2024 15:50-0500 Body mass index (BMI) [Ratio] 54.5 kg/m2 Maribel Winnetoon DO Work Phone: [facility] 03-06-2024 15:50-0500 Body weight 135.17 kg Maribel Winnetoon DO Work Phone: [facility] 03-06-2024 15:50-0500 Diastolic blood pressure 88 mm[Hg] Maribel Winnetoon DO Work Phone: [facility] 03-06-2024 15:50-0500 Heart rate 77 /min Maribel Winnetoon DO Work Phone: [facility] 03-06-2024 15:50-0500 SaO2% (BldA) [Mass fraction] 98 % Maribel Winnetoon DO Work Phone: [facility] 03-06-2024 15:50-0500 Systolic blood pressure 126 mm[Hg] Maribel Winnetoon DO Work Phone: [facility] 01-25-2024 14:44-0400 Body height 160 cm Meri Renner MD Work Phone: [facility] 01-25-2024 14:44-0400 Body mass index (BMI) [Ratio] 52.26 kg/m2 Meri Renner MD Work Phone: [facility] 01-25-2024 14:44-0400 Body weight 133.81 kg Meri Renner MD Work Phone: [facility] 01-25-2024 14:44-0400 Diastolic blood pressure 84 mm[Hg] Meri Renner MD Work Phone: [facility] 01-25-2024 14:44-0400 Heart rate 92 /min Meri Renner MD Work Phone: [facility] 01-25-2024 14:44-0400 SaO2% (BldA) [Mass fraction] 97 % Meri Renner MD Work Phone: [facility] 01-25-2024 14:44-0400 Systolic blood pressure 128 mm[Hg] Meri Renner MD Work Phone: [facility] 01-05-2024 08:15-0400 Body mass index (BMI) [Ratio] 53.02 kg/m2 Venus Plotts HYDRAULIC CORRUGATING MACHINE OPERATOR.CNM Work Phone: [facility] 01-05-2024 08:15-0400 Body weight 133.63 kg Venus Plotts HYDRAULIC CORRUGATING MACHINE OPERATOR.CNM Work Phone: [facility] 01-05-2024 08:15-0400 Diastolic blood pressure 77 mm[Hg] Venus Plotts HYDRAULIC CORRUGATING MACHINE OPERATOR.CNM Work Phone: [facility] 01-05-2024 08:15-0400 Systolic blood pressure 127 mm[Hg] Venus Plotts HYDRAULIC CORRUGATING MACHINE OPERATOR.CNM Work Phone: [facility] 12-26-2023 13:47-0400 Body mass index (BMI) [Ratio] 53.71 kg/m2 Venus Plotts HYDRAULIC CORRUGATING MACHINE OPERATOR.CNM Work Phone: [facility] 12-26-2023 13:47-0400 Body weight 135.35 kg Venus Plotts HYDRAULIC CORRUGATING MACHINE OPERATOR.CNM Work Phone: [facility] 12-26-2023 13:47-0400 Diastolic blood pressure 64 mm[Hg] Venus Plotts HYDRAULIC CORRUGATING MACHINE OPERATOR.CNM Work Phone: [facility] 12-26-2023 13:47-0400 Systolic blood pressure 128 mm[Hg] Venus Plotts HYDRAULIC CORRUGATING MACHINE OPERATOR.CNM Work Phone: [facility] 11-02-2023 10:44-0400 Body height 157.5 cm Maribel Winnetoon DO Work Phone: [facility] 11-02-2023 10:44-0400 Body mass index (BMI) [Ratio] 53.41 kg/m2 Maribel Winnetoon DO Work Phone: [facility] 11-02-2023 10:44-0400 Body weight 132.45 kg Maribel Winnetoon DO Work Phone: [facility] 11-02-2023 10:44-0400 Diastolic blood pressure 86 mm[Hg] Maribel Winnetoon DO Work Phone: [facility] 11-02-2023 10:44-0400 Heart rate 95 /min Maribel Winnetoon DO Work Phone: [facility] 11-02-2023 10:44-0400 SaO2% (BldA) [Mass fraction] 98 % Maribel Winnetoon DO Work Phone: [facility] 11-02-2023 10:44-0400 Systolic blood pressure 136 mm[Hg] Maribel Winnetoon DO Work Phone: [facility] 05-04-2023 07:38-0500 Diastolic blood pressure 78 mm[Hg] Maribel Winnetoon DO Work Phone: [facility] 05-04-2023 07:38-0500 Heart rate 84 /min Maribel Winnetoon DO Work Phone: [facility] 05-04-2023 07:38-0500 SaO2% (BldA) [Mass fraction] 96 % Maribel Winnetoon DO Work Phone: [facility] 05-04-2023 07:38-0500 Systolic blood pressure 120 mm[Hg] Maribel Winnetoon DO Work Phone: [facility] 04-19-2023 15:29-0500 Body mass index (BMI) [Ratio] 52.86 kg/m2 Maribel Winnetoon DO Work Phone: [facility] 04-19-2023 15:29-0500 Body weight 131.09 kg Maribel Winnetoon DO Work Phone: [facility] 04-19-2023 15:29-0500 Diastolic blood pressure 82 mm[Hg] Maribel Winnetoon DO Work Phone: [facility] 04-19-2023 15:29-0500 Heart rate 86 /min Maribel Winnetoon DO Work Phone: [facility] 04-19-2023 15:29-0500 SaO2% (BldA) [Mass fraction] 98 % Maribel Winnetoon DO Work Phone: [facility] 04-19-2023 15:29-0500 Systolic blood pressure 130 mm[Hg] Maribel Winnetoon DO Work Phone: [facility] 02-01-2023 09:05-0400 Body height 157.5 cm Maribel Winnetoon DO Work Phone: [facility] 02-01-2023 09:05-0400 Body mass index (BMI) [Ratio] 53.04 kg/m2 Maribel Winnetoon DO Work Phone: [facility] 02-01-2023 09:05-0400 Body weight 131.54 kg Maribel Winnetoon DO Work Phone: [facility] 02-01-2023 09:05-0400 Diastolic blood pressure 82 mm[Hg] Maribel Winnetoon DO Work Phone: [facility] 02-01-2023 09:05-0400 Heart rate 63 /min Maribel Winnetoon DO Work Phone: [facility] 02-01-2023 09:05-0400 SaO2% (BldA) [Mass fraction] 95 % Maribel Winnetoon DO Work Phone: [facility] 02-01-2023 09:05-0400 Systolic blood pressure 134 mm[Hg] Maribel Winnetoon DO Work Phone: [facility] 10-21-2022 16:05-0400 Body height 157.5 cm Maribel Winnetoon DO Work Phone: [facility] 10-21-2022 16:05-0400 Body mass index (BMI) [Ratio] 51.94 kg/m2 Maribel Winnetoon DO Work Phone: [facility] 10-21-2022 16:05-0400 Body weight 128.82 kg Maribel Winnetoon DO Work Phone: [facility] 10-21-2022 16:05-0400 Diastolic blood pressure 74 mm[Hg] Maribel Winnetoon DO Work Phone: [facility] 10-21-2022 16:05-0400 Heart rate 71 /min Maribel Winnetoon DO Work Phone: [facility] 10-21-2022 16:05-0400 SaO2% (BldA) [Mass fraction] 98 % Maribel Winnetoon DO Work Phone: [facility] 10-21-2022 16:05-0400 Systolic blood pressure 124 mm[Hg] Maribel Winnetoon DO Work Phone: [facility] 09-01-2022 16:12-0400 Body weight 131.54 kg Venus PerryLaunchSide HYDRAULIC CORRUGATING MACHINE OPERATOR.CNM Work Phone: [facility] 09-01-2022 16:12-0400 Diastolic blood pressure 94 mm[Hg] Venus Plotts HYDRAULIC CORRUGATING MACHINE OPERATOR.CNM Work Phone: [facility] 09-01-2022 16:12-0400 Systolic blood pressure 142 mm[Hg] Venus Plotts HYDRAULIC CORRUGATING MACHINE OPERATOR.CNM Work Phone: [facility] 08-09-2022 14:07-0400 Body height 157.5 cm Maribel Winnetoon DO Work Phone: [facility] 08-09-2022 14:07-0400 Body mass index (BMI) [Ratio] 52.29 kg/m2 Maribel Winnetoon DO Work Phone: [facility] 08-09-2022 14:07-0400 Body weight 129.68 kg Maribel Winnetoon DO Work Phone: [facility] 08-09-2022 14:07-0400 Diastolic blood pressure 78 mm[Hg] Maribel Winnetoon DO Work Phone: [facility] 08-09-2022 14:07-0400 Heart rate 72 /min Maribel Winnetoon DO Work Phone: [facility] 08-09-2022 14:07-0400 Systolic blood pressure 134 mm[Hg] Maribel Winnetoon DO Work Phone: [facility] 07-29-2022 16:07-0400 Body height 157.5 cm Maribel Winnetoon DO Work Phone: [facility] 07-29-2022 16:07-0400 Body mass index (BMI) [Ratio] 52.68 kg/m2 Maribel Winnetoon DO Work Phone: [facility] 07-29-2022 16:07-0400 Body weight 130.64 kg Maribel Winnetoon DO Work Phone: [facility] 07-29-2022 16:07-0400 Diastolic blood pressure 76 mm[Hg] Maribel Winnetoon DO Work Phone: [facility] 07-29-2022 16:07-0400 Heart rate 61 /min Maribel Winnetoon DO Work Phone: [facility] 07-29-2022 16:07-0400 SaO2% (BldA) [Mass fraction] 98 % Maribel Winnetoon DO Work Phone: [facility] 07-29-2022 16:07-0400 Systolic blood pressure 132 mm[Hg] Maribel Winnetoon DO Work Phone: [facility] 04-13-2022 16:05-0500 Body height 157.48 cm Maribel S Winnetoon Work Phone: [facility] Work Phone: 04-13-2022 16:05-0500 Body mass index (BMI) [Ratio] 52.69 kg/m2 Maribel S Winnetoon Work Phone: [facility] [employer] Work Phone: 04-13-2022 16:05-0500 Body surface area Derived from formula 2.23 m2 Maribel S Winnetoon Work Phone: [facility] Work Phone: 04-13-2022 16:05-0500 Body weight 130.66 kg Maribel Kwan Work Phone: [facility] Work Phone: 04-13-2022 16:05-0500 Diastolic blood pressure 66 mm[Hg] Maribel Kwan Work Phone: [facility] Work Phone: 04-13-2022 16:05-0500 Heart rate 81 /min Maribel Kwan [employer] Phone: [facility] Work Phone: 04-13-2022 16:05-0500 SaO2% (BldA) [Mass fraction] 97 % Maribel Kwan Work Phone: [facility] Work Phone: 04-13-2022 16:05-0500 Systolic blood pressure 130 mm[Hg] Maribel Kwan [employer] Phone: [facility] Work Phone: 03-16-2022 13:06-0500 Body height 157.48 cm Maribel Kwan [employer] Phone: [facility] Work Phone: 03-16-2022 13:06-0500 Body mass index (BMI) [Ratio] 51.21 kg/m2 Maribel Kwan [employer] Phone: [facility] Work Phone: 03-16-2022 13:06-0500 Body surface area Derived from formula 2.21 m2 Maribel Kwan [employer] Phone: [facility] Work Phone: 03-16-2022 13:06-0500 Body weight 127.01 kg Maribel Kwan Work Phone: [facility] Work Phone: 03-16-2022 13:06-0500 Diastolic blood pressure 78 mm[Hg] Maribel Kwan Work Phone: [facility] Work Phone: 03-16-2022 13:06-0500 Heart rate 80 /min Maribel Ding Winnetoon Work Phone: [facility] Work Phone: 03-16-2022 13:06-0500 SaO2% (BldA) [Mass fraction] 98 % Maribel Kwan Work Phone: [facility] Work Phone: 03-16-2022 13:06-0500 Systolic blood pressure 124 mm[Hg] Maribel Ding Winnetoon Work Phone: [facility] Work Phone: 12-28-2021 16:05-0400 Body height 157.48 cm Maribel Kwan Work Phone: [facility] Work Phone: 12-28-2021 16:05-0400 Body mass index (BMI) [Ratio] 51.03 kg/m2 Maribel Kwan Work Phone: [facility] Work Phone: 12-28-2021 16:05-0400 Body surface area Derived from formula 2.2 m2 Maribel Ding Winnetoon Work Phone: [facility] Work Phone: 12-28-2021 16:05-0400 Body weight 126.55 kg Maribel Ding Winnetoon Work Phone: [facility] Work Phone: 12-28-2021 16:05-0400 Diastolic blood pressure 82 mm[Hg] Maribel Kwan Work Phone: [facility] Work Phone: 12-28-2021 16:05-0400 Heart rate 82 /min Maribel Kwan Work Phone: [facility] Work Phone: 12-28-2021 16:05-0400 SaO2% (BldA) [Mass fraction] 97 % Maribel Kwan Work Phone: [facility] Work Phone: 12-28-2021 16:05-0400 Systolic blood pressure 128 mm[Hg] Maribel Kwan Work Phone: [facility] Work Phone: 07-15-2021 18:05-0400 Body height 157.4 cm Maribel Winnetoon Other Phone: [facility] 07-15-2021 18:05-0400 Body temperature 97.7 [degF] Maribel Winnetoon Other Phone: [facility] 07-15-2021 18:05-0400 Diastolic blood pressure 103 mm[Hg] Maribel Winnetoon Other Phone: [facility] 07-15-2021 18:05-0400 Heart rate 90 /min Maribel Winnetoon Other Phone: [facility] 07-15-2021 18:05-0400 Respiratory rate 16 /min Maribel Winnetoon Other Phone: [facility] 07-15-2021 18:05-0400 SaO2% (BldA) [Mass fraction] 100 % Maribel Winnetoon Other Phone: [facility] 07-15-2021 18:05-0400 Systolic blood pressure 143 mm[Hg] Maribel Winnetoon Other Phone: [facility] 01-19-2021 16:13-0400 Body height 157.48 cm Maribel Kwan Work Phone: [employer] Work Phone: 01-19-2021 16:13-0400 Body mass index (BMI) [Ratio] 50.49 kg/m2 Maribel Ding Winnetoon Work Phone: [facility] Work Phone: 01-19-2021 16:13-0400 Body surface area Derived from formula 2.19 m2 Maribel Ding Winnetoon Work Phone: [facility] Work Phone: 01-19-2021 16:13-0400 Body temperature 207.14 [degF] Maribel Kwan Work Phone: [facility] Work Phone: 01-19-2021 16:13-0400 Body weight 125.22 kg Maribel Kwan [employer] Phone: [facility] Work Phone: 01-19-2021 16:13-0400 Diastolic blood pressure 88 mm[Hg] Maribel Kwan [employer] Phone: [facility] Work Phone: 01-19-2021 16:13-0400 Heart rate 83 /min Maribel Kwan [employer] Phone: [facility] Work Phone: 01-19-2021 16:13-0400 SaO2% (BldA) [Mass fraction] 99 % Maribel Kwan Work Phone: [facility] Work Phone: 01-19-2021 16:13-0400 Systolic blood pressure 130 mm[Hg] Maribel Kwan Work Phone: [facility] Work Phone: 01-03-2020 16:37-0400 BMI (Body Mass Index) 49.76 kg/m2 Maribel [facility] Work Phone: 01-03-2020 16:37-0400 Body Temperature 206.24 [degF] Maribel [facility] Work Phone: Comment on above: Method: Temporal 01-03-2020 16:37-0400 Body weight 123.41 kg Maribel Kwan [facility] Work Phone: 01-03-2020 16:37-0400 BP Diastolic 80 mm[Hg] Maribel [facility] Work Phone: 01-03-2020 16:37-0400 BP Systolic 124 mm[Hg] Maribel [facility] Work Phone: 01-03-2020 16:37-0400 BSA (Body Surface Area) 2.18 m2 Maribel Kwan [facility] Work Phone: 01-03-2020 16:37-0400 Height 157.48 cm Maribel [facility] Work Phone: 01-03-2020 16:37-0400 Pulse (Heart Rate) 97 /min Maribel [facility] Work Phone: 01-03-2020 16:37-0400 Pulse Oximetry 97 % [facility] Work Phone: Comment on above: Source: 12-17-2019 16:00-0400 BMI (Body Mass Index) 49.28 kg/m2 [facility]ibel [facility] Work Phone: 12-17-2019 16:00-0400 Body Temperature 206.24 [degF] Maribel [facility] Work Phone: Comment on above: Method: Temporal 12-17-2019 16:00-0400 Body weight 122.22 kg Maribel Kwan [facility] Work Phone: 12-17-2019 16:00-0400 BP Diastolic 80 mm[Hg] [facility]: 12-17-2019 16:00-0400 BP Systolic 126 mm[Hg] Maribel Kwan [facility] Work Phone: 12-17-2019 16:00-0400 BSA (Body Surface Area) 2.17 m2 Maribel [facility] Work Phone: 12-17-2019 16:00-0400 Height 157.48 cm Maribel [facility] Work Phone: 12-17-2019 16:00-0400 Pulse (Heart Rate) 97 /min Maribel [facility] Work Phone: 12-17-2019 16:00-0400 Pulse Oximetry 98 % [facility] Work Phone: Comment on above: Source: RA Encounters Encounter Date Encounter Type Care Provider Facility Start: 12-10-2024 End: 12-10-[address] Maribel Kwan MD Work Phone: -[facility] Start: 12-10-2024 End: 12-10-[address] Helio Charles MD -[facility] Work Phone: Start: 11-23-2024 End: 11-23-[address] Ronak Paz MD -[facility] Start: 11-23-2024 End: 11-23-[address] Maribel Kwan MD Work Phone: -[facility] Start: 11-20-2024 End: 11-20-2024 Emergency department patient visit Dr. Maribel Kwan MD Work Phone: -Emergency Department Work Phone: Start: 09-04-2024 End: 09-04-2024 Office outpatient visit 25 minutes [facility] [employer] Work Phone: [facility] Comment on above: Taking medication fo r chronic disease (Primary Dx); Paroxysmal SVT (supraventricular tachycardia) (CMS-HCC); Anxiety; Gastroesophageal reflux disease without esophagitis; PND (post-nasal drip); Obstructive sleep apnea on CPAP Start: 09-04-2024 End: 09-04-2024 ambulatory [facility] Ambulatory Start: 03-15-2024 End: 03-15-2024 ambulatory СЕРГЕЙ DE LEON Facility:[facility] Start: 03-15-2024 End: 03-15-2024 Patient encounter procedure Сергей De Leon APRN.CREDIT OR LOANS OFFICER Work Phone: OB/Gynecology Comment on above: Surveillance of prev iously prescribed intrauterine contraceptive device (Primary Dx) Start: 03-06-2024 End: 03-06-2024 Office outpatient visit 15 minutes [facility] Work Phone: [facility] Comment on above: Paroxysmal SVT (supr aventricular tachycardia) ([facility]-HCC); Anxiety; Gastroesophageal reflux disease without esophagitis; PND (post-nasal drip) Start: 03-06-2024 End: 03-06-2024 ambulatory [facility] Amb[facility] Start: 02-14-2024 End: 02-15-2024 ambulatory Meri Renner MD Work Phone: OB/Gynecology Comment on above: Pathology Start: 02-03-2024 End: 02-03-[address] [facility] Facility:[facility] Start: 01-31-2024 End: 01-31-2024 ambulatory Ronak Paz [place] [place] Start: 01-25-2024 End: 01-25-2024 ambulatory MERI RENNER Facility:[facility] Start: 01-25-2024 End: 01-25-2024 Patient encounter procedure Meri Renner MD Work Phone: OB/Gynecology Comment on above: Abnormal uterine ble eding (AUB) (Primary Dx); Endometrial polyp; Pre-op exam Start: 01-25-2024 End: 01-25-2024 Preprocedural examination done Meri Renner MD Work Phone: [facility] Start: 01-09-2024 End: 01-12-2024 Telephone encounter Venus Vyas APRN.CNM Work Phone: OB/Gynecology Comment on above: Appointment Start: 01-06-2024 End: 01-10-2024 Refill Venus Vyas APRN.CNM Work Phone: OB/Gynecology Comment on above: Refill Request Norethindrone Start: 01-05-2024 End: 01-05-2024 ambulatory VENUSVIANCA VYAS Facility:[facility] Start: 01-05-2024 End: 01-05-2024 Patient encounter procedure Venus Vyas APRN.CNM Work Phone: OB/Gynecology Comment on above: Irregular bleeding ( Primary Dx); Menorrhagia with irregular cycle; Abnormal uterine bleeding due to endometrial polyp; Cysts of both ovaries Start: 01-03-2024 End: 01-04-2024 Telephone encounter Cande Bowers APRN.CNP Work Phone: OB/Gynecology Comment on above: Orders Start: 01-03-2024 End: 01-03-2024 ambulatory VENUS VYAS Facility:[facility] Start: 01-03-2024 End: 01-03-2024 Patient encounter procedure [employer] OB/Gynecology Comment on above: Menorrhagia with irr egular cycle (Primary Dx) Start: 12-26-2023 End: 12-26-2023 ambulatory VENUS VYAS Facility:[facility] Start: 12-26-2023 End: 12-26-2023 Patient encounter procedure Venus Vyas APRN.CNM Work Phone: OB/Gynecology Comment on above: Menorrhagia with irr egular cycle (Primary Dx); Irregular intermenstrual bleeding; Morbid obesity (HCC) Start: 12-22-2023 End: 12-22-2023 Telephone encounter Venus Plotts HYDRAULIC CORRUGATING MACHINE OPERATOR.CNM Work Phone: OB/Gynecology Comment on above: Heavy Bleeding Start: 11-28-2023 End: 11-28-2023 ambulatory [facility] Amb[facility] Start: 11-26-2023 End: 11-26-2023 ambulatory [facility] Start: 11-02-2023 End: 11-02-2023 Office outpatient visit 25 minutes Maribel S Winnetoon DO Work Phone: [facility] Comment on above: Dysfunction of right eustachian tube (Primary Dx); PND (post-nasal drip); Anxiety; Paroxysmal SVT (supraventricular tachycardia) ([facility]-HCC); Fatigue, unspecified type Start: 11-02-2023 End: 11-02-2023 [facility] Ambulatory Start: 06-01-2023 End: 06-01-2023 [facility] Start: 05-04-2023 End: 05-05-2023 ambulatory [facility] Start: 05-04-2023 End: 05-04-2023 Office outpatient visit 15 minutes Maribel S Winnetoon DO Work Phone: [facility] Comment on above: Subacute cough (Prim pamella Dx); PND (post-nasal drip) Start: 04-19-2023 End: 04-19-2023 Office outpatient visit 15 minutes Maribel S Winnetoon DO Work Phone: [facility] Comment on above: Upper respiratory tr act infection, unspecified type (Primary Dx); Gastroesophageal reflux disease without esophagitis Start: 02-01-2023 End: 02-01-2023 Office outpatient visit 15 minutes Maribel S Winn[place]oon DO Work Phone: [facility] Comment on above: Obstructive sleep ap calos on CPAP; Paroxysmal SVT (supraventricular tachycardia); Gastroesophageal reflux disease without esophagitis; Anxiety; Paroxysmal SVT (supraventricular tachycardia); Supraventricular tachycardia, paroxysmal; Immunization due Start: 11-11-2022 Refill Venus Reggie s HYDRAULIC CORRUGATING MACHINE OPERATOR.CNM Work Phone: OB/Gynecology Comment on above: Refill Request Start: 10-21-2022 End: 10-21-2022 Office outpatient visit 25 minutes [employer] Work Phone: [facility] Comment on above: Anxiety (Primary Dx) ; Fatigue, unspecified type; Obstructive sleep apnea on CPAP Start: 09-01-2022 End: 09-01-2022 Patient encounter procedure Venus Vyas HYDRAULIC CORRUGATING MACHINE OPERATOR.CNM Work Phone: OB/Gynecology Comment on above: Encounter for initia l prescription of contraceptive pills (Primary Dx); Morbid obesity (HCC); Hypertension, unspecified type Start: 08-09-2022 End: 08-09-2022 Office outpatient visit 15 minutes [employer] Work Phone: [facility] Comment on above: Bronchitis (Primary Dx) Start: 07-29-2022 End: 07-29-2022 Office outpatient visit 25 minutes [employer] Work Phone: [facility] Comment on above: Obstructive sleep ap calos on CPAP (Primary Dx); Paroxysmal SVT (supraventricular tachycardia) ([facility]); Gastroesophageal reflux disease without esophagitis; Anxiety; Morbid obesity with body mass index (BMI) of 40.0 or higher ([facility]); Taking medication for chronic disease; Chronic primary headache Start: 04-13-2022 Office outpatient vi sit 15 minutes Maribel S [employer] Work Phone: [facility] Work Phone: Start: 04-13-2022 ambulatory DO MARIBEL S ROYAL Fac ility:[id number] Start: 03-16-2022 ambulatory DO MARIBEL S ROYAL Fac ility:[id number] Start: 03-16-2022 Office outpatient vi sit 15 minutes Maribel S Winnetoon Work Phone: [facility] [employer] Phone: Start: 01-25-2022 ambulatory DO MARIBEL S ROYAL Fac ility:[id number] Start: 12-28-2021 ambulatory DO MARIBEL S ROYAL Fac ility:[id number] Start: 12-28-2021 Office outpatient vi sit 25 minutes Maribel S Winnetoon Work Phone: -[facility] Work Phone: Start: 12-22-2021 AUDIT Maribel Maza al Work Phone: -[facility] Work Phone: Start: 07-15-2021 End: 07-15-2021 Emergency department patient visit Eliza Arevalo [facility] Start: 06-08-2021 Rx Renewal Maribel Ding Link al Work Phone: -[facility] Work Phone: Start: 03-11-2021 AUDIT Maribel Maza al Work Phone: -[facility] Work Phone: Start: 01-19-2021 Office outpatient vi sit 25 minutes Maribel Toña Winnetoon Work Phone: -[facility] Work Phone: Start: 01-03-2020 Patient encounter procedure Maribel Winnetoon -[facility] Work Phone: Start: 12-17-2019 Patient encounter procedure Maribel Winnetoon -[facility] Work Phone: Start: 06-11-2019 Patient encounter procedure Maribel Winnetoon -[facility] Work Phone: Start: 04-10-2019 Patient encounter procedure Maribel Winnetoon -[facility] Work Phone: Start: 03-12-2019 Patient encounter procedure Maribel Winnetoon -[facility] Work Phone: Start: 02-13-2019 Patient encounter procedure Maribel Winnetoon -[facility] Work Phone: Start: 03-01-2017 End: 03-01-2017 Ambulatory Madhav Cesar Facility:[facility] Start: 08-26-2016 End: 10-29-2016 Patient requested procedure Venus Vyas CNM Work Phone: [facility] Procedures Date Procedure Procedure Detail Performing Clinician Start: 11-23-2024 Plain x-ray of elbow Dr Jaymie Kwan MD Work Phone: Start: 11-23-2024 Plain x-ray of wrist Dr Jaymie Kwan MD Work Phone: Start: 11-20-2024 XR forearm, [address] Maribel Kwan MD Work Phone: Start: 01-03-2024 Us pelvic nonobstetr ic real-time image complete Cande Bowers APRN.CREDIT OR LOANS OFFICER Work Phone: Start: 05-04-2023 XR CHEST 2 VIEWS SWATI KWAN Colonoscopy Maribel Kwan Tonsillectomy Maribel Kwan Plan of Treatment Date Care Activity Detail Author Start: 2037 Zoster Vaccines (1 of 2) Zoste r Vaccines (1 of 2) [facility] Start: 01-24-2027 DTaP/Tdap/Td Vaccine s (8 - Td or Tdap) DTaP/Tdap/Td Vaccines (8 - Td or Tdap) [facility] Start: 01-24-2027 Urine microalbumin profile [facility] Start: 06-02-2025 HPV TESTING HPV TESTING [facility] Start: 06-02-2025 PAP TESTING PAP TESTING [facility] Start: 06-02-2025 Screening for malign ant neoplasm of cervix Cervical Cancer Screening [facility] Start: 01-04-2025 BP Controlled (<130/80) BP Controlle d (<130/80) [facility] Start: 12-25-2024 BP Controlled (<130/80) BP Controlle d (<130/80) [facility] Start: 12-10-2024 Plain x-ray of elbow Elbow min 3 Vie [facility] Start: 12-10-2024 XR Elbow GE 3 Views [facility] Start: 11-23-2024 Plain x-ray of elbow Elbow min 3 Vie [facility] Start: 11-23-2024 Plain x-ray of wrist Wrist min 3 Vie ws [facility] Start: 11-23-2024 XR Elbow GE 3 Views [facility] Start: 11-23-2024 XR Wrist GE 3 Views [facility] Start: 11-20-2024 [facility] Start: 09-04-2024 End: 09-04-2024 Patient encounter procedure 09/04/2024 4:00 PM EDT Office [place] [address] [phone] Maribel Kwan S, [address] [address] [facility] Start: 09-04-2024 End: 09-04-2025 Comprehensive metabolic 2000 panel - Serum or Plasma Comprehensive Metabolic Panel Lab Routine Taking medication for chronic disease Expected: 09/04/2024 (Approximate), Expires: 09/04/[address] [facility] Service Area Work Phone: Comment on above: Expected: 09/04/2024 (Approximate), Expires: 09/04/2025 Start: 03-15-2024 End: 03-15-2024 Patient encounter procedure 03/15/2024 7:15 AM EST Office Visit OB/Gynecology [address] [place] [address] Сергей De Leon APRN.CREDIT OR LOANS OFFICER [address] [place] [address] IUD check OB/Gynecology Comment on above: IUD check Start: 01-25-2024 End: 01-25-2024 Patient encounter procedure 01/25/2024 2:30 PM EDT Office Visit OB/Gynecology [address] [place] [address] Meri England MD [address] [place] [address] surgery 02/02 OB/Gynecology Comment on above: surgery 02/02 Start: 01-05-2024 End: 01-05-2024 Patient encounter procedure 01/05/2024 8:15 AM EDT Office Visit OB/Gynecology [address] [place] [address] Venus Vyas APRN.CNM [address] [place] [address] US f/up OB/Gynecology Comment on above: US f/up Start: 01-03-2024 End: 01-03-2024 Patient encounter procedure 01/03/2024 9:30 AM EDT Routine Office Visit OB/Gynecology [address] [place] [address] Plevic OB/Gynecology Comment on above: [facility] Start: 01-01-2024 Covid-19 Vaccine ( season) Covid-19 Vaccine ( season) [facility] Start: 01-01-2024 Covid-19 Vaccine ( season) Covid-19 Vaccine ( season) [facility] Start: 01-01-2024 Influenza vaccination Influenza Vacc ine (#1) [facility] Start: 12-26-2023 End: 12-26-2023 Patient encounter procedure 12/26/2023 1:45 PM EDT Office Visit OB/Gynecology [address] [place] [address] Venus Vyas APRN.CN [address] [place] [address] spotting while on control OB/Gynecology Comment on above: spotting while on bi rth control Start: 11-02-2023 End: 11-01-2024 CBC W Auto Differential panel - Blood CBC and Auto Differential Lab Routine Fatigue, unspecified type Expected: 11/02/2023 (Approximate), Expires: 11/01/2024 [facility] Work Phone: Comment on above: Expected: 11/02/2023 (Approximate), Expires: 11/01/2024 Start: 11-02-2023 End: 11-01-2024 Comprehensive metabolic 2000 panel - Serum or Plasma Comprehensive Metabolic Panel Lab Routine Fatigue, unspecified type Expected: 11/02/2023 (Approximate), Expires: 11/01/2024 [facility] Area Work Phone: Comment on above: Expected: 11/02/2023 (Approximate), Expires: 11/01/2024 Start: 05-04-2023 End: 05-04-2024 XR Chest 2 Views XR chest 2 views Imaging Routine Subacute cough Expected: 05/04/2023 (Approximate), Expires: 05/04/2024 [facility] Work Phone: Comment on above: Expected: 05/04/2023 (Approximate), Expires: 05/04/2024 Start: 05-03-2023 End: 05-03-2023 Patient encounter procedure 05/03/2023 2:40 PM EST Office Visit [place] [phone] Maribel Kwan, DO [address] [place] [phone] [facility] Start: 01-29-2023 End: 07-30-2023 Basic metabolic 2000 panel - Serum or Plasma Basic Metabolic Panel Lab Routine Taking medication for chronic disease Expected: 01/29/2023 (Approximate), Expires: 07/30/2023 [facility] Work Phone: Comment on above: Expected: 01/29/2023 (Approximate), Expires: 07/30/2023 Start: 01-27-2023 End: 01-27-2023 Patient encounter procedure 01/27/2023 4:00 PM EDT Office Visit [address] [phone] Maribel Kwan, DO [address] [place], [place] [phone] [facility] Start: 12-31-2022 Covid-19 Vaccine ( season) Covid-19 Vaccine () [facility] Start: 12-31-2022 Influenza vaccination INFLUENZA (#1) [facility] Start: 10-21-2022 End: 10-22-2023 CBC W Auto Differential panel - Blood CBC and Auto Differential Lab Routine Fatigue, unspecified type Expected: 10/21/2022 (Approximate), Expires: 10/22/2023 [facility] Work Phone: Comment on above: Expected: 10/21/2022 (Approximate), Expires: 10/22/2023 Start: 10-21-2022 End: 10-22-2023 Comprehensive metabolic 2000 panel - Serum or Plasma Comprehensive Metabolic Panel Lab Routine Fatigue, unspecified type Expected: 10/21/2022 (Approximate), Expires: 10/22/[address] [facility] Service Area Work Phone: Comment on above: Expected: 10/21/2022 (Approximate), Expires: 10/22/2023 Start: 10-21-2022 End: 10-22-2023 Thyrotropin [Units/volume] in Serum or Plasma TSH Lab Routine Fatigue, unspecified type Expected: 10/21/2022 (Approximate), Expires: 10/22/2023 [facility] Work Phone: Comment on above: Expected: 10/21/2022 (Approximate), Expires: 10/22/2023 Start: 07-29-2022 EPV, Provider: Maribel Kwan, Status: Pen, Time: 4:00 PM EPV, Provider: Maribel Kwan, Status: Pen, Time: 4:00 PM [facility] Work Phone: Start: 05-02-2022 DEPRESSION ASSESSMENT DEPRESSION ASS ESSMENT [facility] Start: 04-13-2022 EPV, Provider: Maribel Kwan, Status: Pen, Time: 4:00 PM EPV, Provider: Maribel Kwan, Status: Pen, Time: 4:00 PM [facility] Work Phone: Start: 01-25-2022 EPV, Provider: Maribel Kwan, Status: Pen, Time: 4:00 PM EPV, Provider: Maribel Kwan, Status: Pen, Time: 4:00 PM [facility] Work Phone: Start: 01-19-2022 Diabetes mellitus screening Diabetes Screening [facility] Start: 12-28-2021 EPV, Provider: Maribel Kwan, Status: Pen, Time: 4:00 PM EPV, Provider: Maribel Kwan, Status: Pen, Time: 4:00 PM [facility] Work Phone: Start: 08-12-2021 COVID-19 Vaccine (4 - Booster for Moderna series) COVID-19 Vaccine (4 - Booster for Moderna series) [facility] Start: 08-12-2021 COVID-19 VACCINE (4 - Moderna series) COVID-19 VACCINE (4 - Moderna series) [facility] Start: 07-20-2021 EPV, Provider: Maribel Kwan, Status: Pen, Time: 4:00 PM EPV, Provider: Maribel Kwan, Status: Pen, Time: 4:00 PM [facility] Work Phone: Start: 03-23-2018 Varicella vaccination Varicell a Vaccines (2 of 2 - 13+ 2-dose series) [facility] Start: 2008 Screening for malign ant neoplasm of cervix [facility] Start: 2006 Hepatitis B Vaccine (1 of 3 - 19+ 3-dose series) Hepatitis B Vaccine (1 of 3 - 19+ 3-dose series) [facility] Start: 2006 Hepatitis B Vaccines (1 of 3 - 19+ 3-dose series) Hepatitis B Vaccines (1 of 3 - 19+ 3-dose series) [facility] Start: 2005 Annual PCP Team Parts Cataloguer rosa Disease Visit Annual PCP Team Chronic Disease Visit [facility] Start: 2005 Anxiety Screening Anxiety Screening [facility] Start: 2005 BP Controlled (<130/80) BP Controlle d (<130/80) [facility] Start: 2005 Depression Screening Depression Scre ening [facility] Start: 2005 Hepatitis C screening Hepatitis C [facility] Start: 2005 HEPATITIS C SCREENING HEPATITIS C [place] Start: 1987 HEPATITIS B (1 of 3 - 3-dose series) HEPATITIS B (1 of 3 - 3-dose series) [facility] Start: 1987 Hepatitis B Vaccines (1 of 3 - 3-dose series) Hepatitis B Vaccines (1 of 3 - 3-dose series) [facility] Start: 1987 HIV screening HIV Screening [facility] Start: 1987 Lipid panel Lipid Panel [facility] Start: 1987 Yearly Adult Physical Yearly Adult P [facility] Patient Education ED Radial Head Fracture [facility] Work Phone: End: 01-25-2025 US Pelvis transvaginal US FEMALE PELVIS TRANSVAG Radiology Routine Menorrhagia with irregular cycle 1 Occurrences starting 12/26/2023 until 01/25/2025 [facility] Work Phone: Comment on above: 1 Occurrences starti ng 12/26/2023 until 01/25/2025 End: 01-29-2025 US Pelvis transvaginal US FEMALE PELVIS TRANSVAG Radiology Routine Menorrhagia with irregular cycle 1 Occurrences starting 12/30/2023 until 01/29/2025 [facility] Work Phone: Comment on above: 1 Occurrences starti ng 12/30/2023 until 01/29/2025 Immunizations Immunization Date Immunization Notes Care Provider Pancho elias 03-06-2024 Seasonal, trivalent, recombinant, injectable influenza vaccine, preservative free Maribel Winnetoon DO Work Phone: [facility] 02-01-2023 influenza, injectabl e, quadrivalent, preservative free Maribel Winnetoon DO Work Phone: [facility] Work Phone: 10-03-2023 influenza virus vaccine, unspecified formulation Maribel Winnetoon DO Work Phone: [facility] Work Phone: 04-13-2022 influenza, injectabl e, quadrivalent, preservative free; Translations: [Flulaval Quadrivalent 0.5 ML Intramuscular Suspension Prefilled Syringe] Maribel S Winnetoon Work Phone: [facility] Work Phone: Comment on above: Series: 06-17-2021 Moderna COVID-19 Vaccine 100 MCG/0.5ML Intramuscular Suspension Maribel S Winnetoon Work Phone: [facility] Work Phone: 02-06-2021 influenza, injectabl e, quadrivalent, preservative free Maribel S Winnetoon Work Phone: [facility] Work Phone: 09-19-2020 Moderna COVID-19 Vaccine 100 MCG/0.5ML Intramuscular Suspension Maribel S [employer] Work Phone: [facility] 08-20-2020 Moderna COVID-19 Vaccine 100 MCG/0.5ML Intramuscular Suspension Maribel S [employer] Work Phone: [facility] Work Phone: 05-22-2020 influenza, seasonal, injectable Maribel S Winnetoon Work Phone: [facility] Work Phone: Comment on above: Series: 02-23-2018 zoster vaccine, live Maribel Winnetoon [facility] Work Phone: Comment on above: Series: 02-22-2018 influenza virus vaccine, unspecified formulation Maribel S Winnetoon Work Phone: [facility] Comment on above: Series: 02-22-2018 influenza, seasonal, injectable Maribel Winnetoon [facility] Work Phone: 07-25-2017 zoster vaccine, live Maribel Winnetoon [facility] Work Phone: Comment on above: Series: 01-24-2017 influenza, injectabl e, quadrivalent, contains preservative Maribel S Winnetoon Work Phone: [facility] Work Phone: 01-24-2017 tetanus toxoid, redu rosa diphtheria toxoid, and acellular pertussis vaccine, adsorbed Maribel S Winnetoon Work Phone: [facility] 10-05-2011 hepatitis B vaccine, pediatric or pediatric/adolescent dosage Maribel S Winnetoon Work Phone: [facility] 10-05-2011 tetanus toxoid, redu rosa diphtheria toxoid, and acellular pertussis vaccine, adsorbed Maribel S Winnetoon Work Phone: [facility] 10-05-2011 varicella virus vaccine Kimb erly S Winnetoon Work Phone: [facility] 01-13-2000 measles, mumps and rubella virus vaccine Maribel Winnetoon DO Work Phone: [facility] Work Phone: 12-13-1999 measles, mumps and rubella virus vaccine Maribel S Winnetoon Work Phone: [facility] Work Phone: 08-16-1992 diphtheria, tetanus toxoids and acellular pertussis vaccine Maribel Winnetoon DO Work Phone: [facility] Work Phone: 08-16-1992 diphtheria, tetanus toxoids and acellular pertussis vaccine, unspecified formulation Maribel S Winnetoon Work Phone: [facility] Work Phone: 08-16-1992 trivalent poliovirus vaccine, live, oral Maribel S Winnetoon Work Phone: [facility] Work Phone: 01-22-1989 diphtheria, tetanus toxoids and acellular pertussis vaccine, unspecified formulation Maribel S Winnetoon Work Phone: [facility] 11-20-1988 haemophilus influenz ae type b vaccine, conjugate unspecified formulation Maribel S Winnetoon Work Phone: [facility] 11-20-1988 trivalent poliovirus vaccine, live, oral Maribel S Winnetoon Work Phone: [facility] Work Phone: 08-14-1988 measles, mumps and rubella virus vaccine Maribel S Winnetoon Work Phone: [facility] 1987 diphtheria, tetanus toxoids and pertussis vaccine Maribel S Winnetoon Work Phone: [facility] Work Phone: 1985 diphtheria, tetanus toxoids and acellular pertussis vaccine Maribel Winnetoon DO Work Phone: [facility] Work Phone: 1985 diphtheria, tetanus toxoids and pertussis vaccine Maribel S Winnetoon Work Phone: [facility] Work Phone: 1985 trivalent poliovirus vaccine, live, oral Maribel S Winnetoon Work Phone: [facility] Work Phone: 1985 diphtheria, tetanus toxoids and pertussis vaccine Maribel Winnetoon DO Work Phone: [facility] Work Phone: 1985 diphtheria, tetanus toxoids and pertussis vaccine Maribel S Winnetoon Work Phone: [facility] Work Phone: 1985 trivalent poliovirus vaccine, live, oral Maribel S [place] [facility]: Payers Date Payer Category Payer Self-pay 2023 Private Health Insurance ALEJANDRA OWEN POS [id number] 2023-Present [phone] [address] [place] [address] POS [id number] 2023 Private Health Insurance [id number] 2023 Unknown [id number] 2022 Medicaid [employer] [place] [id number] 2022-Present [phone] [address] [address] [place] [address] Medicaid [id number] 2021 Medicaid (Managed Care) 1.2. [id number] 2021 Unknown [id number] 2016 Unknown [id number] 2016 Unknown 1987 Unknown [id number] 2.16.840.1.861749.3.579.2. 356 1987 Unknown [id number] 2.16.840.1.601151.3.579.2. 356 1987 Unknown [id number] 2.16.840.1.619454.3.579.2. 356 1987 Unknown [id number] 2.16840.1.741342.3.579.2. 356 1987 Unknown [id number] 2.16.840.1.133392.3.579.2. 1243 1987 Unknown [id number] 2.16840.1.816432.3.579.2. 1245 1987 Unknown [id number] 2.16840.1.414116.3.579.2. 1244 1987 Unknown [id number] 2.16.840.1.664151.3.579.2. 1244 1987 Unknown [id number] 2.16.840.1.897370.3.579.2. 1244 1987 Unknown [id number] 2.16.840.1.881413.3.579.2. 1244 Unknown [id number] Unknown [id number] 2.16.840.1.903502.3.579.2. 462 Unknown [id number] 2.16.840.1.763267.3.579.2. 462 Unknown [id number] 2.16.840.1.004619.3.579.2. 462 Unknown [id number] 2.16.840.1.098123.3.579.2. 462 Unknown [id number] 2.16.840.1.439457.3.579.2. 462 Social History Date Type Detail Facility Start: 07-29-2022 End: 11-28-2023 Occasional alcohol use Occasional alcohol use [facility] Work Phone: Tobacco smoking consumption unknown [facility] Start: 07-29-2022 End: 11-20-2024 Tobacco smoking status NHIS Never smoked tobacco [facility] Work Phone: Start: 07-29-2022 End: 08-19-2022 Tobacco use and exposure Smokeless tobacco non-user [facility] Work Phone: Start: 07-29-2022 End: 09-04-2024 Alcohol intake Current drinker of alcohol (finding) [facility] Work Phone: Start: 07-29-2022 End: 11-28-2023 Tobacco use panel [facility] Work Phone: Start: 07-29-2022 Alcohol Comment socially [facility] Work Phone: Start: 1985 Sex Assigned At Not on file U [facility] Work Phone: Start: 07-19-2022 End: 09-04-2024 Exposure to SARS-CoV-2 (event) Not sure [facility] Work Phone: Start: 08-26-2016 Alcohol Comment socially, but not while [facility] National Score (1-100), lower number is lower risk 89 [facility] Start: 03-25-2017 Alcohol Alcohol [facility] Start: 1985 Sex Assigned At Female W [facility] NEGATED: Highlighted row - - [facility] hereO [facility] Work Phone: Functional Status Date Assessment Result Facility 09-04-2024 Patient Health Questionnaire 2 item (PHQ-2) [Reported] [facility] Work Phone: NEGATED: Highlighted row Functional performance Functional status health issues are not documented Disease [facility] Work Phone: Mental Status Date Assessment Result Facility NEGATED: Highlighted row Cognitive function [Interpretation] Cognitive status health issues are not documented Disease [facility] Work Phone: Clinical Notes 01-25-2017 to 11-23-2024 Note Date & Type Note Facility 11-23-2024 Evaluation note Diagnosis Onset Date Resolution Closed fracture of head of right radius inactive November 23, 2024 1:30pm Fall inactive November 23 1:30pm Closed fracture of head of right radius inactive November 4:03pm [facility] Work Phone: 1(651) 829-153807-22-2025 Radiology Diagnostic study note [facility] Imaging Services [address] [place], [place] [address] Forearm 2 Views MR#: [id number] Acct: [id number] Name: GOVIND HASKINS Rep #: [id number] : 1985 F 39 From: Cecilia Aburto MD PCP: Dr. Maribel Kwan MD Status: REG ER Study:Forearm 2 Views Date of Exam: 10/31 06/26 Exam# [id number] Ordering Dr: Edmar López DO PROCEDURE: FOREARM [...] Kwan MD; Dr. Edmar López DO ~ Pig Furnace Operator: Signed [facility]05-06-2025 Evaluation + Plan note* Assessment & Plan Note - Maribel Kwan DO - 09/04/2024 4:22 PM EDTAssociated Problem(s): Obstructive sleep apnea on CPAP - We discussed the importance of using her CPAP device regularly to help improve her overall healthand energy levels [facility] Work Phone: 1([phone]) 373-243505-06-2025 Evaluation + Plan note* Assessment & Plan Note - Maribel Kwan DO - 09/04/2024 4:22 PM EDTAssociated Problem(s): Anxiety - Getting along with her current medical regimen that we are providing a refill today. Will see otto in 6 months for reevaluation [facility] Work Phone: [phone] Evaluation + Plan note* Assessment & Plan Note - Maribel Kwan DO - 09/04/2024 4:22 PM EDTAssociated Problem(s): GERD (gastroesophageal reflux disease) - Is well-controlled on her acid reducing regimen and we will provide a refill today [facility] Work Phone: 1([phone]) 254-649505-06-2025 Evaluation + Plan note* Assessment & Plan Note - Maribel Kwan DO - 09/04/2024 4:22 PM EDTAssociated Problem(s): PND (post-nasal drip) - Doing well on the Flonase nasal spray and we are providing a refill today [facility] Work Phone: 1([phone]) 270-512505-06-2025 Miscellaneous Notes* Assessment & Plan Note - [...] EDT Associated Problem(s): Paroxysmal SVT (supraventricular tachycardia) ([facility]) - Well-controlled at this time and she will continue with her current medical regimen. We will continue to monitor documented in this encounterPark[facility] Work Phone: 1([phone]) 556-203505-06-2025 Evaluation + Plan note* Assessment & Plan Note - Maribel Kwan DO - 09/04/2024 4:21 PM EDTAssociated Problem(s): Paroxysmal SVT (supraventricular tachycardia) ([facility]) - Well-controlled at this time and she will continue with her current medical regimen. We will continue to monitor [facility] Work Phone: 1(171) 987-300105-06-2025 History of Present illness Narrative* Maribel Kwan [...] healthand energy levels Paroxysmal SVT (supraventricular tachycardia) ([facility]) I47.10 - Well-controlled at this time and [...] me Maribel Kwan DO documented in this encounterPark[facility] Work Phone: 1([phone]) 163-679005-06-2025 Instructions* Patient Instructions* Maribel Kwan DO - [...] follow-up visit with me documented in this encounterPark[facility] Work Phone: 1([phone]) 937-971311-14-2024 NoteHNO ID: [id number] Author: СЕРГЕЙ DE LEON APRN.SOHAM Service: ? Author Type: Nurse Practitioner Type: Progress Notes Filed: 03/15/2024 07:36 Note Text: Patient declined checkerer hand. Govind Haskins presents today for IUD check. She had a Liletta placed on 02/03/2024 with hysteroscopy D+C, polypectomy. She has had some spotting since placement. Pathology benign per Dr. Renner 02/15/24. REVIEW OF SYSTEMS: .NET PROGRAMMER: Negative for abnormal vaginal bleeding, abnormal vaginal discharge + spotting SENSITIVE EXAM: The sensitive examination was discussed with the Patient or Patient's Authorized Rug Cleaner. As applicable, any other physician, advance practice provider, medical student, or other health professional student that will be observing or involved in the sensitive examination for educational or training purposes was discussed with the Patient or Authorized Rug Cleaner. The Patient or Authorized Rug Cleaner has agreed to proceed with the sensitive [...] management Medical Decision Making Level: 2 - [facility] History of Present illness Narrative* Сергей De Leon APRN.SOHAM - 03/15/2024 7:12 AM EST Patient declined checkerer hand. Govind Haskins presents today for IUD check. She had a Liletta placed on 02/03/2024 with hysteroscopy D+C, polypectomy. She has had some spotting since placement. Pathology benign per Dr. Renner 02/15/24. REVIEW OF SYSTEMS: .NET PROGRAMMER: Negative for abnormal vaginal bleeding, abnormal vaginal discharge + spotting SENSITIVE EXAM: The sensitive examination was discussed with the Patient or Patient's Authorized Rug Cleaner. As applicable, any other physician, advance practice provider, medical student, or other health professional student that will be observing or involved in the sensitive examination for educational or training purposes was discussed with the Patient or Authorized Rug Cleaner. The Patient or Authorized Rug Cleaner has agreed to proceed with the sensitive [...] Level: 2 - Straightforward [facility]Pro[facility]-2024 Evaluation + Plan note* Assessment & Plan Note - Maribel Kwan DO - 03/06/2024 4:10 PM EST Associated Problem(s): Anxiety -Doing well on her current medical regimen so we are providing refills today we will talked about weaning when she comes back in the spring [facility] Work Phone: [phone]) 347-301911-05-2024 Evaluation + Plan note* Assessment & Plan Note - Maribel Kwan DO - 03/06/2024 4:10 PM ESTAssociated Problem(s): GERD (gastroesophageal reflux disease) -Her acid reflux appears to be under adequate control with omeprazole and we are providing a refilltoday [facility] Work Phone: 1([phone]) [phone] Evaluation + Plan note* Assessment & Plan Note - Maribel Kwan DO - 03/06/2024 4:10 PM ESTAssociated Problem(s): Paroxysmal SVT (supraventricular tachycardia) ([facility]) -Her condition appears to be relatively well-controlled well on Tenormin and we are providing a refill today -We will continue to monitor [facility] Work Phone: 1([phone]) 235-718011-05-2024 Miscellaneous Notes* Assessment & Plan Note - [...] EST Associated Problem(s): Paroxysmal SVT (supraventricular tachycardia) ([facility]) -Her condition appears to be relatively well-controlled well on Tenormin and we are providing a refill today -We will continue to monitor documented in this [facility] Work Phone: [phone]) 457-779911-05-2024 History of Present illness Narrative* Maribel Kwan, [...] mg DR capsule Paroxysmal SVT (supraventricular tachycardia) ([facility]) I47.10 -Her condition appears to be relatively [...] months. Maribel Kwan DO documented in [facility]Park[facility] Work Phone: [phone] 193-716511-05-2024 Instructions* Patient Instructions* Maribel Kwan DO - [...] visit in 6 months. documented in this encounterPark[facility] Work Phone: [phone]) 713-781210-16-2024 Telephone encounter Note* Telephone Encounter - Millie Ashby RN - 02/15/2024 3:40 PM EDT Patient notified. IUD check scheduled with . Patient needed before 8 AM or 4 PM or later. Millie Ashby RN [facility]10-16-2024 Miscellaneous Notes* Telephone Encounter - Millie Ashby RN - 02/15/2024 3:40 PM EDT Patient notified. IUD check scheduled with . Patient needed before 8 AM or 4 PM or later. Millie Ashby RN * Telephone Encounter - Neisha Fischer RN - 02/15/2024 2:35 PM EDT Left message for patient to return phone call regarding results and appointment * Telephone Encounter - eMri England MD - 02/15/2024 9:41 AM EDT [...] report? Ann Banda RN documented in this encounterProtest[facility]10-16-2024 Telephone encounter Note * Telephone Encounter - Neisha Fischer RN - 02/15/2024 2:35 PM EDT Left message for patient to return phone call regarding results and appointment [facility]10-16-2024 Telephone encounter Note* Telephone Encounter - Meri England MD - 02/15/2024 9:41 AM EDT I just printed it today- Please notify patient that pathology is benign - does show possible superficial adenomyosis which can be source of AUB. Liletta IUD should help with this. Please see that sheis scheduled with CP for IUD check up. [facility] Work Phone: [phone] Telephone encounter Note* Telephone Encounter - Ann Banda RN - 02/14/2024 3:35 PM EDT Patient had surgery on 02/02. Do you have the pathology report? Ann Banda RN [facility]09-25-2024 History and physical note* Meri England [...] history, medications and allergies Meri Renner MD [facility]09-25-2024 History and physical note* Meri England [...] allergies Meri Renner MD documented in this encounterProtestant Hospital09-12-2024 Telephone encounter Note * Telephone Encounter - Heather Marti RN - 01/12/2024 12:50 PM EDT Per Candie surgery scheduled 02/02. Pre op is on 01/24 with DM. Heather Marti RN [facility]09-12-2024 Miscellaneous Notes* Telephone Encounter - Heather [...] you. Venus Vyas APRN.CNM documented in this encounterProtestant Hospital09-12-2024 Telephone encounter Note * Telephone Encounter - Venus Vyas APRN.CNM - 01/12/2024 12:36 PM EDT Has this been completed? Venus Vyas APRN.CNM [facility]09-10-2024 Telephone encounter Note* Telephone Encounter - Melany Saldana LPN - 01/10/2024 4:07 PM EDT Surgery scheduled on 02/03/2024 [facility]09-10-2024 Miscellaneous Notes* Telephone Encounter - Melany Saldana LPN - 01/10/2024 4:07 PM EDT Surgery scheduled on 02/03/2024 * Telephone Encounter - Venus Vyas APRN.CNM - 01/06/2024 11:39 AM EDT I sent the Aygestin yesterday to pharmacy! I think Marcia is working on getting patient scheduled for polypectomy. Venus yVas APRN.CNM documented in this encounterProtestant Hospital09-09-2024 Telephone encounter Note * Telephone Encounter - Venus Vyas APRN.CNM - 01/09/2024 4:04 PM EDT Just verifying that patient is being scheduled for hysteroscopy polypectomy & D&C. Thank you. Venus Vyas APRN.CNM [facility]09-06-2024 Telephone encounter Note* Telephone Encounter - Venus Vyas APRN.CNM - 01/06/2024 11:39 AM EDT I sent the Aygestin yesterday to pharmacy! I think Marcia is working on getting patient scheduled for polypectomy. Venus Vyas APRN.CNM [facility]09-06-2024 Telephone encounter Note* Telephone Encounter - Heather Marti RN - 01/06/2024 10:52 AM EDT Saw CP [facility]09-06-2024 Miscellaneous Notes* Telephone Encounter - Heather Marti RN - 01/06/2024 10:52 AM EDT Saw CP documented in this encounterProtestant Hospital09-05-2024 History of Present illness Narrative* Venus [...] returned Venus Vyas APRN.CNM documented in this encounterProtestant Hospital09-05-2024 NoteHNO ID: [id number] Author: VENUS VYAS APRN.CNM Service: ? Author Type: Ship/Rec/Doc Control Type: Progress Notes Filed: 01/05/2024 12:19 Note [...] with patient after results returned Venus LATA Vyas.[facility]09-03-2024 Note Indication Evaluation of abnormal uterine [...] Sloan RDMS Read By: Lorena Junior M.D.MATERNAL [id number] NoteHNO ID: [id number] Author: LORENA JUNIOR MD Service: ? 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 Encounter Diagnosis ICD-10-CM 1. Menorrhagia with irregular cycle N92.1 US FEMALE PELVIS TRANSVAG Please see report under imaging tab. 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 Encounter Diagnosis ICD-10-CM 1. Menorrhagia with irregular cycle N92.1 US FEMALE PELVIS TRANSVAG Please see report under imaging tab. Lorena Junior MD January 03, 2024 9:40 PM documented in this encounterProtestant Hospital09-03-2024 Telephone encounter Note * Telephone Encounter - Dary Zuñiga MA - 01/03/2024 8:47 AM EDT Order pended for ultrasound appointment for today. Please review and sign. Dary Zuñiga MA [facility]09-03-2024 Miscellaneous Notes* Telephone Encounter - Dary Zuñiga MA - 01/03/2024 8:47 AM EDT Order pended for ultrasound appointment for today. Please review and sign. Dary Zuñiga MA documented in this encounterProtestant Hospital08-26-2024 NoteHNO ID: [id number] Author: VENUS VYAS APRN.CNM Service: ? Author Type: Ship/Rec/Doc Control Type: Progress Notes Filed: 12/26/2023 14:17 Note Text: Orthopedic Nurse offered: Patient declines. Govind Haskins is a [...] L2 SAB0 IAB0 Ectopic0 Multiple0 Live Births2 Utility Bill Complaints Investigator History LMP: 12/05/2023, Drug Induced Amenorrhea Age at Menarche: Age at First : Age at Menopause: Utility Bill Complaints Investigator History Comments: Sexual Activity: Yes; Male Contraception: [...] external genitalia normal, normal Bartholin's glands, urethra, Eunice's glands, no vulvar lesions, no cervical lesions, [...] after pelvic US results return Venus Vyas APRN.[facility]08-26-2024 History of Present illness Narrative* Venus Vyas APRN.[facility] - 12/26/2023 1:40 PM EDT Orthopedic Nurse offered: Patient declines. Govind Haskins is a [...] L2 SAB0 IAB0 Ectopic0 Multiple0 Live Births2 Utility Bill Complaints Investigator History LMP: 12/05/2023, Drug Induced Amenorrhea Age at Menarche: Age at First : Age at Menopause: Utility Bill Complaints Investigator History Comments: Sexual Activity: Yes; Male Contraception: I.U.D. PAST MEDICAL HISTORY No date: anxiety 2015: Ectopic No date: Sleep apnea No date: SVT (supraventricular tachycardia) ([facility]) PAST SURGICAL HISTORY 1993: TONSILLECTOMY HX FAMILY [...] external genitalia normal, normal Bartholin's glands, urethra, Eunice's glands, no vulvar lesions, no cervical lesions, [...] return Venus Vyas APRN.CNM documented in this encounterProtestant Hospital08-22-2024 Telephone encounter Note * Telephone Encounter - Millie Ashby RN - 12/22/2023 1:05 PM EDT Patient notified. Reviewed bleeding precautions. Voiced understanding of instructions. Millie Ashby RN [facility]08-22-2024 Miscellaneous Notes* Telephone Encounter - Millie [...] heavier initially, then it slowed to a puff ironer flow the last couple days until today. Today it is even heavier then it was before. Changing pad about every 2 hours right now. Denies chest pain, shortness ofbreath or dizziness. Does feel more weak/tired today though. No cramping, just overall feels bloated and uncomfortable. Please advise. Heather Marti RN documented in this encounterProtestant Hospital08-22-2024 Telephone encounter Note * Telephone Encounter - Venus Vyas APRN.CNM - 12/22/2023 12:57 PM EDT I would recommend that patient NOT stop taking the progesterone only pills even when starting a period. Please give bleeding precautions and have patient start taking Ibuprofen 800 mg PO as needed for pain. Venus Vyas APRN.CNM [facility]08-22-2024 Telephone encounter Note* Telephone Encounter - [...] heavier initially, then it slowed to a puff ironer flow the last couple days until today. Today it is even heavier then it was before. Changing pad about every 2 hours right now. Denies chest pain, shortness ofbreath or dizziness. Does feel more weak/tired today though. No cramping, just overall feels bloated and uncomfortable. Please advise. Heather Marti RN [facility]07-03-2024 Evaluation + Plan note* Assessment & Plan Note - Maribel Kwan DO - 11/02/2023 11:04 AM EDTAssociated Problem(s): Anxiety -She will continue with Lexapro -She stopped the buspirone a month ago -We are adding Wellbutrin 150 mg and I will see her back in 3 weeks to see how she is doing with the combination medicine [facility] Work Phone: 1([phone]) [phone] Evaluation + Plan note* Assessment & Plan [...] will continue using the Flonase nasal spray [facility] Work Phone: [phone] Miscellaneous Notes* Assessment & Plan Note - [...] EDT Associated Problem(s): Paroxysmal SVT (supraventricular tachycardia) ([facility]) -Stable at this time and she will continue taking atenolol documented in this encounterParkwood Hospital Work Phone: 1(104) 281-253407-03-2024 Evaluation + Plan note* Assessment & Plan Note - Maribel Kwan DO - 11/02/2023 11:03 AM EDTAssociated Problem(s): Paroxysmal SVT (supraventricular tachycardia) ([facility]) -Stable at this time and she will continue taking atenolol [facility] Work Phone: 1([phone]) [phone] History of Present illness Narrative* Maribel Kwan [...] ENT Maribel Kwan DO documented in this encounterParkwood Hospital Work Phone: 1([phone]) 305-172107-03-2024 Instructions* Patient Instructions* Maribel Kwan DO - [...] of your other medications documented in this encounterParkwood Hospital Work Phone: [phone]) 495-100001-31-2024 NoteHNO ID: [id number] Author: VENUS VYAS APRN.SAVANNAH Service: ? Author Type: Ship/Rec/Doc Control Type: Progress Notes Filed: 06/01/2023 11:54 Note [...] pill. No other concerns at this time. Utility Bill Complaints Investigator History LMP: 08/28/2022, Drug Induced Amenorrhea Age at Menarche: Age at First : Age at Menopause: Utility Bill Complaints Investigator History Comments: Sexual Activity: Yes; Male Contraception: [...] needed or for yearly exam Venus Vyas APRN.[facility]01-03-2024 Evaluation + Plan note* Assessment & [...] for symptoms -We will stay in touch [facility] Work Phone: [phone] 306-950701-03-2024 Miscellaneous Notes* Assessment & Plan Note - [...] will stay in touch documented in this encounterParkwood Hospital Work Phone: [phone] History of Present illness Narrative* Maribel Kwan [...] states has ultimately cleared the Diflucan and oygd-gzl-vsdbbem medication. Review of Systems Constitutional: Negative for [...] views Maribel Kwan DO documented in this [facility] Work Phone: 1([phone]) 181-978001-03-2024 Instructions* Patient Instructions* Maribel Kwan DO - [...] next couple of weeks documented in this encounterParkwood Hospital Work Phone: 1([phone]) [phone] Evaluation + Plan note* Assessment & Plan [...] doing in the next week or so [facility] Work Phone: 1([phone]) [phone] Miscellaneous Notes* Assessment & Plan Note - [...] next week or so documented in this encounterParkwood Hospital Work Phone: 1([phone]) 604-623812-19-2023 History of Present illness Narrative* Maribel Kwan [...] capsule Maribel Kwan DO documented in this encounterParkwood Hospital Work Phone: 1([phone]) 379-300112-19-2023 Instructions* Patient Instructions* Maribel Kwan DO - [...] 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 documented in this encounterParkwood Hospital Work Phone: [phone] 242-374510-03-2023 Evaluation + Plan note* Assessment & Plan Note - Maribel Kwan DO - 02/01/2023 9:19 AM EDTAssociated Problem(s): Anxiety -She reports feeling improvement after starting the buspirone 7.5 mg 3 times a day [facility] Work Phone: [phone] 546-467710-03-2023 Miscellaneous Notes* Assessment & Plan Note - [...] have recommended she get into see her irrigationist designer for checkup and she states she will [...] AM Modules accepted: Orders documented in this [facility] Work Phone: 1([phone] 105-872910-03-2023 Evaluation + Plan note* Assessment & Plan Note - Maribel Kwan DO - 02/01/2023 9:18 AM EDTAssociated Problem(s): Paroxysmal SVT (supraventricular tachycardia) -She still gets some occasional proximal systems of tachycardia -She continues to take Tenormin 25 mg daily -I have recommended she get into see her irrigationist designer for checkup and she states she will call to make the appointment. She states has been a while since she was seen and I told her if necessary we could issue a referral. [facility] Work Phone: [phone] Evaluation + Plan note* Assessment & Plan [...] has definitely derived benefit from its use [facility] Work Phone: [phone] 415-134110-03-2023 History of Present illness Narrative* Howard Love [...] heart. She states she will call her irrigationist designer to get in for checkup and if [...] have recommended she get into see her irrigationist designer for checkup and she states she will call to make the appointment. She states has been a while since she was seen and I told her if necessary we could issue a referral. Other Visit Diagnoses Codes Supraventricular tachycardia, paroxysmal I47.10 Maribel Kwan DO documented [facility] this [facility] Work Phone: [phone] Instructions* Patient Instructions* Maribel Kwan DO - [...] call if that changes Please contact your irrigationist designer because I think we need to check up for your SVT We are giving you the season's flu vaccine today and if everything goes according to plan I would like to see you back in approximately 3 months for follow-up on your CPAP therapy documented in this [facility]Un[facility] Work Phone: [phone] Note* Addendum Note - Daniella Monson MA - 02/01/2023 9:00 AM EDTAddended by: DANIELLA MONSON on: 02/01/2023 09:29 AM Modules accepted: Orders [facility] Work Phone: [phone] 349-736910-03-2023 Note* Addendum Note - Daniella Monson MA - 02/01/2023 9:00 AM EDTAddended by: DANIELLA MONSON on: 02/01/2023 09:29 AM Modules accepted: Orders [facility] Work Phone: [phone] Miscellaneous Notes* Telephone Encounter - Maribel Mora LPN - 11/11/2022 4:58 PM EDT See pharmacy generated refill request and advise. Maribel Mora LPN' [facility] Evaluation + Plan note* Assessment & Plan Note - Maribel Kwan DO - 10/21/2022 4:23 PM EDT Associated Problem(s): Fatigue -We will be sending her for fasting lab work to check sugar, kidney, liver, blood count, and thyroid. -She will get back on her CPAP [facility] Work Phone: [phone]) [phone] Miscellaneous Notes* Assessment & Plan Note - [...] 3 weeks for follow-up documented in [facility] Work Phone: [phone] 337-260306-22-2023 Evaluation + Plan note* Assessment & Plan Note - Maribel Kwan DO - 10/21/2022 4:22 PM EDTAssociated Problem(s): Obstructive sleep apnea on CPAP -She is strongly encouraged to get back on CPAP therapy and she understands that by not treating sleep apnea her symptoms of fatigue, brain fog, and even depression can be caused by untreated sleep apnea. [facility] Work Phone: [phone]) [phone] Evaluation + Plan note* Assessment & Plan Note - Maribel Kwan DO - 10/21/2022 4:22 PM EDTAssociated Problem(s): Anxiety -She will continue with Lexapro 20 mg daily -I am adding BuSpar 5 mg 3 times a day -She will continue with counseling -We will see her back in approximately 3 weeks for follow-up [facility] Work Phone: [phone] 215-866206-22-2023 History of Present illness Narrative* Howard Love [...] TSH Maribel Kwan DO documented in [facility]Park[facility] Work Phone: [phone] Instructions* Patient Instructions* Maribel Kwan DO - [...] please let us know. I would contact [employer] right away Please remember to get fasting lab work at your earliest convenience and when you come back we willgo over the results documented in [facility]Park[facility] Work Phone: [phone] History of Present illness Narrative* Venus Vyas APRN.SAVANNAH - 09/01/2022 4:09 PM EDT Orthopedic Nurse offered: Patient declines. CONTRACEPTION Govind Haskins is [...] Ectopic 2014 Sleep apnea SVT (supraventricular tachycardia) ([facility]) PAST SURGICAL HISTORY Procedure Laterality Date TONSILLECTOMY [...] up Venus Vyas APRN.CNM documented in this encounterPro[facility]04-10-2023 Evaluation + Plan note* Assessment & Plan Note - Maribel Kwan DO - 08/09/2022 2:19 PM EDT Associated Problem(s): Bronchitis -She received a Z-Jorden from urgent care a couple of weeks ago -I am sending in a prednisone tapering regimen -I am sending in Tessalon for cough and we discussed using zjgo-fjj-wapjwnq cough syrup as well or cough drops -I am sending in a prescription for albuterol to treat bronchospasm. She will call if her conditionis not improving or does not resolve in the next 10 to 14 days [facility] Work Phone: [phone] Miscellaneous Notes* Assessment & Plan Note - Maribel Kwan DO - 08/09/2022 2:19 PM EDTAssociated Problem(s): Bronchitis -She received a Z-Jorden from urgent care a couple of weeks ago -I am sending in a prednisone tapering regimen -I am sending in Tessalon for cough and we discussed using fstq-xts-fkergqn cough syrup as well or cough drops -I am sending in a prescription for albuterol to treat bronchospasm. She will call if her conditionis not improving or does not resolve in the next 10 to 14 days documented in [facility] encounterPark[facility] Work Phone: [phone] History of Present illness Narrative* Maribel Uribe [...] Tessalon for cough and we discussed using qwsj-ddm-pbydwcx cough syrup as well or cough drops -I am sending in a prescription for albuterol to treat bronchospasm. She will call if her conditionis not improving or does not resolve in the next 10 to 14 days Relevant Medications predniSONE (Deltasone) 10 mg tablet benzonatate (Tessalon) 100 mg capsule albuterol (Ventolin HFA) 90 mcg/actuation inhaler Maribel Kwan DO documented in this [facility] Work Phone: [phone] 262-687004-10-2023 Instructions* Patient Instructions* Maribel Kwan DO - 08/09/2022 2:00 PM EDT -As we discussed I sent 3 prescriptions to your pharmacy at [facility]. 1 is for a prednisone tapering regimen that will help with bronchospasm and inflammation of the lung. Please be sure to take this medication with food. -I also sent a prescription for an albuterol inhaler and Tessalon for cough. You can also safely take pety-egh-wjaiuiz Robitussin or Gates's cough drops to help with your cough and please let me know if you are not getting better or if your symptoms do not resolve in 10 to 14 days documented in this encounterPark[facility] Work Phone: [phone] 343-518603-30-2023 Evaluation + Plan note* Assessment & Plan Note - Maribel Kwan DO - 07/29/2022 4:31 PM EDTAssociated Problem(s): Morbid obesity with body mass index (BMI) of 40.0 or higher (CMS/HCC) -She will get lab work just prior to her next follow-up visit in 6 months [facility] Work Phone: [phone] 195-678703-30-2023 Evaluation + Plan note* Assessment & Plan Note - Maribel Kwan DO - 07/29/2022 4:31 PM EDTAssociated Problem(s): Anxiety -She will continue with escitalopram 20 mg daily and she will also continue to see her counselor regularly. She is encouraged to call if things or not going well [facility] Work Phone: [phone] Evaluation + Plan note* Assessment & Plan Note - Maribel Kwan DO - 07/29/2022 4:31 PM EDTAssociated Problem(s): GERD (gastroesophageal reflux disease) -Her acid reflux has been stable -She will continue with omeprazole 40 mg daily [facility] Work Phone: [phone] Evaluation + Plan note* Assessment & Plan Note - Maribel Kwan DO - 07/29/2022 4:31 PM EDTAssociated Problem(s): Paroxysmal SVT (supraventricular tachycardia) ([facility]/HCC) -Her condition has been stable -She will continue with atenolol 25 mg once daily [facility] Work Phone: [phone] Miscellaneous Notes* Assessment & Plan Note - Maribel Kwan DO - 07/29/2022 4:31 PM EDTAssociated Problem(s): Morbid obesity with body mass index (BMI) of 40.0 or higher (CMS/[facility]) -She will get lab work just prior [...] EDT Associated Problem(s): Paroxysmal SVT (supraventricular tachycardia) ([facility]) -Her condition has been stable -She will continue with atenolol 25 mg once daily * Assessment & Plan Note - Maribel Kwan DO - 07/29/2022 4:30 PM EDT Associated Problem(s): Obstructive sleep apnea on CPAP -She will work on getting back on her CPAP therapy consistently and is encouraged to call if thingsor not going according to plan documented in this encounterPark[facility] Work Phone: [phone] Evaluation + Plan note* Assessment & Plan Note - Maribel Kwan DO - 07/29/2022 4:30 PM EDTAssociated Problem(s): Obstructive sleep apnea on CPAP -She will work on getting back on her CPAP therapy consistently and is encouraged to call if thingsor not going according to plan [facility] Work Phone: [phone] History of Present illness Narrative* Howard Love [...] Primary Care Circulatory Paroxysmal SVT (supraventricular tachycardia) ([facility]) -Her condition has been stable -She will [...] mass index (BMI) of 40.0 or higher ([facility]) -She will get lab work just prior [...] tablet Maribel Kwan DO documented in [facility] encounterPark[facility] Work Phone: [phone] Instructions* Patient Instructions* Maribel Kwan DO - 07/29/2022 4:00 PM EDT -We have provided refills on all of your medications today -Please call if things or not going well and otherwise I would like to see you back in 6 months. -Please get fasting lab work prior to that visit documented in [facility] encounterPark[facility] Work Phone: [phone] History of Past illness Narrative* Problem Noted [...] of this encounter (statuses as of 09/02/2022) [facility] History of Past illness Narrative* Problem [...] of this encounter (statuses as of 11/12/2022) [facility] Diagnosis Bronchitis- Primary Bronchitis, not specified as acute or chronic documented in this encounter [facility] Work Phone: Evaluation note* Diagnosis Encounter for initial prescription of contraceptive pills- Primary General counseling for prescription of oral contraceptives Morbid obesity (HCC) Morbid obesity Hypertension, unspecified type [facility] Diagnosis Anxiety- Primary Anxiety state, unspecified Fatigue, unspecified type Obstructive sleep apnea on CPAP documented in this encounter [facility] Work Phone: Evaluation note* Diagnosis Obstructive sleep apnea on CPAP Paroxysmal SVT (supraventricular tachycardia) Gastroesophageal reflux disease without esophagitis Esophageal reflux Anxiety Anxiety state, unspecified Supraventricular tachycardia, paroxysmal Immunization due documented in this encounter [facility] Work Phone: Evaluation note* Diagnosis Upper respiratory tract infection, unspecified type- Primary Gastroesophageal reflux disease without esophagitis Esophageal reflux documented in this encounter [facility] Work Phone: Evaluation note* Diagnosis Subacute cough- Primary PND (post-nasal drip) Postnasal drip documented in this encounter [facility] Work Phone: Evaluation note* Diagnosis care and examination- Primary Routine follow-up History of chronic hypertension SVT (supraventricular tachycardia) (HCC) Other specified cardiac dysrhythmias Menorrhagia with irregular cycle- Primary Excessive or frequent menstruation Irregular intermenstrual bleeding Metrorrhagia Morbid obesity (HCC) Morbid obesity [facility] Diagnosis care and examination- Primary Routine follow-up History of chronic hypertension SVT (supraventricular tachycardia) (HCC) Other specified cardiac dysrhythmias Menorrhagia with irregular cycle- Primary Excessive or frequent menstruation Menorrhagia with irregular cycle- Primary Excessive or frequent menstruation documented in this encounter [facility] note* Diagnosis care and examination- Primary Routine follow-up History of chronic hypertension SVT (supraventricular tachycardia) (HCC) Other specified cardiac dysrhythmias Menorrhagia with irregular cycle- Primary Excessive or frequent menstruation documented in this encounter [facility] note* Diagnosis care and examination- Primary Routine follow-up History of chronic hypertension SVT (supraventricular tachycardia) (HCC) Other specified cardiac dysrhythmias Irregular bleeding- Primary Irregular menstrual cycle Menorrhagia with irregular cycle Excessive or frequent menstruation Abnormal uterine bleeding due to endometrial polyp Cysts of both ovaries Other and unspecified ovarian cyst documented in this encounter [facility] note* Diagnosis care and examination- Primary Routine follow-up History of chronic hypertension SVT (supraventricular tachycardia) (HCC) Other specified cardiac dysrhythmias Abnormal uterine bleeding (AUB)- Primary Endometrial polyp Polyp of corpus uteri Pre-op exam Preoperative examination, unspecified documented in this encounter [facility] note* Diagnosis Obstructive sleep apnea on CPAP- Primary Paroxysmal SVT (supraventricular tachycardia) ([facility]) Gastroesophageal reflux disease without esophagitis Esophageal reflux [...] apnea on CPAP Paroxysmal SVT (supraventricular tachycardia) ([facility]) Gastroesophageal reflux disease without esophagitis Esophageal reflux Anxiety Anxiety state, unspecified Supraventricular tachycardia, paroxysmal ([facility]) Immunization due Dysfunction of right eustachian tube- Primary PND (post-nasal drip) Postnasal drip Anxiety Anxiety state, unspecified Paroxysmal SVT (supraventricular tachycardia) ([facility]) Fatigue, unspecified type Anxiety- Primary Anxiety state, unspecified Paroxysmal SVT (supraventricular tachycardia) ([facility]) Anxiety Anxiety state, unspecified Gastroesophageal reflux disease without esophagitis Esophageal reflux PND (post-nasal drip) Postnasal drip documented in this encounter [facility] Work Phone: Evaluation note* Diagnosis care and examination- Primary Routine follow-up History of chronic hypertension SVT (supraventricular tachycardia) (HCC) Other specified cardiac dysrhythmias Surveillance of previously prescribed intrauterine contraceptive device- Primary [facility] Diagnosis Dysfunction of right eustachian tube- Primary PND (post-nasal drip) Postnasal drip Anxiety Anxiety state, unspecified Paroxysmal SVT (supraventricular tachycardia) ([facility]-HCC) Fatigue, unspecified type documented in this encounter [facility] Work Phone: Evaluation note* Diagnosis Obstructive sleep apnea on CPAP- Primary Paroxysmal SVT (supraventricular tachycardia) (CMS/HCC) Gastroesophageal reflux disease without esophagitis Esophageal reflux Anxiety Anxiety state, unspecified Morbid obesity with body mass index (BMI) of 40.0 or higher (CMS/HCC) Taking medication for chronic disease Chronic primary headache documented in this encounter [facility] Work Phone: Evaluation note* Diagnosis Obstructive sleep apnea on CPAP- Primary Paroxysmal SVT (supraventricular tachycardia) ([facility]-HCC) Gastroesophageal reflux disease without esophagitis Esophageal reflux Anxiety Anxiety state, unspecified Morbid obesity with body mass index (BMI) of 40.0 or higher ([facility]) Taking medication for chronic disease Chronic primary headache Anxiety- Primary Anxiety state, unspecified Fatigue, unspecified type Obstructive sleep apnea on CPAP Fatigue, unspecified type- Primary Obstructive sleep apnea on CPAP Anxiety Anxiety state, unspecified Obstructive sleep apnea on CPAP Paroxysmal SVT (supraventricular tachycardia) (CMS-HCC) Gastroesophageal reflux disease without esophagitis Esophageal reflux Anxiety Anxiety state, unspecified Supraventricular tachycardia, paroxysmal ([facility]-HCC) Immunization due Dysfunction of right eustachian tube- Primary PND (post-nasal drip) Postnasal drip Anxiety Anxiety state, unspecified Paroxysmal SVT (supraventricular tachycardia) (CMS-HCC) Fatigue, unspecified type Anxiety- Primary Anxiety state, unspecified Paroxysmal SVT (supraventricular tachycardia) (CMS-HCC) Anxiety Anxiety state, unspecified Gastroesophageal reflux disease without esophagitis Esophageal reflux PND (post-nasal drip) Postnasal drip Taking medication for chronic disease- Primary Paroxysmal SVT (supraventricular tachycardia) ([facility]-HCC) Anxiety Anxiety state, unspecified Gastroesophageal reflux disease without esophagitis Esophageal reflux PND (post-nasal drip) Postnasal drip Obstructive sleep apnea on CPAP documented in this encounter [facility] Work Phone: Evaluation noteNo assessment information available [facility] Work Phone: Evaluation note* Diagnosis Onset Date Resolution Status Admit Date Closed fracture of head of r ight radius acute November 23, 2024 1:30pm Fall acute November 23 1:30pm [facility] Work Phone: Hospital Discharge instructionsAdditional Instructions Closed fracture of the radial head your right elbow. Maintain your sling. Reported patient by radiology the scapholunate widening however you are nontender in this area. Continue ibuprofen 600 mg every 6 hours as needed for pain. Follow-up with orthopedics.[facility] Work Phone: Hospital Discharge instructionsAmbulatory Orders* PT Referral Location: None Selected [facility] Work Phone: Reason for referral (narrative)* Consultation (Routine) - Authorized Specialty Diagnoses / Procedures Referred By Contac t Referred To Contact Primary Care Procedures Follow Up In Primary Care Maribel Kwan DO [address] [facility] [place] [address] Referral ID Status Reason Start Date Expiration Date V isits Requested Visits Authorized [id number] Authorized 10/21/2022 04/19/2023 1 1 [facility] Work Phone: [facility] for referral (narrative)* Consultation (Routine) - Authorized Specialty Diagnoses / Procedures Referred By Gwendolyn t Referred To Contact Primary Care Procedures Follow Up In Primary Care Maribel Kwan DO [address] [place] [address] Referral ID Status Reason Start Date Expiration Date V isits Requested Visits Authorized [id number] Authorized 02/01/2023 07/31/2023 1 1 [facility] Work Phone: [facility] for referral (narrative)* Diagnostic Procedure Only (Routine) - Authorized Specialty Diagnoses / Procedures Referred By Contac t Referred To Contact [facility] Diagnoses Menorrhagia with irregular cycle Procedures US FEMALE PELVIS TRANSVAG US TRANSVAGINAL Venus Vyas APRN.CNM [address] [place] [place] [address] [place] [address] Referral ID Status Reason Start Date Expiration Date Visits Requested Visits Authorized [id number] Authorized Auto-Generat ed Referral 12/26/2023 01/24/2025 1 1 [facility] for referral (narrative)* Diagnostic Procedure Only (Routine) - Closed Specialty Diagnoses / Procedures Referred By Contac t Referred To Contact [facility] Diagnoses Menorrhagia with irregular cycle Procedures PELVIC US WHI US PELVIC NONOBSTETRIC REAL-TIME IMAGE COMPLETE Cande Bowers APRN.CREDIT OR LOANS OFFICER [address] [place] [place] [address] [facility] [address] [place] [address] Referral ID Status Reason Start Date Expiration Date V isits Requested Visits Authorized [id number] Closed Auto-Generate d Referral 01/03/2024 05/01/2024 1 1 [facility] for referral (narrative)* Diagnostic Procedure Only (Routine) - New Request Specialty Diagnoses / Procedures Referred By Contac t Referred To Contact [facility] Diagnoses Menorrhagia with irregular cycle Procedures US FEMALE PELVIS TRANSVAG US TRANSVAGINAL Venus Vyas APRN.CNM [address] [place] [place] [address] [place] [address] Referral ID Status Reason Start Date Expiration Date Visits Requested Visits Authorized [id number] New Request Auto-Generat ed Referral 12/30/2023 01/28/2025 1 1 [facility] for referral (narrative)* Consultation (Routine) - Authorized Specialty Diagnoses / Procedures Referred By Contac t Referred To Contact Primary Care Procedures Follow Up In Primary Care Maribel Kwan DO [address] [facility] [place] [address] Referral ID Status Reason Start Date Expiration Date V isits Requested Visits Authorized [id number] Authorized 11/02/2023 11/01/2024 1 1 * Consultation (Routine) - Authorized Specialty Diagnoses / Procedures Referred By Contac t Referred To Contact Otolaryngology Diagnoses Dysfunction of right eustachian tube Maribel Kwan DO [address] [place] [address] Referral ID Status Reason Start Date Expiration Date Visits Requested Visits Authorized [id number] Authorized Specialty Services Required 11/02/2023 11/01/2024 1 1 [facility] Work Phone: [facility] for referral (narrative)* Consultation (Routine) - Authorized Specialty Diagnoses / Procedures Referred By Contac t Referred To Contact Primary Care Diagnoses Obstructive sleep apnea on CPAP Paroxysmal SVT (supraventricular tachycardia) ([facility]/HCC) Gastroesophageal reflux disease without esophagitis Anxiety Procedures Follow Up In Primary Care Maribel Kwan DO [address] [facility] [place] [address] Referral ID Status Reason Start Date Expiration Date V isits Requested Visits Authorized [id number] Authorized 07/29/2022 01/25/2023 1 1 T [facility] Work Phone: [facility] for referral (narrative)* Consultation (Routine) - Authorized Specialty Diagnoses / Procedures Referred By Contac t Referred To Contact Primary Care Procedures Follow Up In Primary Care Maribel Kwan DO [address] [place] [address] Phone: tel: fax: Referral ID Status Reason Start Date Expiration Date V isits Requested Visits Authorized [id number] Authorized 09/04/2024 09/04/2025 1 1 [facility] Work Phone: reason for referral (narrative)No reason for referral information availableWOhioHealth [facility] Work Phone: Reason for visit Narrative* Consultation (Routine) - Closed Specialty Diagnoses / Procedures Referred By Contac t Referred To Contact Primary Care Diagnoses Obstructive sleep apnea on CPAP Paroxysmal SVT (supraventricular tachycardia) Gastroesophageal reflux disease without esophagitis Anxiety Procedures Follow Up In Primary Care Maribel Kwan DO [address] [facility] [place] [address] Referral ID Status Reason Start Date Expiration Date Visits Re quested Visits Authorized [id number] Closed 07/29/2022 01/25/2023 1 1 [facility] Work Phone: [facility] for visit Narrative* Consultation (Routine) - Authorized Specialty Diagnoses / Procedures Referred By Contac t Referred To Contact Primary Care Procedures Follow Up In Primary Care Maribel Kwan DO [address] [facility] [place] [address] Referral ID Status Reason Start Date Expiration Date V isits Requested Visits Authorized [id number] Authorized 02/01/2023 07/31/2023 1 1 [facility] Work Phone: [facility] for visit Narrative* Diagnostic Procedure Only (Routine) - Closed Specialty Diagnoses / Procedures Referred By Gwendolyn linares Referred To Contact [facility] Diagnoses Menorrhagia with irregular cycle Procedures US FEMALE PELVIS TRANSVAG US TRANSVAGINAL Venus Vyas APRN.SAVANNAH [address] [place] [place] [address] [place] [address] Referral ID Status Reason Start Date Expiration Date V isits Requested Visits Authorized [id number] Closed Auto-Generate d Referral 12/26/2023 01/24/2025 1 1 [facility] Summary Purpose Family History Grandparent Name [...] Do you have a Healthcare Power of Toggle Press Operator? No November 20, 2024 12:34pm Chief Complaint * Pt is here today for a 6 month check up, C/O right ear pressure and popping. She is currently taking augmentin. This note was generated by using Soneter software. It may contain errors in wording, [...] also states she will be seeing her irrigationist designer in the near future as a follow-up [...] she did a program called program in [place]. She states that she got awayfrom going [...] labs. This note was generated by using Soneter software. It may contain errors in wording, [...] and legs. Thisnote was generated by using Soneter software. It may contain errors in wording, punctuate, or spelling. * She is here today for evaluation of a diffuse body rash. She explains that all was well until Tuesday the . She states she was driving home and she almost ran into a tree that had fallen on theroad. She got out to help apple picker the tree and branches and she [...] rash. This note was generated by using Soneter software. It may contain errors in wording, [...] XR chest 2 views Maribel Kwan, [address] [facility] [place] [address] Referral ID Status Reason Start Date Expiration Date Visits Requested Visits Authorized [id number] Authorized Perform Procedure 05/04/2023 05/03/2024 1 1 [...] section and content) DATE CREATED AUTHOR 10/25/2017 [facility] DATE CREATED AUTHOR AUTHOR'S ORGANIZ ATION 04/14/2022 [facility] DATE CREATED AUTHOR AUTHOR'S ORGANIZ ATION 08/01/2022 [facility] DATE CREATED AUTHOR AUTHOR'S ORGANIZ ATION 10/25/2022 [facility] DATE CREATED AUTHOR AUTHOR'S ORGANIZ ATION 05/08/2023 [facility] DATE CREATED AUTHOR AUTHOR'S ORGANIZ ATION 12/02/2023 [facility] DATE CREATED AUTHOR AUTHOR'S ORGANIZ ATION 03/17/2024 [facility] DATE CREATED AUTHOR AUTHOR'S ORGANIZ ATION 09/07/2024 [facility] DATE CREATED AUTHOR AUTHOR'S ORGANIZ ATION 11/27/2024 [facility] <item> Privacy Markings (unrecogniz ed section [...] Expiration Date V isits Requested Visits Authorized [id number] Authorized 11/28/2023 11/27/2024 1 1 Reason Comments IUD Follow UP Reason Comments Ear Fullness Reason Comments Follow-up 6 MO CK Care Teams (unrecognized sec tion and content) Plastic Jig And Fixture Builder Relationship Specialty Start Date End Date Maribel Kwan DO [address] [facility] [place] [address] PCP - General 08/30/16 Maribel Kwan DO [address] [facility] Medical Office [place], [place] [id number] PCP - MMO ACO PCP 01/30/22 Plastic Jig And Fixture Builder Relationship Specialty Start Date End Date Maribel KwanDO [address] [place], [place] [id number] PCP - General Internal Medicine 12/24/20 Plastic Jig And Fixture Builder Relationship Specialty Start Date End Date Maribel KwanDO [address] [facility] Office [place] [id number] PCP - General 08/30/16 [place] [address] [place] [id number] PCP - MMO ACO PCP 01/30/22 Plastic Jig And Fixture Builder Relationship Specialty Start Date End Date Maribel KwanDO [address] [place] [id number] PCP - General Internal Medicine 12/24/20 Plastic Jig And Fixture Builder Relationship Specialty Start Date End Date Maribel KwanDO [address] [facility] Office [place], [place] [id number] PCP - General 08/30/16 Maribel DO [address] [facility] Office [place], [place] [id number] PCP - MMO ACO PCP 01/30/22 Plastic Jig And Fixture Builder Relationship Specialty Start Date End Date Swati Kwanchris Ding DO [address] [facility] [facility] [place], [place] [id number] PCP - General 08/30/16 Plastic Jig And Fixture Builder Relationship Specialty Start Date End Date Maribel KwanDO [address] [place] [address] Medical [place], [place] [id number] PCP - General 08/30/16 Plastic Jig And Fixture Builder Relationship Specialty Start Date End Date Maribel Kwan [address] [place], [place] [id number] PCP - General Internal Medicine 12/24/20 Plastic Jig And Fixture Builder Relationship Specialty Start Date End Date Maribel KwanDO [address] [place] [address] PCP - General Internal Medicine 12/24/20 Plastic Jig And Fixture Builder Relationship Specialty Start Date End Date Maribel KwanDO [address] [place], [place] [id number] PCP - General Internal Medicine 12/24/20 Plastic Jig And Fixture Builder Relationship Specialty Start Date End Date Maribel KwanDO [address] [place] [address] PCP - General Internal Medicine 12/24/20 Plastic Jig And Fixture Builder Relationship Specialty Start Date End Date Maribel KwanDO [address] [place], [place] [id number] PCP - General Internal Medicine 12/24/20 Plastic Jig And Fixture Builder Relationship Specialty Start Date End Date Maribel KwanDO [address] [place], [place] [id number] PCP - General Internal Medicine 12/24/20 Plastic Jig And Fixture Builder Relationship Specialty Start Date End Date Swati Kwanly Toña, DO [address] [place] [address] PCP - General Internal Medicine 12/24/20 Plastic Jig And Fixture Builder Relationship Specialty Start Date End Date Maribel Kwan [address] [place] [address] PCP - General Internal Medicine 12/24/20 Plastic Jig And Fixture Builder Relationship Specialty Start Date End Date Maribel Kwan PCP - General 08/30/16 Plastic Jig And Fixture Builder Relationship Specialty Start Date End Date Swati Kwanly ToñaDO [address] [place], [place] [id number] PCP - General Internal Medicine 12/24/20 Plastic Jig And Fixture Builder Relationship Specialty Start Date End Date Delmy Kwanberchris DingDO [address] [facility] Office [place] [id number] PCP - General 08/30/16 Plastic Jig And Fixture Builder Relationship Specialty Start Date End Date Maribel Kwan [address] [place] [address] [place] [address] PCP - General 08/30/16 [place] Maribel Ding DO [address] [place] [address] Office [place], [place] [id number] PCP - MMO ACO PCP 01/30/22 Plastic Jig And Fixture Builder Relationship Specialty Start Date End Date Swati Kwanly ToñaDO [address] [address] PCP - General 5/1/17 Team Status: Active [...] or prosecute any alcohol or drug abuse patient.[facility] the event this information is protected by the Federal Confidentiality of Alcohol and Drug Abuse Patient Records regulations: The Federal rules restrict any use of the information to criminally investigate or prosecute any alcohol or drug abuse patient.[facility] Hospital[facility] the event this information is protected by the Federal Confidentiality of Alcohol and Drug Abuse Patient Records regulations: The Federal rules restrict any use of the information to criminally investigate or prosecute any alcohol or drug abuse patient.[facility] Hospital[facility] the event this information is protected by the Federal Confidentiality of Alcohol and Drug Abuse Patient Records regulations: The Federal rules restrict any use of the information to criminally investigate or prosecute any alcohol or drug abuse patient.[facility] HospitalIn the event this information is protected by the Federal Confidentiality of Alcohol and Drug Abuse Patient Records regulations: The Federal rules restrict any use of the information to criminally investigate or prosecute any alcohol or drug abuse patient.[facility] HospitalIn the event this information is protected by the Federal Confidentiality of Alcohol and Drug Abuse Patient Records regulations: The Federal rules restrict any use of the information to criminally investigate or prosecute any alcohol or drug abuse patient.[facility] Hospital[facility] the event this information is protected by the Federal Confidentiality of Alcohol and Drug Abuse Patient Records regulations: The Federal rules restrict any use of the information to criminally investigate or prosecute any alcohol or drug abuse patient.[facility] HospitalIn the event this information is protected by the Federal Confidentiality of Alcohol and Drug Abuse Patient Records regulations: The Federal rules restrict any use of the information to criminally investigate or prosecute any alcohol or drug abuse patient.[facility] HospitalIn the event this information is protected by the Federal Confidentiality of Alcohol and Drug Abuse Patient Records regulations: The Federal rules restrict any use of the information to criminally investigate or prosecute any alcohol or drug abuse patient.[facility] Hospital[facility] the event this information is protected by the Federal Confidentiality of Alcohol and Drug Abuse Patient Records regulations: The Federal rules restrict any use of the information to criminally investigate or prosecute any alcohol or drug abuse patient.[facility] HospitalIn the event this information is protected by the Federal Confidentiality of Alcohol and Drug Abuse Patient Records regulations: The Federal rules restrict any use of the information to criminally investigate or prosecute any alcohol or drug abuse patient.[facility] HospitalIn the event this information is protected by the Federal Confidentiality of Alcohol and Drug Abuse Patient Records regulations: The Federal rules restrict any use of the information to criminally investigate or prosecute any alcohol or drug abuse patient.[facility] HospitalIn the event this information is protected by the Federal Confidentiality of Alcohol and Drug Abuse Patient Records regulations: The Federal rules restrict any use of the information to criminally investigate or prosecute any alcohol or drug abuse patient.[facility] Goals (unrecognized section and content) Goals [...] BE BASED ON THE PRIMARY CLINICAL RECORDS. [facility]. provides no warranty or guarantee of the accuracy or completeness of information in this document.
== END | disposition home or self-care (01) ==
PROVIDERS: PCP Internal Medicine; Referring Provider Orthopaedic Surgery Sports Medicine; Visit Provider Orthopaedic Surgery Sports Medicine
DX: S52.121A Displaced fracture of head of right radius, initial encounter for closed fracture (principal)
CPT/HCPCS: 73080

== ENCOUNTER 2025-01-23 11:30 | Outpatient (RCR) | payer OTHER, MEDICAID, SELFPAY ==
--- NOTE | 2024-12-18 15:41 | HP.OTEVAL ---
Patient's Visit Information Visit Information Visit Information: GOVIND HASKINS is a 39 year old F, referred to Occupational Therapy by Dr. Helio Charles MD, with a diagnosis of radius head fx. 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 and is unable to return to work until she is able to lift >50 lbs; pt is still able to complete all self-care (bathing/dressing/grooming/toileting) with increased pain and difficulty ADLs Comments: Pt reports ability to complete all ADLs/self-care, cooking, cleaning, driving, grocery shopping with increased pain, time, and difficulty Pain RUE: Current Pain Intensity: 1 Pain Intensity Range: 0 and 5 Objective Objective/Observation: Pt noted to guard RUE d/t pain/stiffness; pt noted to have decreased ambulation speed ROM Shoulder: Full Range Elbow: Full Range in Flexion; Extension R - lacking 40 degrees L - lacking 10 deg Forearm: Full Range in Pronation; Supination - R - 55; L - 75 Wrist: Flexion: R - 45 L - 55; Extension R - 50, L - 70 Strength Strength Comments: MMT deferred at this time d/t NWB RUE; pt has a follow up appointment on 01/07 for possible d/c of restrictions with progression to strengthening Edema Other: Minimal edema noted in R elbow (distal humerus) - R 33 cm; L 31 cm Quick DASH-Disab of Arm,Shoulder& Hand Quick DASH Score: 45.4525 Goals Goal:: director of sports medicine/pinch strength at least 75% unaffected hand (will not initiate until cleared by physician s/p 6 weeks) Goal:: ROM Equal to unaffected hand Goal:: No pain in RUE with functional use Goal:: edema reduction such that RUE is equal to LUE Goal:: Full use of affected hand in daily activities including work Rehabilitation General Assessment: Pt arrives 4 weeks 1 day from fall and fracture of R radial head; pt also reports R wrist pain, but states X-Rays were negative for fracture and no further imaging was completed; pt is experiencing increased pain and time needed to complete all ADLs and is still NWB RUE and unable to return to work; Pt would benefit from OT services 1-2 times weekly for 6 weeks to return to PLOF with RUE; Today, therapist ed pt on shoulder, elbow, forearm, and wrist AROM, heat/ice protocols, and limiting activity with RUE. Rehabilitation Potential: Good Anticipated Interventions Anticipated Interventions: A/AAROM/PROM, Strengthening, Edema Control, Massage, Triggerpoint Release, Modalities, Joint Protection/Energy Conservation, Ergonomic Education, Education re assistive Equipment, Education re Diagnosis and Home Program Visit Plan Frequency: 1-2x /Week Duration: 2 Months General Plan: initiate AROM in RUE; hold on strengthening until cleared by physician s/p 6 weeks TEXT: Thank you for the opportunity to evaluate your patient. For Medicare and Medicare HMO plans, please review the plan of care and approve it. It will need to be FAXED BACK to us at [phone] for Medicare purposes. Please let me know if there are questions or concerns regarding this plan of care. Physician Signature: Date:
--- NOTE | 2025-05-16 08:38 | HP.OT.NRP ---
Patient Information Patient Information: GOVIND HASKINS was seen in my office for initial evaluation on 12/18/24. The following Plan of Care was established for this patient: POC Established Initial Frequency: 1-2x /Week Initial Duration: 2 Months Plan: AROM edema control strengthening trigger point release Anticipated Interventions Anticipated Interventions: A/AAROM/PROM, Strengthening, Edema Control, Massage, Triggerpoint Release, Modalities, Joint Protection/Energy Conservation, Ergonomic Education, Education re assistive Equipment, Education re Diagnosis and Home Program Last Seen Last Seen: This patient was last seen in our office 01/23/25. Pertinent comments regarding their Occupational therapy will appear below: Due to time lapse in service pt is d/c. At this point I will be discontinuing this patient from occupational therapy. I would be happy to see this patient again in the future if found appropriate by the physician. Thank you! Lynda Oconnor, OTR/L, CHT
== END 2025-01-23 19:00 | disposition home or self-care (01) ==
LOC: OT 11:30
PROVIDERS: PCP Internal Medicine; Referring Provider Orthopaedic Surgery Sports Medicine; Visit Provider Orthopaedic Surgery Sports Medicine
DX: S52.121D Displaced fracture of head of right radius, subsequent encounter for closed fracture with routine healing (principal)
CPT/HCPCS: 97110; 97165; 97530